=== PATIENT | female | born 1935 | race Caucasian/White ===

== ENCOUNTER 2016-10-02 08:42 | Day surgery (SDC) | payer OTHER ==
[2016-10-02] MEDS ORDERED: NS 500 ML IV 500 ML IV ONE (09:12)
[2016-10-02] MEDS ORDERED: TETRACAINE 0.5% OPHTH 1 DOSE AFFEYE ONE ×2 (09:15→12:08)
[2016-10-02] MEDS ORDERED: VIGAMOX 0.5% OPHTH 1 DOSE AFFEYE ONE ×3 (09:16→09:26)
[2016-10-02] MEDS ORDERED: PROLENSA OPHTH 1 DOSE AFFEYE ONE (09:27)
[2016-10-02] MEDS ORDERED: ALPHAGAN-P OPHTH 1 DOSE AFFEYE ONE (09:28)
[2016-10-02] MEDS ORDERED: MYDRIACIL OPHTH 1 DOSE AFFEYE ONE ×3 (09:29→09:31)
[2016-10-02] MEDS ORDERED: CYCLOGYL 1% OPHTH 1 DOSE OP ONE ×3 (09:29→09:31)
[2016-10-02] MEDS ORDERED: AK-DILATE 2.5% OPHTH 1 DOSE OP ONE ×3 (09:29→09:31)
[2016-10-02] MEDS ORDERED: BETADINE OPHTH SOLN 5% EACHEYE ONE (12:08)
[2016-10-02] MEDS ORDERED: BSS OPHTH (PLAIN) 500 ML with VANCOMYCIN HCL 500 MG VIAL 25 MG, ADRENALINE CHL INJ 1 MG IR ONE ×3 (12:19)
[2016-10-02] MEDS ORDERED: DUOVISC IO ONE (12:20)
[2016-10-02] MEDS ORDERED: XYLOCAINE-MPF 1% IJ ONE (12:20)
[2016-10-02] MEDS ORDERED: ADRENALINE CHL INJ IJ ONE (12:20)
[2016-10-02] MEDS ORDERED: DIPRIVAN VIAL ONE (15:26)
[2016-10-02 16:14] VITALS: BP 153/86
== END 2016-10-02 12:57 | disposition home or self-care (01) ==
LOC: SURG1 08:42
PROVIDERS: ATTEND Ophthalmology
PROC: 08RK3JZ Replacement of Left Lens with Synthetic Substitute, Percutaneous Approach (ICD-10-PCS; principal; 2016-10-02 15:45)
PROC: 08DK3ZZ Extraction of Left Lens, Percutaneous Approach (ICD-10-PCS; principal; 2016-10-02 15:45)
DX: H25.12 Age-related nuclear cataract, left eye (principal)
CPT/HCPCS: A4217; J0170; J3370; J3490

== ENCOUNTER 2016-10-16 06:46 | Day surgery (SDC) | payer OTHER ==
[2016-10-16] MEDS ORDERED: NS 500 ML IV 500 ML IV ONE (07:13)
[2016-10-16] MEDS ORDERED: DUREZOL OPHTH 1 DOSE AFFEYE ONE (07:16)
[2016-10-16] MEDS ORDERED: TETRACAINE 0.5% OPHTH 1 DOSE AFFEYE ONE ×5 (07:17→09:40)
[2016-10-16] MEDS ORDERED: VIGAMOX 0.5% OPHTH 1 DOSE AFFEYE ONE ×5 (07:18→09:55)
[2016-10-16] MEDS ORDERED: PROLENSA OPHTH 1 DOSE AFFEYE ONE (07:30)
[2016-10-16] MEDS ORDERED: ALPHAGAN-P OPHTH 1 DOSE AFFEYE ONE (07:31)
[2016-10-16] MEDS ORDERED: VISINE-A OPHTH 1 DOSE AFFEYE ONE (07:32)
[2016-10-16] MEDS ORDERED: CYCLOGYL 1% OPHTH 1 DOSE OP ONE ×4 (07:35→07:45)
[2016-10-16] MEDS ORDERED: AK-DILATE 2.5% OPHTH 1 DOSE OP ONE ×4 (07:35→07:45)
[2016-10-16] MEDS ORDERED: MYDRIACIL OPHTH 1 DOSE AFFEYE ONE ×4 (07:35→07:45)
[2016-10-16] MEDS ORDERED: BETADINE OPHTH SOLN 5% EACHEYE ONE ×3 (09:01→09:20)
[2016-10-16] MEDS ORDERED: DUOVISC IO ONE ×2 (09:02→09:40)
[2016-10-16] MEDS ORDERED: XYLOCAINE-MPF 1% IJ ONE ×2 (09:02→09:40)
[2016-10-16] MEDS ORDERED: ADRENALINE CHL INJ IJ ONE ×2 (09:02→09:40)
[2016-10-16] MEDS ORDERED: BSS OPHTH (PLAIN) 500 ML with VANCOMYCIN HCL 500 MG VIAL 25 MG, ADRENALINE CHL INJ 1 MG IR ONE ×6 (09:03)
[2016-10-16 10:43] VITALS: BP 146/74
[2016-10-16] MEDS ORDERED: DIPRIVAN VIAL ONE (16:11)
== END 2016-10-16 10:20 | disposition home or self-care (01) ==
LOC: SURG1 06:46
PROVIDERS: ATTEND Ophthalmology
PROC: 08RJ3JZ Replacement of Right Lens with Synthetic Substitute, Percutaneous Approach (ICD-10-PCS; principal; 2016-10-16 07:00)
PROC: 08DJ3ZZ Extraction of Right Lens, Percutaneous Approach (ICD-10-PCS; principal; 2016-10-16 07:00)
DX: H25.11 Age-related nuclear cataract, right eye (principal)
CPT/HCPCS: 99100; A4217; J0170; J3370; J3490

== ENCOUNTER 2016-11-22 07:28 | Inpatient (IN) | payer OTHER ==
--- NOTE | 2016-11-22 07:41 | DR.GENAD ---
HPI - PCP Primary Care Physician: haim - Complaint/Symptoms Chief Complaint Doctors Comments: Patient admits to nausea, chills, for two days Chief Complaint:: N/v and chills for three days now - Source History Provided: Patient - Mode of Arrival Mode of Arrival: Wheelchair - Timing Onset of Chief Complaint: 11/20/16 <BARBARA MCGEHE - Last Filed: 11/22/16 07:48> PMH - PMH Past Medical History: Yes Past Medical History: Arthritis, Dyslipidemia, GERD, Hypertension Past Surgical History: Yes Surgical History: No History Past Surgical History Comment: eye - Family History History of Family Medical Conditions: Yes Family Medical History: Diabetes Mellitus, Cancer, Hypertension - Social History Does patient currently use any type of tobacco product: No Have you used tobacco products in the last 12 months: No Type of Tobacco Use: None Does any household member use tobacco: No Alcohol Use: None Do you use any recreational Drugs:: No Lives With: Family Lives Where: Home - infectious screening In the last 2 months have you had wt loss of >10#?: NO Have you had fever, night sweats or hemotysis?: No Have you traveled outside the country in the last 6 months?: No Isolation: Standard <BARBARA MCGHEE - Last Filed: 11/22/16 07:48> ROS - Review of Systems Constitutional: Chills Eyes: No Symptoms Reported ENTM: No Symptoms Reported Respiratoy: No Symptoms Reported Cardiovascular: No Symptoms Reported Gastrointestinal/Abdominal: No Symptoms Reported Genitourinary: No Symptoms Reported Neurological: No Symptoms Reported Musculoskeletal: No Symptoms Reported Integumentary: No Symptoms Reported Hematologic/Lymphatic: No Symptoms Reported Endocrine: No Symptoms Reported Psychiatric: No Symptoms Reported All Other Systems: Reviewed and Negative <BARBARA MCGHEE - Last Filed: 11/22/16 07:48> PE - General General Appearance: Alert, In No Apparent Distress - Head Head Exam: Normal Inspection, Atraumatic - Eyes Eye exam: Normal Appearance, PERRL, EOMI - ENT ENT Exam: Normal Exam External Ear Exam: Normal External Inspection TM/Canal Exam: Bilateral Normal Nose Exam: Normal Nose Exam Mouth Exam: Normal Inspection Throat Exam: Normal Inspection - Neck Neck Exam: Normal Inspection - Chest Chest Inspection: Normal Inspection - Respiratory Respiratory Exam: Normal Lung Sounds Bilat Respiratory Exam: Bilateral Clear to Auscultation - Cardiovascular Cardiovascular Exam: Normal Rhythm, Tachycardia - Abdominal Exam Abdominal Exam: Normal Inspection Abdominal Tenderness: negative: RUQ, RLQ, LUQ, LLQ, Epigastrium, Suprapubic, Diffuse, Mild, Moderate, Severe, Other - Extremities Extremities Exam: negative: Normal Capillary Refill (delayed) - Back Back Exam: Normal Inspection - Neurologic Neurological Exam: Alert, Oriented X3, CN II-XII Intact - Psychiatric Psychiatric Exam: Normal Affect - Skin Skin Exam: Warm, Dry, Intact <BARBARA MCGHEE - Last Filed: 11/22/16 07:48> MDM - Differential Diagnosis Differential Diagnosis: UTI, PNEUMONIA, CHF, <LAUREN STOCKTON - Last Filed: 11/23/16 13:53> Course - Consultation Consultation Comments: DISCUSS PATIENT WITH DR. AMES. HE WILL ADMIT PATIENT. <LAUREN STOCKTON - Last Filed: 11/23/16 13:53> ROR - Labs Reviewed Laboratory Results Reviewed?: Yes Result Diagrams: 11/23/16 05:55 11/23/16 05:55 - XRAY XRAY Interpreted by: Radiologist XRAY Findings: REPORT DISCUSS WITH PATIENT AND FAMILY. <LAUREN STOCKTON - Last Filed: 11/23/16 13:53> - Labs Reviewed Laboratory: 11/22/16 10:45 Urine,Clean Catch Urine Culture - Preliminary WBC 12.6 X10^3/uL (3.6-10.0) H 11/23/16 05:55 RBC 2.63 X10^6/uL (3.5-5.4) L 11/23/16 05:55 Hgb 7.8 g/dL (12.0-16.0) L 11/23/16 05:55 Hct 24.5 % (36.0-47.0) L 11/23/16 05:55 MCV 93.4 fL (80.0-100.0) 11/23/16 05:55 MCH 29.5 pg (27.0-34.0) 11/23/16 05:55 MCHC 31.6 g/dL (33.0-35.0) L 11/23/16 05:55 RDW 14.7 % (11.6-16.5) 11/23/16 05:55 Plt Count 126 X10^3/uL (150.0-450.0) L 11/23/16 05:55 Plt Count Comment Decreased (ADEQUATE) A 11/23/16 05:55 MPV 9.3 fL (7.4-11.0) 11/23/16 05:55 Neut % 82.7 % (42.0-75.0) H 11/23/16 05:55 Lymph % 7.7 % (21.0-51.0) L 11/23/16 05:55 [place] % 9.0 % (0.0-13.0) 11/23/16 05:55 Eos % 0.1 % (0.9-2.9) L 11/23/16 05:55 Baso % 0.5 % (0.2-1.0) 11/23/16 05:55 Neut # 10.4 x10^3/uL (2.2-4.8) H 11/23/16 05:55 Lymph # 1.0 X10^3/uL (1.3-2.9) L 11/23/16 05:55 [place] # 1.1 x10^3/uL (0.3-0.8) H 11/23/16 05:55 Eos # 0.0 x10^3/uL (0.0-0.2) 11/23/16 05:55 Baso # 0.1 X10^3/uL (0.0-0.1) 11/23/16 05:55 Absolute Nucleated RBC 0.1 /100WBC 11/23/16 05:55 Total Counted 100 11/22/16 08:15 Neutrophils % (Manual) 91 % (39-76) H 11/22/16 08:15 Band Neutrophils % 6 % (0-10) 11/22/16 08:15 Lymphocytes % (Manual) 2 % (13-43) L 11/22/16 08:15 Monocytes % (Manual) 1 % (4-9) L 11/22/16 08:15 Plt Morphology Comment Normal (NORMAL) 11/23/16 05:55 RBC Morphology Abnormal (NORMAL) A 11/23/16 05:55 Hypochromasia Slight A 11/23/16 05:55 Sample Site Lrad 11/23/16 10:21 ABG pH 7.440 (7.35-7.45) 11/23/16 10:21 ABG pCO2 34.0 mmHg (35.0-45.0) L 11/23/16 10:21 ABG pO2 73.0 mmHg (80.0-100.0) L 11/23/16 10:21 ABG HCO3 23.1 mmol/L (22-26) 11/23/16 10:21 ABG O2 Saturation 95.0 % (90-100) 11/23/16 10:21 ABG Base Excess -0.6 mmol/L (-2.0-2.0) 11/23/16 10:21 Miles Test Pos 11/23/16 10:21 A-a Gradient 34.0 mmHg 11/23/16 10:21 FiO2 21.000 11/23/16 10:21 Blood Gas Comments Rina well h. m healthcare administrator 11/23/16 10:21 Sodium 141 mmol/L (136-145) 11/23/16 05:55 Corrected Sodium TNP 11/23/16 05:55 Potassium 3.7 mmol/L (3.5-5.1) 11/23/16 05:55 Chloride 108 mmol/L (98-107) H 11/23/16 05:55 Carbon Dioxide 21.1 mmol/L (21-32) 11/23/16 05:55 BUN 15 mg/dL (7-18) 11/23/16 05:55 Creatinine 0.73 mg/dL (0.55-1.02) 11/23/16 05:55 Est GFR (MDRD) Af Amer > 60 (>60) 11/23/16 05:55 Est GFR (MDRD) Non-Af > 60 (>60) 11/23/16 05:55 Glucose 95 mg/dL (65-99) 11/23/16 05:55 Calcium 8.1 mg/dL (8.5-10.1) L 11/23/16 05:55 Corrected Calcium 9.1 mg/dL (8.5-10.1) 11/23/16 05:55 Total Bilirubin 0.40 mg/dL (0.2-1.0) 11/23/16 05:55 AST 23 Units/L (15-37) 11/23/16 05:55 ALT 18 Units/L (12-78) 11/23/16 05:55 Alkaline Phosphatase 88 Units/L (46-116) 11/23/16 05:55 Creatine Kinase 85 Units/L (26-192) 11/22/16 21:04 CK-MB (CK-2) 1.8 ng/mL (0-4.0) 11/22/16 21:04 CK/CKMB % Calc 2.1 % (<4) 11/22/16 21:04 Troponin I 0.28 ng/mL (0-1.5) 11/22/16 21:04 Total Protein 6.1 g/dL (6.4-8.2) L 11/23/16 05:55 Albumin 2.7 g/dL (3.4-5.0) L 11/23/16 05:55 Globulin 3.4 g/dL (2.5-4.5) 11/23/16 05:55 Albumin/Globulin Ratio 0.8 Ratio (1.1-2.1) L 11/23/16 05:55 Specimen Type Clean catch urine 11/22/16 10:45 Urine Color Dark yellow (YELLOW) 11/22/16 10:45 Urine Appearance Hazy (CLEAR) 11/22/16 10:45 Urine pH 6.0 (5.0 - 8.0) 11/22/16 10:45 Ur Specific [place] 1.010 (1.000-1.030) 11/22/16 10:45 Urine Protein 2+ (NEGATIVE) 11/22/16 10:45 Urine Glucose (UA) Negative (NEGATIVE) 11/22/16 10:45 Urine Ketones Negative (NEGATIVE) 11/22/16 10:45 Urine Occult Blood 2+ (NEGATIVE) 11/22/16 10:45 Urine Nitrite Negative (NEGATIVE) 11/22/16 10:45 Urine Bilirubin Negative (NEGATIVE) 11/22/16 10:45 Urine Urobilinogen 1+ (NORMAL) 11/22/16 10:45 Ur Leukocyte Esterase 3+ (NEGATIVE) 11/22/16 10:45 Urine RBC 25-30 /HPF (NEGATIVE) 11/22/16 10:45 Urine WBC 8-10 /HPF (NEGATIVE) 11/22/16 10:45 Ur Squamous Epith Cells Rare /HPF (NEGATIVE) 11/22/16 10:45 Amorphous Sediment Trace /HPF (NEGATIVE) 11/22/16 10:45 Urine Bacteria 1+ /HPF (NEGATIVE) 11/22/16 10:45 Urine Mucus Few /HPF (NEGATIVE) 11/22/16 10:45 Ur Culture Indicated? Yes/culture set up 11/22/16 10:45 Influenza A (H1N1) PCR Not detected (NOT DETECT) 11/22/16 08:19 Influenza Type A (PCR) Negative (NEGATIVE) 11/22/16 08:19 Influenza Type B (PCR) Negative (NEGATIVE) 11/22/16 08:19 (LAUREN STOCKTON) <BARBARA MCGHEE - Last Filed: 11/22/16 07:48> <LAUREN STOCKTON - Last Filed: 11/23/16 13:53> - Diagnosis Discharge Problem: CHF (congestive heart failure) Anemia Qualifiers: Anemia type: unspecified type Qualified Code(s): D64.9 - Anemia, unspecified Hypotension Qualifiers: Hypotension type: unspecified hypotension type Qualified Code(s): I95.9 - Hypotension, unspecified UTI (urinary tract infection) Qualifiers: Urinary tract infection type: site unspecified Hematuria presence: with hematuria Qualified Code(s): N39.0 - Urinary tract infection, site not specified - Discharge Plan Disposition: 09 ADMITTED INPATIENT Condition: Stable
[2016-11-22] MEDS ORDERED: NS 1000 ML 1,000 ML IV ONE (07:53)
[2016-11-22] MEDS ORDERED: NS 1000 ML 1,000 ML ONE (07:54)
--- NOTE | 2016-11-22 08:02 | RAD ---
HISTORY: Fever and chills for 3 days Study: Portable chest Comparison: September 2013 Findings: The trachea is midline. The cardiac silhouette is moderately enlarged. The aorta is tortuous.. The re is mild vascular congestion. There is no definite effusion.. The bony thorax is unremarkable. IMPRESSION: 1. Cardiomegaly and vascular congestion Reported By:
[2016-11-22 08:22] LABS: BASOPHILS % (AUTO) 0.2 % (0.2-1.0); EOSINOPHILS % (AUTO) 0.1 % (0.9-2.9); HEMATOCRIT 27.7 % (36.0-47.0); LYMPHOCYTES # (AUTO) 0.4 X10^3/uL (1.3-2.9); LYMPHOCYTES % (AUTO) 2.8 % (21.0-51.0); MEAN CORPUSCULAR HEMOGLOBIN 30.1 pg (27.0-34.0); MEAN CORPUSCULAR HGB CONC 32.7 g/dL (33.0-35.0); MEAN CORPUSCULAR VOLUME 92.3 fL (80.0-100.0); MEAN PLATELET VOLUME 8.1 fL (7.4-11.0); MONOCYTES # (AUTO) 0.3 x10^3/uL (0.3-0.8); MONOCYTES % (AUTO) 2.2 % (0.0-13.0); NEUTROPHILS # (AUTO) 11.9 x10^3/uL (2.2-4.8); NEUTROPHILS % (AUTO) 94.7 % (42.0-75.0); PLATELET COUNT 161 X10^3/uL (150.0-450.0); RED CELL DISTRIBUTION WIDTH 14.8 % (11.6-16.5); WHITE BLOOD COUNT 12.6 X10^3/uL (3.6-10.0)
[2016-11-22 08:28] LABS: CHLORIDE 106 mmol/L (98-107); SODIUM 140 mmol/L (136-145)
[2016-11-22 08:37] LABS: BAND NEUTROPHILS % 6 % (0-10)
[2016-11-22 08:38] LABS: PLATELET MORPHOLOGY COMMENT NORMAL (NORMAL)
[2016-11-22 08:40] LABS: ALANINE AMINOTRANSFERASE 24 Units/L (12-78); ALBUMIN 2.8 g/dL (3.4-5.0); ALKALINE PHOSPHATASE 120 Units/L (46-116); ASPARTATE AMINO TRANSFERASE 27 Units/L (15-37); BLOOD UREA NITROGEN 24 mg/dL (7-18); CALCIUM 8.4 mg/dL (8.5-10.1); COR CA(FOR HYPOALB) 9.4 mg/dL (8.5-10.1); CREATININE 1.21 mg/dL (0.55-1.02); GLUCOSE 93 mg/dL (65-99); TOTAL PROTEIN 6.5 g/dL (6.4-8.2); eGFR BLACK RACES 55 (>60); eGFR NON BLACK RACES 46 (>60)
[2016-11-22 10:58] LABS: BILIRUBIN,URINE NEGATIVE (NEGATIVE); BLOOD/HEMOGLOBIN,URINE 2+ (NEGATIVE); GLUCOSE, URINE NEGATIVE (NEGATIVE); KETONES,URINE NEGATIVE (NEGATIVE); LEUKOCYTE ESTERASE ,URINE 3+ (NEGATIVE); NITRITES,URINE NEGATIVE (NEGATIVE); PROTEIN,URINE 2+ (NEGATIVE); UROBILINOGEN,URINE 1+ (NORMAL)
[2016-11-22 11:09] LABS: APPEARANCE,URINE HAZY (CLEAR); COLOR,URINE DARK YELLOW (YELLOW); RBC,URINE 25-30 /HPF (NEGATIVE); SQUAMOUS EPITHELIAL CELL,UR RARE /HPF (NEGATIVE)
[2016-11-22 11:10] LABS: AMORPHOUS SEDIMENT,UR TRACE /HPF (NEGATIVE); BACTERIA,URINE 1+ /HPF (NEGATIVE)
[2016-11-22 11:10] LABS: CKMB % 1.8 % (<4); CREATINE KINASE 57 Units/L (26-192); CREATINE KINASE MB < 1.0 ng/mL (0-4.0); TROPONIN I 0.28 ng/mL (0-1.5)
[2016-11-22 11:11] LABS: MUCUS,URINE FEW /HPF (NEGATIVE)
[2016-11-22] MEDS ORDERED: ROCEPHIN VIAL 1 GM 1 GM in NS 50 ML IV + SPIKE MINIBAG* 50 ML IV ONE (11:17)
[2016-11-22] MEDS ORDERED: NS 50 ML IV + SPIKE MINIBAG* 50 ML IV ONE (11:24)
[2016-11-22] MEDS ORDERED: ROCEPHIN VIAL 1 GM ONE (11:24)
[2016-11-22] MEDS: NS 1000 ML 1,000 ML IV SCH (14:16)
[2016-11-22 16:39] LABS: CKMB % 1.9 % (<4); CREATINE KINASE MB 1.4 ng/mL (0-4.0); TROPONIN I 0.3 ng/mL (0-1.5)
[2016-11-22] MEDS: TYLENOL 325 MG TAB PO PRN (16:55)
[2016-11-22 17:59] VITALS: BMI 26.4
[2016-11-22] MEDS: ALBUMIN HUMAN 25%- 100ML 100 ML IV SCH (19:10)
[2016-11-22 21:34] LABS: CKMB % 2.1 % (<4); CREATINE KINASE MB 1.8 ng/mL (0-4.0); TROPONIN I 0.28 ng/mL (0-1.5)
[2016-11-22] MEDS: ZyrTEC TAB 10 MG PO SCH (21:39)
[2016-11-22] MEDS: ZOCOR TAB 20 MG PO SCH (21:39)
[2016-11-22] MEDS: PEPCID 20 MG IV PREMIX* 20 MG/50 ML BAG IV SCH (21:39)
[2016-11-23] MEDS: NS 1000 ML 1,000 ML IV SCH ×3 (01:57→14:02)
[2016-11-23] MEDS: ZOFRAN INJ 4 MG VIAL IVP PRN ×3 (02:30→15:15)
[2016-11-23 06:18] LABS: BASOPHILS # (AUTO) 0.1 X10^3/uL (0.0-0.1); BASOPHILS % (AUTO) 0.5 % (0.2-1.0); EOSINOPHILS % (AUTO) 0.1 % (0.9-2.9); HEMATOCRIT 24.5 % (36.0-47.0); HEMOGLOBIN 7.8 g/dL (12.0-16.0); LYMPHOCYTES % (AUTO) 7.7 % (21.0-51.0); MEAN CORPUSCULAR HEMOGLOBIN 29.5 pg (27.0-34.0); MEAN CORPUSCULAR HGB CONC 31.6 g/dL (33.0-35.0); MEAN CORPUSCULAR VOLUME 93.4 fL (80.0-100.0); MEAN PLATELET VOLUME 9.3 fL (7.4-11.0); MONOCYTES # (AUTO) 1.1 x10^3/uL (0.3-0.8); NEUTROPHILS # (AUTO) 10.4 x10^3/uL (2.2-4.8); NEUTROPHILS % (AUTO) 82.7 % (42.0-75.0); PLATELET COUNT 126 X10^3/uL (150.0-450.0); RED BLOOD COUNT 2.63 X10^6/uL (3.5-5.4); RED CELL DISTRIBUTION WIDTH 14.7 % (11.6-16.5); WHITE BLOOD COUNT 12.6 X10^3/uL (3.6-10.0)
[2016-11-23 06:41] LABS: ALANINE AMINOTRANSFERASE 18 Units/L (12-78); ALBUMIN 2.7 g/dL (3.4-5.0); ALKALINE PHOSPHATASE 88 Units/L (46-116); ASPARTATE AMINO TRANSFERASE 23 Units/L (15-37); BLOOD UREA NITROGEN 15 mg/dL (7-18); CALCIUM 8.1 mg/dL (8.5-10.1); CARBON DIOXIDE 21.1 mmol/L (21-32); CHLORIDE 108 mmol/L (98-107); COR CA(FOR HYPOALB) 9.1 mg/dL (8.5-10.1); CREATININE 0.73 mg/dL (0.55-1.02); GLUCOSE 95 mg/dL (65-99); SODIUM 141 mmol/L (136-145); TOTAL PROTEIN 6.1 g/dL (6.4-8.2); eGFR BLACK RACES > 60 (>60); eGFR NON BLACK RACES > 60 (>60)
[2016-11-23 07:14] LABS: HYPOCHROMASIA SLIGHT; PLATELET MORPHOLOGY COMMENT NORMAL (NORMAL)
[2016-11-23] MEDS: PEPCID 20 MG IV PREMIX* 20 MG/50 ML BAG IV SCH ×2 (08:43→21:07)
[2016-11-23] MEDS: PROTONIX INJ 40 MG VIAL IVP SCH (08:44)
[2016-11-23] MEDS: ALBUMIN HUMAN 25%- 100ML 100 ML IV SCH (08:57)
[2016-11-23] MEDS ORDERED: ROCEPHIN VIAL 1 GM 1 GM in NS 50 ML IV + SPIKE MINIBAG* 50 ML IV SCH (09:00)
[2016-11-23] MEDS: LEVAQUIN PREMIX IV 750 MG 750 MG/150 ML BAG IV SCH (10:01)
[2016-11-23] MEDS: FORTAZ or TAZICEF INJ 2 GM in NS 50 ML IV + SPIKE MINIBAG* 50 ML IV SCH ×3 (10:01→21:08)
[2016-11-23 10:43] LABS: ABG BASE EXCESS -0.6 mmol/L (-2.0-2.0); ABG HCO3 23.1 mmol/L (22-26)
[2016-11-23 10:44] LABS: ABG ALLEN TEST POS
[2016-11-23] MEDS: TAMIFLU PO SCH ×2 (10:56→21:08)
--- NOTE | 2016-11-23 14:48 | DR.H&P ---
H&P - History & Physical for Day of: H&P Date: 11/22/16 - Chief Complaint Chief Complaint: NAUSEA, FEVER, CHILLS - Allergies Allergies/Adverse Reactions: Allergies Allergy/AdvReac Type Severity Reaction Status Date / Time Codeine Allergy Verified 11/23/15 16:15 - History of Present Illness History of Present Illness: THIS IS A 81 YEAR OLD FEMALE, WHO IS A PATIENT OF OURS. SHE PRESENTS TO THE EMERGENCY ROOM WITH COMPLAINTS OF NAUSEA, FEVER, AND CHILLS FOR THREE DAYS. PATIENT REPORTS SYMPTOMS STARTED GRADUALLY AND HAVE WORSENED IN SEVERITY. PATIENT REPORTS FREQUENT URINATION AND SHORTNESS OF BREATH ALSO. TEMPERATURE ON ARRIVAL TO ER IS 102.5. BLOOD PRESSURE IS 99/53. ON AUSCULTATION, LUNGS ARE NOTED WITH WHEEZING THROUGHOUT. LABS AND CHEST XRAY WERE OBTAINED ON ARRIVAL TO ER. CBC WNL EXCEPT: WBC 12.6, H/H 9.0/27.7. CMP WNL EXCEPT: BUN/CREAT 24/1.21, GFR 46, CALCIUM 8.4, ALK PHOS 120, ALBUMIN 2.8. CARDIAC ENZYMES WNL. ABG ABNORMALS: PCO2 34.0, PO2 73.0, FIO2 21.0. URINALYSIS ABNORMALS: PROTEIN 2+, OCCULT BLOOD 2+, UROBILINOGEN 1+, LEUKOCUTE ESTERASE 3+, RBC 25-30, WBC 8-10, BACTERIA 1+; CULTURE PENDING. INFLUENZA IS NEGATIVE. BLOOD CULTURES OBTAINED. CHEST XRAY REPORTS CARDIOMEGALY AND VASCULAR CONGESTION. EKG: SINUS ARRHYTHMIA, MULTIPLE PVC'S, RATE 94. WE WILL ADMIT PATIENT FOR FURTHER TREATMENT AND EVALUATION. - Past Medical History Past Medical History: Arthritis, Dyslipidemia, GERD, Hypertension Additional Medical History: Cataracts, Diverticulosis, Previous Blood Transfusion - Past Surgical History Surgical History: No History - Family History Family Medical History: Diabetes Mellitus, Cancer, Hypertension - Social History Does patient currently use any type of tobacco product: No Have you used tobacco products in the last 12 months: No Type of Tobacco Use: None Does any household member use tobacco: No Alcohol Use: None Drug Use: None - Medications Home Medications: Pantoprazole Sodium [Protonix] 1 tab PO DAILY 08/24/14 Ranitidine HCl [ZANTAC TAB 150 MG *] 150 mg PO DAILY 08/24/14 Simvastatin [ZOCOR 20 MG *] 1 tab PO HS 08/24/14 Cetirizine HCl [Zyrtec Tab 10 mg] 10 mg PO HS #30 tab 08/26/14 Amlodipine Besylate [NORVASC 5 MG *] 1 tab PO DAILY 11/22/16 Meloxicam [MOBIC 15 MG *] 1 tab PO DAILY 11/22/16 - Review of Systems Constitutional: Fever, Chills, Weakness, Malaise Eyes: No Symptoms Reported. denies: Pain, Vision Change, Conjunctivae Inflammation, Eyelid Inflammation, Redness ENT: No Symptoms Reported. denies: Ear Pain, Ear Discharge, Nose Pain, Nose Discharge, Nose Congestion, Mouth Pain, Mouth Swelling, Throat Pain, Throat Swelling Respiratory: Cough, Shortness of Breath, SOB with Excertion, Wheezing. denies: Hemoptysis, Pleuritic Pain Cardiovascular: No Symptoms Reported. denies: Chest Pain, Palpitations, Orthopnea, Paroxysmal Noc. Dyspnea, Edema, Light Headedness Gastrointestinal: Nausea, Vomiting. denies: Abdominal Pain, Diarrhea, Constipation, Melena, Hematochezia Genitourinary: Dysuria, Frequency, Hematuria. denies: Incontinence Musculoskeletal: No Symptoms Reported. denies: Shoulder Pain, Arm Pain, Back Pain, Hand Pain, Leg Pain, Foot Pain, Neck Pain Skin: No Symptoms Reported. denies: Rash, Lesions, Jaundice, Bruising, Wound, Ecchymosis Neurological: No Symptoms Reported. denies: Weakness, Numbness, Incoordination , Change in Speech, Confusion, Seizures - Physical Exam Vital Signs: Temperature 98.1 F Pulse Rate [Left Brachial] 95 Respiratory Rate 22 Blood Pressure [Right Arm] 132/60 O2 Sat by Pulse Oximetry 90 Oriented: Normal, Time, Person, Place Eyes: Normal. negative: Blurred Vision, Diplopia, Discharge, Pain, Redness, Photophobia Ear: Normal. negative: Swelling, Ecchymosis, Hemotypanum, Abrasion, Laceration Nose: Normal. negative: Injected, Discharge, Blood Throat: Dry. negative: Tonsillar Hypertrophy Respiratory: Wheezes Throughout Cardiovascular: Normal. negative: Murmur, Edema : Dysuria, Hematuria, Frequency, Discharge. negative: Bleeding, Auscultation: Bowel Sounds: Normal. negative: Bruit Palpation: Normal. negative: Spleen Enlarged, Liver Enlarged, Mass Pulsatile Tenderness: Normal. negative: Rebound, Guarding, Rigidity Skin: Normal. negative: Diaphoresis, Wound, Bruising, Ecchymosis Musculoskeletal: Instability Psychiatric: Normal Mood Description: Calm, Appropriate Affect: Normal Speech Pattern: Clear, Appropriate - Assessment/Plan (1) CHF (congestive heart failure) Qualifiers: Congestive heart failure type: unspecified congestive heart failure type Congestive heart failure chronicity: acute Qualified Code(s): I50.9 - Heart failure, unspecified Status: Acute Plan: ADMIT PATIENT, OBTAIN ECHO ON SATURDAY, FLUID RESTRICT, MONITOR CHEST XRAY. (2) Hypotension Qualifiers: Hypotension type: unspecified hypotension type Trimester: T Qualified Code(s): I95.9 - Hypotension, unspecified Status: Acute Plan: CONTINUE TO MONITOR. (3) UTI (urinary tract infection) Qualifiers: Urinary tract infection type: site unspecified Hematuria presence: with hematuria Indwelling urinary catheter type: I Encounter type: E Qualified Code(s): N39.0 - Urinary tract infection, site not specified; R31.9 - Hematuria , unspecified Status: Acute Plan: START ROCEPHIN, IV FLUIDS, MONITOR. (4) Acute gastroenteritis Status: Acute Plan: START IV FLUIDS, ANTI-EMETICS, MONITOR. (5) GERD (gastroesophageal reflux disease) Qualifiers: Esophagitis presence: esophagitis presence not specified Qualified Code(s) : K21.9 - Gastro-esophageal reflux disease without esophagitis Status: Chronic (6) Hyperlipidemia Qualifiers: Hyperlipidemia type: mixed hyperlipidemia Qualified Code(s): E78.2 - Mixed hyperlipidemia Status: Chronic
--- NOTE | 2016-11-23 15:05 | PCM.PROG ---
Progress Note - Progress Note for Day of Date: 11/23/16 - Subjective Subjective: PATIENT REPORTS SHE DOESN'T FEEL WELL. PATIENT IS NOTED WITH A TEMPERATURE OF 103F THROUGH THE NIGHT. PATIENT HAS COARSE WHEEZING NOTED TO LUNGS ON AUSCULTATION. AN INTERMITTENT, NON-PRODUCTIVE COUGH IS NOTED. WE HAVE NO RECORDS REPORTING CHF AT OUR OFFICE AND AN ECHO IS NOT ON FILE. WE WILL PLAN FOR ECHO ON SATURDAY. CBC WNL EXCEPT: WBC 12.6, H/H 7.8/24.5, PLT COUNT 126. CMP WNL EXCEPT: CHL 108, CALCIUM 8.1, TOT PROTEIN 6.1, ALBUMIN 2.7. WE WILL START TAMIFLU, HEMOCCULT ALL STOOLS, DISCONTINUE ROCEPHIN, START LEVAQUIN AND FORTAZ, AND DUONEBS. WE WILL CONTINUE TO MONITOR AND FOLLOW UP IN AM WITH LABS. - Past Medical Family Social History Past Med/Fam/Surg Hx: No changes since H&P Allergies: Allergies Codeine Allergy (Verified 11/23/15 16:15) - Review of Systems ROS: No change since H&P - Vital Signs and I&O's Vital Signs: Temperature 98.1 F Pulse Rate [Left Brachial] 95 Respiratory Rate 22 Blood Pressure [Right Arm] 132/60 O2 Sat by Pulse Oximetry 90 Intake and Output: Intake & Output 11/21/16 11/22/16 11/23/16 11/24/16 11:59 11:59 11:59 11:59 Intake Total 1900 Balance 1900 - Physical Exam Oriented: Normal, Time, Person, Place Eyes: Normal. negative: Blurred Vision, Diplopia, Discharge, Pain, Redness, Photophobia Ear: Normal. negative: Swelling, Ecchymosis, Hemotypanum, Abrasion, Laceration Nose: Normal. negative: Injected, Discharge, Blood Throat: Dry. negative: Tonsillar Hypertrophy Respiratory: Generalized, Wheezes Cardiovascular: Normal. negative: Murmur, Edema : Dysuria, Hematuria, Frequency, Discharge. negative: Bleeding, Auscultation: Bowel Sounds: Normal. negative: Bruit Palpation: Normal. negative: Spleen Enlarged, Liver Enlarged, Mass Pulsatile Tenderness: Normal. negative: Rebound, Guarding, Rigidity Skin: Normal. negative: Diaphoresis, Wound, Bruising, Ecchymosis Musculoskeletal: Instability Psychiatric: Normal Mood Description: Calm, Appropriate Affect: Normal Speech Pattern: Clear, Appropriate - Laboratory and Diagnostics Result Diagrams: 11/23/16 05:55 11/23/16 05:55 Labs: Laboratory WBC 12.6 X10^3/uL (3.6-10.0) H 11/23/16 05:55 RBC 2.63 X10^6/uL (3.5-5.4) L 11/23/16 05:55 Hgb 7.8 g/dL (12.0-16.0) L 11/23/16 05:55 Hct 24.5 % (36.0-47.0) L 11/23/16 05:55 MCV 93.4 fL (80.0-100.0) 11/23/16 05:55 MCH 29.5 pg (27.0-34.0) 11/23/16 05:55 MCHC 31.6 g/dL (33.0-35.0) L 11/23/16 05:55 RDW 14.7 % (11.6-16.5) 11/23/16 05:55 Plt Count 126 X10^3/uL (150.0-450.0) L 11/23/16 05:55 Plt Count Comment Decreased (ADEQUATE) A 11/23/16 05:55 MPV 9.3 fL (7.4-11.0) 11/23/16 05:55 Neut % 82.7 % (42.0-75.0) H 11/23/16 05:55 Lymph % 7.7 % (21.0-51.0) L 11/23/16 05:55 [place] % 9.0 % (0.0-13.0) 11/23/16 05:55 Eos % 0.1 % (0.9-2.9) L 11/23/16 05:55 Baso % 0.5 % (0.2-1.0) 11/23/16 05:55 Neut # 10.4 x10^3/uL (2.2-4.8) H 11/23/16 05:55 Lymph # 1.0 X10^3/uL (1.3-2.9) L 11/23/16 05:55 [place] # 1.1 x10^3/uL (0.3-0.8) H 11/23/16 05:55 Eos # 0.0 x10^3/uL (0.0-0.2) 11/23/16 05:55 Baso # 0.1 X10^3/uL (0.0-0.1) 11/23/16 05:55 Absolute Nucleated RBC 0.1 /100WBC 11/23/16 05:55 Total Counted 100 11/22/16 08:15 Neutrophils % (Manual) 91 % (39-76) H 11/22/16 08:15 Band Neutrophils % 6 % (0-10) 11/22/16 08:15 Lymphocytes % (Manual) 2 % (13-43) L 11/22/16 08:15 Monocytes % (Manual) 1 % (4-9) L 11/22/16 08:15 Plt Morphology Comment Normal (NORMAL) 11/23/16 05:55 RBC Morphology Abnormal (NORMAL) A 11/23/16 05:55 Hypochromasia Slight A 11/23/16 05:55 Sample Site Lrad 11/23/16 10:21 ABG pH 7.440 (7.35-7.45) 11/23/16 10:21 ABG pCO2 34.0 mmHg (35.0-45.0) L 11/23/16 10:21 ABG pO2 73.0 mmHg (80.0-100.0) L 11/23/16 10:21 ABG HCO3 23.1 mmol/L (22-26) 11/23/16 10:21 ABG O2 Saturation 95.0 % (90-100) 11/23/16 10:21 ABG Base Excess -0.6 mmol/L (-2.0-2.0) 11/23/16 10:21 Miles Test Pos 11/23/16 10:21 A-a Gradient 34.0 mmHg 11/23/16 10:21 FiO2 21.000 11/23/16 10:21 Blood Gas Comments Rina well h. m sifting operator 11/23/16 10:21 Sodium 141 mmol/L (136-145) 11/23/16 05:55 Corrected Sodium TNP 11/23/16 05:55 Potassium 3.7 mmol/L (3.5-5.1) 11/23/16 05:55 Chloride 108 mmol/L (98-107) H 11/23/16 05:55 Carbon Dioxide 21.1 mmol/L (21-32) 11/23/16 05:55 BUN 15 mg/dL (7-18) 11/23/16 05:55 Creatinine 0.73 mg/dL (0.55-1.02) 11/23/16 05:55 Est GFR (MDRD) Af Amer > 60 (>60) 11/23/16 05:55 Est GFR (MDRD) Non-Af > 60 (>60) 11/23/16 05:55 Glucose 95 mg/dL (65-99) 11/23/16 05:55 Calcium 8.1 mg/dL (8.5-10.1) L 11/23/16 05:55 Corrected Calcium 9.1 mg/dL (8.5-10.1) 11/23/16 05:55 Total Bilirubin 0.40 mg/dL (0.2-1.0) 11/23/16 05:55 AST 23 Units/L (15-37) 11/23/16 05:55 ALT 18 Units/L (12-78) 11/23/16 05:55 Alkaline Phosphatase 88 Units/L (46-116) 11/23/16 05:55 Creatine Kinase 85 Units/L (26-192) 11/22/16 21:04 CK-MB (CK-2) 1.8 ng/mL (0-4.0) 11/22/16 21:04 CK/CKMB % Calc 2.1 % (<4) 11/22/16 21:04 Troponin I 0.28 ng/mL (0-1.5) 11/22/16 21:04 Total Protein 6.1 g/dL (6.4-8.2) L 11/23/16 05:55 Albumin 2.7 g/dL (3.4-5.0) L 11/23/16 05:55 Globulin 3.4 g/dL (2.5-4.5) 11/23/16 05:55 Albumin/Globulin Ratio 0.8 Ratio (1.1-2.1) L 11/23/16 05:55 Specimen Type Clean catch urine 11/22/16 10:45 Urine Color Dark yellow (YELLOW) 11/22/16 10:45 Urine Appearance Hazy (CLEAR) 11/22/16 10:45 Urine pH 6.0 (5.0 - 8.0) 11/22/16 10:45 Ur Specific [place] 1.010 (1.000-1.030) 11/22/16 10:45 Urine Protein 2+ (NEGATIVE) 11/22/16 10:45 Urine Glucose (UA) Negative (NEGATIVE) 11/22/16 10:45 Urine Ketones Negative (NEGATIVE) 11/22/16 10:45 Urine Occult Blood 2+ (NEGATIVE) 11/22/16 10:45 Urine Nitrite Negative (NEGATIVE) 11/22/16 10:45 Urine Bilirubin Negative (NEGATIVE) 11/22/16 10:45 Urine Urobilinogen 1+ (NORMAL) 11/22/16 10:45 Ur Leukocyte Esterase 3+ (NEGATIVE) 11/22/16 10:45 Urine RBC 25-30 /HPF (NEGATIVE) 11/22/16 10:45 Urine WBC 8-10 /HPF (NEGATIVE) 11/22/16 10:45 Ur Squamous Epith Cells Rare /HPF (NEGATIVE) 11/22/16 10:45 Amorphous Sediment Trace /HPF (NEGATIVE) 11/22/16 10:45 Urine Bacteria 1+ /HPF (NEGATIVE) 11/22/16 10:45 Urine Mucus Few /HPF (NEGATIVE) 11/22/16 10:45 Ur Culture Indicated? Yes/culture set up 11/22/16 10:45 Influenza A (H1N1) PCR Not detected (NOT DETECT) 11/22/16 08:19 Influenza Type A (PCR) Negative (NEGATIVE) 11/22/16 08:19 Influenza Type B (PCR) Negative (NEGATIVE) 11/22/16 08:19 - Plan (1) Bronchopneumonia Status: Acute Plan: START IV LEVAQUIN, FORTAZ, DUONEBS, CONTINUE SUPPLEMENTAL OXYGEN, MONITOR LABS/CXR. (2) Influenza Status: Suspected Plan: START TAMIFLU, CONTINUE IV FLUIDS, MONITOR. (3) CHF (congestive heart failure) Status: Acute Qualifiers: Congestive heart failure type: unspecified congestive heart failure type Congestive heart failure chronicity: acute Qualified Code(s): I50.9 - Heart failure, unspecified Plan: OBTAIN ECHO ON SATURDAY, FLUID RESTRICT, MONITOR CHEST XRAY. (4) Hypotension Status: Acute Qualifiers: Hypotension type: unspecified hypotension type Trimester: T Qualified Code(s): I95.9 - Hypotension, unspecified Plan: CONTINUE TO MONITOR. (5) UTI (urinary tract infection) Status: Acute Qualifiers: Urinary tract infection type: site unspecified Hematuria presence: with hematuria Indwelling urinary catheter type: I Encounter type: E Qualified Code(s): N39.0 - Urinary tract infection, site not specified; R31.9 - Hematuria , unspecified Plan: CONTINUE IV ANTIBIOTICS, IV FLUIDS, MONITOR. (6) Acute gastroenteritis Status: Acute Plan: CONTINUE IV FLUIDS, ANTI-EMETICS, MONITOR. (7) GERD (gastroesophageal reflux disease) Status: Chronic Qualifiers: Esophagitis presence: esophagitis presence not specified Qualified Code(s) : K21.9 - Gastro-esophageal reflux disease without esophagitis (8) Hyperlipidemia Status: Chronic Qualifiers: Hyperlipidemia type: mixed hyperlipidemia Qualified Code(s): E78.2 - Mixed hyperlipidemia
[2016-11-23] MEDS: TYLENOL 325 MG TAB PO PRN ×2 (16:08→23:52)
[2016-11-23] MEDS: DUONEB 0.5 MG/3 MG NEB SCH ×2 (16:10→20:35)
[2016-11-23] MEDS: ZOCOR TAB 20 MG PO SCH (21:08)
[2016-11-23] MEDS: ZyrTEC TAB 10 MG PO SCH (21:08)
[2016-11-24] MEDS: DUONEB 0.5 MG/3 MG NEB SCH ×6 (00:53→20:00)
[2016-11-24] MEDS: FORTAZ or TAZICEF INJ 2 GM in NS 50 ML IV + SPIKE MINIBAG* 50 ML IV SCH ×3 (06:03→21:06)
[2016-11-24] MEDS: NS 1000 ML 1,000 ML IV SCH ×2 (06:26→17:38)
[2016-11-24 07:52] LABS: BASOPHILS % (AUTO) 0.2 % (0.2-1.0); EOSINOPHILS % (AUTO) 0.3 % (0.9-2.9); HEMATOCRIT 24.5 % (36.0-47.0); HEMOGLOBIN 8.1 g/dL (12.0-16.0); LYMPHOCYTES # (AUTO) 0.8 X10^3/uL (1.3-2.9); LYMPHOCYTES % (AUTO) 10.6 % (21.0-51.0); MEAN CORPUSCULAR HEMOGLOBIN 30.9 pg (27.0-34.0); MEAN CORPUSCULAR VOLUME 93.4 fL (80.0-100.0); MEAN PLATELET VOLUME 8.9 fL (7.4-11.0); MONOCYTES # (AUTO) 0.9 x10^3/uL (0.3-0.8); MONOCYTES % (AUTO) 12.3 % (0.0-13.0); NEUTROPHILS # (AUTO) 5.6 x10^3/uL (2.2-4.8); NEUTROPHILS % (AUTO) 76.6 % (42.0-75.0); PLATELET COUNT 134 X10^3/uL (150.0-450.0); RED BLOOD COUNT 2.63 X10^6/uL (3.5-5.4); RED CELL DISTRIBUTION WIDTH 14.6 % (11.6-16.5); WHITE BLOOD COUNT 7.4 X10^3/uL (3.6-10.0)
--- NOTE | 2016-11-24 07:53 | RAD ---
HISTORY: Cough and congestion Study: Single view of the chest. Comparison: 11/22/2016 Findings: Cardiomegaly. No focal consolidations, pleural effusions or pneumothorax. Osseous structures demonst rate no acute abnormality. IMPRESSION: 1. No acute cardiopulmonary process. Reported By:
[2016-11-24 08:06] LABS: ALANINE AMINOTRANSFERASE 17 Units/L (12-78); ALBUMIN 2.7 g/dL (3.4-5.0); ALKALINE PHOSPHATASE 75 Units/L (46-116); ASPARTATE AMINO TRANSFERASE 21 Units/L (15-37); BLOOD UREA NITROGEN 9 mg/dL (7-18); CALCIUM 8.4 mg/dL (8.5-10.1); CARBON DIOXIDE 25.8 mmol/L (21-32); CHLORIDE 108 mmol/L (98-107); COR CA(FOR HYPOALB) 9.4 mg/dL (8.5-10.1); COR NA(FOR HYPERGLY) 141 mmol/L (136-145); CREATININE 0.81 mg/dL (0.55-1.02); GLUCOSE 117 mg/dL (65-99); SODIUM 141 mmol/L (136-145); TOTAL PROTEIN 6.3 g/dL (6.4-8.2); eGFR BLACK RACES > 60 (>60); eGFR NON BLACK RACES > 60 (>60)
[2016-11-24 08:22] LABS: BAND NEUTROPHILS % 4 % (0-10); HYPOCHROMASIA SLIGHT; PLATELET MORPHOLOGY COMMENT NORMAL (NORMAL)
[2016-11-24] MEDS: PEPCID 20 MG IV PREMIX* 20 MG/50 ML BAG IV SCH ×2 (09:21→21:06)
[2016-11-24] MEDS: ALBUMIN HUMAN 25%- 100ML 100 ML IV SCH (09:21)
[2016-11-24] MEDS: TAMIFLU PO SCH ×2 (09:21→21:06)
[2016-11-24] MEDS: LEVAQUIN PREMIX IV 750 MG 750 MG/150 ML BAG IV SCH (09:21)
[2016-11-24] MEDS: PROTONIX INJ 40 MG VIAL IVP SCH (09:21)
[2016-11-24] MEDS: TYLENOL 325 MG TAB PO PRN ×2 (11:09→21:06)
[2016-11-24] MEDS: ZOCOR TAB 20 MG PO SCH (21:07)
[2016-11-24] MEDS: ZyrTEC TAB 10 MG PO SCH (21:07)
[2016-11-25] MEDS: DUONEB 0.5 MG/3 MG NEB SCH ×6 (00:28→21:24)
[2016-11-25] MEDS: FORTAZ or TAZICEF INJ 2 GM in NS 50 ML IV + SPIKE MINIBAG* 50 ML IV SCH ×3 (05:44→21:00)
[2016-11-25] MEDS: NS 1000 ML 1,000 ML IV SCH ×2 (05:44→20:55)
[2016-11-25 06:57] LABS: BASOPHILS % (AUTO) 0.3 % (0.2-1.0); EOSINOPHILS # (AUTO) 0.1 x10^3/uL (0.0-0.2); EOSINOPHILS % (AUTO) 1.4 % (0.9-2.9); HEMATOCRIT 25.7 % (36.0-47.0); HEMOGLOBIN 8.4 g/dL (12.0-16.0); LYMPHOCYTES # (AUTO) 0.6 X10^3/uL (1.3-2.9); MEAN CORPUSCULAR HEMOGLOBIN 30.2 pg (27.0-34.0); MEAN CORPUSCULAR HGB CONC 32.8 g/dL (33.0-35.0); MEAN CORPUSCULAR VOLUME 92.1 fL (80.0-100.0); MEAN PLATELET VOLUME 8.7 fL (7.4-11.0); MONOCYTES % (AUTO) 14.5 % (0.0-13.0); NEUTROPHILS % (AUTO) 74.8 % (42.0-75.0); PLATELET COUNT 145 X10^3/uL (150.0-450.0); RED CELL DISTRIBUTION WIDTH 14.2 % (11.6-16.5); WHITE BLOOD COUNT 6.6 X10^3/uL (3.6-10.0)
[2016-11-25 07:07] LABS: ALANINE AMINOTRANSFERASE 16 Units/L (12-78); ALBUMIN 3.2 g/dL (3.4-5.0); ALKALINE PHOSPHATASE 73 Units/L (46-116); ASPARTATE AMINO TRANSFERASE 19 Units/L (15-37); BLOOD UREA NITROGEN 5 mg/dL (7-18); CALCIUM 9.2 mg/dL (8.5-10.1); CARBON DIOXIDE 26.1 mmol/L (21-32); CHLORIDE 107 mmol/L (98-107); COR CA(FOR HYPOALB) 9.8 mg/dL (8.5-10.1); COR NA(FOR HYPERGLY) 143 mmol/L (136-145); CREATININE 0.64 mg/dL (0.55-1.02); GLUCOSE 113 mg/dL (65-99); SODIUM 143 mmol/L (136-145); eGFR BLACK RACES > 60 (>60); eGFR NON BLACK RACES > 60 (>60)
--- NOTE | 2016-11-25 07:13 | RAD ---
HISTORY: Cough and congestion Study: Single view of the chest. Comparison: 11/24/2016 Findings: Cardiomegaly. No focal consolidations, pleural effusions or pneumothorax. Osseous structures demonst rate no acute abnormality. IMPRESSION: 1. No change in appearance of cardiomegaly. 2. It should be noted that in the absence of a change in clinical status or intervening procedure, d aily chest x-ray has not been shown to affect outcomes in hospitalized patients. [email or web address]://pubs.[email or web address] rg/doi/[email or web address] Reported By:
[2016-11-25] MEDS: LEVAQUIN PREMIX IV 750 MG 750 MG/150 ML BAG IV SCH (08:53)
[2016-11-25] MEDS: TAMIFLU PO SCH ×2 (08:54→20:58)
[2016-11-25] MEDS: PROTONIX INJ 40 MG VIAL IVP SCH (08:54)
[2016-11-25] MEDS: PEPCID 20 MG IV PREMIX* 20 MG/50 ML BAG IV SCH ×2 (08:54→20:58)
[2016-11-25] MEDS: TYLENOL 325 MG TAB PO PRN (08:56)
[2016-11-25] MEDS ORDERED: CARDIZEM INJ 125 MG VIAL 125 MG in NS 100 ML IV 100 ML IV PRN (09:27)
[2016-11-25] MEDS ORDERED: CARDIZEM INJ 125 MG VIAL ONE (09:33)
[2016-11-25] MEDS ORDERED: NS 100 ML IV 100 ML IV ONE ×2 (09:33→09:35)
[2016-11-25] MEDS: CARDIZEM CD 180 MG PO SCH (13:33)
[2016-11-25] MEDS: ALBUMIN HUMAN 25%- 100ML 100 ML IV SCH (13:38)
[2016-11-25] MEDS: ZOCOR TAB 20 MG PO SCH (20:58)
[2016-11-25] MEDS: ZyrTEC TAB 10 MG PO SCH (20:58)
[2016-11-26] MEDS: DUONEB 0.5 MG/3 MG NEB SCH ×4 (00:47→12:20)
[2016-11-26 04:56] LABS: BASOPHILS % (AUTO) 0.3 % (0.2-1.0); EOSINOPHILS # (AUTO) 0.1 x10^3/uL (0.0-0.2); EOSINOPHILS % (AUTO) 2.2 % (0.9-2.9); HEMOGLOBIN 7.9 g/dL (12.0-16.0); LYMPHOCYTES # (AUTO) 0.7 X10^3/uL (1.3-2.9); LYMPHOCYTES % (AUTO) 12.1 % (21.0-51.0); MEAN CORPUSCULAR HEMOGLOBIN 31.5 pg (27.0-34.0); MEAN CORPUSCULAR HGB CONC 34.4 g/dL (33.0-35.0); MEAN CORPUSCULAR VOLUME 91.7 fL (80.0-100.0); MEAN PLATELET VOLUME 8.9 fL (7.4-11.0); MONOCYTES # (AUTO) 1.1 x10^3/uL (0.3-0.8); MONOCYTES % (AUTO) 20.2 % (0.0-13.0); NEUTROPHILS # (AUTO) 3.7 x10^3/uL (2.2-4.8); NEUTROPHILS % (AUTO) 65.2 % (42.0-75.0); PLATELET COUNT 145 X10^3/uL (150.0-450.0); WHITE BLOOD COUNT 5.6 X10^3/uL (3.6-10.0)
[2016-11-26 05:11] LABS: ALANINE AMINOTRANSFERASE 15 Units/L (12-78); ALBUMIN 2.9 g/dL (3.4-5.0); ALKALINE PHOSPHATASE 58 Units/L (46-116); ASPARTATE AMINO TRANSFERASE 16 Units/L (15-37); BLOOD UREA NITROGEN 6 mg/dL (7-18); CALCIUM 8.9 mg/dL (8.5-10.1); CARBON DIOXIDE 25.8 mmol/L (21-32); CHLORIDE 107 mmol/L (98-107); COR CA(FOR HYPOALB) 9.8 mg/dL (8.5-10.1); CREATININE 0.69 mg/dL (0.55-1.02); GLUCOSE 102 mg/dL (65-99); SODIUM 143 mmol/L (136-145); TOTAL PROTEIN 6.4 g/dL (6.4-8.2); eGFR BLACK RACES > 60 (>60); eGFR NON BLACK RACES > 60 (>60)
[2016-11-26] MEDS: FORTAZ or TAZICEF INJ 2 GM in NS 50 ML IV + SPIKE MINIBAG* 50 ML IV SCH (05:11)
[2016-11-26] MEDS: NS 1000 ML 1,000 ML IV SCH ×2 (05:12→08:26)
[2016-11-26 05:46] LABS: HYPOCHROMASIA SLIGHT; MICROCYTOSIS SLIGHT; PLATELET MORPHOLOGY COMMENT NORMAL (NORMAL); POIKILOCYTOSIS SLIGHT
--- NOTE | 2016-11-26 06:31 | RAD ---
HISTORY: Cough Study: Chest one view Comparison: November 25, 2016 Findings: The trachea is midline. The cardiac silhouette is enlarged. No congestive heart failure is noted. T he aorta is calcified. The alexis are normal.. The lungs are clear without focal infiltrate or effusi on. The bony thorax is unremarkable. IMPRESSION: Cardiomegaly without congestive heart failure Reported By:
[2016-11-26] MEDS: PROTONIX INJ 40 MG VIAL IVP SCH (08:26)
[2016-11-26] MEDS: PEPCID 20 MG IV PREMIX* 20 MG/50 ML BAG IV SCH (08:26)
[2016-11-26] MEDS: CARDIZEM CD 180 MG PO SCH (08:28)
[2016-11-26] MEDS: TAMIFLU PO SCH (08:37)
[2016-11-26] MEDS: ALBUMIN HUMAN 25%- 100ML 100 ML IV SCH (08:51)
[2016-11-26] MEDS: LEVAQUIN PREMIX IV 750 MG 750 MG/150 ML BAG IV SCH (09:55)
[2016-11-26] MEDS: TYLENOL 325 MG TAB PO PRN (12:24)
[2016-11-26 16:06] VITALS: BP 148/71
== END 2016-11-26 17:15 | disposition home or self-care (01) | DRG 291 ==
LOC: ER 07:39 → OBSVTOIN 13:30 → OBS 13:30 → MED/SURG 11-23 13:20 → ICU 11-25 09:30
PROVIDERS: ADMIT Internal Medicine; ATTEND Internal Medicine
DX: I50.9 Heart failure, unspecified (principal); J10.08 Influenza due to other identified influenza virus with other specified pneumonia; J15.4 Pneumonia due to other streptococci; N39.0 Urinary tract infection, site not specified; R06.02 Shortness of breath; I95.89 Other hypotension; R94.31 Abnormal electrocardiogram [ECG] [EKG]; R11.2 Nausea with vomiting, unspecified; D64.89 Other specified anemias; I10 Essential (primary) hypertension; K21.9 Gastro-esophageal reflux disease without esophagitis; E78.2 Mixed hyperlipidemia; B96.29 Other Escherichia coli [E. coli] as the cause of diseases classified elsewhere; I51.7 Cardiomegaly; K52.89 Other specified noninfective gastroenteritis and colitis
CPT/HCPCS: 36415; 36600; 71010; 80053; 81001; 82550; 82553; 82803; 83605; 84484; 85025; 87040; 87070; 87077; 87086; 87088; 87186; 87205; 87502; 87503; 93005; 93010; 93306; 94640; 94760; 96365; 96374; 99284; A4222; C9113; G9035; P9047; S0028; J0696; J0713; J1956; J2405; J7620

== ENCOUNTER 2017-10-05 08:09 | Inpatient (IN) | payer OTHER ==
--- NOTE | 2017-10-05 08:36 | DR.SOBA ---
HPI - Time Seen Time seen: 08:10 - Primary Care Physician Primary Care Physician: KWAKU - Complaints Chief Complaint Doctors Comments: Patient presents with complaint of dyspnea onset on yesterday. She denies a history of heart or lung disease. She denies cigarette use. She was diagnosed with bronchitis two weeks ago and was treated with antibiotics. Oxygen saturation on room are 97%. Chief Complaint:: PT. C/O SHORTNESS OF BREATH THAT BEGAN YESTERDAY. PT. SEEN DR. AMES 2 WEEKS AGO AND WAS TREATED FOR BRONCHITIS. - Source History Provided: Patient - Mode of Arrival Mode of Arrival: Ambulatory - Timing Onset of Chief Complaint: 10/04/17 PMH - PMH Past Medical History: Yes Past Medical History: Arthritis, Dyslipidemia, GERD, Hypertension Past Surgical History: No Surgical History: No History - Family History History of Family Medical Conditions: Yes Family Medical History: Diabetes Mellitus, Cancer, Hypertension - Social History Does patient currently use any type of tobacco product: No Have you used tobacco products in the last 12 months: No Type of Tobacco Use: None Does any household member use tobacco: No Alcohol Use: None Do you use any recreational Drugs:: No Lives With: Family Lives Where: Home - infectious screening In the last 2 months have you had wt loss of >10#?: NO Have you had fever, night sweats or hemotysis?: No Have you traveled outside the country in the last 6 months?: No Isolation: Standard ROS - Review of Systems Eyes: No Symptoms Reported ENTM: No Symptoms Reported Respiratoy: No Symptoms Reported Cardiovascular: No Symptoms Reported Gastrointestinal/Abdominal: No Symptoms Reported Genitourinary: No Symptoms Reported Neurological: No Symptoms Reported Musculoskeletal: No Symptoms Reported Integumentary: No Symptoms Reported Hematologic/Lymphatic: No Symptoms Reported Endocrine: No Symptoms Reported Psychiatric: No Symptoms Reported All Other Systems: Reviewed and Negative PE - Vital Signs Vitals: Temperature 97.5 F Pulse Rate [Left Brachial] 92 Pulse Rate 101 Respiratory Rate 22 Blood Pressure [Left Arm] 138/67 Blood Pressure [Right Arm] 148/71 Blood Pressure 123/66 O2 Sat by Pulse Oximetry 97 - General Limitations: No Limitations General Appearance: Alert, In No Apparent Distress - Head Head Exam: Normal Inspection, Atraumatic - Eyes Eye exam: Normal Appearance, PERRL, EOMI - ENT ENT Exam: Normal Exam, Normal Oropharynx - Neck Neck Exam: Normal Inspection, Full ROM - Chest Chest Inspection: Normal Inspection, Symmetric Chest Wall Rise - Respiratory Respiratory Exam: Normal Lung Sounds Bilat. negative: Accessory Muscle Use, Respiratory Distress, Stridor Respiratory Exam: Bilateral Clear to Auscultation - Cardiovascular Cardiovascular Exam: Regular Rate, Normal Rhythm - Abdominal Exam Abdominal Exam: Normal Inspection, Normal Bowel Sounds, Soft Abdominal Tenderness: negative: RUQ, RLQ, LUQ, LLQ, Epigastrium, Suprapubic, Diffuse, Mild, Moderate, Severe, Other - Extremities Extremities Exam: Normal Inspection, Full ROM - Back Back Exam: Normal Inspection - Neurologic Neurological Exam: Alert, Oriented X3, CN II-XII Intact - Psychiatric Psychiatric Exam: Normal Affect - Skin Skin Exam: Warm, Dry, Intact MDM - Differential Diagnosis Differential Diagnosis: Pulmonary embolism Course - Reevaluation 1st: Improved - Consultation Called: 10:05 (Dr Alejandra agreed to admit for further evaluation) ROR - Labs Reviewed Result Diagrams: 10/05/17 08:44 10/05/17 08:44 Laboratory: WBC 5.5 X10^3/uL (3.6-10.0) 10/05/17 08:44 RBC 3.15 X10^6/uL (3.5-5.4) L 10/05/17 08:44 Hgb 9.5 g/dL (12.0-16.0) L 10/05/17 08:44 Hct 28.9 % (36.0-47.0) L 10/05/17 08:44 MCV 91.6 fL (80.0-100.0) 10/05/17 08:44 MCH 30.2 pg (27.0-34.0) 10/05/17 08:44 MCHC 32.9 g/dL (33.0-35.0) L 10/05/17 08:44 RDW 15.8 % (11.6-16.5) 10/05/17 08:44 Plt Count 233 X10^3/uL (150.0-450.0) 10/05/17 08:44 MPV 8.2 fL (7.4-11.0) 10/05/17 08:44 Neut % (Auto) 72.0 % (42.0-75.0) 10/05/17 08:44 Lymph % (Auto) 13.3 % (21.0-51.0) L 10/05/17 08:44 [place] % (Auto) 12.6 % (0.0-13.0) 10/05/17 08:44 Eos % (Auto) 1.6 % (0.9-2.9) 10/05/17 08:44 Baso % (Auto) 0.5 % (0.2-1.0) 10/05/17 08:44 Neut # (Auto) 4.0 x10^3/uL (2.2-4.8) 10/05/17 08:44 Lymph # (Auto) 0.7 X10^3/uL (1.3-2.9) L 10/05/17 08:44 [place] # (Auto) 0.7 x10^3/uL (0.3-0.8) 10/05/17 08:44 Eos # (Auto) 0.1 x10^3/uL (0.0-0.2) 10/05/17 08:44 Baso # (Auto) 0.0 X10^3/uL (0.0-0.1) 10/05/17 08:44 Absolute Nucleated RBC 0.0 /100WBC 10/05/17 08:44 D-Dimer 389 ng/mL (0-400) 10/05/17 08:44 Sodium 143 mmol/L (136-145) 10/05/17 08:44 Corrected Sodium 144 mmol/L (136-145) 10/05/17 08:44 Potassium 3.6 mmol/L (3.5-5.1) 10/05/17 08:44 Chloride 106 mmol/L (98-107) 10/05/17 08:44 Carbon Dioxide 25.2 mmol/L (21-32) 10/05/17 08:44 BUN 10 mg/dL (7-18) 10/05/17 08:44 Creatinine 0.65 mg/dL (0.55-1.02) 10/05/17 08:44 Est GFR (MDRD) Af Amer > 60 (>60) 10/05/17 08:44 Est GFR (MDRD) Non-Af > 60 (>60) 10/05/17 08:44 Glucose 125 mg/dL (65-99) H 10/05/17 08:44 Calcium 8.4 mg/dL (8.5-10.1) L 10/05/17 08:44 Corrected Calcium TNP 10/05/17 08:44 Total Bilirubin 0.30 mg/dL (0.2-1.0) 10/05/17 08:44 AST 15 Units/L (15-37) 10/05/17 08:44 ALT 13 Units/L (12-78) 10/05/17 08:44 Alkaline Phosphatase 75 Units/L (46-116) 10/05/17 08:44 Creatine Kinase 53 Units/L (26-192) 10/05/17 08:44 CK-MB (CK-2) 2.1 ng/mL (0-4.0) 10/05/17 08:44 CK/CKMB % Calc 4.0 % (<4) 10/05/17 08:44 Troponin I 0.35 ng/mL (0-1.5) 10/05/17 08:44 C-Reactive Protein 12.90 mg/L (0-3.0) H 10/05/17 08:44 B-Natriuretic Peptide 1690 pg/mL (0-79) H* 10/05/17 08:44 Total Protein 7.5 g/dL (6.4-8.2) 10/05/17 08:44 Albumin 3.4 g/dL (3.4-5.0) 10/05/17 08:44 Globulin 4.1 g/dL (2.5-4.5) 10/05/17 08:44 Albumin/Globulin Ratio 0.8 Ratio (1.1-2.1) L 10/05/17 08:44 - XRAY XRAY Interpreted by: Radiologist (Chest: Continued cardiomegaly with interval development of extensive distention and indistinctness of pulmonary vessels with bilateral interstitial increase and suspect small pleural fluid collections at the costophrenic sulci. Hiatal hernia is suggested. Impression: radiographic findings consistent with congestive failure and ulmonary edema.) - EKG Compared to prior EKG Dated: 11/22/16 Carroll: LAD Rhythm: NSR Hypertrophy: LAE (Probable anterior infarct, age indeterminate) - Diagnosis Discharge Problem: Dyspnea due to congestive heart failure, Anemia, Cardiac enzymes elevated CHF (congestive heart failure) Qualifiers: Heart failure type: unspecified Heart failure chronicity: acute Qualified Code( s): I50.9 - Heart failure, unspecified - Discharge Plan Condition: Stable - Follow ups/Referrals Follow ups/Referrals: Jim Ames [Primary Care Provider] - 3 days - Instructions
[2017-10-05 08:58] LABS: BASOPHILS % (AUTO) 0.5 % (0.2-1.0); EOSINOPHILS # (AUTO) 0.1 x10^3/uL (0.0-0.2); EOSINOPHILS % (AUTO) 1.6 % (0.9-2.9); HEMATOCRIT 28.9 % (36.0-47.0); HEMOGLOBIN 9.5 g/dL (12.0-16.0); LYMPHOCYTES # (AUTO) 0.7 X10^3/uL (1.3-2.9); LYMPHOCYTES % (AUTO) 13.3 % (21.0-51.0); MEAN CORPUSCULAR HEMOGLOBIN 30.2 pg (27.0-34.0); MEAN CORPUSCULAR HGB CONC 32.9 g/dL (33.0-35.0); MEAN CORPUSCULAR VOLUME 91.6 fL (80.0-100.0); MEAN PLATELET VOLUME 8.2 fL (7.4-11.0); MONOCYTES # (AUTO) 0.7 x10^3/uL (0.3-0.8); MONOCYTES % (AUTO) 12.6 % (0.0-13.0); PLATELET COUNT 233 X10^3/uL (150.0-450.0); RED BLOOD COUNT 3.15 X10^6/uL (3.5-5.4); RED CELL DISTRIBUTION WIDTH 15.8 % (11.6-16.5); WHITE BLOOD COUNT 5.5 X10^3/uL (3.6-10.0)
[2017-10-05 09:09] LABS: ALANINE AMINOTRANSFERASE 13 Units/L (12-78); ALBUMIN 3.4 g/dL (3.4-5.0); ALKALINE PHOSPHATASE 75 Units/L (46-116); ASPARTATE AMINO TRANSFERASE 15 Units/L (15-37); BLOOD UREA NITROGEN 10 mg/dL (7-18); CALCIUM 8.4 mg/dL (8.5-10.1); CARBON DIOXIDE 25.2 mmol/L (21-32); CHLORIDE 106 mmol/L (98-107); COR NA(FOR HYPERGLY) 144 mmol/L (136-145); CREATININE 0.65 mg/dL (0.55-1.02); SODIUM 143 mmol/L (136-145); TOTAL PROTEIN 7.5 g/dL (6.4-8.2); eGFR BLACK RACES > 60 (>60); eGFR NON BLACK RACES > 60 (>60)
--- NOTE | 2017-10-05 09:11 | RAD ---
Examination: Chest, PA and lateral views History: Dyspnea Comparison 11/26/2016 Findings: Continued cardiomegaly with interval development of extensive distention and indistinctness of the pulmonary vessels with bilateral interstitial increase and suspect small pleural fluid collec tions at the costophrenic sulci. Hiatal hernia is suggested. Impression: Interval development of radiographic findings consistent with congestive failure and pulm onary edema. Reported By:
[2017-10-05 09:24] LABS: CREATINE KINASE MB 2.1 ng/mL (0-4.0); TROPONIN I 0.35 ng/mL (0-1.5)
[2017-10-05 09:48] LABS: B-TYPE NATRIURETIC PEPTIDE 1690 pg/mL (0-79)
[2017-10-05] MEDS ORDERED: LASIX IVP ONE ×2 (10:00→10:22)
[2017-10-05] MEDS ORDERED: MORPHINE SULFATE INJ 2 MG INJ IVP PRN (10:27)
[2017-10-05 11:51] VITALS: BMI 25.2
--- NOTE | 2017-10-05 11:52 | DR.H&P ---
H&P - History & Physical for Day of: H&P Date: 10/05/17 - Chief Complaint Chief Complaint: CP, SOB - Allergies Allergies/Adverse Reactions: Allergies Allergy/AdvReac Type Severity Reaction Status Date / Time codeine Allergy Verified 10/05/17 08:34 - History of Present Illness History of Present Illness: 82[address] PATIENT [facility], ADMITTED FROM ER AFTER PRESENTING WITH INCREASED SOB. PT AND FAMILY STATES SHE HAS NO CARDIAC HISTORY, NEVER HAD CARDIAC CATH. PT STATES SHE GRADUALLY GOT WORSE OVER THE LAST FEW DAYS. PT HAS PMH OF GERD, HTN, HYPERLIPIDEMIA. PT ADMITTED FOR TREATMENT OF CHF FINDINGS WITH IV LASIX, SERIAL CE AND EKG. SUPPLEMENTAL O2 - Past Medical History Past Medical History: Arthritis, Dyslipidemia, GERD, Hypertension Additional Medical History: Cataracts, Diverticulosis, Previous Blood Transfusion - Past Surgical History Surgical History: No History - Family History Family Medical History: Diabetes Mellitus, Cancer, Hypertension - Social History Does patient currently use any type of tobacco product: No Have you used tobacco products in the last 12 months: No Type of Tobacco Use: None Does any household member use tobacco: No Alcohol Use: None - Medications Home Medications: Montelukast Sodium [SINGULAIR TAB 10 MG *] 1 tab PO DAILY 10/05/17 [History Confirmed 10/05/17] - Review of Systems Constitutional: Weakness Eyes: No Symptoms Reported ENT: No Symptoms Reported Respiratory: Shortness of Breath, SOB with Excertion, Wheezing Cardiovascular: Chest Pain Gastrointestinal: No Symptoms Reported Genitourinary: No Symptoms Reported Musculoskeletal: No Symptoms Reported Skin: No Symptoms Reported Neurological: No Symptoms Reported - Physical Exam Vital Signs: Temperature 98 F Pulse Rate [Left Brachial] 103 Pulse Rate 101 Respiratory Rate 22 Blood Pressure [Left Arm] 133/70 Blood Pressure [Right Arm] 148/71 Blood Pressure 123/66 O2 Sat by Pulse Oximetry 94 Oriented: Normal Eyes: Normal Ear: Normal Nose: Normal Throat: Normal Respiratory: Wheezes Throughout, RLL Diminished, LLL Diminished Cardiovascular: Tachycardia : Normal Auscultation: Bowel Sounds: Normal Palpation: Normal Skin: Normal Musculoskeletal: Normal Psychiatric: Anxiety Affect: Anxious Speech Pattern: Clear, Appropriate - Assessment/Plan (1) CHF (congestive heart failure) Qualifiers: Heart failure type: unspecified Heart failure chronicity: acute Qualified Code(s): I50.9 - Heart failure, unspecified Status: Acute Plan: ADMIT, SERIAL CARDIAC ENZYMES AND EKGS. IV LASIX, SUPPLEMENTAL O2. RESP THERAPY, BP MONITORING. RESUME HOME MEDS (2) Dyspnea due to congestive heart failure Status: Acute (3) GERD (gastroesophageal reflux disease) Qualifiers: Esophagitis presence: esophagitis presence not specified Qualified Code(s) : K21.9 - Gastro-esophageal reflux disease without esophagitis Status: Chronic (4) Hyperlipidemia Qualifiers: Hyperlipidemia type: mixed hyperlipidemia Qualified Code(s): E78.2 - Mixed hyperlipidemia Status: Chronic
[2017-10-05] MEDS: PROTONIX TAB 40 MG PO SCH (12:51)
[2017-10-05 13:26] LABS: ABG BASE EXCESS 4.5 mmol/L (-2.0-2.0); ABG HCO3 29.2 mmol/L (22-26)
[2017-10-05 13:29] LABS: ABG ALLEN TEST POS
[2017-10-05 15:17] LABS: CKMB % 4.3 % (<4); CREATINE KINASE MB 2.2 ng/mL (0-4.0); TROPONIN I 0.39 ng/mL (0-1.5)
[2017-10-05] MEDS: ZyrTEC TAB 10 MG PO SCH (20:25)
[2017-10-05] MEDS: LASIX IVP SCH (20:25)
[2017-10-05] MEDS: ZOCOR TAB 20 MG PO SCH (20:25)
[2017-10-05 21:07] LABS: CKMB % 3.3 % (<4); CREATINE KINASE MB 1.7 ng/mL (0-4.0); TROPONIN I 0.58 ng/mL (0-1.5)
[2017-10-06 05:51] LABS: BASOPHILS % (AUTO) 0.6 % (0.2-1.0); EOSINOPHILS # (AUTO) 0.1 x10^3/uL (0.0-0.2); EOSINOPHILS % (AUTO) 1.3 % (0.9-2.9); HEMATOCRIT 27.7 % (36.0-47.0); HEMOGLOBIN 9.4 g/dL (12.0-16.0); LYMPHOCYTES # (AUTO) 0.9 X10^3/uL (1.3-2.9); LYMPHOCYTES % (AUTO) 18.4 % (21.0-51.0); MEAN CORPUSCULAR HEMOGLOBIN 30.7 pg (27.0-34.0); MEAN CORPUSCULAR HGB CONC 33.9 g/dL (33.0-35.0); MEAN CORPUSCULAR VOLUME 90.7 fL (80.0-100.0); MEAN PLATELET VOLUME 8.6 fL (7.4-11.0); MONOCYTES # (AUTO) 0.9 x10^3/uL (0.3-0.8); MONOCYTES % (AUTO) 17.9 % (0.0-13.0); NEUTROPHILS # (AUTO) 3.1 x10^3/uL (2.2-4.8); NEUTROPHILS % (AUTO) 61.8 % (42.0-75.0); PLATELET COUNT 210 X10^3/uL (150.0-450.0); RED BLOOD COUNT 3.05 X10^6/uL (3.5-5.4); RED CELL DISTRIBUTION WIDTH 15.8 % (11.6-16.5)
[2017-10-06 06:10] LABS: ALANINE AMINOTRANSFERASE 13 Units/L (12-78); ALBUMIN 3.1 g/dL (3.4-5.0); ALKALINE PHOSPHATASE 65 Units/L (46-116); ASPARTATE AMINO TRANSFERASE 15 Units/L (15-37); BLOOD UREA NITROGEN 10 mg/dL (7-18); CALCIUM 8.2 mg/dL (8.5-10.1); CARBON DIOXIDE 30.5 mmol/L (21-32); CHLORIDE 103 mmol/L (98-107); COR CA(FOR HYPOALB) 8.9 mg/dL (8.5-10.1); CREATININE 0.71 mg/dL (0.55-1.02); SODIUM 141 mmol/L (136-145); TOTAL PROTEIN 6.9 g/dL (6.4-8.2); eGFR BLACK RACES > 60 (>60); eGFR NON BLACK RACES > 60 (>60)
[2017-10-06 06:43] LABS: CKMB % 2.2 % (<4); CREATINE KINASE MB 1.1 ng/mL (0-4.0); TROPONIN I 0.6 ng/mL (0-1.5)
[2017-10-06] MEDS ORDERED: POTASSIUM CHL 40 MEQ/NS 0.45% 500 ML IV PRN (06:56)
[2017-10-06] MEDS ORDERED: POTASSIUM CHL 60 MEQ/NS 0.45% 500 ML IV PRN (06:56)
[2017-10-06] MEDS ORDERED: MAGNESIUM SULFATE 1 GM/100 mL PREMIX 1 GM/100 ML BAG IV PRN (06:56)
[2017-10-06] MEDS ORDERED: K-LYTE EFFERVESCENT PO PRN (06:56)
[2017-10-06] MEDS ORDERED: POTASSIUM CHLORIDE LIQ 20 MEQ UDC PO PRN (06:56)
[2017-10-06] MEDS ORDERED: K-RIDER 10 MEQ/NS 100 ML 10 MEQ/100 ML BAG IV PRN (06:56)
[2017-10-06] MEDS ORDERED: NS 1000 ML 1,000 ML ONE (07:09)
--- NOTE | 2017-10-06 07:48 | RAD ---
CHEST RADIOGRAPHS PA AND LATERAL VIEWS CLINICAL HISTORY: 82-year-old female with dyspnea. History of CHF. COMPARISON: Chest radiographs 10/05/2017 in 11/2021 17. FINDINGS: The cardiopericardial silhouette is stably enlarged. Significant interval improvement in p attern of aeration with trace bilateral effusions and mild bibasilar atelectasis. Low lung volumes wi th chronic prominence of the interstitium and perihilar lung markings. Pulmonary vascularity is darren l. Imaged osseous structures are intact. Soft tissues are unremarkable. IMPRESSION: Markedly interval resolution of pulmonary edema with persistent trace effusions and bibasilar atelect asis. Correlate clinically. Reported By:
[2017-10-06] MEDS ORDERED: PANTOPRAZOLE SODIUM PO SCH (09:00)
[2017-10-06] MEDS: NORVASC TAB 5 MG PO SCH (09:40)
[2017-10-06] MEDS: SINGULAIR TAB 10 MG PO SCH (09:40)
[2017-10-06] MEDS: ZANTAC PO SCH (09:41)
[2017-10-06] MEDS: PROTONIX TAB 40 MG PO SCH (09:41)
[2017-10-06] MEDS: LASIX IVP SCH ×2 (09:41→20:35)
[2017-10-06] MEDS: ZITHROMAX INJ 500 MG VIAL 500 MG in NS 250 ML IV 250 ML IV SCH (12:07)
[2017-10-06] MEDS: SOLU-Medrol 40 MG VIAL IVP SCH ×3 (12:08→21:23)
[2017-10-06] MEDS: ZyrTEC TAB 10 MG PO SCH (20:35)
[2017-10-06] MEDS: ZOCOR TAB 20 MG PO SCH (20:35)
[2017-10-07] MEDS: SOLU-Medrol 40 MG VIAL IVP SCH ×3 (05:07→21:06)
--- NOTE | 2017-10-07 06:57 | RAD ---
Exam: Chest, frontal view History: 82-year-old female with shortness of breath. Comparison: Previous chest radiograph from 10/06/2017. Findings: Generalized cardiomegaly is again seen. No significant vascular congestion however. Lungs a re clear with no infiltrate or significant effusion on either side. Impression: Generalized cardiomegaly. Findings have not changed significantly since previous exam from 10/06/2017 Reported By:
[2017-10-07 07:10] LABS: BASOPHILS % (AUTO) 0.4 % (0.2-1.0); HEMATOCRIT 29.7 % (36.0-47.0); HEMOGLOBIN 9.8 g/dL (12.0-16.0); LYMPHOCYTES # (AUTO) 0.7 X10^3/uL (1.3-2.9); LYMPHOCYTES % (AUTO) 16.6 % (21.0-51.0); MEAN CORPUSCULAR HEMOGLOBIN 29.9 pg (27.0-34.0); MEAN CORPUSCULAR VOLUME 90.6 fL (80.0-100.0); MEAN PLATELET VOLUME 8.4 fL (7.4-11.0); MONOCYTES # (AUTO) 0.5 x10^3/uL (0.3-0.8); MONOCYTES % (AUTO) 11.3 % (0.0-13.0); NEUTROPHILS % (AUTO) 71.7 % (42.0-75.0); PLATELET COUNT 245 X10^3/uL (150.0-450.0); RED BLOOD COUNT 3.28 X10^6/uL (3.5-5.4); RED CELL DISTRIBUTION WIDTH 15.2 % (11.6-16.5); WHITE BLOOD COUNT 4.2 X10^3/uL (3.6-10.0)
[2017-10-07 07:21] LABS: ALANINE AMINOTRANSFERASE 13 Units/L (12-78); ALBUMIN 3.2 g/dL (3.4-5.0); ALKALINE PHOSPHATASE 69 Units/L (46-116); ASPARTATE AMINO TRANSFERASE 14 Units/L (15-37); BLOOD UREA NITROGEN 17 mg/dL (7-18); CALCIUM 8.3 mg/dL (8.5-10.1); CARBON DIOXIDE 28.8 mmol/L (21-32); CHLORIDE 100 mmol/L (98-107); COR CA(FOR HYPOALB) 8.9 mg/dL (8.5-10.1); COR NA(FOR HYPERGLY) 139 mmol/L (136-145); CREATININE 0.69 mg/dL (0.55-1.02); SODIUM 138 mmol/L (136-145); TOTAL PROTEIN 7.3 g/dL (6.4-8.2); eGFR BLACK RACES > 60 (>60); eGFR NON BLACK RACES > 60 (>60)
[2017-10-07] MEDS: LASIX IVP SCH ×2 (09:16→21:06)
[2017-10-07] MEDS: PROTONIX TAB 40 MG PO SCH (09:17)
[2017-10-07] MEDS: ZANTAC PO SCH (09:17)
[2017-10-07] MEDS: NORVASC TAB 5 MG PO SCH (09:17)
[2017-10-07] MEDS: ZITHROMAX INJ 500 MG VIAL 500 MG in NS 250 ML IV 250 ML IV SCH (09:19)
[2017-10-07] MEDS: SINGULAIR TAB 10 MG PO SCH (09:25)
[2017-10-07 10:21] LABS: CKMB % 2.9 % (<4); TROPONIN I 0.22 ng/mL (0-1.5)
[2017-10-07] MEDS: ZOCOR TAB 20 MG PO SCH (21:06)
[2017-10-07] MEDS: ZyrTEC TAB 10 MG PO SCH (21:06)
[2017-10-08 05:29] LABS: BASOPHILS % (AUTO) 0.1 % (0.2-1.0); HEMATOCRIT 30.4 % (36.0-47.0); HEMOGLOBIN 10.2 g/dL (12.0-16.0); LYMPHOCYTES # (AUTO) 0.7 X10^3/uL (1.3-2.9); LYMPHOCYTES % (AUTO) 7.7 % (21.0-51.0); MEAN CORPUSCULAR HEMOGLOBIN 30.3 pg (27.0-34.0); MEAN CORPUSCULAR HGB CONC 33.5 g/dL (33.0-35.0); MEAN CORPUSCULAR VOLUME 90.5 fL (80.0-100.0); MEAN PLATELET VOLUME 8.8 fL (7.4-11.0); MONOCYTES # (AUTO) 0.4 x10^3/uL (0.3-0.8); MONOCYTES % (AUTO) 4.3 % (0.0-13.0); NEUTROPHILS % (AUTO) 87.9 % (42.0-75.0); PLATELET COUNT 266 X10^3/uL (150.0-450.0); RED BLOOD COUNT 3.36 X10^6/uL (3.5-5.4); RED CELL DISTRIBUTION WIDTH 15.3 % (11.6-16.5)
[2017-10-08 05:36] LABS: ALANINE AMINOTRANSFERASE 11 Units/L (12-78); ALBUMIN 3.2 g/dL (3.4-5.0); ALKALINE PHOSPHATASE 69 Units/L (46-116); ASPARTATE AMINO TRANSFERASE 13 Units/L (15-37); BLOOD UREA NITROGEN 20 mg/dL (7-18); CALCIUM 8.5 mg/dL (8.5-10.1); CARBON DIOXIDE 29.6 mmol/L (21-32); CHLORIDE 102 mmol/L (98-107); COR CA(FOR HYPOALB) 9.1 mg/dL (8.5-10.1); COR NA(FOR HYPERGLY) 141 mmol/L (136-145); CREATININE 0.78 mg/dL (0.55-1.02); SODIUM 140 mmol/L (136-145); TOTAL PROTEIN 7.3 g/dL (6.4-8.2); eGFR BLACK RACES > 60 (>60); eGFR NON BLACK RACES > 60 (>60)
[2017-10-08] MEDS: SOLU-Medrol 40 MG VIAL IVP SCH (05:41)
--- NOTE | 2017-10-08 06:52 | RAD ---
HISTORY: Chest pain, dyspnea Study: Chest AP portable Comparison: 10/07/2017 Findings: The heart is enlarged. No congestive heart failure is noted. No acute alveolar infiltrates or pleural effusions are identified. The bony thorax is unremarkable. IMPRESSION: Marked cardiomegaly without congestive heart failure 2. Lungs clear Reported By:
[2017-10-08 07:42] VITALS: BP 133/70
[2017-10-08] MEDS: LASIX IVP SCH (09:37)
[2017-10-08] MEDS: PROTONIX TAB 40 MG PO SCH (09:38)
[2017-10-08] MEDS: ZANTAC PO SCH (09:38)
[2017-10-08] MEDS: SINGULAIR TAB 10 MG PO SCH (09:38)
[2017-10-08] MEDS: NORVASC TAB 5 MG PO SCH (09:38)
[2017-10-08] MEDS: ZITHROMAX INJ 500 MG VIAL 500 MG in NS 250 ML IV 250 ML IV SCH (09:46)
--- NOTE | 2017-10-08 11:06 | PCM.PROG ---
Progress Note - Progress Note for Day of Date: 10/07/17 - Subjective Subjective: IS BEING TREATED FOR CONGESTIVE HEART FAILURE AND INCREASED SHORTNESSO F BREATH. TODAY, SHE IS ALERT AND ORIENTED, SITTING UP IN BED ON MORNING ROUNDS. SHE CONTINUES WITH COMPLAINTS OF SHORTNESS OF BREATH AND INTERMITTENT CHEST PAIN. ON EXAMINATION, HEART IS REGULAR IN RATE AND RHYTHM. BILATERAL LUNGS ARE NOTED WITH DIMINISHED LUNG SOUNDS THROUGHOUT. SHE IS CURRENTLY UTILIZING SUPPLEMENTAL OXYGEN VIAN NASAL CANNULA AT 2L/MIN. ABDOMEN IS ROUND, SOFT, AND NON-TENDER WITH NORMAL BOWEL SOUNDS NOTED IN ALL QUADRANTS. THERE IS NON-PITTING EDEMA NOTED TO BILATERAL LOWER EXTREMITIES. HER VITALS THIS MORNING ARE 97.8-81-20-99%-132/74. LABS WERE OBTAINED. ABNORMAL LAB VALUES INCLUDE THE FOLLOWING: RBC 3.28, HGB 9.8, HCT 29.7, GLUCOSE 142, CALCIUM 8.3, AST 14, ALBUMIN 3.2. TODAYS CHEST XRAY REVEALS GENERALIZED CARDIOMEGALY. SHE IS CURRENTLY RECEIVING LASIX 20MG IV BID. WE WILL INCREASE THIS TO 40MG IV BID, OBTAIN SERIAL CARDIAC ENZYMES AND EKGs, AND RESTRICT FLUID INTAKE TO LESS THAN 1 LITER/DAY. AFTER DISCHARGE, WE WILL OBTAIN AN ECHOCARDIOGRAM IN THE OFFICE. OTHERWISE, WE PLAN TO FOLLOW UP WITH AM LABS AND CONTINUE TO MONITOR PATIENT. - Past Medical Family Social History Past Med/Fam/Surg Hx: No changes since H&P Allergies: Allergies codeine Allergy (Verified 10/05/17 08:34) - Review of Systems ROS: No change since H&P - Vital Signs and I&O's Vital Signs: Temperature 97.7 F Pulse Rate [Left Brachial] 86 Pulse Rate 97 Respiratory Rate 20 Blood Pressure [Left Arm] 133/70 Blood Pressure [Right Arm] 148/71 Blood Pressure 123/66 O2 Sat by Pulse Oximetry 96 Intake and Output: Intake & Output 10/05/17 10/06/17 10/07/17 10/08/17 11:59 11:59 11:59 11:59 Intake Total 1480 1180 2020 Output Total 300 1300 Balance -986 075 5821 2019 - Physical Exam Oriented: Normal Eyes: Normal Ear: Normal Nose: Normal Throat: Normal Respiratory: Diminished Cardiovascular: Tachycardia : Normal Auscultation: Bowel Sounds: Normal Palpation: Normal Tenderness: Normal Skin: Normal Musculoskeletal: Normal Psychiatric: Anxiety Affect: Anxious Speech Pattern: Clear, Appropriate - Laboratory and Diagnostics Result Diagrams: 10/08/17 04:44 10/08/17 04:44 Labs: Laboratory WBC 9.0 X10^3/uL (3.6-10.0) 10/08/17 04:44 RBC 3.36 X10^6/uL (3.5-5.4) L 10/08/17 04:44 Hgb 10.2 g/dL (12.0-16.0) L 10/08/17 04:44 Hct 30.4 % (36.0-47.0) L 10/08/17 04:44 MCV 90.5 fL (80.0-100.0) 10/08/17 04:44 MCH 30.3 pg (27.0-34.0) 10/08/17 04:44 MCHC 33.5 g/dL (33.0-35.0) 10/08/17 04:44 RDW 15.3 % (11.6-16.5) 10/08/17 04:44 Plt Count 266 X10^3/uL (150.0-450.0) 10/08/17 04:44 MPV 8.8 fL (7.4-11.0) 10/08/17 04:44 Neut % (Auto) 87.9 % (42.0-75.0) H 10/08/17 04:44 Lymph % (Auto) 7.7 % (21.0-51.0) L 10/08/17 04:44 [place] % (Auto) 4.3 % (0.0-13.0) 10/08/17 04:44 Eos % (Auto) 0.0 % (0.9-2.9) L 10/08/17 04:44 Baso % (Auto) 0.1 % (0.2-1.0) L 10/08/17 04:44 Neut # (Auto) 8.0 x10^3/uL (2.2-4.8) H 10/08/17 04:44 Lymph # (Auto) 0.7 X10^3/uL (1.3-2.9) L 10/08/17 04:44 [place] # (Auto) 0.4 x10^3/uL (0.3-0.8) 10/08/17 04:44 Eos # (Auto) 0.0 x10^3/uL (0.0-0.2) 10/08/17 04:44 Baso # (Auto) 0.0 X10^3/uL (0.0-0.1) 10/08/17 04:44 Absolute Nucleated RBC 0.0 /100WBC 10/08/17 04:44 D-Dimer 389 ng/mL (0-400) 10/05/17 08:44 Sample Site Rr 10/05/17 13:21 ABG pH 7.440 (7.35-7.45) 10/05/17 13:21 ABG pCO2 43.0 mmHg (35.0-45.0) 10/05/17 13:21 ABG pO2 81.0 mmHg (80.0-100.0) 10/05/17 13:21 ABG HCO3 29.2 mmol/L (22-26) H 10/05/17 13:21 ABG O2 Saturation 96.0 % (90-100) 10/05/17 13:21 ABG Base Excess 4.5 mmol/L (-2.0-2.0) H 10/05/17 13:21 Miles Test Pos 10/05/17 13:21 A-a Gradient 65.0 mmHg 10/05/17 13:21 FiO2 28.000 10/05/17 13:21 Blood Gas Comments Pt maryellen well. cdn 10/05/17 13:21 Sodium 140 mmol/L (136-145) 10/08/17 04:44 Corrected Sodium 141 mmol/L (136-145) 10/08/17 04:44 Potassium 3.9 mmol/L (3.5-5.1) 10/08/17 04:44 Chloride 102 mmol/L (98-107) 10/08/17 04:44 Carbon Dioxide 29.6 mmol/L (21-32) 10/08/17 04:44 BUN 20 mg/dL (7-18) H 10/08/17 04:44 Creatinine 0.78 mg/dL (0.55-1.02) 10/08/17 04:44 Est GFR (MDRD) Af Amer > 60 (>60) 10/08/17 04:44 Est GFR (MDRD) Non-Af > 60 (>60) 10/08/17 04:44 Glucose 158 mg/dL (65-99) H 10/08/17 04:44 Calcium 8.5 mg/dL (8.5-10.1) 10/08/17 04:44 Corrected Calcium 9.1 mg/dL (8.5-10.1) 10/08/17 04:44 Magnesium 1.9 mg/dL (1.7-2.9) 10/06/17 04:45 Total Bilirubin 0.20 mg/dL (0.2-1.0) 10/08/17 04:44 AST 13 Units/L (15-37) L 10/08/17 04:44 ALT 11 Units/L (12-78) L 10/08/17 04:44 Alkaline Phosphatase 69 Units/L (46-116) 10/08/17 04:44 Creatine Kinase 68 Units/L (26-192) 10/07/17 06:48 CK-MB (CK-2) 2.0 ng/mL (0-4.0) 10/07/17 06:48 CK/CKMB % Calc 2.9 % (<4) 10/07/17 06:48 Troponin I 0.22 ng/mL (0-1.5) 10/07/17 06:48 C-Reactive Protein 12.90 mg/L (0-3.0) H 10/05/17 08:44 B-Natriuretic Peptide 1690 pg/mL (0-79) H* 10/05/17 08:44 Total Protein 7.3 g/dL (6.4-8.2) 10/08/17 04:44 Albumin 3.2 g/dL (3.4-5.0) L 10/08/17 04:44 Globulin 4.1 g/dL (2.5-4.5) 10/08/17 04:44 Albumin/Globulin Ratio 0.8 Ratio (1.1-2.1) L 10/08/17 04:44 - Plan (1) CHF (congestive heart failure) Status: Acute Qualifiers: Heart failure type: unspecified Heart failure chronicity: acute Qualified Code(s): I50.9 - Heart failure, unspecified Plan: IV LASIX, SUPPLEMENTAL O2. RESP THERAPY, BP MONITORING (2) Chest pain, rule out acute myocardial infarction Status: Acute Plan: SERIAL CARDIAC ENZYMES AND EKG, SUPPLEMENTAL OXYGEN, RESPIRATORY TX, CONTINUE TO MONITOR
== END 2017-10-08 11:55 | disposition home or self-care (01) | DRG 293 ==
LOC: ER 08:15 → MED/SURG 10:16
PROVIDERS: ADMIT Internal Medicine; ATTEND Internal Medicine
DX: I50.9 Heart failure, unspecified (principal); R07.89 Other chest pain; R06.02 Shortness of breath; E78.2 Mixed hyperlipidemia; K21.9 Gastro-esophageal reflux disease without esophagitis; I10 Essential (primary) hypertension; D64.89 Other specified anemias; R94.31 Abnormal electrocardiogram [ECG] [EKG]; I51.7 Cardiomegaly; R79.82 Elevated C-reactive protein (CRP)
CPT/HCPCS: 36415; 36600; 71045; 71046; 80053; 82550; 82553; 82803; 83735; 83880; 84132; 84484; 85025; 85378; 86140; 93005; 93010; 94760; 96365; 96374; 99221; 99231; 99284; A4222; J0456; J1940; J2920

== ENCOUNTER 2020-01-12 11:23 | Inpatient (IN) ==
[2020-01-12] MEDS ORDERED: SOLU-Medrol 125 MG VIAL IVP ONE (11:34)
[2020-01-12] MEDS ORDERED: PROVENTIL NEB TX 0.083% 2.5MG/ 3ML NEB ONE (11:34)
[2020-01-12 11:36] VITALS: BMI 26.8
[2020-01-12] MEDS ORDERED: MOTRIN TAB 800 MG PO ONE ×2 (11:37→11:52)
[2020-01-12 11:48] LABS: ABG BASE EXCESS 6.1 mmol/L (-2.0-2.0)
[2020-01-12 11:49] LABS: ABG ALLEN TEST POS; ABG HCO3 31.2 mmol/L (22-26)
[2020-01-12] MEDS ORDERED: ROCEPHIN VIAL 1 GRAM 1 G in NS 100 ML IV + SPIKE MINIBAG* 100 ML IV ONE (11:53)
[2020-01-12] MEDS ORDERED: ZITHROMAX INJ 500 MG VIAL 500 MG in D5W 250 ML IV 250 ML IV SCH (11:53)
[2020-01-12] MEDS ORDERED: DUONEB 0.5 MG/3 MG (3 mL) NEB ONE ×2 (11:57→13:16)
--- NOTE | 2020-01-12 11:57 | DR.FEVERAD ---
HPI Time seen Time Seen by Provider: 01/12/20 11:34 Complaints/Symptoms Chief Complaint:: PT C/O SOB, FEVER, NAUSEA THAT HAS BEEN GOING ON FOR THE PAST FEW DAYS. COVID-19 Coronavirus risk:travel/contact w/high risk person: No Has patient experienced Coronavirus symptoms: Yes Coronavirus symptoms experienced: Fever and Shortness of Breath Source History Provided: Patient Mode of Arrival Mode of Arrival: Wheelchair Timing Onset of Chief Complaint: 01/09/20 PMH PMH Past Medical History: Yes Past Medical History: Arthritis, Dyslipidemia, GERD and Hypertension Past Surgical History: Yes Surgical History: No History Family History History of Family Medical Conditions: Yes Family Medical History: Diabetes Mellitus, Cancer and Hypertension Social History Does any household member use tobacco: No Alcohol Use: None Do you use any recreational Drugs:: No Lives With: Family Lives Where: Home Travel Risk Coronavirus risk:travel/contact w/high risk person: No Has patient experienced Coronavirus symptoms: Yes Coronavirus symptoms experienced: Fever and Shortness of Breath Infectious screening In the last 2 months have you had wt loss of >10#?: NO Have you had fever, night sweats or hemotysis?: No Have you traveled outside the country in the last 6 months?: No Isolation: Droplet ROS Review of Systems Constitutional: Chills, Fever, Malaise and Fatigue Eyes: No Symptoms Reported ENTM: No Symptoms Reported Respiratoy: Non-Productive Cough, Short of Breath and Wheezing Cardiovascular: No Symptoms Reported Gastrointestinal/Abdominal: No Symptoms Reported Genitourinary: No Symptoms Reported Neurological: No Symptoms Reported Musculoskeletal: Other (generalized janina;gias) Integumentary: No Symptoms Reported Hematologic/Lymphatic: No Symptoms Reported Endocrine: No Symptoms Reported Psychiatric: No Symptoms Reported All Other Systems: Reviewed and Negative PE Vital Signs Vitals: Temperature 103.0 F Pulse Rate 99 Respiratory Rate 24 Blood Pressure [Left Arm] 133/70 Blood Pressure 102/52 O2 Sat by Pulse Oximetry 82 General Limitations: No Limitations General Appearance: Lethargic Head Head Exam: Normal Inspection, Atraumatic and Normocephalic Eyes Eye exam: Normal Appearance, PERRL and EOMI ENT ENT Exam: Normal Exam, Normal Oropharynx, Normal External Ear Exam, Mucous Membranes Moist and TM's Normal Bilaterally External Ear Exam: Normal External Inspection; negative Auricular Hematoma Nasal Speculum Exam: Bilateral: Normal Mouth Exam: Normal Inspection; negative Drooling Teeth Exam: Normal Inspection Throat Exam: Normal Inspection Neck Neck Exam: Normal Inspection Respiratory Respiratory Exam: Bilateral: Wheezing Cardiovascular Cardiovascular Exam: Regular Rate, Normal Rhythm and Normal Heart Sounds Abdominal Exam Abdominal Exam: Normal Inspection, Normal Bowel Sounds and Soft; negative Distention, Tenderness and Guarding Extremities Extremities Exam: Normal Inspection and Full ROM; negative Tenderness Back Back Exam: Normal Inspection and Full ROM; negative Tenderness Neurologic Neurological Exam: Alert, Oriented X3 and Normal Gait (gait not tersted 2nd to weakness); negative Motor Sensory Deficit Psychiatric Psychiatric Exam: Normal Affect and Normal Mood Skin Skin Exam: Warm, Dry, Intact and Normal Color COURSE Treatment Treatment: eKG Sinus tach 102 left axis early transition LVH with early repolarization changes Discusssed with Dr Marsh ,he will accept patient ROR Labs Reviewed Result Diagrams: 01/12/20 11:50 01/12/20 11:50 Laboratory: WBC 10.9 X10^3/uL (3.6-10.0) H 01/12/20 11:50 RBC 2.98 X10^6/uL (3.5-5.4) L 01/12/20 11:50 Hgb 9.5 g/dL (12.0-16.0) L 01/12/20 11:50 Hct 28.7 % (36.0-47.0) L 01/12/20 11:50 MCV 96.5 fL (80.0-100.0) 01/12/20 11:50 MCH 31.8 pg (27.0-34.0) 01/12/20 11:50 MCHC 32.9 g/dL (33.0-35.0) L 01/12/20 11:50 RDW 15.5 % (11.6-16.5) 01/12/20 11:50 Plt Count 174 X10^3/uL (150.0-450.0) 01/12/20 11:50 MPV 7.9 fL (7.4-11.0) 01/12/20 11:50 Neut % (Auto) 74.5 % (42.0-75.0) 01/12/20 11:50 Lymph % (Auto) 10.8 % (21.0-51.0) L 01/12/20 11:50 [place] % (Auto) 14.2 % (0.0-13.0) H 01/12/20 11:50 Eos % (Auto) 0.3 % (0.9-2.9) L 01/12/20 11:50 Baso % (Auto) 0.2 % (0.2-1.0) 01/12/20 11:50 Neut # (Auto) 8.1 x10^3/uL (2.2-4.8) H 01/12/20 11:50 Lymph # (Auto) 1.2 X10^3/uL (1.3-2.9) L 01/12/20 11:50 [place] # (Auto) 1.5 x10^3/uL (0.3-0.8) H 01/12/20 11:50 Eos # (Auto) 0.0 x10^3/uL (0.0-0.2) 01/12/20 11:50 Baso # (Auto) 0.0 X10^3/uL (0.0-0.1) 01/12/20 11:50 Absolute Nucleated RBC 0.0 /100WBC 01/12/20 11:50 PT 13.8 SECONDS (11.8-14.3) 01/12/20 11:50 INR Target Range - 01/12/20 11:50 INR 1.09 (0.8-1.3) 01/12/20 11:50 APTT 39.4 SECONDS (22.9-36.5) H 01/12/20 11:50 PTT Comment - 01/12/20 11:50 Sample Site Right radial 01/12/20 11:38 ABG pH 7.440 (7.35-7.45) 01/12/20 11:38 ABG pCO2 46.0 mmHg (35.0-45.0) H 01/12/20 11:38 ABG pO2 53.0 mmHg (80.0-100.0) L 01/12/20 11:38 ABG HCO3 31.2 mmol/L (22-26) H* 01/12/20 11:38 ABG O2 Saturation 88.0 % (90-100) L 01/12/20 11:38 ABG Base Excess 6.1 mmol/L (-2.0-2.0) H 01/12/20 11:38 Miles Test Pos 01/12/20 11:38 A-a Gradient 39.0 mmHg 01/12/20 11:38 FiO2 21.0 01/12/20 11:38 Blood Gas Comments Rina well aw 01/12/20 11:38 Sodium 137 mmol/L (136-145) 01/12/20 11:50 Corrected Sodium 138 mmol/L (136-145) 01/12/20 11:50 Potassium 4.3 mmol/L (3.5-5.1) 01/12/20 11:50 Chloride 101 mmol/L (98-107) 01/12/20 11:50 Carbon Dioxide 29.5 mmol/L (21-32) 01/12/20 11:50 BUN 22 mg/dL (7-18) H 01/12/20 11:50 Creatinine 1.20 mg/dL (0.55-1.02) H 01/12/20 11:50 Est GFR (MDRD) Af Amer 55 (>60) L 01/12/20 11:50 Est GFR (MDRD) Non-Af 46 (>60) L 01/12/20 11:50 Glucose 125 mg/dL (65-99) H 01/12/20 11:50 Lactic Acid 0.6 mmol/L (0.4-2.0) 01/12/20 11:50 Calcium 8.6 mg/dL (8.5-10.1) 01/12/20 11:50 Corrected Calcium 9.6 mg/dL (8.5-10.1) 01/12/20 11:50 Total Bilirubin 0.50 mg/dL (0.2-1.0) 01/12/20 11:50 AST 44 Units/L (15-37) H 01/12/20 11:50 ALT 24 Units/L (12-78) 01/12/20 11:50 Alkaline Phosphatase 109 Units/L (46-116) 01/12/20 11:50 Troponin I 1.57 ng/mL (0-1.5) H* 01/12/20 11:50 B-Natriuretic Peptide 2040 pg/mL (0-79) H* 01/12/20 11:50 Total Protein 6.9 g/dL (6.4-8.2) 01/12/20 11:50 Albumin 2.8 g/dL (3.4-5.0) L 01/12/20 11:50 Globulin 4.1 g/dL (2.5-4.5) 01/12/20 11:50 Albumin/Globulin Ratio 0.7 Ratio (1.1-2.1) L 01/12/20 11:50 SARS-CoV-2 (PCR) Negative (NEGATIVE) 01/12/20 12:00 Opioid Opioid Risk Tool Age (Anupam box if 16-45): No History of Preadolescent Sexual Abuse: No Total: 0 Total Score Risk Category: Low Risk Copyright: Jimmie EVANS predicting aberrant behaviors
--- NOTE | 2020-01-12 11:59 | RAD ---
HISTORYSOB, FEVERSTUDYPortable AP chestCOMPARISONNoneFINDINGSThere is moderate cardiomegaly. The aorta is tortuous. The lungs are clear. No significant bony abnormality is demonstrated.IMPRESSIONModerate cardiomegalyElectronically signed by: RUDY LANGFORD (Jan 12, 2020 11:58:27)
[2020-01-12 12:05] LABS: BASOPHILS % (AUTO) 0.2 % (0.2-1.0); EOSINOPHILS % (AUTO) 0.3 % (0.9-2.9); HEMATOCRIT 28.7 % (36.0-47.0); HEMOGLOBIN 9.5 g/dL (12.0-16.0); LYMPHOCYTES # (AUTO) 1.2 X10^3/uL (1.3-2.9); LYMPHOCYTES % (AUTO) 10.8 % (21.0-51.0); MEAN CORPUSCULAR HEMOGLOBIN 31.8 pg (27.0-34.0); MEAN CORPUSCULAR HGB CONC 32.9 g/dL (33.0-35.0); MEAN CORPUSCULAR VOLUME 96.5 fL (80.0-100.0); MEAN PLATELET VOLUME 7.9 fL (7.4-11.0); MONOCYTES # (AUTO) 1.5 x10^3/uL (0.3-0.8); MONOCYTES % (AUTO) 14.2 % (0.0-13.0); NEUTROPHILS # (AUTO) 8.1 x10^3/uL (2.2-4.8); NEUTROPHILS % (AUTO) 74.5 % (42.0-75.0); PLATELET COUNT 174 X10^3/uL (150.0-450.0); RED BLOOD COUNT 2.98 X10^6/uL (3.5-5.4); RED CELL DISTRIBUTION WIDTH 15.5 % (11.6-16.5); WHITE BLOOD COUNT 10.9 X10^3/uL (3.6-10.0)
[2020-01-12] MEDS ORDERED: ZITHROMAX INJ 500 MG VIAL IV ONE (12:10)
[2020-01-12] MEDS ORDERED: NS 100 ML IV 100 ML IV ONE (12:10)
[2020-01-12] MEDS ORDERED: ROCEPHIN VIAL 1 GRAM ONE (12:10)
[2020-01-12] MEDS ORDERED: SOLU-Medrol 125 MG VIAL ONE (12:10)
[2020-01-12] MEDS ORDERED: NS 1000 ML 1,000 ML ONE (12:11)
[2020-01-12] MEDS ORDERED: NS 250 ML IV 250 ML IV ONE (12:11)
[2020-01-12 12:21] LABS: ALBUMIN 2.8 g/dL (3.4-5.0); CALCIUM 8.6 mg/dL (8.5-10.1); CARBON DIOXIDE 29.5 mmol/L (21-32); COR CA(FOR HYPOALB) 9.6 mg/dL (8.5-10.1); CREATININE 1.2 mg/dL (0.55-1.02); TOTAL PROTEIN 6.9 g/dL (6.4-8.2)
[2020-01-12 12:23] LABS: LACTIC ACID 0.6 mmol/L (0.4-2.0)
[2020-01-12 12:24] LABS: TROPONIN I 1.57 ng/mL (0-1.5)
[2020-01-12] MEDS ORDERED: ASPIRIN PO ONE (12:26)
[2020-01-12] MEDS ORDERED: LASIX IVP ONE ×2 (12:32→13:05)
[2020-01-12] MEDS: NS 1000 ML 1,000 ML IV SCH ×2 (13:01→21:25)
[2020-01-12] MEDS ORDERED: ASPIRIN ONE (13:05)
[2020-01-12] MEDS ORDERED: OFIRMEV IV 1000 MG VIAL IV ONE (13:36)
--- NOTE | 2020-01-12 13:56 | DR.FEVERAD ---
HPI Time seen Time Seen by Provider: 01/12/20 11:34 Complaints/Symptoms Chief Complaint:: PT C/O SOB, FEVER, NAUSEA THAT HAS BEEN GOING ON FOR THE PAST FEW DAYS. COVID-19 Coronavirus risk:travel/contact w/high risk person: No Has patient experienced Coronavirus symptoms: Yes Coronavirus symptoms experienced: Fever and Shortness of Breath Source History Provided: Patient Mode of Arrival Mode of Arrival: Wheelchair Timing Onset of Chief Complaint: 01/09/20 PMH PMH Past Medical History: Yes Past Medical History: Arthritis, Dyslipidemia, GERD and Hypertension Past Surgical History: Yes Surgical History: No History Family History History of Family Medical Conditions: Yes Family Medical History: Diabetes Mellitus, Cancer and Hypertension Social History Does any household member use tobacco: No Alcohol Use: None Do you use any recreational Drugs:: No Lives With: Family Lives Where: Home Travel Risk Coronavirus risk:travel/contact w/high risk person: No Has patient experienced Coronavirus symptoms: Yes Coronavirus symptoms experienced: Fever and Shortness of Breath Infectious screening In the last 2 months have you had wt loss of >10#?: NO Have you had fever, night sweats or hemotysis?: No Have you traveled outside the country in the last 6 months?: No Isolation: Droplet PE Vital Signs Vitals: Temperature 103.0 F Pulse Rate 99 Respiratory Rate 24 Blood Pressure [Left Arm] 133/70 Blood Pressure 102/52 O2 Sat by Pulse Oximetry 82 COURSE Treatment Treatment: EKG sinus tac `102 bpm left axis normal intervals easrly transition criteria for LVH with repolarization abn ROR Labs Reviewed Result Diagrams: 01/12/20 11:50 01/12/20 11:50 Laboratory: WBC 10.9 X10^3/uL (3.6-10.0) H 01/12/20 11:50 RBC 2.98 X10^6/uL (3.5-5.4) L 01/12/20 11:50 Hgb 9.5 g/dL (12.0-16.0) L 01/12/20 11:50 Hct 28.7 % (36.0-47.0) L 01/12/20 11:50 MCV 96.5 fL (80.0-100.0) 01/12/20 11:50 MCH 31.8 pg (27.0-34.0) 01/12/20 11:50 MCHC 32.9 g/dL (33.0-35.0) L 01/12/20 11:50 RDW 15.5 % (11.6-16.5) 01/12/20 11:50 Plt Count 174 X10^3/uL (150.0-450.0) 01/12/20 11:50 MPV 7.9 fL (7.4-11.0) 01/12/20 11:50 Neut % (Auto) 74.5 % (42.0-75.0) 01/12/20 11:50 Lymph % (Auto) 10.8 % (21.0-51.0) L 01/12/20 11:50 [place] % (Auto) 14.2 % (0.0-13.0) H 01/12/20 11:50 Eos % (Auto) 0.3 % (0.9-2.9) L 01/12/20 11:50 Baso % (Auto) 0.2 % (0.2-1.0) 01/12/20 11:50 Neut # (Auto) 8.1 x10^3/uL (2.2-4.8) H 01/12/20 11:50 Lymph # (Auto) 1.2 X10^3/uL (1.3-2.9) L 01/12/20 11:50 [place] # (Auto) 1.5 x10^3/uL (0.3-0.8) H 01/12/20 11:50 Eos # (Auto) 0.0 x10^3/uL (0.0-0.2) 01/12/20 11:50 Baso # (Auto) 0.0 X10^3/uL (0.0-0.1) 01/12/20 11:50 Absolute Nucleated RBC 0.0 /100WBC 01/12/20 11:50 PT 13.8 SECONDS (11.8-14.3) 01/12/20 11:50 INR Target Range - 01/12/20 11:50 INR 1.09 (0.8-1.3) 01/12/20 11:50 APTT 39.4 SECONDS (22.9-36.5) H 01/12/20 11:50 PTT Comment - 01/12/20 11:50 Sample Site Right radial 01/12/20 11:38 ABG pH 7.440 (7.35-7.45) 01/12/20 11:38 ABG pCO2 46.0 mmHg (35.0-45.0) H 01/12/20 11:38 ABG pO2 53.0 mmHg (80.0-100.0) L 01/12/20 11:38 ABG HCO3 31.2 mmol/L (22-26) H* 01/12/20 11:38 ABG O2 Saturation 88.0 % (90-100) L 01/12/20 11:38 ABG Base Excess 6.1 mmol/L (-2.0-2.0) H 01/12/20 11:38 Miles Test Pos 01/12/20 11:38 A-a Gradient 39.0 mmHg 01/12/20 11:38 FiO2 21.0 01/12/20 11:38 Blood Gas Comments Rina well aw 01/12/20 11:38 Sodium 137 mmol/L (136-145) 01/12/20 11:50 Corrected Sodium 138 mmol/L (136-145) 01/12/20 11:50 Potassium 4.3 mmol/L (3.5-5.1) 01/12/20 11:50 Chloride 101 mmol/L (98-107) 01/12/20 11:50 Carbon Dioxide 29.5 mmol/L (21-32) 01/12/20 11:50 BUN 22 mg/dL (7-18) H 01/12/20 11:50 Creatinine 1.20 mg/dL (0.55-1.02) H 01/12/20 11:50 Est GFR (MDRD) Af Amer 55 (>60) L 01/12/20 11:50 Est GFR (MDRD) Non-Af 46 (>60) L 01/12/20 11:50 Glucose 125 mg/dL (65-99) H 01/12/20 11:50 Lactic Acid 0.6 mmol/L (0.4-2.0) 01/12/20 11:50 Calcium 8.6 mg/dL (8.5-10.1) 01/12/20 11:50 Corrected Calcium 9.6 mg/dL (8.5-10.1) 01/12/20 11:50 Total Bilirubin 0.50 mg/dL (0.2-1.0) 01/12/20 11:50 AST 44 Units/L (15-37) H 01/12/20 11:50 ALT 24 Units/L (12-78) 01/12/20 11:50 Alkaline Phosphatase 109 Units/L (46-116) 01/12/20 11:50 Troponin I 1.57 ng/mL (0-1.5) H* 01/12/20 11:50 B-Natriuretic Peptide 2040 pg/mL (0-79) H* 01/12/20 11:50 Total Protein 6.9 g/dL (6.4-8.2) 01/12/20 11:50 Albumin 2.8 g/dL (3.4-5.0) L 01/12/20 11:50 Globulin 4.1 g/dL (2.5-4.5) 01/12/20 11:50 Albumin/Globulin Ratio 0.7 Ratio (1.1-2.1) L 01/12/20 11:50 SARS-CoV-2 (PCR) Negative (NEGATIVE) 01/12/20 12:00 Opioid Opioid Risk Tool Age (Anupam box if 16-45): No History of Preadolescent Sexual Abuse: No Total: 0 Total Score Risk Category: Low Risk Copyright: Jimmie EVANS predicting aberrant behaviors
[2020-01-12 14:00] LABS: BILIRUBIN,URINE NEGATIVE (NEGATIVE); BLOOD/HEMOGLOBIN,URINE 1+ (NEGATIVE); GLUCOSE, URINE NEGATIVE (NEGATIVE); KETONES,URINE NEGATIVE (NEGATIVE); LEUKOCYTE ESTERASE ,URINE 2+ (NEGATIVE); NITRITES,URINE POSITIVE (NEGATIVE); PROTEIN,URINE 1+ (NEGATIVE); UROBILINOGEN,URINE 1+ (NORMAL)
[2020-01-12] MEDS ORDERED: NS 1/2 1000 ML IV 1,000 ML IV SCH (14:00)
[2020-01-12 14:08] LABS: COLOR,URINE YELLOW (YELLOW)
[2020-01-12 14:09] LABS: APPEARANCE,URINE CLOUDY (CLEAR); BACTERIA,URINE 3+ /HPF (NEGATIVE); SQUAMOUS EPITHELIAL CELL,UR RARE /HPF (NEGATIVE)
[2020-01-12] MEDS ORDERED: OFIRMEV IV 1000 MG VIAL 1,000 MG/100 ML VIAL IV ONE (14:10)
[2020-01-12] MEDS ORDERED: NS 1000 ML 1,000 ML IV ONE (16:21)
[2020-01-12 16:56] LABS: CKMB % 2.2 % (<4); CREATINE KINASE MB 1.2 ng/mL (0-4.0); TROPONIN I 1.48 ng/mL (0-1.5)
[2020-01-12] MEDS ORDERED: LEVAQUIN PREMIX IV 500 MG 500 MG/100 ML BAG IV ONE ×2 (17:38→21:00)
[2020-01-12] MEDS: DOPAMINE IV PREMIX 400 MG/250 ML 400 MG/250 ML BAG IV PRN (17:39)
[2020-01-12] MEDS: ROBITUSSIN DM PO SCH ×3 (17:43→21:25)
[2020-01-12] MEDS: LOVENOX INJ 30 MG SYR SC SCH (17:43)
[2020-01-12] MEDS: SOLU-Medrol 40 MG VIAL IVP SCH ×2 (17:43→21:25)
[2020-01-12] MEDS: ZOSYN VIAL 3.375 GRAMS 3.375 G in NS 100 ML IV + SPIKE MINIBAG* 100 ML IV SCH ×2 (18:52→21:25)
[2020-01-12] MEDS ORDERED: VIBRAMYCIN 100 MG in NS 100 ML IV + SPIKE MINIBAG* 100 ML IV SCH (21:00)
[2020-01-12] MEDS: DUONEB 0.5 MG/3 MG (3 mL) NEB PRN (21:15)
[2020-01-12 21:18] LABS: CKMB % 2.8 % (<4); CREATINE KINASE MB 1.8 ng/mL (0-4.0); TROPONIN I 1.18 ng/mL (0-1.5)
[2020-01-13 01:21] LABS: CKMB % 4.3 % (<4); CREATINE KINASE MB 2.6 ng/mL (0-4.0); TROPONIN I 0.88 ng/mL (0-1.5)
[2020-01-13] MEDS: NS 1000 ML 1,000 ML IV SCH ×3 (04:55→22:30)
[2020-01-13 05:15] LABS: ABG BASE EXCESS 3.3 mmol/L (-2.0-2.0); ABG HCO3 28.5 mmol/L (22-26)
[2020-01-13 05:17] LABS: ABG ALLEN TEST POSS
[2020-01-13] MEDS: ZOSYN VIAL 3.375 GRAMS 3.375 G in NS 100 ML IV + SPIKE MINIBAG* 100 ML IV SCH ×3 (05:24→22:31)
[2020-01-13] MEDS: SOLU-Medrol 40 MG VIAL IVP SCH ×3 (05:24→22:31)
[2020-01-13 05:51] LABS: BASOPHILS % (AUTO) 0.1 % (0.2-1.0); HEMATOCRIT 29.1 % (36.0-47.0); HEMOGLOBIN 9.7 g/dL (12.0-16.0); LYMPHOCYTES # (AUTO) 0.7 X10^3/uL (1.3-2.9); LYMPHOCYTES % (AUTO) 9.1 % (21.0-51.0); MEAN CORPUSCULAR HEMOGLOBIN 32.1 pg (27.0-34.0); MEAN CORPUSCULAR HGB CONC 33.5 g/dL (33.0-35.0); MEAN CORPUSCULAR VOLUME 95.8 fL (80.0-100.0); MEAN PLATELET VOLUME 8.1 fL (7.4-11.0); MONOCYTES # (AUTO) 0.3 x10^3/uL (0.3-0.8); MONOCYTES % (AUTO) 4.8 % (0.0-13.0); NEUTROPHILS # (AUTO) 6.1 x10^3/uL (2.2-4.8); PLATELET COUNT 196 X10^3/uL (150.0-450.0); RED BLOOD COUNT 3.03 X10^6/uL (3.5-5.4); RED CELL DISTRIBUTION WIDTH 15.6 % (11.6-16.5); WHITE BLOOD COUNT 7.1 X10^3/uL (3.6-10.0)
--- NOTE | 2020-01-13 06:04 | RAD ---
Chest AP portableIndication: Dyspnea.Comparison January 12, 2020FINDINGSThere is pneumothorax. Obscure mild detail. There is cardiomegaly without large effusion or dense consolidation seen.IMPRESSIONCardiomegaly, similar prior without new acute chest process.Electronically signed by: REYNA MARQUEZ (Jan 13, 2020 06:02:38)
--- NOTE | 2020-01-13 08:30 | DR.H&P ---
H&P - History & Physical for Day of: H&P Date: 01/12/20 - Chief Complaint Chief Complaint: SOB, FEVER, COUGH, WHEEZING, NAUSEA - History of Present Illness History of Present Illness: IS A 84 YEAR OLD PATIENT OF OURS WHO PRESENTED TO THE ER WITH COMPLAINTS OF SHORTNESS OF BREATH, FEVER, AND NAUSEA. SYMPTOMS STARTED APPROXIMATELY TWO DAYS AGO AND HAS PROGRESSIVELY GOTTEN WORSE. SHE HAS ALSO HAD A NON-PRODUCTIVE COUGH AND REPORTS WHEEZING. HER PMH INCLUDES: ARTHRITIS, DYSLIPIDEMIA, GERD, AND HTN. ON ARRIVAL TO THE ER, VITALS WERE 103.0-110-24-82%RA-108/56. LABS WERE OBTAINED. ABNORMAL LAB VALUES INCLUDE THE FOLLOWING: WBC 10.9, RBC 2.98, HGB 9.5, HCT 28.7, BUN 22, CREATININE 1.20, GLUCOSE 125, AST 44, TROPONIN 1.57, BNP 2040, ALBUMIN 2.8, PTT 39.4. COVID-19 NEGATIVE. A URINALYSIS WAS OBTAINED AND REVEALED: WBC 30-50, RBC 3-5, BACTERIA 3+, LEUKOCYTES 2+, NITRITE POSITIVE, OCCULT BLOOD 1+, PROTEIN 1+. AN ABG WAS OBTAINED AND REVEALED: PH 7.440, PC02 46.0, P02 53.0, HC03 31.2, 02 SATURATION 88.0, BASE EXCESS 6.1, FI02 21.0. BLOOD AND URINE CULTURES WERE SET UP. A CHEST XRAY WAS OBTAINED AND REVELAED: MODERATE CARDIOMEGALY. EKG REVLEALED: SINUS TACHYCARDIA WITH HR 102. IN THE ER, SHE WAS GIVEN TYLENOL 1G IV, DUONEB X 1, LASIX 40MG IV X 1, ECOTRIN 325MG PO X 1, ZITHROMAX 500MG IV X 1, ROCEPHIN 1G IV X 1, MOTRIN 800MG PO X 1, AND SOLU-MEDROL 125MG IV X 1. SHE WAS ADMITTED TO THE HOSPITAL FOR FURTHER EVALUATION AND TREATMENT OF SEPSIS, UTI, CHF, HYPOXIA, AND FEVER. ON ARRIVAL TO THE FLOOR, PATIENT WAS NOTED TO HAVE A BLOOD PRESSURE OF 88/43. WE GAVE HER A NORMAL SALINE BOLUS AND STARTED HER ON A DOPAMINE DRIP, ZOSYN 3.375G IV TID, LEVAQUIN 250MG IV DAILY, DUONEBS QID PRN, LOVENOX 30MG SC DAILY, SOLU-MEDROL 80MG IV Q8H, AND NS AT 125ML/HR. WE WILL OBTAIN AN ECHO TODAY. OTHERWISE, WE PLAN TO FOLLOW UP WITH AM LABS AND CONTINUE TO MONITOR. - Past Medical History Past Medical History: Hypertension, Dyslipidemia, GERD, Arthritis Additional Medical History: Cataracts, Diverticulosis, Previous Blood Transfusion - Past Surgical History Surgical History: No History - Family History Family Medical History: Diabetes Mellitus, Cancer, Hypertension - Social History Does patient currently use any type of tobacco product: No Have you used tobacco products in the last 12 months: No Type of Tobacco Use: None Does any household member use tobacco: No Alcohol Use: None Drug Use: None - Medications Home Medications: codeine Allergy (Verified 10/05/17 08:34) CONTINUE taking the following medications gabapentin 400 mg PO QID 01/12/20 [History] - Review of Systems Constitutional: Fever, Chills, Weakness Eyes: No Symptoms Reported ENT: No Symptoms Reported Respiratory: See HPI, Cough, Shortness of Breath, SOB with Excertion, Wheezing Cardiovascular: No Symptoms Reported Gastrointestinal: See HPI, Nausea Genitourinary: No Symptoms Reported Musculoskeletal: No Symptoms Reported Skin: No Symptoms Reported Neurological: Weakness - Physical Exam Vital Signs: Temperature 97.5 F Pulse Rate [Left Brachial] 74 Pulse Rate 89 Respiratory Rate 22 Blood Pressure [Left Arm] 116/62 Blood Pressure 103/51 O2 Sat by Pulse Oximetry 95 Oriented: Normal Eyes: Normal Ear: Normal Nose: Normal Throat: Normal Respiratory: Wheezes Throughout Cardiovascular: Tachycardia. negative: S3, S4, Murmur : Normal Auscultation: Bowel Sounds: Normal Palpation: Normal Tenderness: Normal Skin: Normal Musculoskeletal: Normal Psychiatric: Normal Mood Description: Calm Affect: Normal Speech Pattern: Clear - Assessment/Plan (1) Sepsis Qualifiers: Sepsis type: sepsis due to unspecified organism Sepsis acute organ dysfunction status: unspecified Qualified Code(s): A41.9 - Sepsis, unspecified organism Status: Acute Plan: DOPAMINE DRIP, ZOSYN 3.375G IV TID, LEVAQUIN 250MG IV DAILY, DUONEBS QID PRN, LOVENOX 30MG SC DAILY, SOLU-MEDROL 80MG IV Q8H, AND NS AT 125ML/HR (2) UTI (urinary tract infection) Qualifiers: Urinary tract infection type: site unspecified Hematuria presence: with hematuria Qualified Code(s): N39.0 - Urinary tract infection, site not specified; R31.9 - Hematuria, unspecified Status: Acute (3) CHF (congestive heart failure) Qualifiers: Heart failure type: unspecified Heart failure chronicity: acute Qualified Code(s): I50.9 - Heart failure, unspecified Status: Acute Plan: OBTAIN ECHO (4) Hypoxia Status: Acute (5) Fever Qualifiers: Fever type: unspecified Qualified Code(s): R50.9 - Fever, unspecified Status: Acute - Allergies Allergies/Adverse Reactions: Allergies Allergy/AdvReac Type Severity Reaction Status Date / Time codeine Allergy Verified 10/05/17 08:34
[2020-01-13] MEDS: VSL#3 PO SCH (08:39)
[2020-01-13] MEDS: LOVENOX INJ 30 MG SYR SC SCH (08:39)
[2020-01-13] MEDS: ROBITUSSIN DM PO SCH ×4 (08:39→21:30)
[2020-01-13 08:40] LABS: ALANINE AMINOTRANSFERASE 21 Units/L (12-78); ALBUMIN 2.5 g/dL (3.4-5.0); ALKALINE PHOSPHATASE 100 Units/L (46-116); ASPARTATE AMINO TRANSFERASE 29 Units/L (15-37); BLOOD UREA NITROGEN 21 mg/dL (7-18); CALCIUM 8.6 mg/dL (8.5-10.1); CARBON DIOXIDE 24.9 mmol/L (21-32); CHLORIDE 103 mmol/L (98-107); COR CA(FOR HYPOALB) 9.8 mg/dL (8.5-10.1); COR NA(FOR HYPERGLY) 140 mmol/L (136-145); CREATININE 1.08 mg/dL (0.55-1.02); SODIUM 138 mmol/L (136-145); eGFR NON BLACK RACES 52 (>60)
[2020-01-13] MEDS ORDERED: ROCEPHIN VIAL 1 GRAM 1 G in NS 100 ML IV + SPIKE MINIBAG* 100 ML IV SCH (09:00)
[2020-01-13] MEDS: DUONEB 0.5 MG/3 MG (3 mL) NEB PRN (20:44)
[2020-01-13] MEDS: LEVAQUIN PREMIX IV 250 MG 250 MG/50 ML BAG IV SCH (21:30)
[2020-01-14] MEDS ORDERED: ZOFRAN INJ 4 MG VIAL ONE ×2 (02:33→16:47)
[2020-01-14] MEDS: ZOFRAN INJ 4 MG VIAL IVP PRN (03:00)
[2020-01-14] MEDS: NS 1000 ML 1,000 ML IV SCH (05:21)
[2020-01-14 05:47] LABS: BASOPHILS % (AUTO) 0.3 % (0.2-1.0); HEMATOCRIT 28.8 % (36.0-47.0); HEMOGLOBIN 9.5 g/dL (12.0-16.0); LYMPHOCYTES # (AUTO) 0.7 X10^3/uL (1.3-2.9); LYMPHOCYTES % (AUTO) 5.3 % (21.0-51.0); MEAN CORPUSCULAR HEMOGLOBIN 31.5 pg (27.0-34.0); MEAN CORPUSCULAR VOLUME 95.4 fL (80.0-100.0); MONOCYTES # (AUTO) 0.7 x10^3/uL (0.3-0.8); NEUTROPHILS # (AUTO) 12.4 x10^3/uL (2.2-4.8); NEUTROPHILS % (AUTO) 89.4 % (42.0-75.0); PLATELET COUNT 249 X10^3/uL (150.0-450.0); RED BLOOD COUNT 3.01 X10^6/uL (3.5-5.4); RED CELL DISTRIBUTION WIDTH 15.1 % (11.6-16.5); WHITE BLOOD COUNT 13.9 X10^3/uL (3.6-10.0)
[2020-01-14] MEDS: SOLU-Medrol 40 MG VIAL IVP SCH ×3 (05:56→22:16)
[2020-01-14] MEDS: ZOSYN VIAL 3.375 GRAMS 3.375 G in NS 100 ML IV + SPIKE MINIBAG* 100 ML IV SCH ×3 (05:56→21:48)
[2020-01-14 06:00] LABS: ALANINE AMINOTRANSFERASE 18 Units/L (12-78); ALBUMIN 2.5 g/dL (3.4-5.0); ALKALINE PHOSPHATASE 85 Units/L (46-116); ASPARTATE AMINO TRANSFERASE 25 Units/L (15-37); BLOOD UREA NITROGEN 15 mg/dL (7-18); CALCIUM 8.8 mg/dL (8.5-10.1); CARBON DIOXIDE 23.9 mmol/L (21-32); CHLORIDE 108 mmol/L (98-107); COR NA(FOR HYPERGLY) 143 mmol/L (136-145); CREATININE 0.69 mg/dL (0.55-1.02); SODIUM 141 mmol/L (136-145); TOTAL PROTEIN 6.5 g/dL (6.4-8.2); eGFR NON BLACK RACES > 60 (>60)
--- NOTE | 2020-01-14 07:34 | RAD ---
HISTORYShortness of breathSTUDYChest AP [id number]/2020FINDINGSThe heart is markedly enlarged. Mild pulmonary venous congestion is present. No interstitial edema, alveolar edema, or alveolar infiltrates are identified. No pleural effusions are identified. Hyperinflation is present. Bony thorax is unremarkable.IMPRESSIONCardiomegaly with pulmonary venous congestionLungs hyperinflated but free of acute infiltratesElectronically signed by: ALBERT THOMAS (Jan 14, 2020 07:32:38)
[2020-01-14] MEDS: PHENERGAN INJ 25 MG IM PRN ×2 (08:30→21:05)
[2020-01-14] MEDS ORDERED: PHENERGAN INJ 25 MG IM ONE (08:46)
[2020-01-14] MEDS: VSL#3 PO SCH (10:07)
[2020-01-14] MEDS: ROBITUSSIN DM PO SCH ×5 (10:07→20:40)
[2020-01-14] MEDS: LOVENOX INJ 30 MG SYR SC SCH (10:07)
[2020-01-14] MEDS ORDERED: LASIX IVP ONE (10:12)
[2020-01-14] MEDS ORDERED: KLOR-CON PO PRN (10:33)
[2020-01-14] MEDS ORDERED: POTASSIUM CHLORIDE LIQ 20 MEQ UDC PO PRN (10:33)
[2020-01-14] MEDS ORDERED: MICRO K EXTEN CAP 10 MEQ PO PRN (10:33)
[2020-01-14] MEDS ORDERED: POTASSIUM CHL 40 MEQ/NS 0.45% 500 ML IV PRN (10:33)
[2020-01-14] MEDS ORDERED: POTASSIUM CHL 60 MEQ/NS 0.45% 500 ML IV PRN (10:33)
[2020-01-14] MEDS: K-RIDER 10 MEQ/NS 100 ML 10 MEQ/100 ML BAG IV PRN ×2 (10:53→12:56)
[2020-01-14] MEDS ORDERED: ZOFRAN INJ 4 MG VIAL 16 MG, ATIVAN INJ 2 MG VIAL 1 MG, DECADRON INJ 10 MG in NS 50 ML I... IV PRN (16:42)
[2020-01-14] MEDS ORDERED: DECADRON INJ ONE (16:48)
[2020-01-14] MEDS ORDERED: NS 50 ML IV 50 ML IV ONE (16:48)
[2020-01-14] MEDS ORDERED: ATIVAN INJ 2 MG VIAL ONE (16:49)
[2020-01-14] MEDS: LEVAQUIN PREMIX IV 250 MG 250 MG/50 ML BAG IV SCH (20:40)
[2020-01-14] MEDS ORDERED: HALDOL INJ IM PRN (23:41)
[2020-01-15] MEDS ORDERED: CARDIZEM INJ 50 MG VIAL IVP ONE (01:39)
[2020-01-15] MEDS ORDERED: CARDIZEM INJ 50 MG VIAL ONE (01:41)
[2020-01-15] MEDS ORDERED: NS 1000 ML 1,000 ML ONE (01:52)
[2020-01-15] MEDS: SOLU-Medrol 40 MG VIAL IVP SCH (05:09)
[2020-01-15] MEDS: ZOSYN VIAL 3.375 GRAMS 3.375 G in NS 100 ML IV + SPIKE MINIBAG* 100 ML IV SCH ×3 (05:09→21:39)
--- NOTE | 2020-01-15 06:13 | RAD ---
HISTORYShortness of breathSTUDYChest AP [id number]/09/2020FINDINGSPatient is rotated to the right. The heart remains markedly enlar ged. Pulmonary venous congestion is present. No definite interstitial edema, alveolar edema, alveolar infiltrates or pleural effusions are identified. Mild hyperinflation is present. Bony thorax is unre markable.IMPRESSIONCardiomegaly with pulmonary venous congestionLungs mildly hyperinflated but clearE lectronically signed by: ALBERT THOMAS (Jan 15, 2020 06:11:59)
[2020-01-15 06:15] LABS: ALANINE AMINOTRANSFERASE 20 Units/L (12-78); ALBUMIN 2.8 g/dL (3.4-5.0); ALKALINE PHOSPHATASE 77 Units/L (46-116); ASPARTATE AMINO TRANSFERASE 35 Units/L (15-37); BLOOD UREA NITROGEN 22 mg/dL (7-18); CALCIUM 9.2 mg/dL (8.5-10.1); CARBON DIOXIDE 29.9 mmol/L (21-32); CHLORIDE 108 mmol/L (98-107); COR CA(FOR HYPOALB) 10.2 mg/dL (8.5-10.1); COR NA(FOR HYPERGLY) 145 mmol/L (136-145); CREATININE 1.02 mg/dL (0.55-1.02); SODIUM 144 mmol/L (136-145); TOTAL PROTEIN 6.9 g/dL (6.4-8.2); eGFR NON BLACK RACES 55 (>60)
[2020-01-15 06:21] LABS: BASOPHILS % (AUTO) 0.1 % (0.2-1.0); HEMATOCRIT 30.5 % (36.0-47.0); HEMOGLOBIN 9.9 g/dL (12.0-16.0); LYMPHOCYTES # (AUTO) 0.8 X10^3/uL (1.3-2.9); LYMPHOCYTES % (AUTO) 6.6 % (21.0-51.0); MEAN CORPUSCULAR HEMOGLOBIN 30.8 pg (27.0-34.0); MEAN CORPUSCULAR HGB CONC 32.5 g/dL (33.0-35.0); MEAN CORPUSCULAR VOLUME 94.8 fL (80.0-100.0); MEAN PLATELET VOLUME 7.9 fL (7.4-11.0); MONOCYTES # (AUTO) 0.8 x10^3/uL (0.3-0.8); MONOCYTES % (AUTO) 6.4 % (0.0-13.0); NEUTROPHILS # (AUTO) 10.8 x10^3/uL (2.2-4.8); NEUTROPHILS % (AUTO) 86.9 % (42.0-75.0); PLATELET COUNT 308 X10^3/uL (150.0-450.0); RED BLOOD COUNT 3.21 X10^6/uL (3.5-5.4); RED CELL DISTRIBUTION WIDTH 15.6 % (11.6-16.5); WHITE BLOOD COUNT 12.4 X10^3/uL (3.6-10.0)
[2020-01-15] MEDS: K-RIDER 10 MEQ/NS 100 ML 10 MEQ/100 ML BAG IV PRN (06:31)
[2020-01-15] MEDS: DUONEB 0.5 MG/3 MG (3 mL) NEB SCH ×4 (09:44→20:32)
[2020-01-15] MEDS: ROBITUSSIN DM PO SCH ×4 (09:46→21:04)
[2020-01-15] MEDS: LOVENOX INJ 30 MG SYR SC SCH (09:47)
[2020-01-15] MEDS: VSL#3 PO SCH (09:50)
[2020-01-15] MEDS: MILK OF MAGNESIA PO SCH (09:50)
[2020-01-15] MEDS ORDERED: LASIX IVP ONE (09:56)
[2020-01-15] MEDS ORDERED: NORVASC TAB 5 MG PO SCH (11:00)
[2020-01-15] MEDS: CARDIZEM CD 180 MG 24-HR PO SCH (11:18)
[2020-01-15] MEDS: K-DUR TAB 20 MEQ PO PRN (11:18)
[2020-01-15] MEDS: SINGULAIR TAB 10 MG PO SCH (11:18)
[2020-01-15] MEDS: PROTONIX TAB 40 MG PO SCH (11:18)
[2020-01-15] MEDS: MORPHINE SULFATE INJ 2 MG INJ IVP PRN (11:19)
--- NOTE | 2020-01-15 14:20 | PCM.PROG ---
Progress Note - Progress Note for Day of Date of Exam: 01/14/20 - Subjective Subjective: IS BEING TREATED FOR SEPSIS, UTI, CHF, HYPOXIA, HYPOTENSION, AND FEVER. TODAY, SHE IS ALERT AND ORIENTED, LYING IN BED ON MORNING ROUNDS. SHE IS NO LONGER ON A DOPAMINE DRIP FOR HYPOTENSION. SHE CONTINUES WITH COMPLAINTS OF WEAKNESS AND SHORTNESS OF BREATH TODAY. ON EXAMINATION, SHE IS SLIGHTLY TACHYCARDIC WITH HR 100-110 BPM. BILATERAL LUNGS ARE NOTED WITH RHONCHI THROUGHOUT. ABDOMEN IS ROUND, SOFT, AND NON-TENDER WITH NORMAL BOWEL SOUNDS NOTED IN ALL QUADRANTS. BLE ARE NOTED WITH TRACE EDEMA. HER VITALS THIS MORNING ARE: 98.0-103-20-93%-139/79. LABS WERE OBTAINED. ABNORMAL L AB VALUES INCLUDE THE FOLLOWING: WBC INCREASED TO 13.9, RBC 3.01, HGB 9.5, HCT 28.8, CHLORIDE 108, GLUCOSE 166, BNP 3310, ALBUMIN 2.5. URINE AND BLOOD CULTURES ARE PENDING. A CHEST XRAY WAS OBTAINED AND REVEALED: Cardiomegaly with pulmonary venous congestion. Lungs hyperinflated but free of acute infiltrates. 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 SHE IS CURRENTLY RECEIVING ZOSYN 3.375G IV TID, LEVAQUIN 250MG IV DAILY, DUONEBS QID PRN, LOVENOX 30MG SC DAILY, SOLU-MEDROL 80MG IV Q8H, AND NS AT 125ML/HR. WE WILL DISCONTINUE HER IV FLUIDS TODAY AND ADMINISTER LASIX 40MG I V X 1 DOSE. OTHERWISE, WE PLAN TO FOLLOW UP WITH AM LABS AND CHEST XRAY AND CONTINUE TO MONITOR. - Past Medical Family Social History Past Med/Fam/Surg Hx: No changes since H&P Allergies: Allergies codeine Allergy (Verified 10/05/17 08:34) lorazepam [From Ativan] Adverse Reaction (Verified 01/14/20 23:53) - Review of Systems ROS: No change since H&P - Vital Signs and I&O's Vital Signs: Temperature 98.9 F Pulse Rate [Left Brachial] 137 Pulse Rate 112 Respiratory Rate 20 Blood Pressure [Left Arm] 150/91 Blood Pressure 103/51 O2 Sat by Pulse Oximetry 100 Intake and Output: Intake & Output 07/02/2401/14/20 01/15/20 01/16/20 11:59 11:59 11:59 11:59 Intake Total 1482 / 1482 3025 / 3025 1350 / 1350 Output Total 1500 / 1500 2525 / 2525 3250 / 3250 Balance -18 / -18 500 / 500 -1900 / -1900 - Physical Exam Oriented: Normal Eyes: Normal Ear: Normal Nose: Normal Throat: Normal Respiratory: Generalized, Rhonchi Cardiovascular: Tachycardia. negative: S3, S4, Murmur : Normal Auscultation: Bowel Sounds: Normal Palpation: Normal Tenderness: Suprapubic, Mild Skin: Normal Musculoskeletal: Normal Psychiatric: Normal Mood Description: Calm Affect: Normal Speech Pattern: Clear, Appropriate - Laboratory and Diagnostics Result Diagrams: 01/15/20 05:30 01/15/20 05:30 Labs: 01/12/20 12:13 Blood Blood Culture - Preliminary 01/12/20 12:05 Blood Blood Culture - Preliminary 01/12/20 13:30 Urine,Clean Catch Urine Culture - Final Escherichia Coli Laboratory WBC 12.4 X10^3/uL (3.6-10.0) H 01/15/20 05:30 RBC 3.21 X10^6/uL (3.5-5.4) L 01/15/20 05:30 Hgb 9.9 g/dL (12.0-16.0) L 01/15/20 05:30 Hct 30.5 % (36.0-47.0) L 01/15/20 05:30 MCV 94.8 fL (80.0-100.0) 01/15/20 05:30 MCH 30.8 pg (27.0-34.0) 01/15/20 05:30 MCHC 32.5 g/dL (33.0-35.0) L 01/15/20 05:30 RDW 15.6 % (11.6-16.5) 01/15/20 05:30 Plt Count 308 X10^3/uL (150.0-450.0) 01/15/20 05:30 MPV 7.9 fL (7.4-11.0) 01/15/20 05:30 Neut % (Auto) 86.9 % (42.0-75.0) H 01/15/20 05:30 Lymph % (Auto) 6.6 % (21.0-51.0) L 01/15/20 05:30 [place] % (Auto) 6.4 % (0.0-13.0) 01/15/20 05:30 Eos % (Auto) 0.0 % (0.9-2.9) L 01/15/20 05:30 Baso % (Auto) 0.1 % (0.2-1.0) L 01/15/20 05:30 Neut # (Auto) 10.8 x10^3/uL (2.2-4.8) H 01/15/20 05:30 Lymph # (Auto) 0.8 X10^3/uL (1.3-2.9) L 01/15/20 05:30 [place] # (Auto) 0.8 x10^3/uL (0.3-0.8) 01/15/20 05:30 Eos # (Auto) 0.0 x10^3/uL (0.0-0.2) 01/15/20 05:30 Baso # (Auto) 0.0 X10^3/uL (0.0-0.1) 01/15/20 05:30 Absolute Nucleated RBC 0.1 /100WBC 01/15/20 05:30 PT 13.8 SECONDS (11.8-14.3) 01/12/20 11:50 INR Target Range - 01/12/20 11:50 INR 1.09 (0.8-1.3) 01/12/20 11:50 APTT 39.4 SECONDS (22.9-36.5) H 01/12/20 11:50 PTT Comment - 01/12/20 11:50 Sample Site R radial 01/13/20 05:00 ABG pH 7.410 (7.35-7.45) 01/13/20 05:00 ABG pCO2 45.0 mmHg (35.0-45.0) 01/13/20 05:00 ABG pO2 79.0 mmHg (80.0-100.0) L 01/13/20 05:00 ABG HCO3 28.5 mmol/L (22-26) H 01/13/20 05:00 ABG O2 Saturation 96.0 % (90-100) 01/13/20 05:00 ABG Base Excess 3.3 mmol/L (-2.0-2.0) H 01/13/20 05:00 Miles Test Poss 01/13/20 05:00 A-a Gradient 64.0 mmHg 01/13/20 05:00 FiO2 28.0 01/13/20 05:00 Blood Gas Comments Rina well kb 01/13/20 05:00 Sodium 144 mmol/L (136-145) 01/15/20 05:30 Corrected Sodium 145 mmol/L (136-145) 01/15/20 05:30 Potassium 3.4 mmol/L (3.5-5.1) L 01/15/20 05:30 Chloride 108 mmol/L (98-107) H 01/15/20 05:30 Carbon Dioxide 29.9 mmol/L (21-32) 01/15/20 05:30 BUN 22 mg/dL (7-18) H 01/15/20 05:30 Creatinine 1.02 mg/dL (0.55-1.02) 01/15/20 05:30 Est GFR (MDRD) Af Amer > 60 (>60) 01/15/20 05:30 Est GFR (MDRD) Non-Af 55 (>60) L 01/15/20 05:30 Glucose 150 mg/dL (65-99) H 01/15/20 05:30 Lactic Acid 0.6 mmol/L (0.4-2.0) 01/12/20 11:50 Calcium 9.2 mg/dL (8.5-10.1) 01/15/20 05:30 Corrected Calcium 10.2 mg/dL (8.5-10.1) H 01/15/20 05:30 Magnesium 2.0 mg/dL (1.7-2.9) 01/14/20 05:20 Total Bilirubin 0.30 mg/dL (0.2-1.0) 01/15/20 05:30 AST 35 Units/L (15-37) 01/15/20 05:30 ALT 20 Units/L (12-78) 01/15/20 05:30 Alkaline Phosphatase 77 Units/L (46-116) 01/15/20 05:30 Creatine Kinase 61 Units/L (26-192) 01/13/20 00:23 CK-MB (CK-2) 2.6 ng/mL (0-4.0) 01/13/20 00:23 CK/CKMB % Calc 4.3 % (<4) 01/13/20 00:23 Troponin I 0.88 ng/mL (0-1.5) 01/13/20 00:23 B-Natriuretic Peptide > 5000 pg/mL (0-79) H* 01/15/20 05:30 Total Protein 6.9 g/dL (6.4-8.2) 01/15/20 05:30 Albumin 2.8 g/dL (3.4-5.0) L 01/15/20 05:30 Globulin 4.1 g/dL (2.5-4.5) 01/15/20 05:30 Albumin/Globulin Ratio 0.7 Ratio (1.1-2.1) L 01/15/20 05:30 Specimen Type Clean catch urine 01/12/20 13:30 Urine Color Yellow (YELLOW) 01/12/20 13:30 Urine Appearance Cloudy (CLEAR) 01/12/20 13:30 Urine pH 6.0 (5.0 - 8.0) 01/12/20 13:30 Ur Specific [place] 1.010 (1.000-1.030) 01/12/20 13:30 Urine Protein 1+ (NEGATIVE) 01/12/20 13:30 Urine Glucose (UA) Negative (NEGATIVE) 01/12/20 13:30 Urine Ketones Negative (NEGATIVE) 01/12/20 13:30 Urine Occult Blood 1+ (NEGATIVE) 01/12/20 13:30 Urine Nitrite Positive (NEGATIVE) 01/12/20 13:30 Urine Bilirubin Negative (NEGATIVE) 01/12/20 13:30 Urine Urobilinogen 1+ (NORMAL) 01/12/20 13:30 Ur Leukocyte Esterase 2+ (NEGATIVE) 01/12/20 13:30 Urine RBC 3-5 /HPF (0-3) A 01/12/20 13:30 Urine WBC 30-50 /HPF (0-5) A 01/12/20 13:30 Ur Squamous Epith Cells Rare /HPF (NEGATIVE) 01/12/20 13:30 Urine Bacteria 3+ /HPF (NEGATIVE) 01/12/20 13:30 Ur Culture Indicated? Yes/culture set up 01/12/20 13:30 SARS-CoV-2 (PCR) Negative (NEGATIVE) 01/12/20 12:00 - Plan (1) Sepsis Status: Acute Qualifiers: Sepsis type: sepsis due to unspecified organism Sepsis acute organ dysfunction status: unspecified Qualified Code(s): A41.9 - Sepsis, unspecified organism Plan: DOPAMINE DRIP, ZOSYN 3.375G IV TID, LEVAQUIN 250MG IV DAILY, DUONEBS QID PRN, LOVENOX 30MG SC DAILY, SOLU-MEDROL 80MG IV Q8H (2) UTI (urinary tract infection) Status: Inactive Qualifiers: Urinary tract infection type: site unspecified Hematuria presence: with hematuria Qualified Code(s): N39.0 - Urinary tract infection, site not specified; R31.9 - Hematuria, unspecified (3) CHF (congestive heart failure) Status: Chronic Qualifiers: Heart failure type: unspecified Heart failure chronicity: acute Qualified Code(s): I50.9 - Heart failure, unspecified Plan: LASIX 40MG IV X 1 DOSE (4) Hypoxia Status: Acute (5) Fever Status: Acute Qualifiers: Fever type: unspecified Qualified Code(s): R50.9 - Fever, unspecified
[2020-01-15] MEDS: LASIX IVP SCH (18:50)
[2020-01-15] MEDS: COLACE CAP 100 MG PO SCH (21:03)
[2020-01-15] MEDS: ZOCOR TAB 20 MG PO SCH (21:04)
[2020-01-15] MEDS: LEVAQUIN PREMIX IV 250 MG 250 MG/50 ML BAG IV SCH (21:04)
[2020-01-15] MEDS: ZyrTEC TAB 10 MG PO SCH (21:04)
[2020-01-16] MEDS ORDERED: NS 100 ML IV 100 ML IV ONE (04:51)
[2020-01-16] MEDS ORDERED: ZOSYN VIAL 3.375 GRAMS IV ONE (04:51)
[2020-01-16] MEDS ORDERED: NS 1000 ML 1,000 ML ONE ×2 (04:53→10:16)
[2020-01-16] MEDS: ZOSYN VIAL 3.375 GRAMS 3.375 G in NS 100 ML IV + SPIKE MINIBAG* 100 ML IV SCH ×3 (05:06→22:30)
[2020-01-16 07:13] LABS: ALANINE AMINOTRANSFERASE 21 Units/L (12-78); ALBUMIN 2.4 g/dL (3.4-5.0); ALKALINE PHOSPHATASE 57 Units/L (46-116); ASPARTATE AMINO TRANSFERASE 27 Units/L (15-37); BASOPHILS % (AUTO) 0 % (0.2-1.0); BLOOD UREA NITROGEN 22 mg/dL (7-18); CALCIUM 8.5 mg/dL (8.5-10.1); CARBON DIOXIDE 32.1 mmol/L (21-32); CHLORIDE 106 mmol/L (98-107); COR CA(FOR HYPOALB) 9.8 mg/dL (8.5-10.1); COR NA(FOR HYPERGLY) 145 mmol/L (136-145); CREATININE 0.91 mg/dL (0.55-1.02); HEMATOCRIT 27.4 % (36.0-47.0); HEMOGLOBIN 9.1 g/dL (12.0-16.0); LYMPHOCYTES # (AUTO) 0.8 X10^3/uL (1.3-2.9); LYMPHOCYTES % (AUTO) 8.8 % (21.0-51.0); MEAN CORPUSCULAR HEMOGLOBIN 31.6 pg (27.0-34.0); MEAN CORPUSCULAR HGB CONC 33.1 g/dL (33.0-35.0); MEAN CORPUSCULAR VOLUME 95.3 fL (80.0-100.0); MEAN PLATELET VOLUME 7.4 fL (7.4-11.0); MONOCYTES % (AUTO) 10.5 % (0.0-13.0); NEUTROPHILS # (AUTO) 7.5 x10^3/uL (2.2-4.8); NEUTROPHILS % (AUTO) 80.7 % (42.0-75.0); PLATELET COUNT 288 X10^3/uL (150.0-450.0); RED BLOOD COUNT 2.88 X10^6/uL (3.5-5.4); RED CELL DISTRIBUTION WIDTH 15.3 % (11.6-16.5); SODIUM 144 mmol/L (136-145); WHITE BLOOD COUNT 9.3 X10^3/uL (3.6-10.0); eGFR NON BLACK RACES > 60 (>60)
[2020-01-16 08:17] LABS: BAND NEUTROPHILS % 1 % (0-10)
[2020-01-16 08:18] LABS: HYPOCHROMASIA SLIGHT; PLATELET MORPHOLOGY COMMENT NORMAL (NORMAL)
[2020-01-16] MEDS: MORPHINE SULFATE INJ 2 MG INJ IVP PRN (08:20)
[2020-01-16] MEDS: ZOFRAN INJ 4 MG VIAL IVP PRN ×2 (08:20→18:20)
[2020-01-16] MEDS: DUONEB 0.5 MG/3 MG (3 mL) NEB SCH ×4 (09:45→20:05)
--- NOTE | 2020-01-16 10:40 | PCM.PROG ---
Progress Note Progress Note for Day of Date of Exam: 01/16/20 Subjective Subjective: Patient seen at bedside, no acute events overnight. Patient is admitted for hypoxia, sepsis due to UTI, CHF and hypotension. She is currently on 2.5 L NC. Patient reports she feels chest tightness and pressure especially when she takes a deep breath. Denies cough, no fever or chills. She also reports nausea, decreased appetite. She was initially requiring dopamine but that has been turned off as her BP is better. Urine culture is showing E.coli. Patient was noted to be in fluid overload state yesterday so IVF were stopped and patient was started on Lasix. ECHO showed grade 1 diastolic dysfunction with EF 44%. Labs: K 3.4 Blood Cx neg Hgb 9.1 Will continue IV antibiotics, DC levaquin, Ecoli sensitive to Zosyn, continue Lasix IV BID. Continue solumedrol. Repeat CXR tomorrow. Replace K orally as per protocol. Monitor AM labs. Monitor UOP. Past Medical Family Social History Past Med/Fam/Surg Hx: No changes since H&P Allergies: Allergies codeine Allergy (Verified 10/05/17 08:34) lorazepam [From Ativan] Adverse Reaction (Verified 01/14/20 23:53) Review of Systems ROS: No change since H&P Vital Signs and I&O's Vital Signs: Temperature 98.2 F Pulse Rate [Left Brachial] 99 Pulse Rate 106 Respiratory Rate 20 Blood Pressure [Left Arm] 111/60 Blood Pressure 103/51 O2 Sat by Pulse Oximetry 100 Intake and Output: Intake & Output 01/13/20 01/14/20 01/15/20 01/16/20 23:59 23:59 23:59 23:59 Intake Total 2512 / 2512 1775 / 1775 1570 / 1570 550 / 550 Output Total 2575 / 2575 2900 / 2900 3550 / 3550 550 / 550 Balance -63 / -63 -1125 / -1124 -1979 / 0 / 0 Physical Exam Oriented: Normal Eyes: Normal Ear: Normal Nose: Normal Throat: Normal Respiratory: Generalized, Wheezes and Rhonchi Cardiovascular: Tachycardia; negative S3, S4 and Murmur Auscultation: Bowel Sounds: Normal Tenderness: Normal and Other (shingle scars noted on the right lateral side, mild tenderness ) Skin: Normal Musculoskeletal: Normal Psychiatric: Normal Mood Description: Calm Affect: Normal Speech Pattern: Clear and Appropriate Laboratory and Diagnostics Result Diagrams: 01/16/20 06:35 01/16/20 06:35 Labs: 01/12/20 12:13 Blood Blood Culture - Preliminary 01/12/20 12:05 Blood Blood Culture - Preliminary 01/12/20 13:30 Urine,Clean Catch Urine Culture - Final Escherichia Coli Laboratory WBC 9.3 X10^3/uL (3.6-10.0) 01/16/20 06:35 RBC 2.88 X10^6/uL (3.5-5.4) L 01/16/20 06:35 Hgb 9.1 g/dL (12.0-16.0) L 01/16/20 06:35 Hct 27.4 % (36.0-47.0) L 01/16/20 06:35 MCV 95.3 fL (80.0-100.0) 01/16/20 06:35 MCH 31.6 pg (27.0-34.0) 01/16/20 06:35 MCHC 33.1 g/dL (33.0-35.0) 01/16/20 06:35 RDW 15.3 % (11.6-16.5) 01/16/20 06:35 Plt Count 288 X10^3/uL (150.0-450.0) 01/16/20 06:35 Plt Count Comment Adequate (ADEQUATE) 01/16/20 06:35 MPV 7.4 fL (7.4-11.0) 01/16/20 06:35 Neut % (Auto) 80.7 % (42.0-75.0) H 01/16/20 06:35 Lymph % (Auto) 8.8 % (21.0-51.0) L 01/16/20 06:35 [place] % (Auto) 10.5 % (0.0-13.0) 01/16/20 06:35 Eos % (Auto) 0.0 % (0.9-2.9) L 01/16/20 06:35 Baso % (Auto) 0 % (0.2-1.0) L 01/16/20 06:35 Neut # (Auto) 7.5 x10^3/uL (2.2-4.8) H 01/16/20 06:35 Lymph # (Auto) 0.8 X10^3/uL (1.3-2.9) L 01/16/20 06:35 [place] # (Auto) 1.0 x10^3/uL (0.3-0.8) H 01/16/20 06:35 Eos # (Auto) 0.0 x10^3/uL (0.0-0.2) 01/16/20 06:35 Baso # (Auto) 0.0 X10^3/uL (0.0-0.1) 01/16/20 06:35 Absolute Nucleated RBC 0.0 /100WBC 01/16/20 06:35 Total Counted 100 01/16/20 06:35 Neutrophils % (Manual) 84 % (39-76) H 01/16/20 06:35 Band Neutrophils % 1 % (0-10) 01/16/20 06:35 Lymphocytes % (Manual) 8 % (13-43) L 01/16/20 06:35 Monocytes % (Manual) 7 % (4-9) 01/16/20 06:35 Plt Morphology Comment Normal (NORMAL) 01/16/20 06:35 RBC Morphology Abnormal (NORMAL) A 01/16/20 06:35 Hypochromasia Slight A 01/16/20 06:35 PT 13.8 SECONDS (11.8-14.3) 01/12/20 11:50 INR Target Range - 01/12/20 11:50 INR 1.09 (0.8-1.3) 01/12/20 11:50 APTT 39.4 SECONDS (22.9-36.5) H 01/12/20 11:50 PTT Comment - 01/12/20 11:50 Sample Site R radial 01/13/20 05:00 ABG pH 7.410 (7.35-7.45) 01/13/20 05:00 ABG pCO2 45.0 mmHg (35.0-45.0) 01/13/20 05:00 ABG pO2 79.0 mmHg (80.0-100.0) L 01/13/20 05:00 ABG HCO3 28.5 mmol/L (22-26) H 01/13/20 05:00 ABG O2 Saturation 96.0 % (90-100) 01/13/20 05:00 ABG Base Excess 3.3 mmol/L (-2.0-2.0) H 01/13/20 05:00 Miles Test Poss 01/13/20 05:00 A-a Gradient 64.0 mmHg 01/13/20 05:00 FiO2 28.0 01/13/20 05:00 Blood Gas Comments Rina well kb 01/13/20 05:00 Sodium 144 mmol/L (136-145) 01/16/20 06:35 Corrected Sodium 145 mmol/L (136-145) 01/16/20 06:35 Potassium 3.4 mmol/L (3.5-5.1) L 01/16/20 06:35 Chloride 106 mmol/L (98-107) 01/16/20 06:35 Carbon Dioxide 32.1 mmol/L (21-32) H 01/16/20 06:35 BUN 22 mg/dL (7-18) H 01/16/20 06:35 Creatinine 0.91 mg/dL (0.55-1.02) 01/16/20 06:35 Est GFR (MDRD) Af Amer > 60 (>60) 01/16/20 06:35 Est GFR (MDRD) Non-Af > 60 (>60) 01/16/20 06:35 Glucose 149 mg/dL (65-99) H 01/16/20 06:35 Lactic Acid 0.6 mmol/L (0.4-2.0) 01/12/20 11:50 Calcium 8.5 mg/dL (8.5-10.1) 01/16/20 06:35 Corrected Calcium 9.8 mg/dL (8.5-10.1) 01/16/20 06:35 Magnesium 2.0 mg/dL (1.7-2.9) 01/14/20 05:20 Total Bilirubin 0.30 mg/dL (0.2-1.0) 01/16/20 06:35 AST 27 Units/L (15-37) 01/16/20 06:35 ALT 21 Units/L (12-78) 01/16/20 06:35 Alkaline Phosphatase 57 Units/L (46-116) 01/16/20 06:35 Creatine Kinase 61 Units/L (26-192) 01/13/20 00:23 CK-MB (CK-2) 2.6 ng/mL (0-4.0) 01/13/20 00:23 CK/CKMB % Calc 4.3 % (<4) 01/13/20 00:23 Troponin I 0.88 ng/mL (0-1.5) 01/13/20 00:23 B-Natriuretic Peptide > 5000 pg/mL (0-79) H* 01/15/20 05:30 Total Protein 6.0 g/dL (6.4-8.2) L 01/16/20 06:35 Albumin 2.4 g/dL (3.4-5.0) L 01/16/20 06:35 Globulin 3.6 g/dL (2.5-4.5) 01/16/20 06:35 Albumin/Globulin Ratio 0.7 Ratio (1.1-2.1) L 01/16/20 06:35 Specimen Type Clean catch urine 01/12/20 13:30 Urine Color Yellow (YELLOW) 01/12/20 13:30 Urine Appearance Cloudy (CLEAR) 01/12/20 13:30 Urine pH 6.0 (5.0 - 8.0) 01/12/20 13:30 Ur Specific [place] 1.010 (1.000-1.030) 01/12/20 13:30 Urine Protein 1+ (NEGATIVE) 01/12/20 13:30 Urine Glucose (UA) Negative (NEGATIVE) 01/12/20 13:30 Urine Ketones Negative (NEGATIVE) 01/12/20 13:30 Urine Occult Blood 1+ (NEGATIVE) 01/12/20 13:30 Urine Nitrite Positive (NEGATIVE) 01/12/20 13:30 Urine Bilirubin Negative (NEGATIVE) 01/12/20 13:30 Urine Urobilinogen 1+ (NORMAL) 01/12/20 13:30 Ur Leukocyte Esterase 2+ (NEGATIVE) 01/12/20 13:30 Urine RBC 3-5 /HPF (0-3) A 01/12/20 13:30 Urine WBC 30-50 /HPF (0-5) A 01/12/20 13:30 Ur Squamous Epith Cells Rare /HPF (NEGATIVE) 01/12/20 13:30 Urine Bacteria 3+ /HPF (NEGATIVE) 01/12/20 13:30 Ur Culture Indicated? Yes/culture set up 01/12/20 13:30 SARS-CoV-2 (PCR) Negative (NEGATIVE) 01/12/20 12:00 Plan (1) Sepsis: Status: Acute Qualifiers: Sepsis acute organ dysfunction status: unspecified Sepsis type: sepsis due to unspecified organism Qualified Code(s): A41.9 - Sepsis, unspecified organism Plan: DOPAMINE DRIP, ZOSYN 3.375G IV TID, LEVAQUIN 250MG IV DAILY, DUONEBS QID PRN, LOVENOX 30MG SC DAILY, SOLU-MEDROL 80MG IV Q8H (2) UTI (urinary tract infection): Status: Inactive Qualifiers: Hematuria presence: with hematuria Urinary tract infection type: site unspecified Qualified Code(s): N39.0 - Urinary tract infection, site not specified; R31.9 - Hematuria, unspecified (3) CHF (congestive heart failure): Status: Chronic Qualifiers: Heart failure chronicity: acute Heart failure type: unspecified Qualified Code(s): I50.9 - Heart failure, unspecified Plan: LASIX 40MG IV X 1 DOSE (4) Hypoxia: Status: Acute (5) Fever: Status: Acute Qualifiers: Fever type: unspecified Qualified Code(s): R50.9 - Fever, unspecified
[2020-01-16] MEDS: LOVENOX INJ 30 MG SYR SC SCH (11:43)
[2020-01-16] MEDS: VSL#3 PO SCH (11:43)
[2020-01-16] MEDS: PROTONIX TAB 40 MG PO SCH (11:44)
[2020-01-16] MEDS: ROBITUSSIN DM PO SCH ×4 (11:45→21:09)
[2020-01-16] MEDS: CARDIZEM CD 180 MG 24-HR PO SCH (11:45)
[2020-01-16] MEDS: MILK OF MAGNESIA PO SCH (11:46)
[2020-01-16] MEDS: SINGULAIR TAB 10 MG PO SCH (11:46)
[2020-01-16] MEDS: LASIX IVP SCH ×2 (11:48→18:23)
[2020-01-16] MEDS: COLACE CAP 100 MG PO SCH (21:09)
[2020-01-16] MEDS: ZOCOR TAB 20 MG PO SCH (21:09)
[2020-01-16] MEDS: ZyrTEC TAB 10 MG PO SCH (21:09)
[2020-01-16] MEDS: DOPAMINE IV PREMIX 400 MG/250 ML 400 MG/250 ML BAG IV PRN (22:35)
[2020-01-17] MEDS: ZOSYN VIAL 3.375 GRAMS 3.375 G in NS 100 ML IV + SPIKE MINIBAG* 100 ML IV SCH ×3 (05:10→21:02)
[2020-01-17] MEDS: DUONEB 0.5 MG/3 MG (3 mL) NEB SCH ×4 (09:30→22:00)
[2020-01-17] MEDS: SINGULAIR TAB 10 MG PO SCH (09:41)
[2020-01-17] MEDS: CARDIZEM CD 180 MG 24-HR PO SCH (09:41)
[2020-01-17] MEDS: MILK OF MAGNESIA PO SCH ×2 (09:43)
[2020-01-17] MEDS: LOVENOX INJ 30 MG SYR SC SCH (09:44)
[2020-01-17] MEDS: VSL#3 PO SCH (09:44)
[2020-01-17] MEDS: ROBITUSSIN DM PO SCH ×6 (09:44→20:52)
[2020-01-17] MEDS: PROTONIX TAB 40 MG PO SCH (09:44)
[2020-01-17 09:57] LABS: ALANINE AMINOTRANSFERASE 26 Units/L (12-78); ALBUMIN 2.4 g/dL (3.4-5.0); ALKALINE PHOSPHATASE 60 Units/L (46-116); ASPARTATE AMINO TRANSFERASE 24 Units/L (15-37); BLOOD UREA NITROGEN 18 mg/dL (7-18); CALCIUM 8.6 mg/dL (8.5-10.1); CARBON DIOXIDE 35.2 mmol/L (21-32); CHLORIDE 103 mmol/L (98-107); COR CA(FOR HYPOALB) 9.9 mg/dL (8.5-10.1); COR NA(FOR HYPERGLY) 142 mmol/L (136-145); CREATININE 0.79 mg/dL (0.55-1.02); SODIUM 141 mmol/L (136-145); TOTAL PROTEIN 5.8 g/dL (6.4-8.2); eGFR NON BLACK RACES > 60 (>60)
[2020-01-17 10:02] LABS: BASOPHILS % (AUTO) 0.2 % (0.2-1.0); EOSINOPHILS % (AUTO) 0.4 % (0.9-2.9); HEMATOCRIT 30.3 % (36.0-47.0); HEMOGLOBIN 9.9 g/dL (12.0-16.0); LYMPHOCYTES # (AUTO) 1.3 X10^3/uL (1.3-2.9); LYMPHOCYTES % (AUTO) 14.3 % (21.0-51.0); MEAN CORPUSCULAR HEMOGLOBIN 31.2 pg (27.0-34.0); MEAN CORPUSCULAR HGB CONC 32.8 g/dL (33.0-35.0); MEAN CORPUSCULAR VOLUME 95.3 fL (80.0-100.0); MEAN PLATELET VOLUME 7.4 fL (7.4-11.0); MONOCYTES # (AUTO) 0.8 x10^3/uL (0.3-0.8); MONOCYTES % (AUTO) 9.4 % (0.0-13.0); NEUTROPHILS # (AUTO) 6.7 x10^3/uL (2.2-4.8); NEUTROPHILS % (AUTO) 75.7 % (42.0-75.0); PLATELET COUNT 383 X10^3/uL (150.0-450.0); RED BLOOD COUNT 3.18 X10^6/uL (3.5-5.4); RED CELL DISTRIBUTION WIDTH 15.7 % (11.6-16.5); WHITE BLOOD COUNT 8.9 X10^3/uL (3.6-10.0)
[2020-01-17 10:24] LABS: BAND NEUTROPHILS % 3 % (0-10); PLATELET MORPHOLOGY COMMENT NORMAL (NORMAL)
--- NOTE | 2020-01-17 11:07 | PCM.PROG ---
Progress Note Progress Note for Day of Date of Exam: 01/17/20 Subjective Subjective: Patient seen at bedside, she states she feels slightly better today. She did have low BP last night with elevated HR. She was started back on dopamine drip to keep MAP > 65. Patient's BP now is 107/54, HR:88. She is on 2 L NC. Patient is admitted for hypoxia, sepsis due to UTI, CHF and hypotension. Denies cough, no fever or chills. been turned Urine culture is showing E.coli. ECHO showed grade 1 diastolic dysfunction with EF 44%. Labs: K 3.3 Blood Cx neg Hgb 9.9 Fluid balance: neg 1L Will follow up CXR from this morning, wean off dopamine to keep MAP>65, continue IV antibiotics, hold Lasix for now. Continue solumedrol. Replace K orally as per protocol. Monitor AM labs. Monitor UOP. Past Medical Family Social History Past Med/Fam/Surg Hx: No changes since H&P Allergies: Allergies codeine Allergy (Verified 10/05/17 08:34) lorazepam [From Ativan] Adverse Reaction (Verified 01/14/20 23:53) Review of Systems ROS: No change since H&P Vital Signs and I&O's Vital Signs: Temperature 97.7 F Pulse Rate [Left Brachial] 88 Pulse Rate 125 Respiratory Rate 20 Blood Pressure [Left Arm] 107/54 Blood Pressure 103/51 O2 Sat by Pulse Oximetry 98 Intake and Output: Intake & Output 01/14/20 01/15/20 01/16/20 01/17/20 23:59 23:59 23:59 23:59 Intake Total 1775 / 1775 1570 / 1570 2180 / 2180 350 / 350 Output Total 2900 / 2900 3550 / 3550 2750 / 2750 800 / 800 Balance -1125 / -1125 -1980 / -1980 -570 / -570 -450 / -450 Physical Exam Oriented: Normal Eyes: Normal Ear: Normal Nose: Normal Throat: Normal Respiratory: Generalized, Wheezes and Rhonchi Cardiovascular: Normal; negative S3, S4 and Murmur Auscultation: Bowel Sounds: Normal Tenderness: Normal and Other (shingle scars noted on the right lateral side, mild tenderness ) Skin: Normal Musculoskeletal: Normal Psychiatric: Normal Mood Description: Calm Affect: Normal Speech Pattern: Clear and Appropriate Laboratory and Diagnostics Result Diagrams: 01/17/20 09:20 01/17/20 09:20 Labs: 01/12/20 12:13 Blood Blood Culture - Preliminary 01/12/20 12:05 Blood Blood Culture - Preliminary 01/12/20 13:30 Urine,Clean Catch Urine Culture - Final Escherichia Coli Laboratory WBC 8.9 X10^3/uL (3.6-10.0) 01/17/20 09:20 RBC 3.18 X10^6/uL (3.5-5.4) L 01/17/20 09:20 Hgb 9.9 g/dL (12.0-16.0) L 01/17/20 09:20 Hct 30.3 % (36.0-47.0) L 01/17/20 09:20 MCV 95.3 fL (80.0-100.0) 01/17/20 09:20 MCH 31.2 pg (27.0-34.0) 01/17/20 09:20 MCHC 32.8 g/dL (33.0-35.0) L 01/17/20 09:20 RDW 15.7 % (11.6-16.5) 01/17/20 09:20 Plt Count 383 X10^3/uL (150.0-450.0) 01/17/20 09:20 Plt Count Comment Adequate (ADEQUATE) 01/17/20 09:20 MPV 7.4 fL (7.4-11.0) 01/17/20 09:20 Neut % (Auto) 75.7 % (42.0-75.0) H 01/17/20 09:20 Lymph % (Auto) 14.3 % (21.0-51.0) L 01/17/20 09:20 [place] % (Auto) 9.4 % (0.0-13.0) 01/17/20 09:20 Eos % (Auto) 0.4 % (0.9-2.9) L 01/17/20 09:20 Baso % (Auto) 0.2 % (0.2-1.0) 01/17/20 09:20 Neut # (Auto) 6.7 x10^3/uL (2.2-4.8) H 01/17/20 09:20 Lymph # (Auto) 1.3 X10^3/uL (1.3-2.9) 01/17/20 09:20 [place] # (Auto) 0.8 x10^3/uL (0.3-0.8) 01/17/20 09:20 Eos # (Auto) 0.0 x10^3/uL (0.0-0.2) 01/17/20 09:20 Baso # (Auto) 0.0 X10^3/uL (0.0-0.1) 01/17/20 09:20 Absolute Nucleated RBC 0.1 /100WBC 01/17/20 09:20 Total Counted 100 01/17/20 09:20 Neutrophils % (Manual) 73 % (39-76) 01/17/20 09:20 Band Neutrophils % 3 % (0-10) 01/17/20 09:20 Lymphocytes % (Manual) 19 % (13-43) 01/17/20 09:20 Monocytes % (Manual) 5 % (4-9) 01/17/20 09:20 Plt Morphology Comment Normal (NORMAL) 01/17/20 09:20 RBC Morphology Normal (NORMAL) 01/17/20 09:20 Hypochromasia Slight A 01/16/20 06:35 PT 13.8 SECONDS (11.8-14.3) 01/12/20 11:50 INR Target Range - 01/12/20 11:50 INR 1.09 (0.8-1.3) 01/12/20 11:50 APTT 39.4 SECONDS (22.9-36.5) H 01/12/20 11:50 PTT Comment - 01/12/20 11:50 Sample Site R radial 01/13/20 05:00 ABG pH 7.410 (7.35-7.45) 01/13/20 05:00 ABG pCO2 45.0 mmHg (35.0-45.0) 01/13/20 05:00 ABG pO2 79.0 mmHg (80.0-100.0) L 01/13/20 05:00 ABG HCO3 28.5 mmol/L (22-26) H 01/13/20 05:00 ABG O2 Saturation 96.0 % (90-100) 01/13/20 05:00 ABG Base Excess 3.3 mmol/L (-2.0-2.0) H 01/13/20 05:00 Miles Test Poss 01/13/20 05:00 A-a Gradient 64.0 mmHg 01/13/20 05:00 FiO2 28.0 01/13/20 05:00 Blood Gas Comments Rina well kb 01/13/20 05:00 Sodium 141 mmol/L (136-145) 01/17/20 09:20 Corrected Sodium 142 mmol/L (136-145) 01/17/20 09:20 Potassium 3.3 mmol/L (3.5-5.1) L 01/17/20 09:20 Chloride 103 mmol/L (98-107) 01/17/20 09:20 Carbon Dioxide 35.2 mmol/L (21-32) H 01/17/20 09:20 BUN 18 mg/dL (7-18) 01/17/20 09:20 Creatinine 0.79 mg/dL (0.55-1.02) 01/17/20 09:20 Est GFR (MDRD) Af Amer > 60 (>60) 01/17/20 09:20 Est GFR (MDRD) Non-Af > 60 (>60) 01/17/20 09:20 Glucose 123 mg/dL (65-99) H 01/17/20 09:20 Lactic Acid 0.6 mmol/L (0.4-2.0) 01/12/20 11:50 Calcium 8.6 mg/dL (8.5-10.1) 01/17/20 09:20 Corrected Calcium 9.9 mg/dL (8.5-10.1) 01/17/20 09:20 Magnesium 2.0 mg/dL (1.7-2.9) 01/14/20 05:20 Total Bilirubin 0.40 mg/dL (0.2-1.0) 01/17/20 09:20 AST 24 Units/L (15-37) 01/17/20 09:20 ALT 26 Units/L (12-78) 01/17/20 09:20 Alkaline Phosphatase 60 Units/L (46-116) 01/17/20 09:20 Creatine Kinase 61 Units/L (26-192) 01/13/20 00:23 CK-MB (CK-2) 2.6 ng/mL (0-4.0) 01/13/20 00:23 CK/CKMB % Calc 4.3 % (<4) 01/13/20 00:23 Troponin I 0.88 ng/mL (0-1.5) 01/13/20 00:23 B-Natriuretic Peptide > 5000 pg/mL (0-79) H* 01/15/20 05:30 Total Protein 5.8 g/dL (6.4-8.2) L 01/17/20 09:20 Albumin 2.4 g/dL (3.4-5.0) L 01/17/20 09:20 Globulin 3.4 g/dL (2.5-4.5) 01/17/20 09:20 Albumin/Globulin Ratio 0.7 Ratio (1.1-2.1) L 01/17/20 09:20 Specimen Type Clean catch urine 01/12/20 13:30 Urine Color Yellow (YELLOW) 01/12/20 13:30 Urine Appearance Cloudy (CLEAR) 01/12/20 13:30 Urine pH 6.0 (5.0 - 8.0) 01/12/20 13:30 Ur Specific [place] 1.010 (1.000-1.030) 01/12/20 13:30 Urine Protein 1+ (NEGATIVE) 01/12/20 13:30 Urine Glucose (UA) Negative (NEGATIVE) 01/12/20 13:30 Urine Ketones Negative (NEGATIVE) 01/12/20 13:30 Urine Occult Blood 1+ (NEGATIVE) 01/12/20 13:30 Urine Nitrite Positive (NEGATIVE) 01/12/20 13:30 Urine Bilirubin Negative (NEGATIVE) 01/12/20 13:30 Urine Urobilinogen 1+ (NORMAL) 01/12/20 13:30 Ur Leukocyte Esterase 2+ (NEGATIVE) 01/12/20 13:30 Urine RBC 3-5 /HPF (0-3) A 01/12/20 13:30 Urine WBC 30-50 /HPF (0-5) A 01/12/20 13:30 Ur Squamous Epith Cells Rare /HPF (NEGATIVE) 01/12/20 13:30 Urine Bacteria 3+ /HPF (NEGATIVE) 01/12/20 13:30 Ur Culture Indicated? Yes/culture set up 01/12/20 13:30 SARS-CoV-2 (PCR) Negative (NEGATIVE) 01/12/20 12:00 Plan (1) Hypotension: Status: Acute Qualifiers: Hypotension type: other hypotension type Qualified Code(s): I95.89 - Other hypotension (2) Sepsis: Status: Acute Qualifiers: Sepsis acute organ dysfunction status: unspecified Sepsis type: sepsis due to unspecified organism Qualified Code(s): A41.9 - Sepsis, unspecified organism Plan: DOPAMINE DRIP, ZOSYN 3.375G IV TID, LEVAQUIN 250MG IV DAILY, DUONEBS QID PRN, LOVENOX 30MG SC DAILY, SOLU-MEDROL 80MG IV Q8H (3) UTI (urinary tract infection): Status: Inactive Qualifiers: Hematuria presence: with hematuria Urinary tract infection type: site unspecified Qualified Code(s): N39.0 - Urinary tract infection, site not specified; R31.9 - Hematuria, unspecified (4) CHF (congestive heart failure): Status: Chronic Qualifiers: Heart failure chronicity: acute Heart failure type: unspecified Q ualified Code(s): I50.9 - Heart failure, unspecified Plan: LASIX 40MG IV X 1 DOSE (5) Hypoxia: Status: Acute (6) Fever: Status: Acute Qualifiers: Fever type: unspecified Qualified Code(s): R50.9 - Fever, unspecified
--- NOTE | 2020-01-17 14:38 | RAD ---
HISTORYACUTE CHF, HYPOXIASTUDYCHEST, 1 VIEWCOMPARISONJuly 2019FINDINGSThe trachea is midline. The cardiac silhouette is enlarged but stable. The lungs are clear without focal infiltrate or effusion. The bony thorax is unremarkable.IMPRESSIONNo acute cardiopulmonary disease.Electronically signed by: KRISTINA EMERSON (Jan 17, 2020 14:37:04)
[2020-01-17] MEDS: K-DUR TAB 20 MEQ PO PRN (15:17)
[2020-01-17] MEDS: ZyrTEC TAB 10 MG PO SCH (20:51)
[2020-01-17] MEDS: COLACE CAP 100 MG PO SCH (20:51)
[2020-01-17] MEDS: ZOCOR TAB 20 MG PO SCH (20:51)
--- NOTE | 2020-01-17 21:03 | PCM.PROG ---
Progress Note - Progress Note for Day of Date of Exam: 01/15/20 - Subjective Subjective: IS BEING TREATED FOR SEPSIS, UTI, CHF, HYPOXIA, HYPOTENSION, AND FEVER. TODAY, SHE IS ALERT AND ORIENTED, LYING IN BED ON MORNING ROUNDS. SHE IS NO LONGER ON A DOPAMINE DRIP FOR HYPOTENSION. SHE IS NOTED WITH LABORED BREATHING AND AUDIBLE WHEEZING. SHE CONTINUES WITH COMPLAINTS OF WEAKNESS AND SHORTNESS OF BREATH TODAY. ON EXAMINATION, SHE IS TACHYCARDIC WITH HR IN THE 130s. BILATERAL LUNGS ARE NOTED WITH RHONCHI THROUGHOUT. ABDOMEN IS ROUND, SOFT, AND NON-TENDER WITH NORMAL BOWEL SOUNDS NOTED IN ALL QUADRANTS. BLE ARE NOTED WITH TRACE EDEMA. HER VITALS THIS MORNING ARE: 97.7- [id number]-118/77. LABS WERE OBTAINED. ABNORMAL LAB VALUES INCLUDE THE FOLLOWING: WBC 12.4, RBC 3.21, HGB 9.9, HCT 30.5, POTASSIUM 3.4, CHLORIDE 108, BUN 22, GLUCOSE 150, BNP >5000, ALBUMIN 2.8. BLOOD CULTURES ARE PENDING. URINE CULTURE REVEALED GROWTH OF E.COLI. A CHEST XRAY WAS OBTAINED AND REVEALED: Cardiomegaly with pulmonary venous congestion. Lungs mildly hyperinflated but clear. 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 SHE IS CURRENTLY RECEIVING ZOSYN 3.375G IV TID, LEVAQUIN 250MG IV DAILY, DUONEBS QID PRN, LOVENOX 30MG SC DAILY, SOLU-MEDROL 80MG IV Q8H. TODAY, WE WILL ADMINISTER LASIX 80MG X 1, THEN LASIX 40MG IV Q12H, MORPHINE 2MG IV Q2H PRN, NEBTX QID, AND WILL ORDER FOR HER TO WEAR THE BIPAP. WE WILL DISCONTINUE THE SOLU-MEDROL. OTHERWISE, WE PLAN TO FOLLOW UP WITH AM LABS AND CHEST XRAY AND CONTINUE TO MONITOR. - Past Medical Family Social History Past Med/Fam/Surg Hx: No changes since H&P Allergies: Allergies codeine Allergy (Verified 10/05/17 08:34) lorazepam [From Ativan] Adverse Reaction (Verified 01/14/20 23:53) - Review of Systems ROS: No change since H&P - Vital Signs and I&O's Vital Signs: Temperature 98.8 F Pulse Rate [Left Brachial] 89 Pulse Rate 78 Respiratory Rate 20 Blood Pressure [Left Arm] 111/60 Blood Pressure 103/51 O2 Sat by Pulse Oximetry 100 Intake and Output: Intake & Output 01/15/20 01/16/20 01/17/20 01/18/20 11:59 11:59 11:59 11:59 Intake Total 1350 / 1350 1570 / 1570 1979 / 1979 950 / 950 Output Total 3250 / 3250 3200 / 3200 3000 / 3000 600 / 600 Balance -1900 / -1900 -1630 / -1630 -1020 / -1020 350 / 350 - Physical Exam Oriented: Normal Eyes: Normal Ear: Normal Nose: Normal Throat: Normal Respiratory: Generalized, Wheezes, Rhonchi Cardiovascular: Tachycardia. negative: S3, S4, Murmur : Normal Auscultation: Bowel Sounds: Normal Palpation: Normal Tenderness: Normal, Other (shingle scars noted on the right lateral side, mild tenderness) Skin: Normal Musculoskeletal: Normal Psychiatric: Normal Mood Description: Calm Affect: Normal Speech Pattern: Clear, Appropriate - Laboratory and Diagnostics Result Diagrams: 01/17/20 09:20 01/17/20 09:20 Labs: 01/12/20 12:13 Blood Blood Culture - Final 01/12/20 12:05 Blood Blood Culture - Final 01/12/20 13:30 Urine,Clean Catch Urine Culture - Final Escherichia Coli Laboratory WBC 8.9 X10^3/uL (3.6-10.0) 01/17/20 09:20 RBC 3.18 X10^6/uL (3.5-5.4) L 01/17/20 09:20 Hgb 9.9 g/dL (12.0-16.0) L 01/17/20 09:20 Hct 30.3 % (36.0-47.0) L 01/17/20 09:20 MCV 95.3 fL (80.0-100.0) 01/17/20 09:20 MCH 31.2 pg (27.0-34.0) 01/17/20 09:20 MCHC 32.8 g/dL (33.0-35.0) L 01/17/20 09:20 RDW 15.7 % (11.6-16.5) 01/17/20 09:20 Plt Count 383 X10^3/uL (150.0-450.0) 01/17/20 09:20 Plt Count Comment Adequate (ADEQUATE) 01/17/20 09:20 MPV 7.4 fL (7.4-11.0) 01/17/20 09:20 Neut % (Auto) 75.7 % (42.0-75.0) H 01/17/20 09:20 Lymph % (Auto) 14.3 % (21.0-51.0) L 01/17/20 09:20 [place] % (Auto) 9.4 % (0.0-13.0) 01/17/20 09:20 Eos % (Auto) 0.4 % (0.9-2.9) L 01/17/20 09:20 Baso % (Auto) 0.2 % (0.2-1.0) 01/17/20 09:20 Neut # (Auto) 6.7 x10^3/uL (2.2-4.8) H 01/17/20 09:20 Lymph # (Auto) 1.3 X10^3/uL (1.3-2.9) 01/17/20 09:20 [place] # (Auto) 0.8 x10^3/uL (0.3-0.8) 01/17/20 09:20 Eos # (Auto) 0.0 x10^3/uL (0.0-0.2) 01/17/20 09:20 Baso # (Auto) 0.0 X10^3/uL (0.0-0.1) 01/17/20 09:20 Absolute Nucleated RBC 0.1 /100WBC 01/17/20 09:20 Total Counted 100 01/17/20 09:20 Neutrophils % (Manual) 73 % (39-76) 01/17/20 09:20 Band Neutrophils % 3 % (0-10) 01/17/20 09:20 Lymphocytes % (Manual) 19 % (13-43) 01/17/20 09:20 Monocytes % (Manual) 5 % (4-9) 01/17/20 09:20 Plt Morphology Comment Normal (NORMAL) 01/17/20 09:20 RBC Morphology Normal (NORMAL) 01/17/20 09:20 Hypochromasia Slight A 07/11/20 06:35 PT 13.8 SECONDS (11.8-14.3) 01/12/20 11:50 INR Target Range - 01/12/20 11:50 INR 1.09 (0.8-1.3) 01/12/20 11:50 APTT 39.4 SECONDS (22.9-36.5) H 01/12/20 11:50 PTT Comment - 01/12/20 11:50 Sample Site R radial 01/13/20 05:00 ABG pH 7.410 (7.35-7.45) 01/13/20 05:00 ABG pCO2 45.0 mmHg (35.0-45.0) 01/13/20 05:00 ABG pO2 79.0 mmHg (80.0-100.0) L 01/13/20 05:00 ABG HCO3 28.5 mmol/L (22-26) H 01/13/20 05:00 ABG O2 Saturation 96.0 % (90-100) 01/13/20 05:00 ABG Base Excess 3.3 mmol/L (-2.0-2.0) H 01/13/20 05:00 Miles Test Poss 01/13/20 05:00 A-a Gradient 64.0 mmHg 01/13/20 05:00 FiO2 28.0 01/13/20 05:00 Blood Gas Comments Rina well kb 01/13/20 05:00 Sodium 141 mmol/L (136-145) 01/17/20 09:20 Corrected Sodium 142 mmol/L (136-145) 01/17/20 09:20 Potassium 3.3 mmol/L (3.5-5.1) L 01/17/20 09:20 Chloride 103 mmol/L (98-107) 01/17/20 09:20 Carbon Dioxide 35.2 mmol/L (21-32) H 01/17/20 09:20 BUN 18 mg/dL (7-18) 01/17/20 09:20 Creatinine 0.79 mg/dL (0.55-1.02) 01/17/20 09:20 Est GFR (MDRD) Af Amer > 60 (>60) 01/17/20 09:20 Est GFR (MDRD) Non-Af > 60 (>60) 01/17/20 09:20 Glucose 123 mg/dL (65-99) H 01/17/20 09:20 Lactic Acid 0.6 mmol/L (0.4-2.0) 01/12/20 11:50 Calcium 8.6 mg/dL (8.5-10.1) 01/17/20 09:20 Corrected Calcium 9.9 mg/dL (8.5-10.1) 01/17/20 09:20 Magnesium 2.0 mg/dL (1.7-2.9) 01/14/20 05:20 Total Bilirubin 0.40 mg/dL (0.2-1.0) 01/17/20 09:20 AST 24 Units/L (15-37) 01/17/20 09:20 ALT 26 Units/L (12-78) 01/17/20 09:20 Alkaline Phosphatase 60 Units/L (46-116) 01/17/20 09:20 Creatine Kinase 61 Units/L (26-192) 01/13/20 00:23 CK-MB (CK-2) 2.6 ng/mL (0-4.0) 01/13/20 00:23 CK/CKMB % Calc 4.3 % (<4) 01/13/20 00:23 Troponin I 0.88 ng/mL (0-1.5) 01/13/20 00:23 B-Natriuretic Peptide > 5000 pg/mL (0-79) H* 01/15/20 05:30 Total Protein 5.8 g/dL (6.4-8.2) L 01/17/20 09:20 Albumin 2.4 g/dL (3.4-5.0) L 01/17/20 09:20 Globulin 3.4 g/dL (2.5-4.5) 01/17/20 09:20 Albumin/Globulin Ratio 0.7 Ratio (1.1-2.1) L 01/17/20 09:20 Specimen Type Clean catch urine 01/12/20 13:30 Urine Color Yellow (YELLOW) 01/12/20 13:30 Urine Appearance Cloudy (CLEAR) 01/12/20 13:30 Urine pH 6.0 (5.0 - 8.0) 01/12/20 13:30 Ur Specific [place] 1.010 (1.000-1.030) 01/12/20 13:30 Urine Protein 1+ (NEGATIVE) 01/12/20 13:30 Urine Glucose (UA) Negative (NEGATIVE) 01/12/20 13:30 Urine Ketones Negative (NEGATIVE) 01/12/20 13:30 Urine Occult Blood 1+ (NEGATIVE) 01/12/20 13:30 Urine Nitrite Positive (NEGATIVE) 01/12/20 13:30 Urine Bilirubin Negative (NEGATIVE) 01/12/20 13:30 Urine Urobilinogen 1+ (NORMAL) 01/12/20 13:30 Ur Leukocyte Esterase 2+ (NEGATIVE) 01/12/20 13:30 Urine RBC 3-5 /HPF (0-3) A 01/12/20 13:30 Urine WBC 30-50 /HPF (0-5) A 01/12/20 13:30 Ur Squamous Epith Cells Rare /HPF (NEGATIVE) 01/12/20 13:30 Urine Bacteria 3+ /HPF (NEGATIVE) 01/12/20 13:30 Ur Culture Indicated? Yes/culture set up 01/12/20 13:30 SARS-CoV-2 (PCR) Negative (NEGATIVE) 01/12/20 12:00 - Plan (1) Sepsis Status: Acute Qualifiers: Sepsis type: sepsis due to unspecified organism Sepsis acute organ dysfunction status: unspecified Qualified Code(s): A41.9 - Sepsis, unspecified organism Plan: ZOSYN 3.375G IV TID, LEVAQUIN 250MG IV DAILY, DUONEBS QID PRN, LOVENOX 30MG SC DAILY, (2) CHF (congestive heart failure) Status: Chronic Qualifiers: Heart failure type: unspecified Heart failure chronicity: acute Qualified Code(s): I50.9 - Heart failure, unspecified Plan: LASIX 80MG IV X 1, THEN LASIX 40MG IV Q12H, BIPAP (3) Respiratory distress Status: Acute Plan: MORPHINE 2MG IV Q2H PRN, BIPAP, NEB TX, CONTINUE TO MONITOR (4) Hypoxia Status: Acute (5) Fever Status: Acute Qualifiers: Fever type: unspecified Qualified Code(s): R50.9 - Fever, unspecified
[2020-01-18] MEDS: DOPAMINE IV PREMIX 400 MG/250 ML 400 MG/250 ML BAG IV PRN (02:13)
[2020-01-18] MEDS: ZOSYN VIAL 3.375 GRAMS 3.375 G in NS 100 ML IV + SPIKE MINIBAG* 100 ML IV SCH ×3 (05:21→22:02)
[2020-01-18 06:21] LABS: BASOPHILS % (AUTO) 0.2 % (0.2-1.0); EOSINOPHILS # (AUTO) 0.4 x10^3/uL (0.0-0.2); EOSINOPHILS % (AUTO) 3.8 % (0.9-2.9); HEMATOCRIT 30.6 % (36.0-47.0); HEMOGLOBIN 10.1 g/dL (12.0-16.0); LYMPHOCYTES # (AUTO) 1.3 X10^3/uL (1.3-2.9); LYMPHOCYTES % (AUTO) 13.9 % (21.0-51.0); MEAN CORPUSCULAR HEMOGLOBIN 31.5 pg (27.0-34.0); MEAN CORPUSCULAR VOLUME 95.3 fL (80.0-100.0); MEAN PLATELET VOLUME 7.3 fL (7.4-11.0); MONOCYTES # (AUTO) 0.8 x10^3/uL (0.3-0.8); MONOCYTES % (AUTO) 8.2 % (0.0-13.0); NEUTROPHILS # (AUTO) 7.1 x10^3/uL (2.2-4.8); NEUTROPHILS % (AUTO) 73.9 % (42.0-75.0); PLATELET COUNT 407 X10^3/uL (150.0-450.0); RED BLOOD COUNT 3.21 X10^6/uL (3.5-5.4); RED CELL DISTRIBUTION WIDTH 15.4 % (11.6-16.5); WHITE BLOOD COUNT 9.6 X10^3/uL (3.6-10.0)
--- NOTE | 2020-01-18 06:34 | RAD ---
HISTORYSOBSTUDYCHEST, 1 [id number]/2020FINDINGSThe trachea is midline. The cardiac silhouette is enlarged.. The lungs are clear without focal infiltrate or effusion. The bony thorax is unremarkable.IMPRESSIONNo acute cardiopulmonary disease.Electronically signed by: Ravi Mojica (Jan 18, 2020 06:33:49)
[2020-01-18 06:37] LABS: ALANINE AMINOTRANSFERASE 16 Units/L (12-78); ALBUMIN 2.3 g/dL (3.4-5.0); ALKALINE PHOSPHATASE 58 Units/L (46-116); ASPARTATE AMINO TRANSFERASE 17 Units/L (15-37); BLOOD UREA NITROGEN 13 mg/dL (7-18); CALCIUM 8.6 mg/dL (8.5-10.1); CARBON DIOXIDE 32.2 mmol/L (21-32); CHLORIDE 103 mmol/L (98-107); COR NA(FOR HYPERGLY) 139 mmol/L (136-145); CREATININE 0.75 mg/dL (0.55-1.02); SODIUM 139 mmol/L (136-145); TOTAL PROTEIN 5.6 g/dL (6.4-8.2); eGFR NON BLACK RACES > 60 (>60)
[2020-01-18 06:58] LABS: BAND NEUTROPHILS % 3 % (0-10); PLATELET MORPHOLOGY COMMENT NORMAL (NORMAL)
[2020-01-18] MEDS: CARDIZEM CD 180 MG 24-HR PO SCH (08:31)
[2020-01-18] MEDS: MILK OF MAGNESIA PO SCH (08:31)
[2020-01-18] MEDS: PROTONIX TAB 40 MG PO SCH (08:31)
[2020-01-18] MEDS: K-DUR TAB 20 MEQ PO PRN (08:31)
[2020-01-18] MEDS: SINGULAIR TAB 10 MG PO SCH (08:31)
[2020-01-18] MEDS: LOVENOX INJ 30 MG SYR SC SCH (08:31)
[2020-01-18] MEDS: ROBITUSSIN DM PO SCH ×4 (08:32→22:02)
[2020-01-18] MEDS: VSL#3 PO SCH (08:32)
[2020-01-18] MEDS: DUONEB 0.5 MG/3 MG (3 mL) NEB SCH ×4 (09:30→20:50)
--- NOTE | 2020-01-18 10:38 | PCM.PROG ---
Progress Note - Progress Note for Day of Date of Exam: 01/18/20 - Subjective Subjective: IS BEING TREATED FOR SEPSIS, UTI, CHF, HYPOXIA, HYPOTENSION, AND FEVER. TODAY, SHE IS ALERT AND ORIENTED, LYING IN BED ON MORNING ROUNDS. SHE CONTINUES WITH WEAKNESS AND SHORTNESS OF BREATH, BUT REPORTS SLIGHT IMPROVEMENT IN SYMPTOMS. DOPAMINE DRIP WAS RESTARTED OVER THE WEEKEND DUE TO HYPOTENSION. ON EXAMINATION, SHE IS TACHYCARDIC WITH HR IN THE 130s. BILATERAL LUNGS ARE NOTED WITH RHONCHI THROUGHOUT. ABDOMEN IS ROUND, SOFT, AND NON-TENDER WITH NORMAL BOWEL SOUNDS NOTED IN ALL QUADRANTS. BLE ARE NOTED WITH TRACE EDEMA. HER VITALS THIS MORNING ARE: 98.1-93-18-98%NC-109/59. LABS WERE OBTAINED. ABNORMAL LAB VALUES INCLUDE THE FOLLOWING: RBC 3.21, HGB 10.1, HCT 30.6, CARBON DIOXIDE 32.2, GLUCOSE 112, CRP 10.60, BNP 1340, TOTAL PROTEIN 5.6, ALBUMIN 2.3. BLOOD CULTURES ARE NEGATIVE. URINE CULTURE REVEALED GROWTH OF E.COLI. A CHEST XRAY WAS OBTAINED AND REVEALED: NO ACUTE CARDIOPULMONARY DISEASE. SHE IS CURRENTLY RECEIVING DOPAMINE DRIP, ZOSYN 3.375G IV TID, LEVAQUIN 250MG IV DAILY, DUONEBS QID PRN, LOVENOX 30MG SC DAILY, ZYRTEC 10MG PO HS, ROBITUSSIN DM 10 ML PO QID, VSL #3 2 CAP PO DAILY, MIL OF MAGNESIA 30ML PO DAILY, SINGULAIR 10MG PO DAILY, ZOFRAN 4MG IV Q6H PRN, PROTONIX 40MG PO DAILY, PHENERGAN 12.5MG IM Q6H PRN, ZOCOR 20MG PO HS, AND THE POTASSIUM AND MAGNESIUM PROTOCOLS. TODAY, WE WILL START DIGOXIN 0.125MG PO DAILY. WE WILL OBTAIN SED RATE AND CRP LEVELS AND REPEAT BLOOD AND URINE CULTURES. OTHERWISE, WE PLAN TO FOLLOW UP WITH AM LABS AND CHEST XRAY AND CONTINUE TO MONITOR. - Past Medical Family Social History Past Med/Fam/Surg Hx: No changes since H&P Allergies: Allergies codeine Allergy (Verified 10/05/17 08:34) lorazepam [From Ativan] Adverse Reaction (Verified 01/14/20 23:53) - Review of Systems ROS: No change since H&P - Vital Signs and I&O's Vital Signs: Temperature 98.8 F Pulse Rate [Left Brachial] 93 Pulse Rate 86 Respiratory Rate 18 Blood Pressure [Left Arm] 109/59 Blood Pressure 103/51 O2 Sat by Pulse Oximetry 100 Intake and Output: Intake & Output 01/15/20 01/16/20 01/17/20 01/18/20 11:59 11:59 11:59 11:59 Intake Total 1350 / 1350 1570 / 1570 1979 / 1979 1861 / 1861 Output Total 3250 / 3250 3200 / 3200 3000 / 3000 1675 / 1675 Balance -1900 / -1900 -1630 / -1630 -1020 / -1020 186 / 186 - Physical Exam Oriented: Normal Eyes: Normal Ear: Normal Nose: Normal Throat: Normal Respiratory: Generalized, Wheezes, Rhonchi Cardiovascular: Tachycardia. negative: S3, S4, Murmur : Normal Auscultation: Bowel Sounds: Normal Palpation: Normal Tenderness: Normal, Other (shingle scars noted on the right lateral side, mild tenderness) Skin: Normal Musculoskeletal: Normal Psychiatric: Normal Mood Description: Calm Affect: Normal Speech Pattern: Clear, Appropriate - Laboratory and Diagnostics Result Diagrams: 01/18/20 05:11 01/18/20 05:11 Labs: 01/12/20 12:13 Blood Blood Culture - Final 01/12/20 12:05 Blood Blood Culture - Final 01/12/20 13:30 Urine,Clean Catch Urine Culture - Final Escherichia Coli Laboratory WBC 9.6 X10^3/uL (3.6-10.0) 01/18/20 05:11 RBC 3.21 X10^6/uL (3.5-5.4) L 01/18/20 05:11 Hgb 10.1 g/dL (12.0-16.0) L 01/18/20 05:11 Hct 30.6 % (36.0-47.0) L 01/18/20 05:11 MCV 95.3 fL (80.0-100.0) 01/18/20 05:11 MCH 31.5 pg (27.0-34.0) 01/18/20 05:11 MCHC 33.0 g/dL (33.0-35.0) 01/18/20 05:11 RDW 15.4 % (11.6-16.5) 01/18/20 05:11 Plt Count 407 X10^3/uL (150.0-450.0) 01/18/20 05:11 Plt Count Comment Adequate (ADEQUATE) 01/18/20 05:11 MPV 7.3 fL (7.4-11.0) L 01/18/20 05:11 Neut % (Auto) 73.9 % (42.0-75.0) 01/18/20 05:11 Lymph % (Auto) 13.9 % (21.0-51.0) L 01/18/20 05:11 [place] % (Auto) 8.2 % (0.0-13.0) 01/18/20 05:11 Eos % (Auto) 3.8 % (0.9-2.9) H 01/18/20 05:11 Baso % (Auto) 0.2 % (0.2-1.0) 01/18/20 05:11 Neut # (Auto) 7.1 x10^3/uL (2.2-4.8) H 01/18/20 05:11 Lymph # (Auto) 1.3 X10^3/uL (1.3-2.9) 01/18/20 05:11 [place] # (Auto) 0.8 x10^3/uL (0.3-0.8) 01/18/20 05:11 Eos # (Auto) 0.4 x10^3/uL (0.0-0.2) H 01/18/20 05:11 Baso # (Auto) 0.0 X10^3/uL (0.0-0.1) 01/18/20 05:11 Absolute Nucleated RBC 0.1 /100WBC 01/18/20 05:11 Total Counted 100 01/18/20 05:11 Neutrophils % (Manual) 74 % (39-76) 01/18/20 05:11 Band Neutrophils % 3 % (0-10) 01/18/20 05:11 Lymphocytes % (Manual) 14 % (13-43) 01/18/20 05:11 Monocytes % (Manual) 6 % (4-9) 01/18/20 05:11 Eosinophils % (Manual) 3 % (0-6) 01/18/20 05:11 Plt Morphology Comment Normal (NORMAL) 01/18/20 05:11 RBC Morphology Normal (NORMAL) 01/18/20 05:11 Hypochromasia Slight A 01/16/20 06:35 PT 13.8 SECONDS (11.8-14.3) 01/12/20 11:50 INR Target Range - 01/12/20 11:50 INR 1.09 (0.8-1.3) 01/12/20 11:50 APTT 39.4 SECONDS (22.9-36.5) H 01/12/20 11:50 PTT Comment - 01/12/20 11:50 Sample Site R radial 01/13/20 05:00 ABG pH 7.410 (7.35-7.45) 01/13/20 05:00 ABG pCO2 45.0 mmHg (35.0-45.0) 01/13/20 05:00 ABG pO2 79.0 mmHg (80.0-100.0) L 01/13/20 05:00 ABG HCO3 28.5 mmol/L (22-26) H 01/13/20 05:00 ABG O2 Saturation 96.0 % (90-100) 01/13/20 05:00 ABG Base Excess 3.3 mmol/L (-2.0-2.0) H 01/13/20 05:00 Miles Test Poss 01/13/20 05:00 A-a Gradient 64.0 mmHg 01/13/20 05:00 FiO2 28.0 01/13/20 05:00 Blood Gas Comments Rina well kb 01/13/20 05:00 Sodium 139 mmol/L (136-145) 01/18/20 05:11 Corrected Sodium 139 mmol/L (136-145) 01/18/20 05:11 Potassium 3.6 mmol/L (3.5-5.1) 01/18/20 05:11 Chloride 103 mmol/L (98-107) 01/18/20 05:11 Carbon Dioxide 32.2 mmol/L (21-32) H 01/18/20 05:11 BUN 13 mg/dL (7-18) 01/18/20 05:11 Creatinine 0.75 mg/dL (0.55-1.02) 01/18/20 05:11 Est GFR (MDRD) Af Amer > 60 (>60) 01/18/20 05:11 Est GFR (MDRD) Non-Af > 60 (>60) 01/18/20 05:11 Glucose 112 mg/dL (65-99) H 01/18/20 05:11 Lactic Acid 0.6 mmol/L (0.4-2.0) 01/12/20 11:50 Calcium 8.6 mg/dL (8.5-10.1) 01/18/20 05:11 Corrected Calcium 10.0 mg/dL (8.5-10.1) 01/18/20 05:11 Magnesium 2.0 mg/dL (1.7-2.9) 01/14/20 05:20 Total Bilirubin 0.40 mg/dL (0.2-1.0) 01/18/20 05:11 AST 17 Units/L (15-37) 01/18/20 05:11 ALT 16 Units/L (12-78) 01/18/20 05:11 Alkaline Phosphatase 58 Units/L (46-116) 01/18/20 05:11 Creatine Kinase 61 Units/L (26-192) 01/13/20 00:23 CK-MB (CK-2) 2.6 ng/mL (0-4.0) 01/13/20 00:23 CK/CKMB % Calc 4.3 % (<4) 01/13/20 00:23 Troponin I 0.88 ng/mL (0-1.5) 01/13/20 00:23 C-Reactive Protein 10.60 mg/L (0-3.0) H 01/18/20 05:11 B-Natriuretic Peptide 1340 pg/mL (0-79) H* 01/18/20 05:11 Total Protein 5.6 g/dL (6.4-8.2) L 01/18/20 05:11 Albumin 2.3 g/dL (3.4-5.0) L 01/18/20 05:11 Globulin 3.3 g/dL (2.5-4.5) 01/18/20 05:11 Albumin/Globulin Ratio 0.7 Ratio (1.1-2.1) L 01/18/20 05:11 Specimen Type Clean catch urine 01/12/20 13:30 Urine Color Yellow (YELLOW) 01/12/20 13:30 Urine Appearance Cloudy (CLEAR) 01/12/20 13:30 Urine pH 6.0 (5.0 - 8.0) 01/12/20 13:30 Ur Specific [place] 1.010 (1.000-1.030) 01/12/20 13:30 Urine Protein 1+ (NEGATIVE) 01/12/20 13:30 Urine Glucose (UA) Negative (NEGATIVE) 01/12/20 13:30 Urine Ketones Negative (NEGATIVE) 01/12/20 13:30 Urine Occult Blood 1+ (NEGATIVE) 01/12/20 13:30 Urine Nitrite Positive (NEGATIVE) 01/12/20 13:30 Urine Bilirubin Negative (NEGATIVE) 01/12/20 13:30 Urine Urobilinogen 1+ (NORMAL) 01/12/20 13:30 Ur Leukocyte Esterase 2+ (NEGATIVE) 01/12/20 13:30 Urine RBC 3-5 /HPF (0-3) A 01/12/20 13:30 Urine WBC 30-50 /HPF (0-5) A 01/12/20 13:30 Ur Squamous Epith Cells Rare /HPF (NEGATIVE) 01/12/20 13:30 Urine Bacteria 3+ /HPF (NEGATIVE) 01/12/20 13:30 Ur Culture Indicated? Yes/culture set up 01/12/20 13:30 SARS-CoV-2 (PCR) Negative (NEGATIVE) 01/12/20 12:00 - Plan (1) Sepsis Status: Acute Qualifiers: Sepsis type: sepsis due to unspecified organism Sepsis acute organ dysfunction status: unspecified Qualified Code(s): A41.9 - Sepsis, unspecified organism Plan: ZOSYN 3.375G IV TID, LEVAQUIN 250MG IV DAILY, DUONEBS QID PRN, LOVENOX 30MG SC DAILY, (2) CHF (congestive heart failure) Status: Chronic Qualifiers: Heart failure type: unspecified Heart failure chronicity: acute Qualified Code(s): I50.9 - Heart failure, unspecified Plan: BIPAP, DIGOXIN 0.125MG PO DAILY, CONTINUE TO MONITOR (3) Respiratory distress Status: Acute Plan: MORPHINE 2MG IV Q2H PRN, BIPAP, NEB TX, CONTINUE TO MONITOR (4) Hypoxia Status: Acute (5) Fever Status: Acute Qualifiers: Fever type: unspecified Qualified Code(s): R50.9 - Fever, unspecified
[2020-01-18] MEDS: LANOXIN or DIGITEK PO SCH (10:44)
[2020-01-18] MEDS: ZyrTEC TAB 10 MG PO SCH (22:01)
[2020-01-18] MEDS: ZOCOR TAB 20 MG PO SCH (22:01)
[2020-01-19] MEDS: ZOSYN VIAL 3.375 GRAMS 3.375 G in NS 100 ML IV + SPIKE MINIBAG* 100 ML IV SCH (06:17)
--- NOTE | 2020-01-19 06:17 | RAD ---
HISTORYSOBSTUDYCHEST, 1 [id number]/13/2020FINDINGSThe trachea is midline. The cardiac silhouette is enlarged.. The lungs are clear without focal infiltrate or effusion. The bony thorax is unremarkable.IMPRESSIONCardiomegaly.No active cardiopulmonary diseaseElectronically signed by: Ravi Mojica (Jan 19, 2020 06:15:56)
[2020-01-19 06:22] LABS: BASOPHILS % (AUTO) 0.4 % (0.2-1.0); EOSINOPHILS # (AUTO) 0.5 x10^3/uL (0.0-0.2); EOSINOPHILS % (AUTO) 4.9 % (0.9-2.9); HEMATOCRIT 28.1 % (36.0-47.0); HEMOGLOBIN 9.3 g/dL (12.0-16.0); LYMPHOCYTES # (AUTO) 1.2 X10^3/uL (1.3-2.9); LYMPHOCYTES % (AUTO) 11.5 % (21.0-51.0); MEAN CORPUSCULAR HEMOGLOBIN 31.6 pg (27.0-34.0); MEAN CORPUSCULAR HGB CONC 33.1 g/dL (33.0-35.0); MEAN CORPUSCULAR VOLUME 95.4 fL (80.0-100.0); MEAN PLATELET VOLUME 7.1 fL (7.4-11.0); MONOCYTES # (AUTO) 0.9 x10^3/uL (0.3-0.8); MONOCYTES % (AUTO) 8.9 % (0.0-13.0); NEUTROPHILS # (AUTO) 7.7 x10^3/uL (2.2-4.8); NEUTROPHILS % (AUTO) 74.3 % (42.0-75.0); PLATELET COUNT 349 X10^3/uL (150.0-450.0); RED BLOOD COUNT 2.94 X10^6/uL (3.5-5.4); RED CELL DISTRIBUTION WIDTH 15.3 % (11.6-16.5); WHITE BLOOD COUNT 10.4 X10^3/uL (3.6-10.0)
[2020-01-19 06:44] LABS: ALANINE AMINOTRANSFERASE 18 Units/L (12-78); ALBUMIN 2.1 g/dL (3.4-5.0); ALKALINE PHOSPHATASE 56 Units/L (46-116); ASPARTATE AMINO TRANSFERASE 20 Units/L (15-37); BLOOD UREA NITROGEN 10 mg/dL (7-18); CALCIUM 8.3 mg/dL (8.5-10.1); CHLORIDE 104 mmol/L (98-107); COR CA(FOR HYPOALB) 9.8 mg/dL (8.5-10.1); CREATININE 0.58 mg/dL (0.55-1.02); DIGOXIN < 0.20 ng/mL (0.9-2); SODIUM 136 mmol/L (136-145); TOTAL PROTEIN 5.1 g/dL (6.4-8.2); eGFR NON BLACK RACES > 60 (>60)
[2020-01-19 07:04] LABS: ERYTHROCYTE SEDIMENTATION RATE 64 MM/HOUR (0-20)
[2020-01-19] MEDS: DUONEB 0.5 MG/3 MG (3 mL) NEB SCH ×2 (09:00→13:46)
[2020-01-19] MEDS: LOVENOX INJ 30 MG SYR SC SCH (09:20)
[2020-01-19] MEDS: PROTONIX TAB 40 MG PO SCH (09:28)
[2020-01-19] MEDS: SINGULAIR TAB 10 MG PO SCH (09:28)
[2020-01-19] MEDS: LANOXIN or DIGITEK PO SCH (09:28)
[2020-01-19] MEDS: ROBITUSSIN DM PO SCH ×2 (09:29→13:49)
[2020-01-19] MEDS: VSL#3 PO SCH (09:30)
[2020-01-19 16:15] VITALS: BP 113/71
== END 2020-01-19 15:40 | disposition home health service (06) | DRG 872 ==
LOC: ER 11:26 → MED/SURG 12:48
PROVIDERS: ADMIT Internal Medicine; ATTEND Internal Medicine
DX: I11.0 Hypertensive heart disease with heart failure; B96.29 Other Escherichia coli [E. coli] as the cause of diseases classified elsewhere; R31.9 Hematuria, unspecified; R26.89 Other abnormalities of gait and mobility; E78.2 Mixed hyperlipidemia; R09.02 Hypoxemia; R94.31 Abnormal electrocardiogram [ECG] [EKG]; I95.89 Other hypotension; R00.0 Tachycardia, unspecified; R79.1 Abnormal coagulation profile; I50.9 Heart failure, unspecified; A41.89 Other specified sepsis; R06.02 Shortness of breath; R50.9 Fever, unspecified; I48.91 Unspecified atrial fibrillation; K21.9 Gastro-esophageal reflux disease without esophagitis; Z11.59 Encounter for screening for other viral diseases; N39.0 Urinary tract infection, site not specified
CPT/HCPCS: 36415; 36600; 51702; 71010; 71045; 80053; 80162; 81001; 82550; 82553; 82803; 83605; 83735; 83880; 84132; 84484; 85025; 85610; 85652; 85730; 86140; 87040; 87086; 87088; 87186; 87635; 93005; 93306; 94640; 94660; 94760; 96365; 96374; 96375; 99284; A4222; A4618; A7030; J0131; J0456; J0696; J1100; J1265; J1630; J1650; J1940; J1956; J2060; J2270; J2405; J2543; J2550; J2920; J2930; J3480; J3490; J7030; J7050; J7060; J7620

== ENCOUNTER 2020-04-04 17:44 | Inpatient (IN) ==
[2020-04-04 17:56] VITALS: BMI 32.9
[2020-04-04] MEDS ORDERED: XOPENEX 1.25 MG/3 ML NEBULE NEB ONE ×2 (18:18→18:19)
--- NOTE | 2020-04-04 18:58 | DR.SOBA ---
HPI Time Seen Time Seen by Provider: 04/04/20 18:23 Primary Care Physician Primary Care Physician: KWAKU REYNOSO Complaints Chief Complaint Doctors Comments: Patient with dyspnea worse today. Hx of COPD Chief Complaint:: PT C/O SOB, ALL DAY , PT DENIES FEVER , CCC,,BR Self Treatment fo Chief Complaint: PT HAS 02 ON A 2LPM,, NO DISTRESS NOTED ..BR COVID-19 Coronavirus risk:travel/contact w/high risk person: No Has patient experienced Coronavirus symptoms: Yes Coronavirus symptoms experienced: Shortness of Breath Reviewed Nurses Notes Reviewed: Yes Source History Provided: Patient Mode of Arrival Mode of Arrival: Stretcher Timing Onset of Chief Complaint: 04/04/20 Context Onset:: At Rest PE Risk Factors:: None History of:: COPD and CHF Modifying Factors Worsens:: Exertion Associated Signs and Symptoms Associated Signs and Symptoms: Wheeze and Cough If Chest Pain Quality: denies Sharp, Stabbing, Squeezing, Pressure like, Heavy, Crushing, Burning, Aching, Pleuritic and Other If Cough Cough: Nonproductive PMH PMH Past Medical History: Yes Past Medical History: Arthritis, Dyslipidemia, GERD and Hypertension Past Surgical History: Yes Surgical History: No History Family History History of Family Medical Conditions: Yes Family Medical History: Diabetes Mellitus, Cancer and Hypertension Social History Does patient currently use any type of tobacco product: No Have you used tobacco products in the last 12 months: No Type of Tobacco Use: None Does any household member use tobacco: No Alcohol Use: None Do you use any recreational Drugs:: No Lives With: Family Lives Where: Home Travel Risk Coronavirus risk:travel/contact w/high risk person: No Has patient experienced Coronavirus symptoms: Yes Coronavirus symptoms experienced: Shortness of Breath Infectious screening In the last 2 months have you had wt loss of >10#?: NO Have you had fever, night sweats or hemotysis?: No Have you traveled outside the country in the last 6 months?: No Isolation: Standard ROS Review of Systems Constitutional: No Symptoms Reported Eyes: No Symptoms Reported ENTM: No Symptoms Reported Respiratoy: Non-Productive Cough and Short of Breath Cardiovascular: No Symptoms Reported Gastrointestinal/Abdominal: No Symptoms Reported Genitourinary: No Symptoms Reported Neurological: No Symptoms Reported Musculoskeletal: No Symptoms Reported Integumentary: No Symptoms Reported Hematologic/Lymphatic: No Symptoms Reported Endocrine: No Symptoms Reported Psychiatric: Depression All Other Systems: Reviewed and Negative PE Vital Signs Vitals: Temperature 97.0 F Pulse Rate 119 Respiratory Rate 30 Blood Pressure [Left Arm] 113/71 Blood Pressure 171/86 O2 Sat by Pulse Oximetry 92 General Limitations: No Limitations General Appearance: Alert Head Head Exam: Normal Inspection, Atraumatic and Normocephalic Eyes Eye exam: Normal Appearance and EOMI ENT ENT Exam: Normal Exam and Normal Oropharynx Neck Neck Exam: Full ROM and Trachea Midline Chest Chest Inspection: Normal Inspection Respiratory Respiratory Exam: Accessory Muscle Use Respiratory Exam: Bilateral: Wheezing and Bilateral: Rales Cardiovascular Cardiovascular Exam: Tachycardia Abdominal Exam Abdominal Exam: Normal Inspection, Normal Bowel Sounds and Soft; negative Distention and Guarding Extremities Extremities Exam: Normal Inspection Back Back Exam: Normal Inspection Neurologic Neurological Exam: Alert, Oriented X3 and CN II-XII Intact Psychiatric Psychiatric Exam: Depressed Skin Skin Exam: Normal Color COURSE Treatment Treatment: 1945: bipap ordered due to ABG PH 7.1, co2 73 o2 83 2219: Ph 7.23 co2 67 o2 [address] Mcdowell admit Consultation Called: 22:19 Call Returned: 22:19 Consultation Comments: 2219: case discussed with Dr. MARQUEZ Labs Reviewed Result Diagrams: 04/04/20 19:15 04/04/20 19:15 Laboratory: WBC 12.7 X10^3/uL (3.6-10.0) H 04/04/20 19:15 RBC 3.46 X10^6/uL (3.5-5.4) L 04/04/20 19:15 Hgb 10.0 g/dL (12.0-16.0) L 04/04/20 19:15 Hct 31.8 % (36.0-47.0) L 04/04/20 19:15 MCV 91.7 fL (80.0-100.0) 04/04/20 19:15 MCH 28.8 pg (27.0-34.0) 04/04/20 19:15 MCHC 31.5 g/dL (33.0-35.0) L 04/04/20 19:15 RDW 16.6 % (11.6-16.5) H 04/04/20 19:15 Plt Count 267 X10^3/uL (150.0-450.0) 04/04/20 19:15 MPV 8.5 fL (7.4-11.0) 04/04/20 19:15 Neut % (Auto) 55.0 % (42.0-75.0) 04/04/20 19:15 Lymph % (Auto) 21.9 % (21.0-51.0) 04/04/20 19:15 [facility] % (Auto) 20.5 % (0.0-13.0) H 04/04/20 19:15 Eos % (Auto) 1.5 % (0.9-2.9) 04/04/20 19:15 Baso % (Auto) 1.1 % (0.2-1.0) H 04/04/20 19:15 Neut # (Auto) 7.0 x10^3/uL (2.2-4.8) H 04/04/20 19:15 Lymph # (Auto) 2.8 X10^3/uL (1.3-2.9) 04/04/20 19:15 [facility] # (Auto) 2.6 x10^3/uL (0.3-0.8) H 04/04/20 19:15 Eos # (Auto) 0.2 x10^3/uL (0.0-0.2) 04/04/20 19:15 Baso # (Auto) 0.1 X10^3/uL (0.0-0.1) 04/04/20 19:15 Absolute Nucleated RBC 0.0 /100WBC 04/04/20 19:15 Sample Site Rr 04/04/20 21: ABG pH 7.230 (7.35-7.45) L 04/04/20 21:29 ABG pCO2 67.0 mmHg (35.0-45.0) H* 04/04/20 21:29 ABG pO2 158.0 mmHg (80.0-100.0) H 04/04/20 21:29 ABG HCO3 28.1 mmol/L (22-26) H 04/04/20 21:29 ABG O2 Saturation 99.0 % (90-100) 04/04/20 21: ABG Base Excess -0.8 mmol/L (-2.0-2.0) 04/04/20 21:29 Miles Test Pos 04/04/20 21:29 A-a Gradient 471.0 mmHg 04/04/20 21:29 FiO2 100.0 04/04/20 21:29 Blood Gas Comments Rina well sw 04/04/20 21:29 Sodium 140 mmol/L (136-145) 04/04/20 19:15 Corrected Sodium 144 mmol/L (136-145) 04/04/20 19:15 Potassium 3.9 mmol/L (3.5-5.1) 04/04/20 19:15 Chloride 103 mmol/L (98-107) 04/04/20 19:15 Carbon Dioxide 26.7 mmol/L (21-32) 04/04/20 19:15 BUN 12 mg/dL (7-18) 04/04/20 19:15 Creatinine 0.75 mg/dL (0.55-1.02) 04/04/20 19:15 Est GFR (MDRD) Af Amer > 60 (>60) 04/04/20 19:15 Est GFR (MDRD) Non-Af > 60 (>60) 04/04/20 19:15 Glucose 269 mg/dL (65-99) H 04/04/20 19:15 Calcium 9.0 mg/dL (8.5-10.1) 04/04/20 19:15 Corrected Calcium 9.8 mg/dL (8.5-10.1) 04/04/20 19:15 Total Bilirubin 0.40 mg/dL (0.2-1.0) 04/04/20 19:15 AST 24 Units/L (15-37) 04/04/20 19:15 ALT 10 Units/L (12-78) L 04/04/20 19:15 Alkaline Phosphatase 68 Units/L (46-116) 04/04/20 19:15 Creatine Kinase 46 Units/L (26-192) 04/04/20 19:15 CK-MB (CK-2) 1.2 ng/mL (0-4.0) 04/04/20 19:15 CK/CKMB % Calc 2.6 % (<4) 04/04/20 19:15 Troponin I 0.06 ng/mL (0-1.5) 04/04/20 19:15 B-Natriuretic Peptide 3110 pg/mL (0-79) H* 04/04/20 19:15 Total Protein 7.7 g/dL (6.4-8.2) 04/04/20 19:15 Albumin 3.0 g/dL (3.4-5.0) L 04/04/20 19:15 Globulin 4.7 g/dL (2.5-4.5) H 04/04/20 19:15 Albumin/Globulin Ratio 0.6 Ratio (1.1-2.1) L 04/04/20 19:15 Specimen Type Catherized urine 04/04/20 21:00 Urine Color Pale yellow (YELLOW) 04/04/20 21:00 Urine Appearance Hazy (CLEAR) 04/04/20 21:00 Urine pH 6.0 (5.0 - 8.0) 04/04/20 21:00 Ur Specific [place] 1.015 (1.000-1.030) 04/04/20 21:00 Urine Protein 2+ (NEGATIVE) 04/04/20 21:00 Urine Glucose (UA) Negative (NEGATIVE) 04/04/20 21:00 Urine Ketones Negative (NEGATIVE) 04/04/20 21:00 Urine Occult Blood 2+ (NEGATIVE) 04/04/20 21:00 Urine Nitrite Positive (NEGATIVE) 04/04/20 21:00 Urine Bilirubin Negative (NEGATIVE) 04/04/20 21:00 Urine Urobilinogen Normal (NORMAL) 04/04/20 21:00 Ur Leukocyte Esterase 2+ (NEGATIVE) 04/04/20 21:00 Urine RBC 5-10 /HPF (0-3) A 04/04/20 21:00 Urine WBC 10-20 /HPF (0-5) A 04/04/20 21:00 Ur Squamous Epith Cells Rare /HPF (NEGATIVE) 04/04/20 21:00 Urine Bacteria 2+ /HPF (NEGATIVE) 04/04/20 21:00 Ur Culture Indicated? Yes/culture set up 04/04/20 21:00 Digoxin < 0.20 ng/mL (0.9-2) L 04/04/20 19:15 EKG Rate: 110 [place]: LAD Block: LBBB (incomplete) ST: Ant and Nonsp Opioid Opioid Risk Tool Age (Anupam box if 16-45): No History of Preadolescent Sexual Abuse: No Total: 0 Total Score Risk Category: Low Risk Copyright: Jimmie EVANS predicting aberrant behaviors
[2020-04-04] MEDS ORDERED: LASIX IVP ONE (18:59)
[2020-04-04] MEDS ORDERED: SOLU-Medrol 125 MG VIAL IVP ONE (19:01)
[2020-04-04] MEDS ORDERED: SOLU-Medrol 125 MG VIAL ONE (19:16)
[2020-04-04] MEDS ORDERED: LASIX ONE (19:16)
[2020-04-04 19:28] LABS: ABG BASE EXCESS -3.3 mmol/L (-2.0-2.0); ABG HCO3 26.6 mmol/L (22-26)
[2020-04-04 19:29] LABS: ABG ALLEN TEST POS
--- NOTE | 2020-04-04 19:31 | RAD ---
CHEST, 1 VIEWHISTORY: SOBStudy: Single view of the chest.Comparison:NoneFindings:Cardiomegaly. Bilateral interstitial prominence, possible early alveolar infiltrates. No focal consolidations, pleural effusions or pneumothorax. Bilateral hyper expansion.IMPRESSION:1. Bilateral interstitial prominence and early alveolar infiltrates. Findings may represent pulmonary edema versus atypical infection, including viral etiologies.2. Cardiomegaly and COPD.Electronically signed by: FERMÍN MACKEY (Apr 04, 2020 19:31:41)
[2020-04-04 19:41] LABS: BASOPHILS # (AUTO) 0.1 X10^3/uL (0.0-0.1); BASOPHILS % (AUTO) 1.1 % (0.2-1.0); EOSINOPHILS # (AUTO) 0.2 x10^3/uL (0.0-0.2); EOSINOPHILS % (AUTO) 1.5 % (0.9-2.9); HEMATOCRIT 31.8 % (36.0-47.0); LYMPHOCYTES # (AUTO) 2.8 X10^3/uL (1.3-2.9); LYMPHOCYTES % (AUTO) 21.9 % (21.0-51.0); MEAN CORPUSCULAR HEMOGLOBIN 28.8 pg (27.0-34.0); MEAN CORPUSCULAR HGB CONC 31.5 g/dL (33.0-35.0); MEAN CORPUSCULAR VOLUME 91.7 fL (80.0-100.0); MEAN PLATELET VOLUME 8.5 fL (7.4-11.0); MONOCYTES # (AUTO) 2.6 x10^3/uL (0.3-0.8); MONOCYTES % (AUTO) 20.5 % (0.0-13.0); PLATELET COUNT 267 X10^3/uL (150.0-450.0); RED BLOOD COUNT 3.46 X10^6/uL (3.5-5.4); RED CELL DISTRIBUTION WIDTH 16.6 % (11.6-16.5); WHITE BLOOD COUNT 12.7 X10^3/uL (3.6-10.0)
[2020-04-04 19:47] LABS: BLOOD UREA NITROGEN 12 mg/dL (7-18); CARBON DIOXIDE 26.7 mmol/L (21-32); CHLORIDE 103 mmol/L (98-107); COR NA(FOR HYPERGLY) 144 mmol/L (136-145); CREATININE 0.75 mg/dL (0.55-1.02); SODIUM 140 mmol/L (136-145); TROPONIN I 0.06 ng/mL (0-1.5); eGFR NON BLACK RACES > 60 (>60)
[2020-04-04 19:51] LABS: ALANINE AMINOTRANSFERASE 10 Units/L (12-78); ALKALINE PHOSPHATASE 68 Units/L (46-116); ASPARTATE AMINO TRANSFERASE 24 Units/L (15-37); CKMB % 2.6 % (<4); COR CA(FOR HYPOALB) 9.8 mg/dL (8.5-10.1); CREATINE KINASE 46 Units/L (26-192); CREATINE KINASE MB 1.2 ng/mL (0-4.0); DIGOXIN < 0.20 ng/mL (0.9-2); TOTAL PROTEIN 7.7 g/dL (6.4-8.2)
[2020-04-04] MEDS ORDERED: NITROGLYCERIN IV PREMIX 50 MG 50 MG/250 ML BAG IV PRN (20:32)
[2020-04-04] MEDS ORDERED: NITROGLYCERIN IV PREMIX 50 MG 50 MG/250 ML BAG IV ONE (20:51)
[2020-04-04 21:13] LABS: BILIRUBIN,URINE NEGATIVE (NEGATIVE); BLOOD/HEMOGLOBIN,URINE 2+ (NEGATIVE); GLUCOSE, URINE NEGATIVE (NEGATIVE); KETONES,URINE NEGATIVE (NEGATIVE); LEUKOCYTE ESTERASE ,URINE 2+ (NEGATIVE); NITRITES,URINE POSITIVE (NEGATIVE); PROTEIN,URINE 2+ (NEGATIVE); UROBILINOGEN,URINE NORMAL (NORMAL)
[2020-04-04 21:18] LABS: APPEARANCE,URINE HAZY (CLEAR); BACTERIA,URINE 2+ /HPF (NEGATIVE); COLOR,URINE PALE YELLOW (YELLOW); SQUAMOUS EPITHELIAL CELL,UR RARE /HPF (NEGATIVE)
[2020-04-04 22:00] LABS: ABG BASE EXCESS -0.8 mmol/L (-2.0-2.0); ABG HCO3 28.1 mmol/L (22-26)
[2020-04-04 22:01] LABS: ABG ALLEN TEST POS
[2020-04-05 06:39] LABS: BASOPHILS % (AUTO) 0.5 % (0.2-1.0); HEMATOCRIT 29.9 % (36.0-47.0); HEMOGLOBIN 9.8 g/dL (12.0-16.0); LYMPHOCYTES # (AUTO) 0.8 X10^3/uL (1.3-2.9); LYMPHOCYTES % (AUTO) 10.2 % (21.0-51.0); MEAN CORPUSCULAR HEMOGLOBIN 29.4 pg (27.0-34.0); MEAN CORPUSCULAR HGB CONC 32.9 g/dL (33.0-35.0); MEAN CORPUSCULAR VOLUME 89.3 fL (80.0-100.0); MEAN PLATELET VOLUME 8.5 fL (7.4-11.0); MONOCYTES # (AUTO) 0.8 x10^3/uL (0.3-0.8); MONOCYTES % (AUTO) 11.4 % (0.0-13.0); NEUTROPHILS # (AUTO) 5.7 x10^3/uL (2.2-4.8); NEUTROPHILS % (AUTO) 77.9 % (42.0-75.0); PLATELET COUNT 191 X10^3/uL (150.0-450.0); RED BLOOD COUNT 3.35 X10^6/uL (3.5-5.4); RED CELL DISTRIBUTION WIDTH 16.3 % (11.6-16.5); WHITE BLOOD COUNT 7.4 X10^3/uL (3.6-10.0)
[2020-04-05 06:43] LABS: ALANINE AMINOTRANSFERASE 8 Units/L (12-78); ALBUMIN 2.6 g/dL (3.4-5.0); ALKALINE PHOSPHATASE 63 Units/L (46-116); ASPARTATE AMINO TRANSFERASE 21 Units/L (15-37); BLOOD UREA NITROGEN 13 mg/dL (7-18); CALCIUM 8.8 mg/dL (8.5-10.1); CARBON DIOXIDE 26.1 mmol/L (21-32); CHLORIDE 104 mmol/L (98-107); COR CA(FOR HYPOALB) 9.9 mg/dL (8.5-10.1); COR NA(FOR HYPERGLY) 141 mmol/L (136-145); CREATININE 0.56 mg/dL (0.55-1.02); SODIUM 140 mmol/L (136-145); eGFR NON BLACK RACES > 60 (>60)
[2020-04-05] MEDS ORDERED: LOPRESSOR INJ 5 MG AMP IVP SCH (09:00)
[2020-04-05] MEDS ORDERED: LASIX IVP SCH (09:00)
[2020-04-05] MEDS ORDERED: ZOFRAN INJ 4 MG VIAL ONE (09:50)
[2020-04-05] MEDS: ZOFRAN INJ 4 MG VIAL IVP PRN ×2 (09:56→20:15)
[2020-04-05] MEDS ORDERED: LASIX IVP ONE (10:19)
[2020-04-05] MEDS ORDERED: XANAX PO ONE (11:18)
[2020-04-05] MEDS: ELIQUIS PO SCH ×2 (11:20→21:41)
[2020-04-05] MEDS: LANOXIN or DIGITEK PO SCH (11:21)
[2020-04-05] MEDS: ALDACTONE TAB 25 MG PO SCH (11:21)
[2020-04-05] MEDS ORDERED: XOPENEX 1.25 MG/3 ML NEBULE NEB PRN (11:33)
[2020-04-05 12:01] LABS: CKMB % 5.2 % (<4); CREATINE KINASE MB 2.6 ng/mL (0-4.0); TROPONIN I 0.12 ng/mL (0-1.5)
[2020-04-05] MEDS ORDERED: PHENERGAN INJ 25 MG IM PRN (12:15)
[2020-04-05] MEDS ORDERED: NS 250 ML IV 250 ML IV ONE (14:18)
--- NOTE | 2020-04-05 14:31 | DR.H&P ---
H&P - History & Physical for Day of: H&P Date: 04/05/20 - Chief Complaint Chief Complaint: SOB, COUGH, WHEEZING - History of Present Illness History of Present Illness: IS A 85 YEAR OLD PATIENT OF OURS. SHE PRESENTED TO THE ER WITH COMPLAINTS OF MODERATE SHORTNESS OF BREATH. SHE DOES HAVE A HISTORY OF COPD AND CHF, BUT REPORTS THAT HER SHORTNESS OF BREATH IS WORSE THAN USUAL. SHE ALSO REPORTS A NON-PRODUCTIVE COUGH AND WHEEZING. SYMPTOMS STARTED ON DAY PRIOR AND HAVE PROGRESSIVELY GOTTEN WORSE. SHE DENIES CHEST PAIN. OTHER PMH INCLUDES: ARTHRITIS, DYSLIPIDEMIA, GERD, AND HYPERTENSION. ON ARRIVAL TO THE ER, VITALS WERE 97.0-104-20-88% RA-170/84. SHE WAS PLACED ON OXYGEN VIA NASAL CANNULA AT 2L/MIN. SATURATIONS INCREASED TO 94%. LABS WERE OBTAINED. ABNORMAL LAB VALUES INCLUDE THE FOLLOWING: WBC 12.7, RBC 3.46, HGB 10.0, HCT 31.8, GLUCOSE 269, ALT 10, BNP 3110, ALBUMIN 3.0, GLOBULIN 4.7. CARDIAC ENZYMES WITHIN NORMAL LIMITS. URINALYSIS REVEALED: WBC 10-20, RBC 5-10, URINE BACTERIA 2+, LEUKOCYTES 2+, NITRITES POSITIVE. A CULTURE WAS SET UP. COVID-19 NEGATIVE. A CHEST XRAY WAS OBTAINED AND REVEALED: 1. Bilateral interstitial prominence and early alveolar infiltrates. Findings may represent pulmonary edema versus atypi mundo infection, including viral etiologies. 2. Cardiomegaly and COPD. EKG REVEALED: SINUS TACHYCARDIA WITH HR 110. 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 SHE HAS BEEN FOLLOWED BY , [facility] [facility] SINCE THEN. SHE WAS GIVEN A XOPENEX NEB TX, LASIX 20MG IV X 1, AND SOLU-MEDROL 125MG IV X 1 DOSE IN THE ER. SHE DENIED SIGNIFICANT IMPROVEMENT IN SYMPTOMS. SHE WAS ADMITTED FOR FURTHER EVALUATION AND TREATMENT OF CHF EXACERBATION, RESPIRATORY FAILURE, AND URINARY TRACT INFECTION. SHE WAS STARTED ON INVANZ 1G IV DAILY, LASIX 40MG IV BID, XOPENEX NEB TX Q6H PRN, ALDACTONE 25MG PO DAILY, PHENERGAN 12.5MG IM Q6H PRN. HER HOME MEDICATIONS OF ELIQUIS 5MG PO BID, ZYRTEC 10MG PO HS, ZANAFLEX 4MG PO HS, DIGOXIN 0.125MG PO DAILY, AND ZOCOR 40MG PO HS WERE RESUMED. WE WILL CONTINUE WITH CURRENT PLAN OF CARE TODAY. OTHERWISE, WE PLAN TO FOLLOW UP WITH AM LABS AND CHEST XRAY AND CONTINUE TO MONITOR. TIME SPENT ON CLINICAL ASSESSMENT, REVIEWING LABS AND IMAGING, DECISION MAKING, AND DOCUMENTATION GREATER THAN 74 MINUTES. - Past Medical History Past Medical History: Hypertension, Dyslipidemia, GERD, Arthritis Additional Medical History: Cataracts, Diverticulosis, Previous Blood Transfusion - Past Surgical History Surgical History: No History - Family History Family Medical History: Diabetes Mellitus, Cancer, Hypertension - Social History Does patient currently use any type of tobacco product: No Have you used tobacco products in the last 12 months: No Type of Tobacco Use: None Does any household member use tobacco: No Alcohol Use: None Drug Use: None - Medications Home Medications: codeine Allergy (Verified 10/05/17 08:34) lorazepam [From Ativan] Adverse Reaction (Verified 01/14/20 23:53) CONTINUE taking the following medications apixaban [Eliquis] 5 mg PO BID 04/04/20 [History] ergocalciferol (vitamin D2) 50,000 unit PO 2XW 04/04/20 [History] meloxicam 7.5 mg PO DAILY 04/04/20 [History] metoprolol succinate 25 mg PO DAILY 04/04/20 [History] ondansetron HCl 4 mg PO Q4-6H PRN 04/04/20 [History] simvastatin 40 mg PO HS 04/04/20 [History] tizanidine 4 mg PO HS 04/04/20 [History] - Review of Systems Constitutional: Weakness Eyes: No Symptoms Reported ENT: No Symptoms Reported Respiratory: See HPI, Cough, Shortness of Breath, SOB with Excertion, Wheezing Cardiovascular: No Symptoms Reported Gastrointestinal: No Symptoms Reported Genitourinary: No Symptoms Reported Musculoskeletal: No Symptoms Reported Skin: No Symptoms Reported Neurological: Weakness - Physical Exam Vital Signs: Temperature 98.1 F Pulse Rate [Right Brachial] 120 Pulse Rate 124 Respiratory Rate 32 Blood Pressure [Left Arm] 170/91 Blood Pressure 132/68 O2 Sat by Pulse Oximetry 99 Oriented: Normal Eyes: Normal Ear: Normal Nose: Normal Throat: Normal Respiratory: Wheezes Throughout Cardiovascular: Tachycardia, Edema (BLE 1+ PITTING EDEMA ). negative: S3, S4, Murmur : Normal Auscultation: Bowel Sounds: Normal Palpation: Normal Tenderness: Normal Skin: Normal Musculoskeletal: Normal Psychiatric: Normal Mood Description: Calm Affect: Normal Speech Pattern: Clear - Assessment/Plan (1) CHF exacerbation Qualifiers: Heart failure type: unspecified Qualified Code(s): I50.9 - Heart failure, unspecified Status: Acute Plan: ADMIT, INVANZ 1G IV DAILY, LASIX 40MG IV BID, XOPENEX NEB TX Q6H PRN, ALDACTONE 25MG PO DAILY, PHENERGAN 12.5MG IM Q6H PRN, ELIQUIS 5MG PO BID, ZYRTEC 10MG PO HS, ZANAFLEX 4MG PO HS, DIGOXIN 0.125MG PO DAILY, AND ZOCOR 40MG PO HS WERE RESUMED (2) Respiratory distress Status: Acute (3) Urinary tract infection Qualifiers: Urinary tract infection type: site unspecified Hematuria presence: with hematuria Qualified Code(s): N39.0 - Urinary tract infection, site not specified; R31.9 - Hematuria, unspecified Status: Acute - Allergies Allergies/Adverse Reactions: Allergies Allergy/AdvReac Type Severity Reaction Status Date / Time codeine Allergy Verified 10/05/17 08:34 lorazepam [From Ativan] AdvReac Verified 01/14/20 23:53
[2020-04-05] MEDS: INVANZ INJ 1 GM VIAL 1 GM in NS 100 ML IV + SPIKE MINIBAG* 100 ML IV SCH (14:36)
[2020-04-05] MEDS ORDERED: PROTONIX INJ 40 MG VIAL ONE (14:40)
[2020-04-05] MEDS ORDERED: PANTOPRAZOLE PO SCH (14:45)
[2020-04-05 16:56] LABS: CKMB % 7.5 % (<4); CREATINE KINASE MB 2.4 ng/mL (0-4.0); TROPONIN I 0.13 ng/mL (0-1.5)
[2020-04-05] MEDS: LASIX IVP SCH (17:16)
[2020-04-05] MEDS ORDERED: ZOCOR TAB 40 MG PO ONE (19:57)
[2020-04-05] MEDS ORDERED: ZyrTEC TAB 10 MG ONE (19:57)
[2020-04-05] MEDS ORDERED: ZANAFLEX ONE (19:57)
[2020-04-05 20:18] LABS: CKMB % 5.1 % (<4); CREATINE KINASE MB 2.6 ng/mL (0-4.0); TROPONIN I 0.13 ng/mL (0-1.5)
[2020-04-05] MEDS: ZyrTEC TAB 10 MG PO SCH (21:42)
[2020-04-05] MEDS: VISTARIL PO PRN (21:42)
[2020-04-05] MEDS: ZANAFLEX PO SCH (21:42)
[2020-04-05] MEDS: ZOCOR TAB 40 MG PO SCH (21:43)
--- NOTE | 2020-04-06 05:24 | RAD ---
HISTORYSOBSTUDYCHEST, 1 [id number] trachea is midline. The cardiac silhouette is enlarged, similar to prior exam. Patchy bilateral pulmonary opacities/infiltrates persists and slightly improved compared to prior exam... The bony thorax is unremarkable.IMPRESSIONSlight interval improvement in bilateral pulmonary opacities/infiltrates.Electronically signed by: Soni Qureshi (Apr 06, 2020 05:24:19)
[2020-04-06 06:37] LABS: BASOPHILS % (AUTO) 0.4 % (0.2-1.0); HEMATOCRIT 27.6 % (36.0-47.0); LYMPHOCYTES # (AUTO) 1.2 X10^3/uL (1.3-2.9); LYMPHOCYTES % (AUTO) 14.5 % (21.0-51.0); MEAN CORPUSCULAR HEMOGLOBIN 29.2 pg (27.0-34.0); MEAN CORPUSCULAR HGB CONC 32.5 g/dL (33.0-35.0); MEAN CORPUSCULAR VOLUME 89.9 fL (80.0-100.0); MEAN PLATELET VOLUME 8.4 fL (7.4-11.0); MONOCYTES # (AUTO) 0.9 x10^3/uL (0.3-0.8); MONOCYTES % (AUTO) 10.5 % (0.0-13.0); NEUTROPHILS # (AUTO) 6.3 x10^3/uL (2.2-4.8); NEUTROPHILS % (AUTO) 74.6 % (42.0-75.0); PLATELET COUNT 173 X10^3/uL (150.0-450.0); RED BLOOD COUNT 3.07 X10^6/uL (3.5-5.4); RED CELL DISTRIBUTION WIDTH 16.5 % (11.6-16.5); WHITE BLOOD COUNT 8.5 X10^3/uL (3.6-10.0)
[2020-04-06 06:48] LABS: ALANINE AMINOTRANSFERASE 7 Units/L (12-78); ALBUMIN 2.4 g/dL (3.4-5.0); ALKALINE PHOSPHATASE 50 Units/L (46-116); ASPARTATE AMINO TRANSFERASE 16 Units/L (15-37); BLOOD UREA NITROGEN 18 mg/dL (7-18); CALCIUM 8.6 mg/dL (8.5-10.1); CARBON DIOXIDE 31.5 mmol/L (21-32); CHLORIDE 106 mmol/L (98-107); COR CA(FOR HYPOALB) 9.9 mg/dL (8.5-10.1); CREATININE 0.92 mg/dL (0.55-1.02); SODIUM 144 mmol/L (136-145); TOTAL PROTEIN 6.5 g/dL (6.4-8.2); eGFR NON BLACK RACES > 60 (>60)
[2020-04-06] MEDS: ALDACTONE TAB 25 MG PO SCH (08:57)
[2020-04-06] MEDS: ELIQUIS PO SCH ×2 (08:58→20:25)
[2020-04-06] MEDS: LANOXIN or DIGITEK PO SCH (08:58)
[2020-04-06] MEDS: SINGULAIR TAB 10 MG PO SCH (08:59)
[2020-04-06] MEDS: PROTONIX TAB 40 MG PO SCH (08:59)
[2020-04-06] MEDS: INVANZ INJ 1 GM VIAL 1 GM in NS 100 ML IV + SPIKE MINIBAG* 100 ML IV SCH (09:02)
[2020-04-06] MEDS: LASIX IVP SCH ×2 (09:03→17:31)
[2020-04-06] MEDS ORDERED: XANAX PO ONE (12:15)
[2020-04-06] MEDS ORDERED: XANAX ONE (12:18)
[2020-04-06] MEDS: ZOFRAN INJ 4 MG VIAL IVP PRN (12:22)
[2020-04-06] MEDS ORDERED: MORPHINE SULFATE INJ 2 MG INJ IVP PRN (12:53)
[2020-04-06] MEDS ORDERED: MORPHINE SULFATE INJ 2 MG INJ ONE (12:54)
[2020-04-06 12:59] LABS: CKMB % 5.4 % (<4); CREATINE KINASE MB 1.4 ng/mL (0-4.0); TROPONIN I 0.07 ng/mL (0-1.5)
[2020-04-06] MEDS ORDERED: LANOXIN INJ IVP ONE (13:15)
[2020-04-06] MEDS ORDERED: XANAX PO PRN (14:00)
--- NOTE | 2020-04-06 14:02 | PCM.PROG ---
Progress Note - Progress Note for Day of Date of Exam: 04/06/20 - Subjective Subjective: IS BEING TREATED FOR CHF EXACERBATION, RESPIRATORY FAILURE WITH HYPERCAPNIA, AND URINARY TRACT INFECTION. TODAY, SHE IS ALERT AND ORIENTED, LYING IN BED ON MORNING ROUNDS. SHE IS CURRENTLY ON NASAL CANNULA. STAFF REPORTS THAT SHE IS REFUSING TO WEAR THE BIPAP THIS MORNING AND HAS ALSO REFUSED TO HAVE AN ABG DRAWN THIS MORNING. SHE CONTINUES WITH COMPLAINTS OF SHORTNESS OF BREATH AND COUGH TODAY, BUT REPORTS SLIGHT IMPROVEMENT IN SYMPTOMS SINCE ADMISSION. ON EXAMINATION, HEART IS REGULAR IN RATE AND RHYTHM. BILATERAL LUNGS CONTINUE WITH SCATTERED WHEEZING THROUGHOUT. ABDOMEN IS ROUND, SOFT, AND NON-TENDER WITH NORMAL BOWEL SOUNDS NOTED IN ALL QUADRANTS. HER VITALS THIS MORNING ARE: 98.0-70-20-97%NC-120/57. LABS WERE OBTAINED. ABNROMAL LAB VALUES INCLUDE THE FOLLOWING: RBC 3.07, HGB 9.0, HCT 27.6, BNP 2010, ALBUMIN 2.4. CARDIAC ENZYMES ARE WITHIN NORMAL LIMITS. URINE CULTURE REPORTS GROWTH OF KLEBSIELLA PNEUMONIAE. A CHEST XRAY WAS OBTAINED THIS MORNING AND REVEALED: Slight interval improvement in bilateral pulmonary opacities/infiltrates. SHE IS CURRENTLY RECEIVING: INVANZ 1G IV DAILY, LASIX 40MG IV BID, XOPENEX NEB [place] Q6H PRN, ALDACTONE 25MG PO DAILY, PHENERGAN 12.5MG IM Q6H PRN, ELIQUIS 5MG PO BID, ZYRTEC 10MG PO HS, ZANAFLEX 4MG PO HS, DIGOXIN 0.125MG PO DAILY, AND ZOCOR 40MG PO HS. WE WILL CONTINUE WITH CURRENT PLAN OF CARE TODAY. OTHERWISE, WE PLAN TO FOLLOW UP WITH AM LABS AND CHEST XRAY AND CONTINUE TO MONITOR. - Past Medical Family Social History Past Med/Fam/Surg Hx: No changes since H&P Allergies: Allergies codeine Allergy (Verified 10/05/17 08:34) lorazepam [From Ativan] Adverse Reaction (Verified 01/14/20 23:53) - Review of Systems ROS: No change since H&P - Vital Signs and I&O's Vital Signs: Temperature 98.0 F Pulse Rate [Right Brachial] 70 Pulse Rate 155 Respiratory Rate 22 Blood Pressure [Left Arm] 120/57 Blood Pressure 132/68 O2 Sat by Pulse Oximetry 97 Intake and Output: Intake & Output 09/28/04/05/20 04/06/20 04/07/20 11:59 11:59 11:59 11:59 Intake Total 571 / 571 Output Total 1100 / 1100 2500 / 2500 Balance -1090 / -1090 -1929 / -192 - Physical Exam Oriented: Normal Eyes: Normal Ear: Normal Nose: Normal Throat: Normal Respiratory: Wheezes Cardiovascular: Normal, Edema (BLE 1+ PITTING EDEMA ). negative: S3, S4, Murmur : Normal Auscultation: Bowel Sounds: Normal Palpation: Normal Tenderness: Normal Skin: Normal Musculoskeletal: Normal Psychiatric: Normal Mood Description: Calm Affect: Normal Speech Pattern: Clear, Appropriate - Laboratory and Diagnostics Result Diagrams: 04/06/20 06:00 04/06/20 06:00 Labs: 04/04/20 21:00 Urine,Catheterized Urine Culture - Final Klebsiella Pneumoniae Laboratory WBC 8.5 X10^3/uL (3.6-10.0) 04/06/20 06:00 RBC 3.07 X10^6/uL (3.5-5.4) L 04/06/20 06:00 Hgb 9.0 g/dL (12.0-16.0) L 04/06/20 06:00 Hct 27.6 % (36.0-47.0) L 04/06/20 06:00 MCV 89.9 fL (80.0-100.0) 04/06/20 06:00 MCH 29.2 pg (27.0-34.0) 04/06/20 06:00 MCHC 32.5 g/dL (33.0-35.0) L 04/06/20 06:00 RDW 16.5 % (11.6-16.5) 04/06/20 06:00 Plt Count 173 X10^3/uL (150.0-450.0) 04/06/20 06:00 MPV 8.4 fL (7.4-11.0) 04/06/20 06:00 Neut % (Auto) 74.6 % (42.0-75.0) 04/06/20 06:00 Lymph % (Auto) 14.5 % (21.0-51.0) L 04/06/20 06:00 Russell % (Auto) 10.5 % (0.0-13.0) 04/06/20 06:00 Eos % (Auto) 0.0 % (0.9-2.9) L 04/06/20 06:00 Baso % (Auto) 0.4 % (0.2-1.0) 04/06/20 06:00 Neut # (Auto) 6.3 x10^3/uL (2.2-4.8) H 04/06/20 06:00 Lymph # (Auto) 1.2 X10^3/uL (1.3-2.9) L 04/06/20 06:00 Russell # (Auto) 0.9 x10^3/uL (0.3-0.8) H 04/06/20 06:00 Eos # (Auto) 0.0 x10^3/uL (0.0-0.2) 04/06/20 06:00 Baso # (Auto) 0.0 X10^3/uL (0.0-0.1) 04/06/20 06:00 Absolute Nucleated RBC 0.0 /100WBC 04/06/20 06:00 Sample Site Rr 04/04/20 21:29 ABG pH 7.230 (7.35-7.45) L 04/04/20 21:29 ABG pCO2 67.0 mmHg (35.0-45.0) H* 04/04/20 21:29 ABG pO2 158.0 mmHg (80.0-100.0) H 04/04/20 21:29 ABG HCO3 28.1 mmol/L (22-26) H 04/04/20 21:29 ABG O2 Saturation 99.0 % (90-100) 04/04/20 21:29 ABG Base Excess -0.8 mmol/L (-2.0-2.0) 04/04/20 21:29 Miles Test Pos 04/04/20 21:29 A-a Gradient 471.0 mmHg 04/04/20 21:29 FiO2 100.0 04/04/20 21:29 Blood Gas Comments Rina well sw 04/04/20 21:29 Sodium 144 mmol/L (136-145) 04/06/20 06:00 Corrected Sodium TNP 04/06/20 06:00 Potassium 3.9 mmol/L (3.5-5.1) 04/06/20 06:00 Chloride 106 mmol/L (98-107) 04/06/20 06:00 Carbon Dioxide 31.5 mmol/L (21-32) 04/06/20 06:00 BUN 18 mg/dL (7-18) 04/06/20 06:00 Creatinine 0.92 mg/dL (0.55-1.02) 04/06/20 06:00 Est GFR (MDRD) Af Amer > 60 (>60) 04/06/20 06:00 Est GFR (MDRD) Non-Af > 60 (>60) 04/06/20 06:00 Glucose 92 mg/dL (65-99) 04/06/20 06:00 POC Glucose (mg/dL) 142 mg/dL (65-99) H 04/05/20 11:09 Calcium 8.6 mg/dL (8.5-10.1) 04/06/20 06:00 Corrected Calcium 9.9 mg/dL (8.5-10.1) 04/06/20 06:00 Total Bilirubin 0.30 mg/dL (0.2-1.0) 04/06/20 06:00 AST 16 Units/L (15-37) 04/06/20 06:00 ALT 7 Units/L (12-78) L 04/06/20 06:00 Alkaline Phosphatase 50 Units/L (46-116) 04/06/20 06:00 Creatine Kinase 26 Units/L (26-192) 04/06/20 12:00 CK-MB (CK-2) 1.4 ng/mL (0-4.0) 04/06/20 12:00 CK/CKMB % Calc 5.4 % (<4) 04/06/20 12:00 Troponin I 0.07 ng/mL (0-1.5) 04/06/20 12:00 B-Natriuretic Peptide 2010 pg/mL (0-79) H* 04/06/20 06:00 Total Protein 6.5 g/dL (6.4-8.2) 04/06/20 06:00 Albumin 2.4 g/dL (3.4-5.0) L 04/06/20 06:00 Globulin 4.1 g/dL (2.5-4.5) 04/06/20 06:00 Albumin/Globulin Ratio 0.6 Ratio (1.1-2.1) L 04/06/20 06:00 Specimen Type Catherized urine 04/04/20 21:00 Urine Color Pale yellow (YELLOW) 04/04/20 21:00 Urine Appearance Hazy (CLEAR) 04/04/20 21:00 Urine pH 6.0 (5.0 - 8.0) 04/04/20 21:00 Ur Specific Benedict 1.015 (1.000-1.030) 04/04/20 21:00 Urine Protein 2+ (NEGATIVE) 04/04/20 21:00 Urine Glucose (UA) Negative (NEGATIVE) 04/04/20 21:00 Urine Ketones Negative (NEGATIVE) 04/04/20 21:00 Urine Occult Blood 2+ (NEGATIVE) 04/04/20 21:00 Urine Nitrite Positive (NEGATIVE) 04/04/20 21:00 Urine Bilirubin Negative (NEGATIVE) 04/04/20 21:00 Urine Urobilinogen Normal (NORMAL) 04/04/20 21:00 Ur Leukocyte Esterase 2+ (NEGATIVE) 04/04/20 21:00 Urine RBC 5-10 /HPF (0-3) A 04/04/20 21:00 Urine WBC 10-20 /HPF (0-5) A 04/04/20 21:00 Ur Squamous Epith Cells Rare /HPF (NEGATIVE) 04/04/20 21:00 Urine Bacteria 2+ /HPF (NEGATIVE) 04/04/20 21:00 Ur Culture Indicated? Yes/culture set up 04/04/20 21:00 Digoxin 0.49 ng/mL (0.9-2) L 04/06/20 12:00 SARS-CoV-2 (PCR) Negative (NEGATIVE) 04/04/20 22:36 - Plan (1) CHF exacerbation Status: Acute Qualifiers: Heart failure type: unspecified Qualified Code(s): I50.9 - Heart failure, unspecified Plan: INVANZ 1G IV DAILY, LASIX 40MG IV BID, XOPENEX NEB [place] Q6H PRN, ALDACTONE 25MG PO DAILY, PHENERGAN 12.5MG IM Q6H PRN, ELIQUIS 5MG PO BID, ZYRTEC 10MG PO HS, ZANAFLEX 4MG PO HS, DIGOXIN 0.125MG PO DAILY, AND ZOCOR 40MG PO HS WERE RESUMED. FLUID RESTRICTIONS. SUPPLEMENTAL OXYGEN (2) Respiratory distress Status: Acute (3) Urinary tract infection Status: Acute Qualifiers: Urinary tract infection type: site unspecified Hematuria presence: with hematuria Qualified Code(s): N39.0 - Urinary tract infection, site not specified; R31.9 - Hematuria, unspecified Plan: INVANZ 1G IV DAILY, CONTINUE TO MONITOR
[2020-04-06] MEDS: ZOCOR TAB 40 MG PO SCH (20:25)
[2020-04-06] MEDS: ZANAFLEX PO SCH (20:25)
[2020-04-06] MEDS: ZyrTEC TAB 10 MG PO SCH (20:26)
--- NOTE | 2020-04-07 05:37 | RAD ---
HISTORYSOBSTUDYCHEST, 1 [id number] trachea is midline. The cardiac silhouette is enlarged, similar to prior exam. Improved patchy opacity/infiltrates. Small left pleural effusion... The bony thorax is unremarkable.IMPRESSIONStable cardiomegaly. Interval improvement in patchy pulmonary infiltrates/opacities. Persistent small left pleural effusion.Electronically signed by: Soni Qureshi (Apr 07, 2020 05:37:38)
[2020-04-07 06:14] LABS: ABG BASE EXCESS 11.3 mmol/L (-2.0-2.0)
[2020-04-07 06:15] LABS: ABG ALLEN TEST POS; ABG HCO3 38.7 mmol/L (22-26); FRACTIONATED INSPIRED OXYGEN 30
[2020-04-07 06:16] LABS: BASOPHILS # (AUTO) 0.1 X10^3/uL (0.0-0.1); BASOPHILS % (AUTO) 0.9 % (0.2-1.0); EOSINOPHILS % (AUTO) 0.3 % (0.9-2.9); HEMATOCRIT 27.4 % (36.0-47.0); HEMOGLOBIN 9.1 g/dL (12.0-16.0); LYMPHOCYTES # (AUTO) 1.3 X10^3/uL (1.3-2.9); LYMPHOCYTES % (AUTO) 20.6 % (21.0-51.0); MEAN CORPUSCULAR HEMOGLOBIN 29.7 pg (27.0-34.0); MEAN CORPUSCULAR HGB CONC 33.2 g/dL (33.0-35.0); MEAN CORPUSCULAR VOLUME 89.4 fL (80.0-100.0); MEAN PLATELET VOLUME 8.6 fL (7.4-11.0); MONOCYTES # (AUTO) 0.7 x10^3/uL (0.3-0.8); MONOCYTES % (AUTO) 11.4 % (0.0-13.0); NEUTROPHILS # (AUTO) 4.3 x10^3/uL (2.2-4.8); NEUTROPHILS % (AUTO) 66.8 % (42.0-75.0); PLATELET COUNT 170 X10^3/uL (150.0-450.0); RED BLOOD COUNT 3.06 X10^6/uL (3.5-5.4); RED CELL DISTRIBUTION WIDTH 16.2 % (11.6-16.5); WHITE BLOOD COUNT 6.4 X10^3/uL (3.6-10.0)
[2020-04-07 06:29] LABS: ALANINE AMINOTRANSFERASE 10 Units/L (12-78); ALBUMIN 2.5 g/dL (3.4-5.0); ALKALINE PHOSPHATASE 49 Units/L (46-116); ASPARTATE AMINO TRANSFERASE 64 Units/L (15-37); BLOOD UREA NITROGEN 22 mg/dL (7-18); CALCIUM 8.7 mg/dL (8.5-10.1); CARBON DIOXIDE 36.2 mmol/L (21-32); CHLORIDE 104 mmol/L (98-107); COR CA(FOR HYPOALB) 9.9 mg/dL (8.5-10.1); DIGOXIN 1.72 ng/mL (0.9-2); SODIUM 143 mmol/L (136-145); TOTAL PROTEIN 6.8 g/dL (6.4-8.2); eGFR NON BLACK RACES > 60 (>60)
[2020-04-07] MEDS: INVANZ INJ 1 GM VIAL 1 GM in NS 100 ML IV + SPIKE MINIBAG* 100 ML IV SCH (09:22)
[2020-04-07] MEDS: ALDACTONE TAB 25 MG PO SCH (09:23)
[2020-04-07] MEDS: PROTONIX TAB 40 MG PO SCH (09:24)
[2020-04-07] MEDS: ELIQUIS PO SCH ×2 (09:24→20:53)
[2020-04-07] MEDS: SINGULAIR TAB 10 MG PO SCH (09:25)
[2020-04-07] MEDS: LANOXIN or DIGITEK PO SCH (09:30)
[2020-04-07] MEDS: LASIX IVP SCH ×2 (10:34→17:30)
--- NOTE | 2020-04-07 11:28 | PCM.PROG ---
Progress Note - Progress Note for Day of Date of Exam: 04/07/20 - Subjective Subjective: IS BEING TREATED FOR CHF EXACERBATION, RESPIRATORY FAILURE WITH HYPERCAPNIA, AND URINARY TRACT INFECTION. TODAY, SHE IS ALERT AND ORIENTED, LYING IN BED ON MORNING ROUNDS. SHE IS CURRENTLY ON NASAL CANNULA AT 3L/MIN. SHE CONTINUES TO REFUSE THE BIPAP AND HAS BEEN ON NASAL CANNULA THROUGHOUT THE NIGHT. SHE CONTINUES WITH COMPLAINTS OF SHORTNESS OF BREATH AND COUGH TODAY. SHE DENIES SIGNIFICANT IMPROVEMENT SINCE ONE DAY PRIOR. STAFF REPORTS THAT PATIENT HAD AN EPISODE OF TACHYCARDIA AND INCREASED SHORTNESS OF BREATH YESTERDAY AFTERNOON. EKG WAS OBTAINED AND REVEALED ATRIAL FIBRILLATION WITH RVR. SHE WAS GIVEN AN ADDITIONAL DOSE OF LANOXIN AT THAT TIME. HER HEARTRATE DECREASED TO 95 AFTER ADMINISTRATION OF LANOXIN. ON EXAMINATION TODAY, HEART IS REGULAR IN RATE AND RHYTHM. BILATERAL LUNGS CONTINUE WITH SCATTERED WHEEZING THROUGHOUT. ABDOMEN IS ROUND, SOFT, AND NON-TENDER WITH NORMAL BOWEL SOUNDS NOTED IN ALL QUADRANTS. HER VITALS THIS MORNING ARE: 98.0-64-20-99%NC-111/53. LABS WERE OBTAINED. ABNROMAL LAB VALUES INCLUDE THE FOLLOWING: RBC 3.06, HGB 9.1, HCT 27.4, CARBON DIOXIDE 36.2, BUN 22, AST 64, ALT 10, BNP 2180, ALBUMIN 2.5. URINE CULTURE REPORTS GROWTH OF KLEBSIELLA PNEUMONIAE. A CHEST XRAY WAS OBTAINED THIS MORNING AND REVEALED: Stable cardiomegaly. Interval improvement in patchy pulmonary infiltrates/opacities. Persistent small left pleural effusion. SHE IS CURRENTLY RECEIVING: INVANZ 1G IV DAILY, LASIX 40MG IV BID, XOPENEX NEB TX Q6H PRN, ALDACTONE 25MG PO DAILY, PHENERGAN 12.5MG IM Q6H PRN, ELIQUIS 5MG PO BID, ZYRTEC 10MG PO HS, ZANAFLEX 4MG PO HS, DIGOXIN 0.125MG PO DAILY, ALPRAZOLAM 0.25MG PO BID PRN, ZOCOR 40MG PO HS, MORPHINE 1-2MG IV Q6H PRN, AND PROTONIX 40MG PO DAILY. WE WILL CONTINUE WITH CURRENT PLAN OF CARE TODAY. OTHERWISE, WE PLAN TO F OLLOW UP WITH AM LABS AND CHEST XRAY AND CONTINUE TO MONITOR. - Past Medical Family Social History Past Med/Fam/Surg Hx: No changes since H&P Allergies: Allergies codeine Allergy (Verified 10/05/17 08:34) lorazepam [From Ativan] Adverse Reaction (Verified 01/14/20 23:53) - Review of Systems ROS: No change since H&P - Vital Signs and I&O's Vital Signs: Temperature 98.0 F Pulse Rate [Right Brachial] 64 Pulse Rate 155 Respiratory Rate 20 Blood Pressure [Left Arm] 111/53 Blood Pressure 132/68 O2 Sat by Pulse Oximetry 99 Intake and Output: Intake & Output 04/04/20 04/05/20 04/06/20 04/07/20 11:59 11:59 11:59 11:59 Intake Total 571 / 571 750 / 750 Output Total 1100 / 1100 2500 / 2500 1950 / 1950 Balance -1090 / -1090 -1929 / -1929 -1200 / -1200 - Physical Exam Oriented: Normal Eyes: Normal Ear: Normal Nose: Normal Throat: Normal Respiratory: Wheezes Cardiovascular: Normal, Edema (BLE 1+ PITTING EDEMA ). negative: S3, S4, Murmur : Normal Auscultation: Bowel Sounds: Normal Palpation: Normal Tenderness: Normal Skin: Normal Musculoskeletal: Normal Psychiatric: Normal Mood Description: Calm Affect: Normal Speech Pattern: Clear, Appropriate - Laboratory and Diagnostics Result Diagrams: 04/07/20 05:25 04/07/20 05:25 Labs: 04/04/20 21:00 Urine,Catheterized Urine Culture - Final Klebsiella Pneumoniae Laboratory WBC 6.4 X10^3/uL (3.6-10.0) 04/07/20 05:25 RBC 3.06 X10^6/uL (3.5-5.4) L 04/07/20 05:25 Hgb 9.1 g/dL (12.0-16.0) L 04/07/20 05:25 Hct 27.4 % (36.0-47.0) L 04/07/20 05:25 MCV 89.4 fL (80.0-100.0) 04/07/20 05:25 MCH 29.7 pg (27.0-34.0) 04/07/20 05:25 MCHC 33.2 g/dL (33.0-35.0) 04/07/20 05:25 RDW 16.2 % (11.6-16.5) 04/07/20 05:25 Plt Count 170 X10^3/uL (150.0-450.0) 04/07/20 05:25 MPV 8.6 fL (7.4-11.0) 04/07/20 05:25 Neut % (Auto) 66.8 % (42.0-75.0) 04/07/20 05:25 Lymph % (Auto) 20.6 % (21.0-51.0) L 04/07/20 05:25 [place] % (Auto) 11.4 % (0.0-13.0) 04/07/20 05:25 Eos % (Auto) 0.3 % (0.9-2.9) L 04/07/20 05:25 Baso % (Auto) 0.9 % (0.2-1.0) 04/07/20 05:25 Neut # (Auto) 4.3 x10^3/uL (2.2-4.8) 04/07/20 05:25 Lymph # (Auto) 1.3 X10^3/uL (1.3-2.9) 04/07/20 05:25 [place] # (Auto) 0.7 x10^3/uL (0.3-0.8) 04/07/20 05:25 Eos # (Auto) 0.0 x10^3/uL (0.0-0.2) 04/07/20 05:25 Baso # (Auto) 0.1 X10^3/uL (0.0-0.1) 04/07/20 05:25 Absolute Nucleated RBC 0.1 /100WBC 04/07/20 05:25 Sample Site Rra 04/07/20 06:05 ABG pH 7.390 (7.35-7.45) 04/07/20 06:05 ABG pCO2 64.0 mmHg (35.0-45.0) H* 04/07/20 06:05 ABG pO2 120.0 mmHg (80.0-100.0) H 04/07/20 06:05 ABG HCO3 38.7 mmol/L (22-26) H* 04/07/20 06:05 ABG O2 Saturation 99.0 % (90-100) 04/07/20 06:05 ABG Base Excess 11.3 mmol/L (-2.0-2.0) H 04/07/20 06:05 Milse Test Pos 04/07/20 06:05 A-a Gradient 14.0 mmHg 04/07/20 06:05 FiO2 30 04/07/20 06:05 Blood Gas Comments Pt maryellen well eb/cnd 04/07/20 06:05 Sodium 143 mmol/L (136-145) 04/07/20 05:25 Corrected Sodium TNP 04/07/20 05:25 Potassium 4.0 mmol/L (3.5-5.1) 04/07/20 05:25 Chloride 104 mmol/L (98-107) 04/07/20 05:25 Carbon Dioxide 36.2 mmol/L (21-32) H 04/07/20 05:25 BUN 22 mg/dL (7-18) H 04/07/20 05:25 Creatinine 0.90 mg/dL (0.55-1.02) 04/07/20 05:25 Est GFR (MDRD) Af Amer > 60 (>60) 04/07/20 05:25 Est GFR (MDRD) Non-Af > 60 (>60) 04/07/20 05:25 Glucose 87 mg/dL (65-99) 04/07/20 05:25 POC Glucose (mg/dL) 142 mg/dL (65-99) H 04/05/20 11:09 Calcium 8.7 mg/dL (8.5-10.1) 04/07/20 05:25 Corrected Calcium 9.9 mg/dL (8.5-10.1) 04/07/20 05:25 Total Bilirubin 0.50 mg/dL (0.2-1.0) 04/07/20 05:25 AST 64 Units/L (15-37) H 04/07/20 05:25 ALT 10 Units/L (12-78) L 04/07/20 05:25 Alkaline Phosphatase 49 Units/L (46-116) 04/07/20 05:25 Creatine Kinase 26 Units/L (26-192) 04/06/20 12:00 CK-MB (CK-2) 1.4 ng/mL (0-4.0) 04/06/20 12:00 CK/CKMB % Calc 5.4 % (<4) 04/06/20 12:00 Troponin I 0.07 ng/mL (0-1.5) 04/06/20 12:00 B-Natriuretic Peptide 2180 pg/mL (0-79) H* 04/07/20 05:25 Total Protein 6.8 g/dL (6.4-8.2) 04/07/20 05:25 Albumin 2.5 g/dL (3.4-5.0) L 04/07/20 05:25 Globulin 4.3 g/dL (2.5-4.5) 04/07/20 05:25 Albumin/Globulin Ratio 0.6 Ratio (1.1-2.1) L 04/07/20 05:25 Specimen Type Catherized urine 04/04/20 21:00 Urine Color Pale yellow (YELLOW) 04/04/20 21:00 Urine Appearance Hazy (CLEAR) 04/04/20 21:00 Urine pH 6.0 (5.0 - 8.0) 04/04/20 21:00 Ur Specific [place] 1.015 (1.000-1.030) 04/04/20 21:00 Urine Protein 2+ (NEGATIVE) 04/04/20 21:00 Urine Glucose (UA) Negative (NEGATIVE) 04/04/20 21:00 Urine Ketones Negative (NEGATIVE) 04/04/20 21:00 Urine Occult Blood 2+ (NEGATIVE) 04/04/20 21:00 Urine Nitrite Positive (NEGATIVE) 04/04/20 21:00 Urine Bilirubin Negative (NEGATIVE) 04/04/20 21:00 Urine Urobilinogen Normal (NORMAL) 04/04/20 21:00 Ur Leukocyte Esterase 2+ (NEGATIVE) 04/04/20 21:00 Urine RBC 5-10 /HPF (0-3) A 04/04/20 21:00 Urine WBC 10-20 /HPF (0-5) A 04/04/20 21:00 Ur Squamous Epith Cells Rare /HPF (NEGATIVE) 04/04/20 21:00 Urine Bacteria 2+ /HPF (NEGATIVE) 04/04/20 21:00 Ur Culture Indicated? Yes/culture set up 04/04/20 21:00 Digoxin 1.72 ng/mL (0.9-2) 04/07/20 05:25 SARS-CoV-2 (PCR) Negative (NEGATIVE) 04/04/20 22:36 - Plan (1) CHF exacerbation Status: Acute Qualifiers: Heart failure type: unspecified Qualified Code(s): I50.9 - Heart failure, unspecified Plan: INVANZ 1G IV DAILY, LASIX 40MG IV BID, XOPENEX NEB TX Q6H PRN, ALDACTONE 25MG PO DAILY, PHENERGAN 12.5MG IM Q6H PRN, ELIQUIS 5MG PO BID, ZYRTEC 10MG PO HS, ZANAFLEX 4MG PO HS, DIGOXIN 0.125MG PO DAILY, ALPRAZOLAM 0.25MG PO BID PRN, ZOCOR 40MG PO HS, MORPHINE 1-2MG IV Q6H PRN, AND PROTONIX 40MG PO DAILY. FLUID RESTRICTIONS. SUPPLEMENTAL OXYGEN (2) Respiratory distress Status: Acute (3) Urinary tract infection Status: Acute Qualifiers: Urinary tract infection type: site unspecified Hematuria presence: with hematuria Qualified Code(s): N39.0 - Urinary tract infection, site not specified; R31.9 - Hematuria, unspecified Plan: INVANZ 1G IV DAILY, CONTINUE TO MONITOR
[2020-04-07] MEDS: NYSTATIN POWDER TOP SCH ×2 (17:00→20:53)
[2020-04-07] MEDS: VISTARIL PO PRN (20:53)
[2020-04-07] MEDS: ZANAFLEX PO SCH (20:53)
[2020-04-07] MEDS: ZOCOR TAB 40 MG PO SCH (20:53)
[2020-04-07] MEDS: ZyrTEC TAB 10 MG PO SCH (20:53)
--- NOTE | 2020-04-08 05:51 | RAD ---
HISTORYSOBSTUDYCHEST, 1 [id number] trachea is midline. The cardiac silhouette is enlarged, similar to prior exam.. Bibasilar pulmonary opacities/infiltrates, slightly increased compared to prior exam. Decrease in left pleural effusion.. The bony thorax is unremarkable.IMPRESSIONSlight interval increase in bibasilar atelectasis/infiltrates. Decrease in left pleural effusion.Electronically signed by: Soni Qureshi (Apr 08, 2020 05:50:48)
[2020-04-08 06:15] LABS: BASOPHILS % (AUTO) 0.8 % (0.2-1.0); EOSINOPHILS # (AUTO) 0.1 x10^3/uL (0.0-0.2); EOSINOPHILS % (AUTO) 1.1 % (0.9-2.9); HEMATOCRIT 31.7 % (36.0-47.0); HEMOGLOBIN 10.4 g/dL (12.0-16.0); LYMPHOCYTES # (AUTO) 1.1 X10^3/uL (1.3-2.9); LYMPHOCYTES % (AUTO) 19.6 % (21.0-51.0); MEAN CORPUSCULAR HEMOGLOBIN 29.1 pg (27.0-34.0); MEAN CORPUSCULAR HGB CONC 32.7 g/dL (33.0-35.0); MEAN PLATELET VOLUME 8.6 fL (7.4-11.0); MONOCYTES # (AUTO) 0.7 x10^3/uL (0.3-0.8); MONOCYTES % (AUTO) 12.7 % (0.0-13.0); NEUTROPHILS # (AUTO) 3.7 x10^3/uL (2.2-4.8); NEUTROPHILS % (AUTO) 65.8 % (42.0-75.0); PLATELET COUNT 182 X10^3/uL (150.0-450.0); RED BLOOD COUNT 3.56 X10^6/uL (3.5-5.4); RED CELL DISTRIBUTION WIDTH 16.2 % (11.6-16.5); WHITE BLOOD COUNT 5.6 X10^3/uL (3.6-10.0)
[2020-04-08 06:33] LABS: ALANINE AMINOTRANSFERASE 9 Units/L (12-78); ALBUMIN 2.8 g/dL (3.4-5.0); ALKALINE PHOSPHATASE 54 Units/L (46-116); ASPARTATE AMINO TRANSFERASE 36 Units/L (15-37); BLOOD UREA NITROGEN 19 mg/dL (7-18); CARBON DIOXIDE 37.2 mmol/L (21-32); CHLORIDE 100 mmol/L (98-107); CREATININE 0.97 mg/dL (0.55-1.02); SODIUM 142 mmol/L (136-145); TOTAL PROTEIN 7.2 g/dL (6.4-8.2); eGFR NON BLACK RACES 58 (>60)
[2020-04-08] MEDS: ALDACTONE TAB 25 MG PO SCH (08:45)
[2020-04-08] MEDS: LANOXIN or DIGITEK PO SCH (08:45)
[2020-04-08] MEDS: LASIX IVP SCH (08:45)
[2020-04-08] MEDS: ELIQUIS PO SCH (08:46)
[2020-04-08] MEDS: INVANZ INJ 1 GM VIAL 1 GM in NS 100 ML IV + SPIKE MINIBAG* 100 ML IV SCH (08:46)
[2020-04-08] MEDS: NYSTATIN POWDER TOP SCH (08:48)
[2020-04-08] MEDS: SINGULAIR TAB 10 MG PO SCH (08:49)
[2020-04-08] MEDS: PROTONIX TAB 40 MG PO SCH (08:50)
[2020-04-08 14:17] VITALS: BP 146/74
== END 2020-04-08 14:50 | disposition home or self-care (01) | DRG 291 ==
LOC: ER 17:45 → MED/SURG 04-05 00:34
PROVIDERS: ADMIT Family Medicine; ATTEND Internal Medicine

== ENCOUNTER 2020-07-23 00:26 | Inpatient (IN) ==
[2020-07-23 00:48] VITALS: BMI 24.1
[2020-07-23 00:53] LABS: ABG BASE EXCESS 5.1 mmol/L (-2.0-2.0)
[2020-07-23 00:54] LABS: ABG ALLEN TEST POSS; ABG HCO3 32.7 mmol/L (22-26)
[2020-07-23] MEDS ORDERED: NS 1000 ML 1,000 ML ONE ×2 (01:04→16:43)
[2020-07-23] MEDS ORDERED: LASIX IVP ONE ×2 (01:11→01:14)
--- NOTE | 2020-07-23 01:12 | DR.SOBA ---
HPI Time Seen Time Seen by Provider: 07/23/20 01:05 Primary Care Physician Primary Care Physician: KWAKU HPI Comment HPI Comment: PATIENT IS 85YR OLD FEMALE IN ER WITH INCREASING SOB TIMES ONE HOUR. HE IS DIAPHORETIC, WEAK AND PALE. NO FEVER. HAVE CHEST TIGHTNESS. COUGHING, SLIGHTLY PRODUCTIVE. NO DYSURIA, NAUSEA OR VOMITING. Complaints Chief Complaint Doctors Comments: INCREASING SOB TIMES ONE HOUR. Chief Complaint:: SHORTNESS OF BREATH STARTING APPROX 1 HOURS AGO. PT DIAPHORETIC ON ARRIVAL. COVID-19 Coronavirus risk:travel/contact w/high risk person: Yes Has patient experienced Coronavirus symptoms: Yes Coronavirus symptoms experienced: Coughing and Shortness of Breath Source History Provided: EMS Mode of Arrival Mode of Arrival: Stretcher Timing Onset of Chief Complaint: 07/23/20 Duration Duration: Hours Context Onset:: At Rest PE Risk Factors:: None History of:: CHF Currently on:: Inhaled Bronchodilators Prehospital Care:: Inhaled B2 and Furosemide Modifying Factors Worsens:: Exertion and Lying Flat Improves:: Rest and Sitting Up Associated Signs and Symptoms Associated Signs and Symptoms: Wheeze, Cough and Chest Pain If Chest Pain Quality: Pleuritic Location: Substernal If Cough Cough: Productive and Clear PMH PMH Past Medical History: Yes Past Medical History: Arthritis, CHF, Coronary Artery Disease, Dyslipidemia, GERD and Hypertension Past Surgical History: No (UNSURE OF HISTORY) Surgical History: No History Family History History of Family Medical Conditions: Yes Family Medical History: Diabetes Mellitus, Cancer and Hypertension Social History Does patient currently use any type of tobacco product: No Have you used tobacco products in the last 12 months: No Type of Tobacco Use: None Does any household member use tobacco: No Alcohol Use: None Do you use any recreational Drugs:: No Travel Risk Coronavirus risk:travel/contact w/high risk person: Yes Has patient experienced Coronavirus symptoms: Yes Coronavirus symptoms experienced: Coughing and Shortness of Breath Infectious screening In the last 2 months have you had wt loss of >10#?: NO Have you had fever, night sweats or hemotysis?: No Have you traveled outside the country in the last 6 months?: No Isolation: Droplet ROS Review of Systems Constitutional: See HPI, Weakness and Fatigue; negative Fever Eyes: No Symptoms Reported and See HPI ENTM: See HPI and Nose Congestion Respiratoy: See HPI, Productive Cough, Short of Breath and Wheezing Cardiovascular: No Symptoms Reported, See HPI, Chest Pain, Edema and Palpitations Gastrointestinal/Abdominal: No Symptoms Reported and See HPI; negative Abdominal Pain, Diarrhea and Vomiting Genitourinary: No Symptoms Reported and See HPI; negative Dysuria and Hematuria Neurological: See HPI and Weakness; negative Headache and Dizziness Musculoskeletal: No Symptoms Reported and See HPI; negative Back Pain Integumentary: No Symptoms Reported and See HPI; negative Rash and Juandice Hematologic/Lymphatic: See HPI, Easy Bleeding and Easy Bruising Endocrine: No Symptoms Reported and See HPI; negative Increased Thirst and Increased Urine Psychiatric: No Symptoms Reported and See HPI All Other Systems: Reviewed and Negative PE Vital Signs Vitals: Temperature 99 F Pulse Rate [Right Brachial] 69 Pulse Rate 68 Respiratory Rate 17 Blood Pressure [Left Arm] 146/62 Blood Pressure 127/63 O2 Sat by Pulse Oximetry 97 General Limitations: No Limitations General Appearance: Alert and In Distress Head Head Exam: Normal Inspection Eyes Eye exam: Normal Appearance and PERRL; negative Scleral Icterus and Conjunctival Injection ENT ENT Exam: Normal Exam, Normal Oropharynx, Normal External Ear Exam and TM's Normal Bilaterally Neck Neck Exam: Normal Inspection and Trachea Midline; negative Tenderness and Lymphadenopathy Chest Chest Inspection: Normal Inspection and Symmetric Chest Wall Rise; negative Tenderness Respiratory Respiratory Exam: Normal Lung Sounds Bilat, Accessory Muscle Use and Respiratory Distress; negative Chest Wall Tenderness Respiratory Exam: Bilateral: Wheezing and Bilateral: Rhonchi, Upper: Wheezing and Lower: Wheezing and Lower: Rhonchi Cardiovascular Cardiovascular Exam: Regular Rate, Normal Rhythm and Normal Heart Sounds; negative Systolic Murmur and Diastolic Murmur Abdominal Exam Abdominal Exam: Normal Inspection, Normal Bowel Sounds and Soft; negative Tende rness Extremities Extremities Exam: Normal Inspection, Normal Capillary Refill and Edema; negative Tenderness and Calf Tenderness Back Back Exam: Normal Inspection; negative (R) CVA Tenderness and (L) CVA Tenderness Neurologic Neurological Exam: Alert and Oriented X3; negative Motor Sensory Deficit Psychiatric Psychiatric Exam: Normal Affect and Anxious Skin Skin Exam: Other (EDEMA, 1 PLUS.) MDM Differential Diagnosis Differential Diagnosis: Bronchitis, CHF, Dysrhythmia, Hyponatremia, Mycardial Infarction, Pneumonia, Pneumothorax, Respiratory Insufficiency, Sinusitis and URI COURSE Treatment Treatment: SEE ORDERS. Education/Counseling Education/Counseling: Patient Educated On: Diagnosis and Needs for Follow Up ROR Labs Reviewed Laboratory Results Reviewed?: Yes Result Diagrams: 07/26/20 04:00 07/26/20 04:00 Laboratory: 07/23/20 02:15 Blood Blood Culture - Final 07/23/20 01:30 Blood Blood Culture - Final WBC 8.1 X10^3/uL (3.6-10.0) 07/23/20 01:48 RBC 3.47 X10^6/uL (3.5-5.4) L 07/23/20 01:48 Hgb 10.1 g/dL (12.0-16.0) L 07/23/20 01:48 Hct 30.9 % (36.0-47.0) L 07/23/20 01:48 MCV 88.8 fL (80.0-100.0) 07/23/20 01:48 MCH 29.1 pg (27.0-34.0) 07/23/20 01:48 MCHC 32.7 g/dL (33.0-35.0) L 07/23/20 01:48 RDW 15.8 % (11.6-16.5) 07/23/20 01:48 Plt Count 193 X10^3/uL (150.0-450.0) 07/23/20 01:48 MPV 8.7 fL (7.4-11.0) 07/23/20 01:48 Neut % (Auto) 83.2 % (42.0-75.0) H 07/23/20 01:48 Lymph % (Auto) 6.0 % (21.0-51.0) L 07/23/20 01:48 [place] % (Auto) 8.7 % (0.0-13.0) 07/23/20 01:48 Eos % (Auto) 1.4 % (0.9-2.9) 07/23/20 01:48 Baso % (Auto) 0.7 % (0.2-1.0) 07/23/20 01:48 Neut # (Auto) 6.8 x10^3/uL (2.2-4.8) H 07/23/20 01:48 Lymph # (Auto) 0.5 X10^3/uL (1.3-2.9) L 07/23/20 01:48 [place] # (Auto) 0.7 x10^3/uL (0.3-0.8) 07/23/20 01:48 Eos # (Auto) 0.1 x10^3/uL (0.0-0.2) 07/23/20 01:48 Baso # (Auto) 0.1 X10^3/uL (0.0-0.1) 07/23/20 01:48 Absolute Nucleated RBC 0.1 /100WBC 07/23/20 01:48 Sample Site R rad 07/23/20 02:25 ABG pH 7.420 (7.35-7.45) 07/23/20 02:25 ABG pCO2 52.0 mmHg (35.0-45.0) H* 07/23/20 02:25 ABG pO2 179.0 mmHg (80.0-100.0) H 07/23/20 02:25 ABG HCO3 33.7 mmol/L (22-26) H* 07/23/20 02:25 ABG O2 Saturation 100.0 % (90-100) 07/23/20 02:25 ABG Base Excess 7.8 mmol/L (-2.0-2.0) H 07/23/20 02:25 Miles Test Poss 07/23/20 02:25 A-a Gradient 184.0 mmHg 07/23/20 02:25 FiO2 60.0 07/23/20 02:25 Blood Gas Comments Rina well kb 07/23/20 02:25 Sodium 144 mmol/L (136-145) 07/23/20 01:48 Corrected Sodium 146 mmol/L (136-145) H 07/23/20 01:48 Potassium 3.1 mmol/L (3.5-5.1) L 07/23/20 01:48 Chloride 105 mmol/L (98-107) 07/23/20 01:48 Carbon Dioxide 29.2 mmol/L (21-32) 07/23/20 01:48 BUN 14 mg/dL (7-18) 07/23/20 01:48 Creatinine 0.62 mg/dL (0.55-1.02) 07/23/20 01:48 Est GFR (MDRD) Af Amer > 60 (>60) 07/23/20 01:48 Est GFR (MDRD) Non-Af > 60 (>60) 07/23/20 01:48 Glucose 166 mg/dL (65-99) H 07/23/20 01:48 Lactic Acid 1.4 mmol/L (0.4-2.0) 07/23/20 01:48 Calcium 8.8 mg/dL (8.5-10.1) 07/23/20 01:48 Corrected Calcium 9.4 mg/dL (8.5-10.1) 07/23/20 01:48 Ferritin 33 ng/mL (8-252) 07/23/20 01:48 Total Bilirubin 0.30 mg/dL (0.2-1.0) 07/23/20 01:48 AST 18 Units/L (15-37) 07/23/20 01:48 ALT 7 Units/L (12-78) L 07/23/20 01:48 Alkaline Phosphatase 59 Units/L (46-116) 07/23/20 01:48 Creatine Kinase 33 Units/L (26-192) 07/23/20 01:48 CK-MB (CK-2) 2.8 ng/mL (0-4.0) 07/23/20 01:48 CK/CKMB % Calc 8.5 % (<4) 07/23/20 01:48 Troponin I 0.16 ng/mL (0-1.5) 07/23/20 01:48 C-Reactive Protein 1.80 mg/L (0-3.0) 07/23/20 01:48 B-Natriuretic Peptide 1850 pg/mL (0-79) H* 07/23/20 01:48 Total Protein 6.6 g/dL (6.4-8.2) 07/23/20 01:48 Albumin 3.2 g/dL (3.4-5.0) L 07/23/20 01:48 Globulin 3.4 g/dL (2.5-4.5) 07/23/20 01:48 Albumin/Globulin Ratio 0.9 Ratio (1.1-2.1) L 07/23/20 01:48 Specimen Type Catherized urine 07/23/20 00:57 Urine Color Pale yellow (YELLOW) 07/23/20 00:57 Urine Appearance Clear (CLEAR) 07/23/20 00:57 Urine pH 6.5 (5.0 - 8.0) 07/23/20 00:57 Ur Specific [place] 1.015 (1.000-1.030) 07/23/20 00:57 Urine Protein 3+ (NEGATIVE) 07/23/20 00:57 Urine Glucose (UA) Negative (NEGATIVE) 07/23/20 00:57 Urine Ketones Negative (NEGATIVE) 07/23/20 00:57 Urine Occult Blood 2+ (NEGATIVE) 07/23/20 00:57 Urine Nitrite Negative (NEGATIVE) 07/23/20 00:57 Urine Bilirubin Negative (NEGATIVE) 07/23/20 00:57 Urine Urobilinogen Normal (NORMAL) 07/23/20 00:57 Ur Leukocyte Esterase 1+ (NEGATIVE) 07/23/20 00:57 Urine RBC 5-10 /HPF (0-3) A 07/23/20 00:57 Urine WBC 0-2 /HPF (0-5) 07/23/20 00:57 Ur Squamous Epith Cells Rare /HPF (NEGATIVE) 07/23/20 00:57 Urine Bacteria Negative /HPF (NEGATIVE) 07/23/20 00:57 Ur Culture Indicated? No/not indicated 07/23/20 00:57 XRAY XRAY Interpreted by: Radiologist (REPORT NOTED AND DISCUSSED WITH PATIENT.) and Self Opioid Opioid Risk Tool Age (Anupam box if 16-45): No History of Preadolescent Sexual Abuse: No Total: 0 Total Score Risk Category: Low Risk Copyright: Jimmie EVANS predicting aberrant behaviors Diagnosis Discharge Problem: Acute respiratory insufficiency, Hypokalemia Pneumonia Qualifiers: Pneumonia type: due to unspecified organism Laterality: bilateral Lung location: lower lobe of lung Qualified Code(s): J18.9 - Pneumonia, unspecified organism CHF (congestive heart failure) Qualifiers: Heart failure type: combined systolic and diastolic Heart failure chronicity: acute on chronic Qualified Code(s): I50.43 - Acute on chronic combined systolic (congestive) and diastolic (congestive) heart failure Instructions Instructions: Viral Respiratory Infection, Rjpp-Vp-Milv Hand Washing, Klae-oc-Qhey Nonspecific Chest Pain, Obeh-od-Kmjw Droplet Precautions, Lmvk-md-Ecrl Contact Precautions, Yppn-ap-Oqlm Hypertension, Oopv-gs-Eowm Heart Failure, Mgqp-gj-Upfu Forms: Precautions for COVID19 Patient Portal Social Distancing
[2020-07-23 01:14] LABS: BILIRUBIN,URINE NEGATIVE (NEGATIVE); BLOOD/HEMOGLOBIN,URINE 2+ (NEGATIVE); GLUCOSE, URINE NEGATIVE (NEGATIVE); KETONES,URINE NEGATIVE (NEGATIVE); LEUKOCYTE ESTERASE ,URINE 1+ (NEGATIVE); NITRITES,URINE NEGATIVE (NEGATIVE); PH,URINE 6.5 (5.0 - 8.0); PROTEIN,URINE 3+ (NEGATIVE); UROBILINOGEN,URINE NORMAL (NORMAL)
[2020-07-23 01:25] LABS: APPEARANCE,URINE CLEAR (CLEAR); COLOR,URINE PALE YELLOW (YELLOW)
[2020-07-23 01:26] LABS: BACTERIA,URINE NEGATIVE /HPF (NEGATIVE); SQUAMOUS EPITHELIAL CELL,UR RARE /HPF (NEGATIVE)
[2020-07-23] MEDS ORDERED: NS 1000 ML 1,000 ML IV SCH (02:00)
[2020-07-23 02:21] LABS: BASOPHILS # (AUTO) 0.1 X10^3/uL (0.0-0.1); BASOPHILS % (AUTO) 0.7 % (0.2-1.0); EOSINOPHILS # (AUTO) 0.1 x10^3/uL (0.0-0.2); EOSINOPHILS % (AUTO) 1.4 % (0.9-2.9); HEMATOCRIT 30.9 % (36.0-47.0); HEMOGLOBIN 10.1 g/dL (12.0-16.0); LYMPHOCYTES # (AUTO) 0.5 X10^3/uL (1.3-2.9); MEAN CORPUSCULAR HEMOGLOBIN 29.1 pg (27.0-34.0); MEAN CORPUSCULAR HGB CONC 32.7 g/dL (33.0-35.0); MEAN CORPUSCULAR VOLUME 88.8 fL (80.0-100.0); MEAN PLATELET VOLUME 8.7 fL (7.4-11.0); MONOCYTES # (AUTO) 0.7 x10^3/uL (0.3-0.8); MONOCYTES % (AUTO) 8.7 % (0.0-13.0); NEUTROPHILS # (AUTO) 6.8 x10^3/uL (2.2-4.8); NEUTROPHILS % (AUTO) 83.2 % (42.0-75.0); PLATELET COUNT 193 X10^3/uL (150.0-450.0); RED BLOOD COUNT 3.47 X10^6/uL (3.5-5.4); RED CELL DISTRIBUTION WIDTH 15.8 % (11.6-16.5); WHITE BLOOD COUNT 8.1 X10^3/uL (3.6-10.0)
[2020-07-23] MEDS ORDERED: ROCEPHIN 1 GRAM IV PREMIX 1 G/50 ML IV.SOLN. IV ONE ×2 (02:21→02:33)
[2020-07-23 02:36] LABS: LACTIC ACID 1.4 mmol/L (0.4-2.0)
[2020-07-23 02:43] LABS: ALANINE AMINOTRANSFERASE 7 Units/L (12-78); ALBUMIN 3.2 g/dL (3.4-5.0); ALKALINE PHOSPHATASE 59 Units/L (46-116); ASPARTATE AMINO TRANSFERASE 18 Units/L (15-37); BLOOD UREA NITROGEN 14 mg/dL (7-18); CALCIUM 8.8 mg/dL (8.5-10.1); CARBON DIOXIDE 29.2 mmol/L (21-32); CHLORIDE 105 mmol/L (98-107); CKMB % 8.5 % (<4); COR CA(FOR HYPOALB) 9.4 mg/dL (8.5-10.1); COR NA(FOR HYPERGLY) 146 mmol/L (136-145); CREATINE KINASE 33 Units/L (26-192); CREATINE KINASE MB 2.8 ng/mL (0-4.0); CREATININE 0.62 mg/dL (0.55-1.02); SODIUM 144 mmol/L (136-145); TOTAL PROTEIN 6.6 g/dL (6.4-8.2); TROPONIN I 0.16 ng/mL (0-1.5); eGFR NON BLACK RACES > 60 (>60)
[2020-07-23 03:07] LABS: ABG BASE EXCESS 7.8 mmol/L (-2.0-2.0)
[2020-07-23 03:10] LABS: ABG ALLEN TEST POSS
[2020-07-23] MEDS ORDERED: ZOFRAN TAB 4 MG PO PRN (04:57)
[2020-07-23 06:01] LABS: BASOPHILS % (AUTO) 0.5 % (0.2-1.0); EOSINOPHILS % (AUTO) 0.4 % (0.9-2.9); HEMATOCRIT 30.1 % (36.0-47.0); HEMOGLOBIN 9.7 g/dL (12.0-16.0); LYMPHOCYTES # (AUTO) 0.6 X10^3/uL (1.3-2.9); MEAN CORPUSCULAR HEMOGLOBIN 28.6 pg (27.0-34.0); MEAN CORPUSCULAR HGB CONC 32.2 g/dL (33.0-35.0); MEAN CORPUSCULAR VOLUME 88.7 fL (80.0-100.0); MEAN PLATELET VOLUME 8.6 fL (7.4-11.0); MONOCYTES # (AUTO) 0.8 x10^3/uL (0.3-0.8); MONOCYTES % (AUTO) 13.9 % (0.0-13.0); NEUTROPHILS # (AUTO) 4.2 x10^3/uL (2.2-4.8); NEUTROPHILS % (AUTO) 74.2 % (42.0-75.0); PLATELET COUNT 187 X10^3/uL (150.0-450.0); RED CELL DISTRIBUTION WIDTH 15.8 % (11.6-16.5); WHITE BLOOD COUNT 5.6 X10^3/uL (3.6-10.0)
[2020-07-23] MEDS: NS 1000 ML 1,000 ML IV SCH ×3 (06:06→20:56)
--- NOTE | 2020-07-23 06:09 | RAD ---
HISTORY:Chest pain, shortness of breath, diaphoreticStudy: Single view chestComparison:07/15/2020Findings:Interval development multifocal bilateral lung infiltrates. Stable cardiomegaly. No pneumothorax or effusion identified. Soft tissues are intact. Large hiatal hernia.IMPRESSION:Interval development of diffuse multifocal bilateral lung infiltrates, concerning for pneumonia or edema.Stable cardiomegaly.Large hiatal hernia.Electronically signed by: FARHEEN VILCHIS (Jul 23, 2020 06:07:24)
[2020-07-23 06:50] LABS: ALANINE AMINOTRANSFERASE 10 Units/L (12-78); ALKALINE PHOSPHATASE 58 Units/L (46-116); ASPARTATE AMINO TRANSFERASE 20 Units/L (15-37); BLOOD UREA NITROGEN 13 mg/dL (7-18); CALCIUM 8.6 mg/dL (8.5-10.1); CARBON DIOXIDE 32.3 mmol/L (21-32); CHLORIDE 105 mmol/L (98-107); CHOL/HDL RATIO 2.3 (0.0-5.0); CHOLESTEROL 120 mg/dL (0-200); CKMB % 12.8 % (<4); COR CA(FOR HYPOALB) 9.4 mg/dL (8.5-10.1); COR NA(FOR HYPERGLY) 147 mmol/L (136-145); CREATINE KINASE 67 Units/L (26-192); CREATININE 0.61 mg/dL (0.55-1.02); HDL CHOLESTEROL 53 mg/dL (40-60); SODIUM 146 mmol/L (136-145); TOTAL PROTEIN 6.3 g/dL (6.4-8.2); TRIGLYCERIDES 64 mg/dL (0-150); TROPONIN I 1.18 ng/mL (0-1.5); eGFR NON BLACK RACES > 60 (>60)
[2020-07-23 06:55] LABS: CREATINE KINASE MB 8.6 ng/mL (0-4.0)
[2020-07-23] MEDS: TYLENOL 325 MG TAB PO PRN ×2 (08:10→18:20)
[2020-07-23] MEDS ORDERED: ZITHROMAX INJ 500 MG VIAL 500 MG in D5W 250 ML IV 250 ML IV SCH (09:00)
[2020-07-23] MEDS ORDERED: VITAMIN D (1.25MG) PO SCH (09:00)
[2020-07-23] MEDS ORDERED: PATIENT'S HOME MEDICATION (Zinc 50 mg Capsule) PO SCH (09:00)
[2020-07-23] MEDS ORDERED: [UNRECOGNIZED DRUG - OTHER] PO SCH (09:00)
[2020-07-23] MEDS ORDERED: PANTOPRAZOLE 20 MG PO SCH (09:00)
[2020-07-23] MEDS: ALDACTONE TAB 25 MG PO SCH (10:43)
[2020-07-23] MEDS: ELIQUIS PO SCH ×2 (10:43→21:16)
[2020-07-23] MEDS: ZINC SULFATE PO SCH (10:44)
[2020-07-23] MEDS: TOPROL XL PO SCH (10:44)
[2020-07-23] MEDS: VSL#3 PO SCH (10:44)
[2020-07-23] MEDS: SINGULAIR TAB 10 MG PO SCH (10:45)
[2020-07-23] MEDS: ROCEPHIN 1 GRAM IV PREMIX 1 G/50 ML IV.SOLN. IV SCH (10:45)
[2020-07-23] MEDS: LANOXIN or DIGITEK PO SCH (11:58)
[2020-07-23] MEDS: ZITHROMAX INJ 500 MG VIAL 500 MG in NS 250 ML IV 250 ML IV SCH (11:59)
[2020-07-23 12:12] LABS: CKMB % 12.6 % (<4)
[2020-07-23 12:13] LABS: CREATINE KINASE MB 10.2 ng/mL (0-4.0)
[2020-07-23 12:14] LABS: TROPONIN I 1.95 ng/mL (0-1.5)
[2020-07-23] MEDS ORDERED: ZOFRAN TAB 4 MG ONE (12:14)
[2020-07-23 15:27] LABS: CKMB % 12.1 % (<4)
[2020-07-23 15:29] LABS: CREATINE KINASE MB 9.2 ng/mL (0-4.0)
[2020-07-23 15:30] LABS: TROPONIN I 1.52 ng/mL (0-1.5)
[2020-07-23] MEDS ORDERED: K-RIDER 10 MEQ/NS 100 ML 10 MEQ/100 ML BAG IV PRN (15:46)
[2020-07-23] MEDS ORDERED: POTASSIUM CHL 60 MEQ/NS 0.45% 500 ML IV PRN (15:46)
[2020-07-23] MEDS ORDERED: POTASSIUM CHLORIDE LIQ 20 MEQ UDC PO PRN (15:46)
[2020-07-23] MEDS ORDERED: K-DUR TAB 20 MEQ PO PRN (15:46)
[2020-07-23] MEDS ORDERED: MICRO K EXTEN CAP 10 MEQ PO PRN (15:46)
[2020-07-23] MEDS ORDERED: POTASSIUM CHL 40 MEQ/NS 0.45% 500 ML IV PRN (15:46)
[2020-07-23] MEDS ORDERED: KLOR-CON PO PRN (15:46)
[2020-07-23] MEDS ORDERED: K-DUR TAB 20 MEQ PO ONE (16:20)
[2020-07-23] MEDS ORDERED: MAGNESIUM SULFATE 1 GRAM/100 mL PREMIX 1 G/100 ML BAG IV ONE (16:21)
[2020-07-23] MEDS: MAGNESIUM SULFATE 1 GRAM/100 mL PREMIX 1 GM/100 ML BAG IV PRN ×2 (16:24→18:11)
[2020-07-23] MEDS: ANTIVERT TAB 25 MG PO SCH (21:16)
[2020-07-23] MEDS: ZyrTEC TAB 10 MG PO SCH (21:17)
[2020-07-23] MEDS: ZOCOR TAB 40 MG PO SCH (21:17)
[2020-07-23 21:58] LABS: CKMB % 10.8 % (<4); TROPONIN I 1.07 ng/mL (0-1.5)
[2020-07-23 22:02] LABS: CREATINE KINASE MB 5.7 ng/mL (0-4.0)
[2020-07-24 03:35] LABS: EOSINOPHILS # (AUTO) 0.2 x10^3/uL (0.0-0.2); HEMATOCRIT 27.3 % (36.0-47.0); HEMOGLOBIN 8.7 g/dL (12.0-16.0); LYMPHOCYTES # (AUTO) 0.9 X10^3/uL (1.3-2.9); LYMPHOCYTES % (AUTO) 27.1 % (21.0-51.0); MEAN CORPUSCULAR HEMOGLOBIN 28.8 pg (27.0-34.0); MEAN CORPUSCULAR VOLUME 90.1 fL (80.0-100.0); MEAN PLATELET VOLUME 8.5 fL (7.4-11.0); MONOCYTES # (AUTO) 0.7 x10^3/uL (0.3-0.8); MONOCYTES % (AUTO) 20.1 % (0.0-13.0); NEUTROPHILS # (AUTO) 1.6 x10^3/uL (2.2-4.8); NEUTROPHILS % (AUTO) 46.8 % (42.0-75.0); PLATELET COUNT 161 X10^3/uL (150.0-450.0); RED BLOOD COUNT 3.03 X10^6/uL (3.5-5.4); RED CELL DISTRIBUTION WIDTH 15.9 % (11.6-16.5); WHITE BLOOD COUNT 3.4 X10^3/uL (3.6-10.0)
[2020-07-24 03:48] LABS: ALANINE AMINOTRANSFERASE 6 Units/L (12-78); ALBUMIN 2.5 g/dL (3.4-5.0); ALKALINE PHOSPHATASE 46 Units/L (46-116); ASPARTATE AMINO TRANSFERASE 20 Units/L (15-37); BLOOD UREA NITROGEN 8 mg/dL (7-18); CARBON DIOXIDE 32.2 mmol/L (21-32); CHLORIDE 109 mmol/L (98-107); CKMB % 8.2 % (<4); COR CA(FOR HYPOALB) 9.2 mg/dL (8.5-10.1); CREATINE KINASE 44 Units/L (26-192); CREATINE KINASE MB 3.6 ng/mL (0-4.0); CREATININE 0.57 mg/dL (0.55-1.02); MAGNESIUM 2.2 mg/dL (1.7-2.9); SODIUM 146 mmol/L (136-145); TOTAL PROTEIN 5.4 g/dL (6.4-8.2); TROPONIN I 0.78 ng/mL (0-1.5); eGFR NON BLACK RACES > 60 (>60)
[2020-07-24 03:56] LABS: OVALOCYTES PRESENT; PLATELET MORPHOLOGY COMMENT NORMAL (NORMAL)
[2020-07-24 04:01] LABS: ABG BASE EXCESS 7.9 mmol/L (-2.0-2.0)
[2020-07-24 04:05] LABS: ABG ALLEN TEST POSS; ABG HCO3 34.9 mmol/L (22-26)
--- NOTE | 2020-07-24 07:05 | RAD ---
HISTORY:COVID pneumoniaStudy: Single view chestComparison:07/23/2020Findings:There is improved aeration of the lungs. Mild residual infiltrates at the lung bases. Stable cardiomegaly. No pneumothorax identified. Soft tissues appear intact.IMPRESSION:Improved aeration of the lungs. Mild residual infiltrates at the lung bases.Stable cardiomegaly.Electronically signed by: FARHEEN VILCHIS (Jul 24, 2020 07:04:29)
[2020-07-24] MEDS: ALDACTONE TAB 25 MG PO SCH (08:52)
[2020-07-24] MEDS: ELIQUIS PO SCH ×2 (08:52→21:18)
[2020-07-24] MEDS: PROTONIX TAB 40 MG PO SCH (08:53)
[2020-07-24] MEDS: ROCEPHIN 1 GRAM IV PREMIX 1 G/50 ML IV.SOLN. IV SCH (08:53)
[2020-07-24] MEDS: LANOXIN or DIGITEK PO SCH ×2 (08:53→09:23)
[2020-07-24] MEDS: SINGULAIR TAB 10 MG PO SCH (08:54)
[2020-07-24] MEDS: VSL#3 PO SCH (08:54)
[2020-07-24] MEDS: TOPROL XL PO SCH ×2 (08:54→09:25)
[2020-07-24] MEDS: ZINC SULFATE PO SCH (08:54)
[2020-07-24] MEDS: ZITHROMAX INJ 500 MG VIAL 500 MG in NS 250 ML IV 250 ML IV SCH (08:55)
[2020-07-24] MEDS ORDERED: LASIX IVP ONE (10:23)
--- NOTE | 2020-07-24 10:28 | DR.H&P ---
H&P - History & Physical for Day of: H&P Date: 07/23/20 - Chief Complaint Chief Complaint: CHEST PAIN, SOB - History of Present Illness History of Present Illness: PT IS 85 WF ER ADMISSION WITH CO SUDDEN ONSET OF CHEST PAIN WITH SOB WHILE EATING DINNER. PT REPORTS SHE HAD TESTED COVID + ~07/15. PT HAD OUTPT BAM INFUSION AND FELT FINE UNTIL CHEST PAIN ONSET. PT DENIES ANY N/V/D. PT HAS PMH OF CAD, UNDER THE CARE OF DR MCMAHAN IN [place]. HER LAST CATH WAS IN MAY 2020 WITHOUT INTERVENTION REQUIRED. PT IS ON ANTICOAGULANT THERAPY. PT ADMITTED FOR TREATMENT OF ACUTE ILLNESS W/O AMI, CHF VS PNEUMONIA, COVID 19 - Past Medical History Past Medical History: Coronary Artery Disease, Hypertension, Dyslipidemia, GERD, Arthritis, CHF Additional Medical History: Cataracts, Diverticulosis, Previous Blood Transfusion - Past Surgical History Surgical History: No History - Family History Family Medical History: Diabetes Mellitus, Cancer, Hypertension - Social History Does patient currently use any type of tobacco product: No Have you used tobacco products in the last 12 months: No Type of Tobacco Use: None Does any household member use tobacco: No Alcohol Use: None Drug Use: None - Medications Home Medications: codeine Allergy (Verified 10/05/17 08:34) lorazepam [From Ativan] Adverse Reaction (Verified 01/14/20 23:53) CONTINUE taking the following medications ergocalciferol (vitamin D2) 50,000 unit 2XW 07/23/20 [History] furosemide 40 mg PO DAILY PRN 07/23/20 [History] meclizine 25 mg PO HS 07/23/20 [History] metoprolol succinate 25 mg PO DAILY 07/23/20 [History] zinc 50 mg PO DAILY 07/23/20 [History] - Review of Systems Constitutional: No Symptoms Reported Eyes: No Symptoms Reported ENT: No Symptoms Reported Respiratory: SOB with Excertion Cardiovascular: Chest Pain Gastrointestinal: No Symptoms Reported Genitourinary: No Symptoms Reported Musculoskeletal: No Symptoms Reported Skin: No Symptoms Reported Neurological: No Symptoms Reported - Physical Exam Vital Signs: Temperature 98.2 F Pulse Rate [Right Brachial] 52 Pulse Rate 60 Respiratory Rate 20 Blood Pressure [Left Arm] 136/62 Blood Pressure 127/63 O2 Sat by Pulse Oximetry 100 Oriented: Normal Eyes: Normal Ear: Normal Nose: Normal Throat: Normal Respiratory: RLL Diminished, LLL Diminished Cardiovascular: Murmur (KNOWN MURMUR PRESENT) : Normal Auscultation: Bowel Sounds: Normal Palpation: Normal Tenderness: Normal Skin: Decreased Turgur Musculoskeletal: Normal Psychiatric: Normal Mood Description: Calm Speech Pattern: Clear, Appropriate - Assessment/Plan (1) Chest pain Status: Acute Plan: ADMIT, SERIAL CE AND EKG. IV HYDRATION, STRICT I&OS, IV ATBX THERAPY, RESP THERAPY. ABG ON ADMISSION, REPEAT AM CXR. VERIFY HOME MEDICATIONS, ANTICOAGULANT THERAPY. BP CONTROL, SUPPLEMENTAL O2 PRN (2) Pneumonia Qualifiers: Pneumonia type: due to unspecified organism Status: Acute (3) CAD (coronary artery disease) Status: Acute (4) CHF exacerbation Qualifiers: Heart failure type: unspecified Qualified Code(s): I50.9 - Heart failure, unspecified Status: Acute (5) Hypertension, uncontrolled Status: Chronic (6) GERD (gastroesophageal reflux disease) Qualifiers: Esophagitis presence: esophagitis presence not specified Qualified Code(s): K21.9 - Gastro-esophageal reflux disease without esophagitis Status: Chronic - Allergies Allergies/Adverse Reactions: Allergies Allergy/AdvReac Type Severity Reaction Status Date / Time codeine Allergy Verified 10/05/17 08:34 lorazepam [From Ativan] AdvReac Verified 01/14/20 23:53
[2020-07-24] MEDS: NS 1000 ML 1,000 ML IV SCH (10:51)
[2020-07-24] MEDS ORDERED: K-DUR TAB 20 MEQ PO SCH (11:00)
[2020-07-24 12:31] LABS: ABG HCO3 33.7 mmol/L (22-26)
[2020-07-24] MEDS: TYLENOL 325 MG TAB PO PRN (16:13)
[2020-07-24] MEDS: ZOCOR TAB 40 MG PO SCH (21:18)
[2020-07-24] MEDS: ANTIVERT TAB 25 MG PO SCH (21:18)
[2020-07-24] MEDS: ZyrTEC TAB 10 MG PO SCH (21:18)
[2020-07-25] MEDS: NS 1000 ML 1,000 ML IV SCH (00:38)
[2020-07-25 05:22] LABS: ABG BASE EXCESS 7.3 mmol/L (-2.0-2.0)
[2020-07-25 05:23] LABS: ABG HCO3 33.9 mmol/L (22-26)
[2020-07-25 05:24] LABS: ABG ALLEN TEST POS
[2020-07-25 06:16] LABS: BASOPHILS % (AUTO) 0.7 % (0.2-1.0); EOSINOPHILS # (AUTO) 0.2 x10^3/uL (0.0-0.2); EOSINOPHILS % (AUTO) 4.9 % (0.9-2.9); HEMATOCRIT 26.9 % (36.0-47.0); HEMOGLOBIN 8.8 g/dL (12.0-16.0); LYMPHOCYTES # (AUTO) 0.9 X10^3/uL (1.3-2.9); LYMPHOCYTES % (AUTO) 20.3 % (21.0-51.0); MEAN CORPUSCULAR HGB CONC 32.5 g/dL (33.0-35.0); MEAN CORPUSCULAR VOLUME 89.1 fL (80.0-100.0); MEAN PLATELET VOLUME 9.2 fL (7.4-11.0); MONOCYTES # (AUTO) 0.7 x10^3/uL (0.3-0.8); MONOCYTES % (AUTO) 16.6 % (0.0-13.0); NEUTROPHILS # (AUTO) 2.5 x10^3/uL (2.2-4.8); NEUTROPHILS % (AUTO) 57.5 % (42.0-75.0); PLATELET COUNT 161 X10^3/uL (150.0-450.0); RED BLOOD COUNT 3.02 X10^6/uL (3.5-5.4); RED CELL DISTRIBUTION WIDTH 15.7 % (11.6-16.5); WHITE BLOOD COUNT 4.3 X10^3/uL (3.6-10.0)
[2020-07-25 06:32] LABS: ALANINE AMINOTRANSFERASE 9 Units/L (12-78); ALBUMIN 2.5 g/dL (3.4-5.0); ALKALINE PHOSPHATASE 47 Units/L (46-116); ASPARTATE AMINO TRANSFERASE 17 Units/L (15-37); BLOOD UREA NITROGEN 11 mg/dL (7-18); CALCIUM 8.2 mg/dL (8.5-10.1); CARBON DIOXIDE 30.5 mmol/L (21-32); CHLORIDE 108 mmol/L (98-107); COR CA(FOR HYPOALB) 9.4 mg/dL (8.5-10.1); CREATININE 0.63 mg/dL (0.55-1.02); SODIUM 144 mmol/L (136-145); TOTAL PROTEIN 5.5 g/dL (6.4-8.2); eGFR NON BLACK RACES > 60 (>60)
--- NOTE | 2020-07-25 07:34 | RAD ---
HISTORYPneumoniaSTUDYChest AP [id number]/2021FINDINGSThe heart remains enlarged. No congestive heart failure is noted. No definite infiltrates remain present. No pleural effusions are identified. Bony thorax is unremarkable.IMPRESSIONContinued marked cardiomegaly without congestive heart failureNo definite residual infiltrates identifiedElectronically signed by: ALBERT THOMAS (Jul 25, 2020 07:33:14)
[2020-07-25] MEDS: VSL#3 PO SCH (09:29)
[2020-07-25] MEDS: PROTONIX TAB 40 MG PO SCH (09:30)
[2020-07-25] MEDS: ZINC SULFATE PO SCH (09:31)
[2020-07-25] MEDS: ELIQUIS PO SCH ×2 (09:31→21:48)
[2020-07-25] MEDS: ALDACTONE TAB 25 MG PO SCH (09:31)
[2020-07-25] MEDS: ROCEPHIN 1 GRAM IV PREMIX 1 G/50 ML IV.SOLN. IV SCH (09:32)
[2020-07-25] MEDS: SINGULAIR TAB 10 MG PO SCH (09:32)
[2020-07-25] MEDS: LANOXIN or DIGITEK PO SCH (09:49)
[2020-07-25] MEDS: TOPROL XL PO SCH (09:50)
[2020-07-25] MEDS: ZITHROMAX INJ 500 MG VIAL 500 MG in NS 250 ML IV 250 ML IV SCH (10:59)
[2020-07-25] MEDS: ROBITUSSIN DM PO SCH (21:47)
[2020-07-25] MEDS: ANTIVERT TAB 25 MG PO SCH (21:48)
[2020-07-25] MEDS: ZOCOR TAB 40 MG PO SCH (21:48)
[2020-07-25] MEDS: ZyrTEC TAB 10 MG PO SCH (21:48)
[2020-07-26 04:32] LABS: ABG BASE EXCESS 5.9 mmol/L (-2.0-2.0)
[2020-07-26 04:35] LABS: ABG ALLEN TEST POS; ABG HCO3 32.5 mmol/L (22-26)
[2020-07-26 05:41] LABS: EOSINOPHILS # (AUTO) 0.2 x10^3/uL (0.0-0.2); EOSINOPHILS % (AUTO) 4.4 % (0.9-2.9); HEMATOCRIT 26.8 % (36.0-47.0); HEMOGLOBIN 8.6 g/dL (12.0-16.0); LYMPHOCYTES # (AUTO) 0.8 X10^3/uL (1.3-2.9); LYMPHOCYTES % (AUTO) 18.1 % (21.0-51.0); MEAN CORPUSCULAR HEMOGLOBIN 28.9 pg (27.0-34.0); MEAN CORPUSCULAR HGB CONC 32.2 g/dL (33.0-35.0); MEAN CORPUSCULAR VOLUME 89.7 fL (80.0-100.0); MEAN PLATELET VOLUME 9.2 fL (7.4-11.0); MONOCYTES # (AUTO) 0.8 x10^3/uL (0.3-0.8); MONOCYTES % (AUTO) 16.5 % (0.0-13.0); NEUTROPHILS # (AUTO) 2.8 x10^3/uL (2.2-4.8); PLATELET COUNT 151 X10^3/uL (150.0-450.0); RED BLOOD COUNT 2.99 X10^6/uL (3.5-5.4); RED CELL DISTRIBUTION WIDTH 15.6 % (11.6-16.5); WHITE BLOOD COUNT 4.7 X10^3/uL (3.6-10.0)
[2020-07-26 05:56] LABS: ALANINE AMINOTRANSFERASE 9 Units/L (12-78); ALBUMIN 2.5 g/dL (3.4-5.0); ALKALINE PHOSPHATASE 51 Units/L (46-116); ASPARTATE AMINO TRANSFERASE 16 Units/L (15-37); BLOOD UREA NITROGEN 6 mg/dL (7-18); CALCIUM 8.5 mg/dL (8.5-10.1); CARBON DIOXIDE 30.8 mmol/L (21-32); CHLORIDE 107 mmol/L (98-107); COR CA(FOR HYPOALB) 9.7 mg/dL (8.5-10.1); CREATININE 0.51 mg/dL (0.55-1.02); SODIUM 142 mmol/L (136-145); TOTAL PROTEIN 5.6 g/dL (6.4-8.2); eGFR NON BLACK RACES > 60 (>60)
--- NOTE | 2020-07-26 06:25 | RAD ---
HISTORYSOBSTUDYCHEST, 1 [id number] trachea is midline. The cardiac silhouette is enlarged.. The lungs are clear without focal infiltrate or effusion. Pulmonary vasculature within normal limits. No pleural effusion or pneumothorax. The bony thorax is unremarkable.IMPRESSIONCardiomegaly.No active cardiopulmonary diseaseElectronically signed by: Ravi Mojica (Jul 26, 2020 06:23:54)
[2020-07-26 06:48] LABS: PLATELET MORPHOLOGY COMMENT NORMAL (NORMAL)
[2020-07-26] MEDS ORDERED: NS 1000 ML 1,000 ML ONE (07:47)
[2020-07-26] MEDS ORDERED: LASIX IVP ONE ×2 (08:08→08:19)
[2020-07-26] MEDS: NS 1000 ML 1,000 ML IV SCH ×2 (08:38→08:39)
[2020-07-26] MEDS: ROBITUSSIN DM PO SCH (08:38)
[2020-07-26] MEDS: ALDACTONE TAB 25 MG PO SCH (08:39)
[2020-07-26] MEDS: ELIQUIS PO SCH (08:40)
[2020-07-26] MEDS: LANOXIN or DIGITEK PO SCH (08:43)
[2020-07-26] MEDS: SINGULAIR TAB 10 MG PO SCH (08:44)
[2020-07-26] MEDS: PROTONIX TAB 40 MG PO SCH (08:44)
[2020-07-26] MEDS: VSL#3 PO SCH (08:45)
[2020-07-26] MEDS: TOPROL XL PO SCH (08:45)
[2020-07-26] MEDS: ZITHROMAX INJ 500 MG VIAL 500 MG in NS 250 ML IV 250 ML IV SCH (08:46)
[2020-07-26] MEDS: ZINC SULFATE PO SCH (08:46)
[2020-07-26 13:45] VITALS: BP 140/65
--- NOTE | 2020-10-04 22:22 | PCM.PROG ---
Progress Note - Progress Note for Day of Date of Exam: 07/25/20 - Subjective Subjective: WAS ADMITTED FOR TREATMENT OF PNEUMONIA DUE TO COVID-19, HYPOXIA, CHF, ACUTE RESPIRATORY DISTRESS, AND HYPOKALEMIA. SHE TESTED POSITIVE AROUND 07/15/20 AND HAD RECEIVED OUTPATIENT BAMLANIVIMAB INFUSION. SHE PRESENTED TO THE ER WITH SHORTNESS OF BREATH AND CHEST PAIN. TODAY, SHE IS ALERT AND ORIENTED, LYING IN BED ON MORNING ROUNDS. SHE CONTINUES WITH WEAKNESS AND SHORTNESS OF BREATH AT TIMES. SHE DENIES ANY CHEST PAIN. SHE IS CURRENTLY ON SUPPLEMENTAL OXYGEN AT 2 LPM. ON EXAMINATION, THERE IS A KNOWN MURMUR PRESENT. BILATERAL LUNGS ARE NOTED TO HAVE DIMINISHED LUNG SOUNDS THROUGHOUT. ABDOMEN IS ROUND, SOFT, AND NON-TENDER WITH NORMAL BOWEL SOUNDS NOTED IN ALL QUADRANTS. HER VITALS THIS MORNING ARE: 99.2-63-16-100%-124/60. LABS WERE OBTAINED. ABNORMAL LAB VALUES INCLUDE THE FOLLOWING: RBC 3.02, HGB 8.8, HCT 26.9, CHLORIDE 108, CALCIUM 8.2, ALT 9, CRP 3.40, BNP 1360, TOTAL PROTEIN 5.5, ALBUMIN 2.5. BLOOD CULTURES ARE PENDING. ABG REVEALED: PH 7.390, PC02 56, P02 126, HC03 33.9, 02 SAT 99, A-A GRADIENT 4.0, FI02 28. CHEST XRAY REVEALED: Continued marked cardiomegaly without congestive heart failure. No definite residual infiltrates identified. WE WILL CONTINUE WITH ANTIBIOTICS, POTASSIUM AND MAGNESIUM PROTOCOLS, HOME MEDICATIONS, AND CURRENT PLAN OF CARE TODAY. OTHERWISE, PLAN TO FOLLOW UP WITH AM LABS, CHEST XRAY, ABG, AND CONTINUE TO MONITOR. TIME SPENT ON CLINICAL ASSESSMENT, REVIEWING LABS AND IMAGING, DECISION MAKING, AND DOCUMENTATION GREATER THAN 45 MINUTES. - Past Medical Family Social History Past Med/Fam/Surg Hx: No changes since H&P Allergies: Allergies codeine Allergy (Verified 10/05/17 08:34) lorazepam [From Ativan] Adverse Reaction (Verified 01/14/20 23:53) - Review of Systems ROS: No change since H&P - Vital Signs and I&O's Vital Signs: Temperature 98.7 F Pulse Rate [Right Brachial] 68 Pulse Rate 63 Respiratory Rate 20 Blood Pressure [Left Arm] 140/65 Blood Pressure 127/63 O2 Sat by Pulse Oximetry 96 - Physical Exam Oriented: Normal Eyes: Normal Ear: Normal Nose: Normal Throat: Normal Respiratory: Generalized, Diminished Cardiovascular: Murmur (KNOWN MURMUR PRESENT) : Normal Auscultation: Bowel Sounds: Normal Palpation: Normal Tenderness: Normal Skin: Decreased Turgur Musculoskeletal: Normal Psychiatric: Normal Mood Description: Calm Speech Pattern: Clear, Appropriate - Laboratory and Diagnostics Result Diagrams: 07/26/20 04:00 07/26/20 04:00 Labs: 07/23/20 02:15 Blood Blood Culture - Final 07/23/20 01:30 Blood Blood Culture - Final Laboratory WBC 4.7 X10^3/uL (3.6-10.0) 07/26/20 04:00 RBC 2.99 X10^6/uL (3.5-5.4) L 07/26/20 04:00 Hgb 8.6 g/dL (12.0-16.0) L 07/26/20 04:00 Hct 26.8 % (36.0-47.0) L 07/26/20 04:00 MCV 89.7 fL (80.0-100.0) 07/26/20 04:00 MCH 28.9 pg (27.0-34.0) 07/26/20 04:00 MCHC 32.2 g/dL (33.0-35.0) L 07/26/20 04:00 RDW 15.6 % (11.6-16.5) 07/26/20 04:00 Plt Count 151 X10^3/uL (150.0-450.0) 07/26/20 04:00 Plt Count Comment Adequate (ADEQUATE) 07/26/20 04:00 MPV 9.2 fL (7.4-11.0) 07/26/20 04:00 Neut % (Auto) 60.0 % (42.0-75.0) 07/26/20 04:00 Lymph % (Auto) 18.1 % (21.0-51.0) L 07/26/20 04:00 [place] % (Auto) 16.5 % (0.0-13.0) H 07/26/20 04:00 Eos % (Auto) 4.4 % (0.9-2.9) H 07/26/20 04:00 Baso % (Auto) 1.0 % (0.2-1.0) 07/26/20 04:00 Neut # (Auto) 2.8 x10^3/uL (2.2-4.8) 07/26/20 04:00 Lymph # (Auto) 0.8 X10^3/uL (1.3-2.9) L 07/26/20 04:00 [place] # (Auto) 0.8 x10^3/uL (0.3-0.8) 07/26/20 04:00 Eos # (Auto) 0.2 x10^3/uL (0.0-0.2) 07/26/20 04:00 Baso # (Auto) 0.0 X10^3/uL (0.0-0.1) 07/26/20 04:00 Absolute Nucleated RBC 0.0 /100WBC 07/26/20 04:00 Total Counted 100 07/26/20 04:00 Neutrophils % (Manual) 55 % (39-76) 07/26/20 04:00 Lymphocytes % (Manual) 29 % (13-43) 07/26/20 04:00 Monocytes % (Manual) 13 % (4-9) H 07/26/20 04:00 Eosinophils % (Manual) 3 % (0-6) 07/26/20 04:00 Plt Morphology Comment Normal (NORMAL) 07/26/20 04:00 RBC Morphology Normal (NORMAL) 07/26/20 04:00 Ovalocytes Present 07/24/20 03:05 PT 16.2 SECONDS (11.8-14.3) 07/23/20 05:26 INR Target Range - 07/23/20 05:26 INR 1.34 (0.8-1.3) H 07/23/20 05:26 D-Dimer 0.39 ug/ml (0.0-0.57) 07/26/20 04:00 Sample Site Rr 07/26/20 05:00 ABG pH 7.380 (7.35-7.45) 07/26/20 05:00 ABG pCO2 55.0 mmHg (35.0-45.0) H* 07/26/20 05:00 ABG pO2 118.0 mmHg (80.0-100.0) H 07/26/20 05:00 ABG HCO3 32.5 mmol/L (22-26) H* 07/26/20 05:00 ABG O2 Saturation 99.0 % (90-100) 07/26/20 05:00 ABG Base Excess 5.9 mmol/L (-2.0-2.0) H 07/26/20 05:00 Miles Test Pos 07/26/20 05:00 A-a Gradient 13.0 mmHg 07/26/20 05:00 FiO2 28.0 07/26/20 05:00 Blood Gas Comments Rina well sw 07/26/20 05:00 Sodium 142 mmol/L (136-145) 07/26/20 04:00 Corrected Sodium TNP 07/26/20 04:00 Potassium 3.8 mmol/L (3.5-5.1) 07/26/20 04:00 Chloride 107 mmol/L (98-107) 07/26/20 04:00 Carbon Dioxide 30.8 mmol/L (21-32) 07/26/20 04:00 BUN 6 mg/dL (7-18) L 07/26/20 04:00 Creatinine 0.51 mg/dL (0.55-1.02) L 07/26/20 04:00 Est GFR (MDRD) Af Amer > 60 (>60) 07/26/20 04:00 Est GFR (MDRD) Non-Af > 60 (>60) 07/26/20 04:00 Glucose 92 mg/dL (65-99) 07/26/20 04:00 Lactic Acid 1.4 mmol/L (0.4-2.0) 07/23/20 01:48 Calcium 8.5 mg/dL (8.5-10.1) 07/26/20 04:00 Corrected Calcium 9.7 mg/dL (8.5-10.1) 07/26/20 04:00 Magnesium 2.2 mg/dL (1.7-2.9) 07/24/20 03:05 Ferritin 24 ng/mL (8-252) 07/26/20 04:00 Total Bilirubin 0.30 mg/dL (0.2-1.0) 07/26/20 04:00 AST 16 Units/L (15-37) 07/26/20 04:00 ALT 9 Units/L (12-78) L 07/26/20 04:00 Alkaline Phosphatase 51 Units/L (46-116) 07/26/20 04:00 Creatine Kinase 44 Units/L (26-192) 07/24/20 03:05 CK-MB (CK-2) 3.6 ng/mL (0-4.0) 07/24/20 03:05 CK/CKMB % Calc 8.2 % (<4) 07/24/20 03:05 Troponin I 0.78 ng/mL (0-1.5) 07/24/20 03:05 C-Reactive Protein 6.40 mg/L (0-3.0) H 07/26/20 04:00 B-Natriuretic Peptide 1600 pg/mL (0-79) H* 07/26/20 04:00 Total Protein 5.6 g/dL (6.4-8.2) L 07/26/20 04:00 Albumin 2.5 g/dL (3.4-5.0) L 07/26/20 04:00 Globulin 3.1 g/dL (2.5-4.5) 07/26/20 04:00 Albumin/Globulin Ratio 0.8 Ratio (1.1-2.1) L 07/26/20 04:00 Triglycerides 64 mg/dL (0-150) 07/23/20 05:26 Cholesterol 120 mg/dL (0-200) 07/23/20 05:26 LDL Cholesterol, Calc 54 mg/dL (0-100) 07/23/20 05:26 HDL Cholesterol 53 mg/dL (40-60) 07/23/20 05:26 Cholesterol/HDL Ratio 2.3 (0.0-5.0) 07/23/20 05:26 Specimen Type Catherized urine 07/23/20 00:57 Urine Color Pale yellow (YELLOW) 07/23/20 00:57 Urine Appearance Clear (CLEAR) 07/23/20 00:57 Urine pH 6.5 (5.0 - 8.0) 07/23/20 00:57 Ur Specific [place] 1.015 (1.000-1.030) 07/23/20 00:57 Urine Protein 3+ (NEGATIVE) 07/23/20 00:57 Urine Glucose (UA) Negative (NEGATIVE) 07/23/20 00:57 Urine Ketones Negative (NEGATIVE) 07/23/20 00:57 Urine Occult Blood 2+ (NEGATIVE) 07/23/20 00:57 Urine Nitrite Negative (NEGATIVE) 07/23/20 00:57 Urine Bilirubin Negative (NEGATIVE) 07/23/20 00:57 Urine Urobilinogen Normal (NORMAL) 07/23/20 00:57 Ur Leukocyte Esterase 1+ (NEGATIVE) 07/23/20 00:57 Urine RBC 5-10 /HPF (0-3) A 07/23/20 00:57 Urine WBC 0-2 /HPF (0-5) 07/23/20 00:57 Ur Squamous Epith Cells Rare /HPF (NEGATIVE) 07/23/20 00:57 Urine Bacteria Negative /HPF (NEGATIVE) 07/23/20 00:57 Ur Culture Indicated? No/not indicated 07/23/20 00:57 Digoxin 0.71 ng/mL (0.9-2) L 07/23/20 05:26 SARS CoV-2 RNA Rapid KAREN Positive (NEGATIVE) A 07/24/20 12:29 - Plan (1) COVID-19 Status: Acute (2) Pneumonia Status: Acute Qualifiers: Pneumonia type: due to unspecified organism Laterality: bilateral Lung location: lower lobe of lung Qualified Code(s): J18.9 - Pneumonia, unspecified organism (3) CHF (congestive heart failure) Status: Chronic Qualifiers: Heart failure type: unspecified Heart failure chronicity: acute Qualified Code(s): I50.9 - Heart failure, unspecified (4) Hypoxia Status: Acute (5) Hypokalemia Status: Acute
== END 2020-07-26 13:40 | disposition home or self-care (01) | DRG 177 ==
LOC: ER 00:27 → OBS 04:57 → MED/SURG 17:11
PROVIDERS: ADMIT Internal Medicine; ATTEND Internal Medicine
DX: I11.0 Hypertensive heart disease with heart failure; K44.9 Diaphragmatic hernia without obstruction or gangrene; E87.6 Hypokalemia; J12.81 Pneumonia due to SARS-associated coronavirus; I50.9 Heart failure, unspecified; I25.10 Atherosclerotic heart disease of native coronary artery without angina pectoris; R06.02 Shortness of breath; K21.9 Gastro-esophageal reflux disease without esophagitis; E78.2 Mixed hyperlipidemia; Z79.01 Long term (current) use of anticoagulants; R94.31 Abnormal electrocardiogram [ECG] [EKG]; R79.89 Other specified abnormal findings of blood chemistry; U07.1 COVID-19; R07.89 Other chest pain

== ENCOUNTER 2021-01-12 23:07 | Inpatient (IN) ==
--- NOTE | 2021-01-12 23:17 | DR.CP ---
HPI Time Seen Time Seen by Provider: 01/12/21 23:17 PMH PMH Past Medical History: Arthritis, CHF, Coronary Artery Disease, Dyslipidemia, GERD and Hypertension Past Surgical History: Yes Surgical History: No History Family History Family Medical History: Diabetes Mellitus, Cancer and Hypertension Social History Do you use any recreational Drugs:: No PE Vitals Vitals: Temperature 98.3 F Pulse Rate [Right] 62 Pulse Rate 105 Respiratory Rate 24 Blood Pressure [Left Arm] 131/61 Blood Pressure 145/82 O2 Sat by Pulse Oximetry 99 ROR Labs Reviewed Result Diagrams: 01/13/21 00:17 01/13/21 00:17 Laboratory: WBC 4.8 X10^3/uL (3.6-10.0) 01/13/21 00:17 RBC 2.48 X10^6/uL (3.5-5.4) L 01/13/21 00:17 Hgb 7.8 g/dL (12.0-16.0) L 01/13/21 00:17 Hct 22.7 % (36.0-47.0) L 01/13/21 00:17 MCV 91.5 fL (80.0-100.0) 01/13/21 00:17 MCH 31.7 pg (27.0-34.0) 01/13/21 00:17 MCHC 34.6 g/dL (33.0-35.0) 01/13/21 00:17 RDW 14.7 % (11.6-16.5) 01/13/21 00:17 Plt Count 217 X10^3/uL (150.0-450.0) 01/13/21 00:17 MPV 7.9 fL (7.4-11.0) 01/13/21 00:17 Neut % (Auto) 75.0 % (42.0-75.0) 01/13/21 00:17 Lymph % (Auto) 15.5 % (21.0-51.0) L 01/13/21 00:17 [place] % (Auto) 9.2 % (0.0-13.0) 01/13/21 00:17 Eos % (Auto) 0.1 % (0.9-2.9) L 01/13/21 00:17 Baso % (Auto) 0.2 % (0.2-1.0) 01/13/21 00:17 Neut # (Auto) 3.6 x10^3/uL (2.2-4.8) 01/13/21 00:17 Lymph # (Auto) 0.7 X10^3/uL (1.3-2.9) L 01/13/21 00:17 [place] # (Auto) 0.4 x10^3/uL (0.3-0.8) 01/13/21 00:17 Eos # (Auto) 0.0 x10^3/uL (0.0-0.2) 01/13/21 00:17 Baso # (Auto) 0.0 X10^3/uL (0.0-0.1) 01/13/21 00:17 Absolute Nucleated RBC 0.0 /100WBC 01/13/21 00:17 Sodium 141 mmol/L (136-145) 01/13/21 00:17 Corrected Sodium 142 mmol/L (136-145) 01/13/21 00:17 Potassium 4.3 mmol/L (3.5-5.1) 01/13/21 00:17 Chloride 103 mmol/L (98-107) 01/13/21 00:17 Carbon Dioxide 25.4 mmol/L (21-32) 01/13/21 00:17 BUN 34 mg/dL (7-18) H 01/13/21 00:17 Creatinine 1.67 mg/dL (0.55-1.02) H 01/13/21 00:17 Est GFR (MDRD) Af Amer 38 (>60) L 01/13/21 00:17 Est GFR (MDRD) Non-Af 31 (>60) L 01/13/21 00:17 Glucose 145 mg/dL (65-99) H 01/13/21 00:17 Calcium 8.3 mg/dL (8.5-10.1) L 01/13/21 00:17 Corrected Calcium 8.9 mg/dL (8.5-10.1) 01/13/21 00:17 Total Bilirubin 0.20 mg/dL (0.2-1.0) 01/13/21 00:17 AST 14 Units/L (15-37) L 01/13/21 00:17 ALT 15 Units/L (12-78) 01/13/21 00:17 Alkaline Phosphatase 71 Units/L (46-116) 01/13/21 00:17 Creatine Kinase 47 Units/L (26-192) 01/13/21 00:17 CK-MB (CK-2) 1.9 ng/mL (0-4.0) 01/13/21 00:17 CK/CKMB % Calc 4.0 % (<4) 01/13/21 00:17 Troponin I 0.03 ng/mL (0-1.5) 01/13/21 00:17 B-Natriuretic Peptide 800 pg/mL (0-79) H* 01/13/21 00:17 Total Protein 7.2 g/dL (6.4-8.2) 01/13/21 00:17 Albumin 3.3 g/dL (3.4-5.0) L 01/13/21 00:17 Globulin 3.9 g/dL (2.5-4.5) 01/13/21 00:17 Albumin/Globulin Ratio 0.8 Ratio (1.1-2.1) L 01/13/21 00:17 Specimen Type Clean catch urine 01/13/21 02:20 Urine Color Straw (YELLOW) 01/13/21 02:20 Urine Appearance Clear (CLEAR) 01/13/21 02:20 Urine pH 6.5 (5.0 - 8.0) 01/13/21 02:20 Ur Specific [place] 1.010 (1.000-1.030) 01/13/21 02:20 Urine Protein 1+ (NEGATIVE) 01/13/21 02:20 Urine Glucose (UA) Negative (NEGATIVE) 01/13/21 02:20 Urine Ketones Negative (NEGATIVE) 01/13/21 02:20 Urine Occult Blood 1+ (NEGATIVE) 01/13/21 02:20 Urine Nitrite Negative (NEGATIVE) 01/13/21 02:20 Urine Bilirubin Negative (NEGATIVE) 01/13/21 02:20 Urine Urobilinogen Normal (NORMAL) 01/13/21 02:20 Ur Leukocyte Esterase 2+ (NEGATIVE) 01/13/21 02:20 Urine RBC 0-2 /HPF (0-3) 01/13/21 02:20 Urine WBC 3-5 /HPF (0-5) 01/13/21 02:20 Ur Squamous Epith Cells Few /HPF (NEGATIVE) 01/13/21 02:20 Urine Bacteria 1+ /HPF (NEGATIVE) 01/13/21 02:20 Ur Culture Indicated? No/not indicated 01/13/21 02:20 Opioid Opioid Risk Tool Age (Anupam box if 16-45): No History of Preadolescent Sexual Abuse: No Total: 0 Total Score Risk Category: Low Risk Copyright: Jimmie EVANS predicting aberrant behaviors
[2021-01-12] MEDS ORDERED: ZOFRAN INJ 4 MG VIAL IVP ONE (23:58)
[2021-01-12] MEDS ORDERED: MORPHINE SULFATE INJ 4 MG IVP ONE (23:58)
[2021-01-13] MEDS ORDERED: MORPHINE SULFATE INJ 4 MG ONE (00:01)
[2021-01-13] MEDS ORDERED: ZOFRAN INJ 4 MG VIAL ONE (00:01)
[2021-01-13 00:31] LABS: BASOPHILS % (AUTO) 0.2 % (0.2-1.0); EOSINOPHILS % (AUTO) 0.1 % (0.9-2.9); HEMATOCRIT 22.7 % (36.0-47.0); HEMOGLOBIN 7.8 g/dL (12.0-16.0); LYMPHOCYTES # (AUTO) 0.7 X10^3/uL (1.3-2.9); LYMPHOCYTES % (AUTO) 15.5 % (21.0-51.0); MEAN CORPUSCULAR HEMOGLOBIN 31.7 pg (27.0-34.0); MEAN CORPUSCULAR HGB CONC 34.6 g/dL (33.0-35.0); MEAN CORPUSCULAR VOLUME 91.5 fL (80.0-100.0); MEAN PLATELET VOLUME 7.9 fL (7.4-11.0); MONOCYTES # (AUTO) 0.4 x10^3/uL (0.3-0.8); MONOCYTES % (AUTO) 9.2 % (0.0-13.0); NEUTROPHILS # (AUTO) 3.6 x10^3/uL (2.2-4.8); PLATELET COUNT 217 X10^3/uL (150.0-450.0); RED BLOOD COUNT 2.48 X10^6/uL (3.5-5.4); RED CELL DISTRIBUTION WIDTH 14.7 % (11.6-16.5); WHITE BLOOD COUNT 4.8 X10^3/uL (3.6-10.0)
[2021-01-13 01:19] LABS: ALBUMIN 3.3 g/dL (3.4-5.0); CALCIUM 8.3 mg/dL (8.5-10.1); CARBON DIOXIDE 25.4 mmol/L (21-32); COR CA(FOR HYPOALB) 8.9 mg/dL (8.5-10.1); CREATININE 1.67 mg/dL (0.55-1.02); TOTAL PROTEIN 7.2 g/dL (6.4-8.2); TROPONIN I 0.03 ng/mL (0-1.5)
[2021-01-13 01:41] LABS: CREATINE KINASE MB 1.9 ng/mL (0-4.0)
[2021-01-13 02:41] LABS: BILIRUBIN,URINE NEGATIVE (NEGATIVE); BLOOD/HEMOGLOBIN,URINE 1+ (NEGATIVE); GLUCOSE, URINE NEGATIVE (NEGATIVE); KETONES,URINE NEGATIVE (NEGATIVE); LEUKOCYTE ESTERASE ,URINE 2+ (NEGATIVE); NITRITES,URINE NEGATIVE (NEGATIVE); PH,URINE 6.5 (5.0 - 8.0); PROTEIN,URINE 1+ (NEGATIVE); UROBILINOGEN,URINE NORMAL (NORMAL)
[2021-01-13 02:54] LABS: APPEARANCE,URINE CLEAR (CLEAR); BACTERIA,URINE 1+ /HPF (NEGATIVE); COLOR,URINE STRAW (YELLOW); RBC,URINE 0-2 /HPF (0-3); SQUAMOUS EPITHELIAL CELL,UR FEW /HPF (NEGATIVE)
--- NOTE | 2021-01-13 02:55 | RAD ---
HISTORYPT C/O CHEST PAINSTUDYCHEST, 1 [id number] trachea is midline. The cardiac silhouette is enlarged.. The lungs are clear without focal infiltrate or effusion. Pulmonary vasculature within normal limits. There is a large hiatal hernia. The bony thorax is unremarkable.IMPRESSIONCardiomegaly.Hiatal hernia.No active cardiopulmonaryElectronically signed by: Ravi Mojica (Jan 13, 2021 02:53:16)
[2021-01-13 05:12] VITALS: BMI 23.9
[2021-01-13 06:30] LABS: BASOPHILS % (AUTO) 0.1 % (0.2-1.0); HEMATOCRIT 23.1 % (36.0-47.0); HEMOGLOBIN 7.8 g/dL (12.0-16.0); LYMPHOCYTES # (AUTO) 0.8 X10^3/uL (1.3-2.9); LYMPHOCYTES % (AUTO) 14.2 % (21.0-51.0); MEAN CORPUSCULAR HEMOGLOBIN 31.2 pg (27.0-34.0); MEAN CORPUSCULAR HGB CONC 33.7 g/dL (33.0-35.0); MEAN CORPUSCULAR VOLUME 92.5 fL (80.0-100.0); MEAN PLATELET VOLUME 7.9 fL (7.4-11.0); MONOCYTES # (AUTO) 0.5 x10^3/uL (0.3-0.8); MONOCYTES % (AUTO) 8.9 % (0.0-13.0); NEUTROPHILS # (AUTO) 4.3 x10^3/uL (2.2-4.8); NEUTROPHILS % (AUTO) 76.8 % (42.0-75.0); PLATELET COUNT 196 X10^3/uL (150.0-450.0); RED CELL DISTRIBUTION WIDTH 14.7 % (11.6-16.5); WHITE BLOOD COUNT 5.6 X10^3/uL (3.6-10.0)
[2021-01-13 06:52] LABS: CALCIUM 8.7 mg/dL (8.5-10.1); CARBON DIOXIDE 26.8 mmol/L (21-32); COR CA(FOR HYPOALB) 9.5 mg/dL (8.5-10.1); CREATININE 1.46 mg/dL (0.55-1.02); TOTAL PROTEIN 6.8 g/dL (6.4-8.2)
[2021-01-13 07:36] LABS: CKMB % 11.3 % (<4)
[2021-01-13 07:43] LABS: CREATINE KINASE MB 16.6 ng/mL (0-4.0); TROPONIN I 3.27 ng/mL (0-1.5)
[2021-01-13] MEDS ORDERED: ASPIRIN 81 MG CHEWTAB PO ONE (07:55)
[2021-01-13] MEDS ORDERED: HEPARIN SODIUM IN D5W 25,000 UNITS/500 ML BAG IV PRN (07:56)
[2021-01-13] MEDS ORDERED: HEPARIN SODIUM INJ 5000 UNITS ONE ×2 (08:48→21:45)
[2021-01-13] MEDS ORDERED: LIPITOR TAB 40 MG PO SCH (09:00)
[2021-01-13] MEDS ORDERED: LASIX IVP ONE (09:52)
[2021-01-13] MEDS ORDERED: LEVSIN/MAALOX/LIDOC VISC PO SCH (10:00)
--- NOTE | 2021-01-13 10:02 | DR.H&P ---
H&P - History & Physical for Day of: H&P Date: 01/13/21 - Chief Complaint Chief Complaint: CHEST PAIN, NAUSEA, SOB - History of Present Illness History of Present Illness: IS A 85 YEAR OLD PATIENT OF OURS. SHE PRESENTED TO THE ER VIA EMS WITH COMPLAINTS OF LEFT SIDED CHEST PAIN THAT STARTED ABOUT 30 MINUTES PRIOR TO ARRIVAL. PAIN WAS DESCRIBED HEAVINESS, CONSTANT, AND WAS RATED A 6/10. SHE ALSO ADMITS TO MILD SHORTNESS OF BREATH AND NAUSEA. PATIENT DID LIE DOWN TO REST, BUT PAIN PERSISTED. HER DAUGHTER REPORTS THAT SHE SAW A [employer] TENDER AND HAD A HEART CATH IN APRIL. A BLOCKAGE WAS FOUND AT THAT TIME, BUT NO STENTING WAS DONE. PATIENT WAS GIVEN A 325MG ASPIRIN WHILE ENROUTE TO THE HOSPITAL. PMH INCLUDES: CAD, HTN, CHF, DYSLIPIDEMIA, GERD, ARTHRITIS, A-FIB, MURMUR, GERD, ANXIETY, BILATERAL CATARACT SURGERY. AUSCULATION DID REVEAL A SYSTOLIC EJECTION MURMUR. ON ARRIVAL TO THE HOSPITAL, VITALS WERE 98.3-105-16-97%-145/82. LABS WERE OBTAINED. ABNORMAL LAB VALUES INCLUDE THE FOLLOWING: RBC 2.48, HGB 7.8, HCT 22.7, INR 1.39, BUN 34, CREATININE 1.67, GLUCOSE 145, CALCIUM 8.3, AST 14, BNP 800, ALBUMIN 3.3. CARDIAC ENZYMES WERE WITHIN NORMAL LIMITS. URINALYSIS REVEALED: WBC 3-5, RBC 0-2, BACTERIA 1+, LEUKOCYTES 2+, OCCULT BLOOD 1+. A CHEST XRAY WAS OBTAINED AND REVEALED: Cardiomegaly. Hiatal hernia. No active cardiopulmonary. EKG REVEALED: SINUS RHYTHM WITH HR 99. IN THE ER, SHE WAS GIVEN MORPHINE 4MG IV X 1, ZOFRAN 4MG IV X 1. SHE REPORTED SLIGHT IMPROVEMENT IN SYMPTOMS. SHE WAS ADMITTED TO THE HOSPITAL FOR FURTHER EVALUATION AND TREATMENT OF CHEST PAIN RULE OUT ACUTE WA, ANEMIA, AND CHF. HER CARDIAC ENZYMES WERE REPEATED AT 05:54. CK-MB INCREASED FROM 1.19 TO 16.6. TROPONIN INCREASED FROM 0.03 TO 3.27. EKG REVEALED: SINUS RHYTHM WITH HR 57. WE WILL REPEAT CARDIAC ENZYMES AND EKGs Q4H X 2. SHE WAS STARTED ON A HEPARIN DRIP, PEPCID 20MG IV BID, PROTONIX 40MG IV BID, GI COCKTAIL 15ML PO QID, ATORVASTATIN 40MG PO DAILY. WE WILL TRANSFUSE 1 UNIT OF PACKED RED BLOOD CELLS. WE WILL GIVE LASIX 20MG IV BEFORE BLOOD AND AN ADDITIONAL DOSE AFTER THE BLOOD HAS TRANSFUSED. WE WILL MAKE FURTHER DECISIONS BASED ON REPEAT CARDIAC ENZYMES AND EKGS. TIME SPENT ON CLINICAL ASSESSMENT, REVIEWING LABS AND IMAGING, DECISION MAKING, AND DOCUMENTATION GREATER THAN 75 MINUTES. - Past Medical History Past Medical History: Coronary Artery Disease, Hypertension, Dyslipidemia, GERD, Arthritis, CHF Additional Medical History: Cataracts, Diverticulosis, Previous Blood Transfusion - Past Surgical History Surgical History: Other Additional Surgical History: CATARACTS SURGERY - Family History Family Medical History: Diabetes Mellitus, Cancer, Hypertension - Social History Alcohol Use: None Drug Use: None - Medications Home Medications: codeine Allergy (Verified 10/05/17 08:34) lorazepam [From Ativan] Adverse Reaction (Verified 01/14/20 23:53) CONTINUE taking the following medications cefdinir 300 mg PO BID 01/13/21 [History] fexofenadine 180 mg PO DAILY 01/13/21 [History] fluticasone propionate 2 spray INTRANASAL DAILY 01/13/21 [History] methylprednisolone 4 mg PO DIRECTED 01/13/21 [History] - Review of Systems Constitutional: Weakness Eyes: No Symptoms Reported ENT: No Symptoms Reported Respiratory: Shortness of Breath, SOB with Excertion Cardiovascular: Chest Pain Gastrointestinal: Nausea Genitourinary: No Symptoms Reported Musculoskeletal: No Symptoms Reported Skin: No Symptoms Reported Neurological: Weakness - Physical Exam Vital Signs: Temperature 98.0 F Pulse Rate [Right] 57 Pulse Rate 105 Respiratory Rate 16 Blood Pressure [Right Arm] 151/65 Blood Pressure [Left Arm] 122/56 Blood Pressure 145/82 O2 Sat by Pulse Oximetry 100 Oriented: Normal Eyes: Normal Ear: Normal Nose: Normal Throat: Normal Respiratory: Diminished Throughout Cardiovascular: Tachycardia, Murmur (SYSTOLIC EJECTION MURMUR ) : Normal Auscultation: Bowel Sounds: Normal Palpation: Normal Tenderness: Normal Skin: Normal Musculoskeletal: Normal Psychiatric: Normal Mood Description: Calm Affect: Normal Speech Pattern: Clear - Assessment/Plan (1) Chest pain, rule out acute myocardial infarction Status: Acute Plan: ADMIT, SERIAL CARDIAC ENZYMES AND EKGS, TRANSFUSE 1 UNIT PRBC, HEPARIN DRIP, PEPCID 20MG IV BID, PROTONIX 40MG IV BID, GI COCKTAIL 15ML PO QID, ATORVASTATIN 40MG PO DAILY. (2) Anemia Qualifiers: Anemia type: iron deficiency Iron deficiency anemia type: unspecified iron deficiency Qualified Code(s): D50.9 - Iron deficiency anemia, unspecified Status: Acute (3) CHF exacerbation Qualifiers: Heart failure type: unspecified Status: Acute - Allergies Allergies/Adverse Reactions: Allergies Allergy/AdvReac Type Severity Reaction Status Date / Time codeine Allergy Verified 10/05/17 08:34 lorazepam [From Ativan] AdvReac Verified 01/14/20 23:53
[2021-01-13] MEDS ORDERED: ZOFRAN INJ 4 MG VIAL IVP PRN (11:24)
[2021-01-13] MEDS: PROTONIX INJ 40 MG VIAL IVP SCH ×2 (11:44→21:54)
[2021-01-13 12:14] LABS: CREATINE KINASE MB 24.3 ng/mL (0-4.0); TROPONIN I 3.94 ng/mL (0-1.5)
[2021-01-13] MEDS: XANAX PO PRN (12:16)
--- NOTE | 2021-01-13 13:04 | RAD ---
CHEST, 1 VIEWHistory: CENTRAL LINE PLACEMENTComparison: Chest radiograph from earlier todayFindings: Right subclavian CVL is well positioned, terminating over the cavoatrial junction without pneumothorax. Remainder of the exam is otherwise stable since earlier todayImpression: Satisfactory right subclavian CVL placement without pneumothorax.Electronically signed by: HE SIN (Jan 13, 2021 13:02:39)
[2021-01-13] MEDS ORDERED: NS 500 ML IV 500 ML IV PRN (14:20)
[2021-01-13] MEDS: PEPCID 20 MG IV PREMIX* 20 MG/50 ML BAG IV SCH ×2 (14:41→21:54)
[2021-01-13 16:14] LABS: CKMB % 12.9 % (<4)
[2021-01-13 16:15] LABS: CREATINE KINASE MB 18.4 ng/mL (0-4.0); TROPONIN I 3.48 ng/mL (0-1.5)
[2021-01-13] MEDS ORDERED: TYLENOL 325 MG TAB PO PRN (20:11)
[2021-01-13 20:25] LABS: CKMB % 10.7 % (<4)
[2021-01-13 20:28] LABS: TROPONIN I 3.1 ng/mL (0-1.5)
[2021-01-13 21:00] LABS: HEMATOCRIT 27.5 % (36.0-47.0); HEMOGLOBIN 9.3 g/dL (12.0-16.0)
[2021-01-13] MEDS: HEPARIN SODIUM IN D5W 25,000 UNITS/500 ML BAG IV PRN (21:14)
[2021-01-14 00:42] LABS: CREATINE KINASE MB 12.9 ng/mL (0-4.0); TROPONIN I 2.61 ng/mL (0-1.5)
[2021-01-14 03:37] LABS: BASOPHILS % (AUTO) 0.2 % (0.2-1.0); EOSINOPHILS # (AUTO) 0.1 x10^3/uL (0.0-0.2); EOSINOPHILS % (AUTO) 1.8 % (0.9-2.9); HEMATOCRIT 26.5 % (36.0-47.0); HEMOGLOBIN 9.1 g/dL (12.0-16.0); LYMPHOCYTES # (AUTO) 1.3 X10^3/uL (1.3-2.9); LYMPHOCYTES % (AUTO) 18.4 % (21.0-51.0); MEAN CORPUSCULAR HEMOGLOBIN 30.9 pg (27.0-34.0); MEAN CORPUSCULAR HGB CONC 34.2 g/dL (33.0-35.0); MEAN CORPUSCULAR VOLUME 90.4 fL (80.0-100.0); MEAN PLATELET VOLUME 8.1 fL (7.4-11.0); MONOCYTES # (AUTO) 0.8 x10^3/uL (0.3-0.8); MONOCYTES % (AUTO) 10.3 % (0.0-13.0); NEUTROPHILS # (AUTO) 5.1 x10^3/uL (2.2-4.8); NEUTROPHILS % (AUTO) 69.3 % (42.0-75.0); PLATELET COUNT 208 X10^3/uL (150.0-450.0); RED BLOOD COUNT 2.94 X10^6/uL (3.5-5.4); RED CELL DISTRIBUTION WIDTH 15.6 % (11.6-16.5); WHITE BLOOD COUNT 7.3 X10^3/uL (3.6-10.0)
[2021-01-14 04:58] LABS: ALANINE AMINOTRANSFERASE 16 Units/L (12-78); ALBUMIN 2.9 g/dL (3.4-5.0); ALKALINE PHOSPHATASE 56 Units/L (46-116); ASPARTATE AMINO TRANSFERASE 29 Units/L (15-37); BLOOD UREA NITROGEN 35 mg/dL (7-18); CALCIUM 8.6 mg/dL (8.5-10.1); CARBON DIOXIDE 29.4 mmol/L (21-32); CHLORIDE 107 mmol/L (98-107); CKMB % 10.1 % (<4); COR CA(FOR HYPOALB) 9.5 mg/dL (8.5-10.1); CREATINE KINASE 100 Units/L (26-192); CREATININE 1.01 mg/dL (0.55-1.02); SODIUM 142 mmol/L (136-145); TOTAL PROTEIN 6.5 g/dL (6.4-8.2); eGFR NON BLACK RACES 56 (>60)
[2021-01-14 05:01] LABS: CREATINE KINASE MB 10.1 ng/mL (0-4.0)
[2021-01-14 05:02] LABS: TROPONIN I 1.99 ng/mL (0-1.5)
[2021-01-14] MEDS: PEPCID 20 MG IV PREMIX* 20 MG/50 ML BAG IV SCH ×2 (08:50→21:00)
[2021-01-14] MEDS: PROTONIX INJ 40 MG VIAL IVP SCH ×2 (08:50→21:00)
[2021-01-14] MEDS ORDERED: LIPITOR TAB 40 MG PO SCH (09:00)
--- NOTE | 2021-01-14 11:04 | PCM.PROG ---
Progress Note - Progress Note for Day of Date of Exam: 01/14/21 - Subjective Subjective: WAS ADMITTED FOR TREATMENT OF CHEST PAIN, ANEMIA, AND CHF EXACERBATION. HER LABS DO INDICATE THAT SHE HAS HAD A DC. SINCE ADMISSION, SHE HAS RECEIVED ONE UNIT OF PACKED RED BLOOD CELLS. TODAY, SHE IS ALERT, LYING IN BED ON MORNING ROUNDS. PATIENT DOES APPEAR TO BE DROWSY, BUT DOES ANSWER QUESTIONS APPROPRIATELY. SHE CONTINUES TO COMPLAIN OF WEAKNESS AND SHORTNESS OF BREATH AT TIMES. ON EXAMINATION, HEART IS REGULAR IN RATE AND RHYTHM. BILATERAL LUNGS ARE NOTED TO HAVE DIMINISHED LUNG SOUNDS THROUGHOUT. ABDOMEN IS ROUND, SOFT, AND NON-TENDER WITH NARMAL BOWEL SOUNDS NOTED IN ALL QUADRANTS. HER VITALS THIS MORNING ARE: 98.2-56-17-100%-99/51. LABS WERE OBTAINED. ABNORMAL LAB VALUES INCLUDE THE FOLLOWING: RBC 2.94, HGB 9.1, HCT 26.5, BUN 35, TROPONIN 1.99 (HAS DECRASED FROM PEAK OF 3.94), ALBUMIN 2.9. SHE IS CURRENTLY RECEIVING HEPARIN IV DRIP, PEPCID 20MG IV Q12H, PROTONIX 40MG IV BID, LIPITOR 40MG PO DAILY, ZOFRAN 4MG IV BID, XANAX 0.5MG PO BID PRN, AND TYLENOL 650MG PO Q6H PRN. DUE TO HYPOTENSION, WE WILL NOT RESUME HER BLOOD PRESSURE MEDICATIONS AT THIS TIME. OTHERWISE, WE WILL FOLLOW UP WITH AM LABS AND CONTINUE TO MONITOR. WE WILL ALSO CONTINUE TO MONITOR HER CARDIAC ENZYMES. TIME SPENT ON CLINICAL ASSESSMENT, REVIEWING LABS AND IMAGING, DECISION MAKING, AND DOCUMENTATION GREATER THAN 45 MINUTES. - Past Medical Family Social History Past Med/Fam/Surg Hx: No changes since H&P Allergies: Allergies codeine Allergy (Verified 10/05/17 08:34) lorazepam [From Ativan] Adverse Reaction (Verified 01/14/20 23:53) - Review of Systems ROS: No change since H&P - Vital Signs and I&O's Vital Signs: Temperature 98.2 F Pulse Rate [Right] 56 Pulse Rate 105 Respiratory Rate 17 Blood Pressure [Right Arm] 99/51 Blood Pressure [Left Arm] 122/56 Blood Pressure 145/82 O2 Sat by Pulse Oximetry 100 Intake and Output: Intake & Output 01/11/21 01/12/21 01/13/21 01/14/21 11:59 11:59 11:59 11:59 Intake Total 160 / 160 1792 / 1792 Output Total 500 / 500 500 / 500 Balance -340 / -340 1292 / 1292 - Physical Exam Oriented: Normal Eyes: Normal Ear: Normal Nose: Normal Throat: Normal Respiratory: Generalized, Diminished Cardiovascular: Tachycardia, Murmur (SYSTOLIC EJECTION MURMUR ) : Normal Auscultation: Bowel Sounds: Normal Palpation: Normal Tenderness: Normal Skin: Normal Musculoskeletal: Normal Psychiatric: Normal Mood Description: Calm Affect: Normal Speech Pattern: Clear, Appropriate - Laboratory and Diagnostics Result Diagrams: 01/15/21 04:30 01/15/21 04:30 Labs: Laboratory WBC 7.3 X10^3/uL (3.6-10.0) 01/14/21 03:12 RBC 2.94 X10^6/uL (3.5-5.4) L 01/14/21 03:12 Hgb 9.1 g/dL (12.0-16.0) L 01/14/21 03:12 Hct 26.5 % (36.0-47.0) L 01/14/21 03:12 MCV 90.4 fL (80.0-100.0) 01/14/21 03:12 MCH 30.9 pg (27.0-34.0) 01/14/21 03:12 MCHC 34.2 g/dL (33.0-35.0) 01/14/21 03:12 RDW 15.6 % (11.6-16.5) 01/14/21 03:12 Plt Count 208 X10^3/uL (150.0-450.0) 01/14/21 03:12 MPV 8.1 fL (7.4-11.0) 01/14/21 03:12 Neut % (Auto) 69.3 % (42.0-75.0) 01/14/21 03:12 Lymph % (Auto) 18.4 % (21.0-51.0) L 01/14/21 03:12 [place] % (Auto) 10.3 % (0.0-13.0) 01/14/21 03:12 Eos % (Auto) 1.8 % (0.9-2.9) 01/14/21 03:12 Baso % (Auto) 0.2 % (0.2-1.0) 01/14/21 03:12 Neut # (Auto) 5.1 x10^3/uL (2.2-4.8) H 01/14/21 03:12 Lymph # (Auto) 1.3 X10^3/uL (1.3-2.9) 01/14/21 03:12 [place] # (Auto) 0.8 x10^3/uL (0.3-0.8) 01/14/21 03:12 Eos # (Auto) 0.1 x10^3/uL (0.0-0.2) 01/14/21 03:12 Baso # (Auto) 0.0 X10^3/uL (0.0-0.1) 01/14/21 03:12 Absolute Nucleated RBC 0.0 /100WBC 01/14/21 03:12 PT 16.4 SECONDS (11.8-14.3) 01/13/21 05:54 INR Target Range - 01/13/21 05:54 INR 1.39 (0.8-1.3) H 01/13/21 05:54 APTT 75.3 SECONDS (22.9-36.5) H 01/14/21 07:35 PTT Comment - 01/14/21 07:35 Sodium 142 mmol/L (136-145) 01/14/21 03:12 Corrected Sodium TNP 01/14/21 03:12 Potassium 4.5 mmol/L (3.5-5.1) 01/14/21 03:12 Chloride 107 mmol/L (98-107) 01/14/21 03:12 Carbon Dioxide 29.4 mmol/L (21-32) 01/14/21 03:12 BUN 35 mg/dL (7-18) H 01/14/21 03:12 Creatinine 1.01 mg/dL (0.55-1.02) 01/14/21 03:12 Est GFR (MDRD) Af Amer > 60 (>60) 01/14/21 03:12 Est GFR (MDRD) Non-Af 56 (>60) L 01/14/21 03:12 Glucose 97 mg/dL (65-99) 01/14/21 03:12 Calcium 8.6 mg/dL (8.5-10.1) 01/14/21 03:12 Corrected Calcium 9.5 mg/dL (8.5-10.1) 01/14/21 03:12 Magnesium 2.0 mg/dL (1.7-2.9) 01/13/21 05:54 Total Bilirubin 0.60 mg/dL (0.2-1.0) 01/14/21 03:12 AST 29 Units/L (15-37) 01/14/21 03:12 ALT 16 Units/L (12-78) 01/14/21 03:12 Alkaline Phosphatase 56 Units/L (46-116) 01/14/21 03:12 Creatine Kinase 100 Units/L (26-192) 01/14/21 03:12 CK-MB (CK-2) 10.1 ng/mL (0-4.0) H* 01/14/21 03:12 CK/CKMB % Calc 10.1 % (<4) 01/14/21 03:12 Troponin I 1.99 ng/mL (0-1.5) H* 01/14/21 03:12 B-Natriuretic Peptide 800 pg/mL (0-79) H* 01/13/21 00:17 Total Protein 6.5 g/dL (6.4-8.2) 01/14/21 03:12 Albumin 2.9 g/dL (3.4-5.0) L 01/14/21 03:12 Globulin 3.6 g/dL (2.5-4.5) 01/14/21 03:12 Albumin/Globulin Ratio 0.8 Ratio (1.1-2.1) L 01/14/21 03:12 Specimen Type Clean catch urine 01/13/21 02:20 Urine Color Straw (YELLOW) 01/13/21 02:20 Urine Appearance Clear (CLEAR) 01/13/21 02:20 Urine pH 6.5 (5.0 - 8.0) 01/13/21 02:20 Ur Specific [place] 1.010 (1.000-1.030) 01/13/21 02:20 Urine Protein 1+ (NEGATIVE) 01/13/21 02:20 Urine Glucose (UA) Negative (NEGATIVE) 01/13/21 02:20 Urine Ketones Negative (NEGATIVE) 01/13/21 02:20 Urine Occult Blood 1+ (NEGATIVE) 01/13/21 02:20 Urine Nitrite Negative (NEGATIVE) 01/13/21 02:20 Urine Bilirubin Negative (NEGATIVE) 01/13/21 02:20 Urine Urobilinogen Normal (NORMAL) 01/13/21 02:20 Ur Leukocyte Esterase 2+ (NEGATIVE) 01/13/21 02:20 Urine RBC 0-2 /HPF (0-3) 01/13/21 02:20 Urine WBC 3-5 /HPF (0-5) 01/13/21 02:20 Ur Squamous Epith Cells Few /HPF (NEGATIVE) 01/13/21 02:20 Urine Bacteria 1+ /HPF (NEGATIVE) 01/13/21 02:20 Ur Culture Indicated? No/not indicated 01/13/21 02:20 Blood Type O POSITIVE 01/13/21 10:09 Antibody Screen Negative 01/13/21 10:09 Crossmatch See Detail 01/13/21 10:09 - Plan (1) Non-ST elevated myocardial infarction Status: Acute Plan: CARDIAC ENZYMES, HEPARIN IV DRIP, PEPCID 20MG IV Q12H, PROTONIX 40MG IV BID, LIPITOR 40MG PO DAILY, ZOFRAN 4MG IV BID, XANAX 0.5MG PO BID PRN, AND TYLENOL 650MG PO Q6H PRN. (2) Chest pain Status: Acute Qualifiers: Chest pain type: unspecified Qualified Code(s): R07.9 - Chest pain, unspecified (3) Anemia Status: Acute Qualifiers: Anemia type: iron deficiency Iron deficiency anemia type: unspecified iron deficiency Qualified Code(s): D50.9 - Iron deficiency anemia, unspecified (4) CHF exacerbation Status: Acute Qualifiers: Heart failure type: unspecified Qualified Code(s): I50.9 - Heart failure, unspecified
[2021-01-14 11:26] LABS: TROPONIN I 1.29 ng/mL (0-1.5)
[2021-01-14 11:30] LABS: CREATINE KINASE MB 7.5 ng/mL (0-4.0)
[2021-01-14] MEDS ORDERED: LASIX IVP ONE (11:36)
[2021-01-14] MEDS ORDERED: LASIX ONE (11:42)
[2021-01-14 16:05] LABS: CKMB % 9.2 % (<4); TROPONIN I 1.15 ng/mL (0-1.5)
[2021-01-14 16:11] LABS: CREATINE KINASE MB 5.9 ng/mL (0-4.0)
[2021-01-14] MEDS ORDERED: HEPARIN SODIUM INJ 5000 UNITS IVP ONE (17:55)
[2021-01-14] MEDS: HEPARIN SODIUM IN D5W 25,000 UNITS/500 ML BAG IV PRN (23:15)
[2021-01-15 05:10] LABS: BASOPHILS % (AUTO) 0.5 % (0.2-1.0); EOSINOPHILS # (AUTO) 0.4 x10^3/uL (0.0-0.2); EOSINOPHILS % (AUTO) 5.5 % (0.9-2.9); HEMATOCRIT 28.1 % (36.0-47.0); HEMOGLOBIN 9.6 g/dL (12.0-16.0); LYMPHOCYTES # (AUTO) 1.6 X10^3/uL (1.3-2.9); LYMPHOCYTES % (AUTO) 23.6 % (21.0-51.0); MEAN CORPUSCULAR HEMOGLOBIN 30.8 pg (27.0-34.0); MEAN CORPUSCULAR HGB CONC 34.2 g/dL (33.0-35.0); MEAN CORPUSCULAR VOLUME 90.1 fL (80.0-100.0); MEAN PLATELET VOLUME 8.1 fL (7.4-11.0); MONOCYTES # (AUTO) 0.8 x10^3/uL (0.3-0.8); MONOCYTES % (AUTO) 12.7 % (0.0-13.0); NEUTROPHILS # (AUTO) 3.8 x10^3/uL (2.2-4.8); NEUTROPHILS % (AUTO) 57.7 % (42.0-75.0); PLATELET COUNT 193 X10^3/uL (150.0-450.0); RED BLOOD COUNT 3.12 X10^6/uL (3.5-5.4); RED CELL DISTRIBUTION WIDTH 15.7 % (11.6-16.5); WHITE BLOOD COUNT 6.6 X10^3/uL (3.6-10.0)
[2021-01-15 05:46] LABS: ALANINE AMINOTRANSFERASE 11 Units/L (12-78); ALBUMIN 2.9 g/dL (3.4-5.0); ALKALINE PHOSPHATASE 64 Units/L (46-116); ASPARTATE AMINO TRANSFERASE 20 Units/L (15-37); BLOOD UREA NITROGEN 31 mg/dL (7-18); CALCIUM 8.6 mg/dL (8.5-10.1); CARBON DIOXIDE 28.2 mmol/L (21-32); CHLORIDE 107 mmol/L (98-107); CKMB % 5.5 % (<4); COR CA(FOR HYPOALB) 9.5 mg/dL (8.5-10.1); CREATINE KINASE 51 Units/L (26-192); CREATINE KINASE MB 2.8 ng/mL (0-4.0); CREATININE 1.06 mg/dL (0.55-1.02); SODIUM 142 mmol/L (136-145); TOTAL PROTEIN 6.6 g/dL (6.4-8.2); TROPONIN I 0.97 ng/mL (0-1.5); eGFR NON BLACK RACES 53 (>60)
--- NOTE | 2021-01-15 07:03 | RAD ---
HISTORYDyspneaSTUDYCHEST, 1 VIEWCOMPARISONChest radiograph dated January 13, 2021.FINDINGSThe trachea is midline. The cardiomediastinal silhouette is enlarged. There is a stable right IJ CVL whose tip overlies the right atrium.The lungs are clear without consolidation or effusion. No pneumothorax or other cardiopulmonary changes from prior are observed.The bones are grossly intact. There is no evidence for CHF or a pneumothorax. Retrocardiac opacity probably reflects a hiatal hernia. This finding might be disc best confirmed with lateral chest radiographic imaging or with follow-up CT imaging of the chest on an outpatient basis.IMPRESSIONAs above.Electronically signed by: DEBBY WEISS III (Jan 15, 2021 07:01:29)
[2021-01-15] MEDS: PEPCID 20 MG IV PREMIX* 20 MG/50 ML BAG IV SCH ×2 (09:44→20:16)
[2021-01-15] MEDS: PROTONIX INJ 40 MG VIAL IVP SCH ×2 (09:44→20:16)
--- NOTE | 2021-01-15 11:29 | PCM.PROG ---
Progress Note - Progress Note for Day of Date of Exam: 01/15/21 - Subjective Subjective: WAS ADMITTED FOR TREATMENT OF A NON ST ELEVATION ND, CHEST PAIN, ANEMIA, AND CHF EXACERBATION. SINCE ADMISSION, SHE HAS RECEIVED ONE UNIT OF PACKED RED BLOOD CELLS. TODAY, SHE IS LYING IN BED WITH EYES CLOSED ON MORNING ROUNDS. PATIENT DOES OPEN EYES TO VERBAL STIMULI. SHE ANSWER QUESTIONS APPROPRIATELY. SHE CONTINUES TO COMPLAINTS OF WEAKNESS AND SHORTNESS OF BREATH AT TIMES. ON EXAMINATION, HEART IS REGULAR IN RATE AND RHYTHM. BILATERAL LUNGS ARE NOTED TO HAVE DIMINISHED LUNG SOUNDS THROUGHOUT. ABDOMEN IS ROUND, SOFT, AND NON-TENDER WITH NARMAL BOWEL SOUNDS NOTED IN ALL QUADRANTS. HER VITALS THIS MORNING ARE: 98.0-71-17-98%-124/65. LABS WERE OBTAINED. ABNORMAL LAB VALUES I NCLUDE THE FOLLOWING: RBC 3.12, HGB 9.6, HCT 28.1, BUN 31, CREATININE 1.06, ALT 11, BNP 454, ALBUMIN 2.9. SHE IS CURRENTLY RECEIVING HEPARIN IV DRIP, PEPCID 20MG IV Q12H, PROTONIX 40MG IV BID, LIPITOR 40MG PO DAILY, ZOFRAN 4MG IV BID, XANAX 0.5MG PO BID PRN, AND TYLENOL 650MG PO Q6H PRN. DUE TO HYPOTENSION, WE WILL NOT RESUME HER BLOOD PRESSURE MEDICATIONS AT THIS TIME. OTHERWISE, WE WILL FOLLOW UP WITH AM LABS AND CONTINUE TO MONITOR. WE WILL ALSO CONTINUE TO MONITOR HER CARDIAC ENZYMES. TIME SPENT ON CLINICAL ASSESSMENT, REVIEWING LABS AND IMAGING, DECISION MAKING, AND DOCUMENTATION GREATER THAN 45 MINUTES. - Past Medical Family Social History Past Med/Fam/Surg Hx: No changes since H&P Allergies: Allergies codeine Allergy (Verified 10/05/17 08:34) lorazepam [From Ativan] Adverse Reaction (Verified 01/14/20 23:53) - Review of Systems ROS: No change since H&P - Vital Signs and I&O's Vital Signs: Temperature 98.0 F Pulse Rate [Right] 69 Pulse Rate 105 Respiratory Rate 16 Blood Pressure [Right Arm] 104/59 Blood Pressure [Left Arm] 122/56 Blood Pressure 145/82 O2 Sat by Pulse Oximetry 98 Intake and Output: Intake & Output 01/12/21 01/13/21 01/14/21 01/15/21 11:59 11:59 11:59 11:59 Intake Total 160 / 160 1792 / 1792 1548 / 1548 Output Total 500 / 500 500 / 500 900 / 900 Balance -340 / -340 1292 / 1292 648 / 648 - Physical Exam Oriented: Normal Eyes: Normal Ear: Normal Nose: Normal Throat: Normal Respiratory: Generalized, Diminished Cardiovascular: Tachycardia, Murmur (SYSTOLIC EJECTION MURMUR ) : Normal Auscultation: Bowel Sounds: Normal Tenderness: Normal Skin: Normal Musculoskeletal: Normal Psychiatric: Normal Mood Description: Calm Affect: Normal Speech Pattern: Clear, Appropriate - Laboratory and Diagnostics Result Diagrams: 01/15/21 04:30 01/15/21 04:30 Labs: Laboratory WBC 6.6 X10^3/uL (3.6-10.0) 01/15/21 04:30 RBC 3.12 X10^6/uL (3.5-5.4) L 01/15/21 04:30 Hgb 9.6 g/dL (12.0-16.0) L 01/15/21 04:30 Hct 28.1 % (36.0-47.0) L 01/15/21 04:30 MCV 90.1 fL (80.0-100.0) 01/15/21 04:30 MCH 30.8 pg (27.0-34.0) 01/15/21 04:30 MCHC 34.2 g/dL (33.0-35.0) 01/15/21 04:30 RDW 15.7 % (11.6-16.5) 01/15/21 04:30 Plt Count 193 X10^3/uL (150.0-450.0) 01/15/21 04:30 MPV 8.1 fL (7.4-11.0) 01/15/21 04:30 Neut % (Auto) 57.7 % (42.0-75.0) 01/15/21 04:30 Lymph % (Auto) 23.6 % (21.0-51.0) 01/15/21 04:30 [place] % (Auto) 12.7 % (0.0-13.0) 01/15/21 04:30 Eos % (Auto) 5.5 % (0.9-2.9) H 01/15/21 04:30 Baso % (Auto) 0.5 % (0.2-1.0) 01/15/21 04:30 Neut # (Auto) 3.8 x10^3/uL (2.2-4.8) 01/15/21 04:30 Lymph # (Auto) 1.6 X10^3/uL (1.3-2.9) 01/15/21 04:30 [place] # (Auto) 0.8 x10^3/uL (0.3-0.8) 01/15/21 04:30 Eos # (Auto) 0.4 x10^3/uL (0.0-0.2) H 01/15/21 04:30 Baso # (Auto) 0.0 X10^3/uL (0.0-0.1) 01/15/21 04:30 Absolute Nucleated RBC 0.1 /100WBC 01/15/21 04:30 PT 16.4 SECONDS (11.8-14.3) 01/13/21 05:54 INR Target Range - 01/13/21 05:54 INR 1.39 (0.8-1.3) H 01/13/21 05:54 APTT 100.2 SECONDS (22.9-36.5) H 01/15/21 10:40 PTT Comment - 01/15/21 10:40 Sodium 142 mmol/L (136-145) 01/15/21 04:30 Corrected Sodium TNP 01/15/21 04:30 Potassium 4.3 mmol/L (3.5-5.1) 01/15/21 04:30 Chloride 107 mmol/L (98-107) 01/15/21 04:30 Carbon Dioxide 28.2 mmol/L (21-32) 01/15/21 04:30 BUN 31 mg/dL (7-18) H 01/15/21 04:30 Creatinine 1.06 mg/dL (0.55-1.02) H 01/15/21 04:30 Est GFR (MDRD) Af Amer > 60 (>60) 01/15/21 04:30 Est GFR (MDRD) Non-Af 53 (>60) L 01/15/21 04:30 Glucose 93 mg/dL (65-99) 01/15/21 04:30 Calcium 8.6 mg/dL (8.5-10.1) 01/15/21 04:30 Corrected Calcium 9.5 mg/dL (8.5-10.1) 01/15/21 04:30 Magnesium 2.0 mg/dL (1.7-2.9) 01/13/21 05:54 Total Bilirubin 0.30 mg/dL (0.2-1.0) 01/15/21 04:30 AST 20 Units/L (15-37) 01/15/21 04:30 ALT 11 Units/L (12-78) L 01/15/21 04:30 Alkaline Phosphatase 64 Units/L (46-116) 01/15/21 04:30 Creatine Kinase 51 Units/L (26-192) 01/15/21 04:30 CK-MB (CK-2) 2.8 ng/mL (0-4.0) 01/15/21 04:30 CK/CKMB % Calc 5.5 % (<4) 01/15/21 04:30 Troponin I 0.97 ng/mL (0-1.5) 01/15/21 04:30 B-Natriuretic Peptide 454 pg/mL (0-79) H 01/15/21 04:30 Total Protein 6.6 g/dL (6.4-8.2) 01/15/21 04:30 Albumin 2.9 g/dL (3.4-5.0) L 01/15/21 04:30 Globulin 3.7 g/dL (2.5-4.5) 01/15/21 04:30 Albumin/Globulin Ratio 0.8 Ratio (1.1-2.1) L 01/15/21 04:30 Specimen Type Clean catch urine 01/13/21 02:20 Urine Color Straw (YELLOW) 01/13/21 02:20 Urine Appearance Clear (CLEAR) 01/13/21 02:20 Urine pH 6.5 (5.0 - 8.0) 01/13/21 02:20 Ur Specific [place] 1.010 (1.000-1.030) 01/13/21 02:20 Urine Protein 1+ (NEGATIVE) 01/13/21 02:20 Urine Glucose (UA) Negative (NEGATIVE) 01/13/21 02:20 Urine Ketones Negative (NEGATIVE) 01/13/21 02:20 Urine Occult Blood 1+ (NEGATIVE) 01/13/21 02:20 Urine Nitrite Negative (NEGATIVE) 01/13/21 02:20 Urine Bilirubin Negative (NEGATIVE) 01/13/21 02:20 Urine Urobilinogen Normal (NORMAL) 01/13/21 02:20 Ur Leukocyte Esterase 2+ (NEGATIVE) 01/13/21 02:20 Urine RBC 0-2 /HPF (0-3) 01/13/21 02:20 Urine WBC 3-5 /HPF (0-5) 01/13/21 02:20 Ur Squamous Epith Cells Few /HPF (NEGATIVE) 01/13/21 02:20 Urine Bacteria 1+ /HPF (NEGATIVE) 01/13/21 02:20 Ur Culture Indicated? No/not indicated 01/13/21 02:20 Blood Type O POSITIVE 01/13/21 10:09 Antibody Screen Negative 01/13/21 10:09 Crossmatch See Detail 01/13/21 10:09 - Plan (1) Non-ST elevated myocardial infarction Status: Acute Plan: CARDIAC ENZYMES, HEPARIN IV DRIP, PEPCID 20MG IV Q12H, PROTONIX 40MG IV BID, LIPITOR 40MG PO DAILY, ZOFRAN 4MG IV BID, XANAX 0.5MG PO BID PRN, AND TYLEN OL 650MG PO Q6H PRN. (2) Chest pain Status: Acute Qualifiers: Chest pain type: unspecified Qualified Code(s): R07.9 - Chest pain, unspecified (3) Anemia Status: Acute Qualifiers: Anemia type: iron deficiency Iron deficiency anemia type: unspecified iron deficiency Qualified Code(s): D50.9 - Iron deficiency anemia, unspecified (4) CHF exacerbation Status: Acute Qualifiers: Heart failure type: unspecified Qualified Code(s): I50.9 - Heart failure, unspecified
[2021-01-15] MEDS: XANAX PO PRN (19:52)
[2021-01-15] MEDS: LIPITOR TAB 40 MG PO SCH (20:16)
[2021-01-16 06:29] LABS: BASOPHILS % (AUTO) 0.5 % (0.2-1.0); EOSINOPHILS # (AUTO) 0.3 x10^3/uL (0.0-0.2); HEMOGLOBIN 9.4 g/dL (12.0-16.0); LYMPHOCYTES # (AUTO) 1.1 X10^3/uL (1.3-2.9); LYMPHOCYTES % (AUTO) 22.1 % (21.0-51.0); MEAN CORPUSCULAR HEMOGLOBIN 30.9 pg (27.0-34.0); MEAN CORPUSCULAR HGB CONC 33.6 g/dL (33.0-35.0); MEAN CORPUSCULAR VOLUME 91.9 fL (80.0-100.0); MEAN PLATELET VOLUME 8.2 fL (7.4-11.0); MONOCYTES # (AUTO) 0.6 x10^3/uL (0.3-0.8); MONOCYTES % (AUTO) 12.3 % (0.0-13.0); NEUTROPHILS # (AUTO) 2.9 x10^3/uL (2.2-4.8); NEUTROPHILS % (AUTO) 59.1 % (42.0-75.0); PLATELET COUNT 192 X10^3/uL (150.0-450.0); RED BLOOD COUNT 3.05 X10^6/uL (3.5-5.4); RED CELL DISTRIBUTION WIDTH 15.1 % (11.6-16.5); WHITE BLOOD COUNT 4.9 X10^3/uL (3.6-10.0)
[2021-01-16 07:01] LABS: ALANINE AMINOTRANSFERASE 13 Units/L (12-78); ALBUMIN 2.8 g/dL (3.4-5.0); ALKALINE PHOSPHATASE 61 Units/L (46-116); ASPARTATE AMINO TRANSFERASE 21 Units/L (15-37); BLOOD UREA NITROGEN 23 mg/dL (7-18); CALCIUM 8.7 mg/dL (8.5-10.1); CARBON DIOXIDE 28.8 mmol/L (21-32); CHLORIDE 108 mmol/L (98-107); CKMB % 4.8 % (<4); COR CA(FOR HYPOALB) 9.7 mg/dL (8.5-10.1); CREATINE KINASE 40 Units/L (26-192); CREATINE KINASE MB 1.9 ng/mL (0-4.0); CREATININE 1.02 mg/dL (0.55-1.02); SODIUM 142 mmol/L (136-145); TOTAL PROTEIN 6.5 g/dL (6.4-8.2); TROPONIN I 0.62 ng/mL (0-1.5); eGFR NON BLACK RACES 55 (>60)
[2021-01-16] MEDS: PEPCID 20 MG IV PREMIX* 20 MG/50 ML BAG IV SCH ×2 (08:09→20:23)
[2021-01-16] MEDS: PROTONIX INJ 40 MG VIAL IVP SCH ×2 (08:09→20:22)
--- NOTE | 2021-01-16 08:27 | RAD ---
HISTORYSOBSTUDYCHEST x-ray, 1 VIEWCOMPARISONX-ray 01/15/2021FINDINGSEnlarged heart is seen. Consider possible pericardial effusion given the shape. Possible hiatus hernia as suggested previously. Probable atelectasis in the lingula is unchanged. No pleural effusion or pneumothorax is seen. Central venous catheter terminates in the region of the right atrium of the heart.IMPRESSIONAppearance of the chest is similar to prior study.Electronically signed by: Vignesh Faith (Jan 16, 2021 08:25:09)
[2021-01-16] MEDS: PLAVIX PO SCH (10:04)
[2021-01-16] MEDS: ELIQUIS PO SCH ×2 (10:04→20:24)
--- NOTE | 2021-01-16 10:15 | PCM.PROG ---
Progress Note - Progress Note for Day of Date of Exam: 01/16/21 - Subjective Subjective: WAS ADMITTED FOR TREATMENT OF A NON ST ELEVATION DE, CHEST PAIN, ANEMIA, AND CHF EXACERBATION. SINCE ADMISSION, SHE HAS RECEIVED ONE UNIT OF PACKED RED BLOOD CELLS. TODAY, SHE IS ALERT AND ORIENTED, SITTING UP IN BED ON MORNING ROUNDS. SHE CONTINUES TO COMPLAINTS OF WEAKNESS AND SHORTNESS OF BREATH AT TIMES, BUT REPORTS IMPROVEMENT IN SYMPTOMS SINCE ADMISSION. ON EXAMINATION, HEART IS REGULAR IN RATE AND RHYTHM. BILATERAL LUNGS ARE NOTED TO HAVE DIMINISHED LUNG SOUNDS THROUGHOUT. ABDOMEN IS ROUND, SOFT, AND NON-TENDER WITH NARMAL BOWEL SOUNDS NOTED IN ALL QUADRANTS. HER VITALS THIS MORNING ARE: 98.2-86-20-96%-140/67. LABS WERE OBTAINED. ABNORMAL LAB VALUES INCLUDE THE FOLLOWING: RBC 3.05, HGB 9.4, HCT 28.0, CHLORIDE 108, BUN 23, BNP 450, ALBUMIN 2.8. A CHEST XRAY WAS OBTAINED THIS MORNING AND REVEALED: Enlarged heart is seen. Consider possible pericardial effusion given the shape. Possible hiatus hernia as suggested previously. Probable atelectasis in the lingula is un changed. No pleural effusion or pneumothorax is seen. Central venous catheter terminates in the region of the right atrium of the heart. SHE IS CURRENTLY RECEIVING HEPARIN IV DRIP, PEPCID 20MG IV Q12H, PROTONIX 40MG IV BID, LIPITOR 40MG PO DAILY, ZOFRAN 4MG IV BID, XANAX 0.5MG PO BID PRN, AND TYLENOL 650MG PO Q6H PRN. WE WILL DISCONTINUE THE HEPARIN TODAY. WE WILL RESUME HER ELIQUIS AND ADD PLAVIX 75MG PO DAILY. OTHERWISE, WE WILL FOLLOW UP WITH AM LABS AND CONTINUE TO MONITOR. WE WILL ALSO CONTINUE TO MONITOR HER CARDIAC ENZYMES. TIME SPENT ON CLINICAL ASSESSMENT, REVIEWING LABS AND IMAGING, DECISION MAKING, AND DOCUMENTATION GREATER THAN 45 MINUTES. - Past Medical Family Social History Past Med/Fam/Surg Hx: No changes since H&P Allergies: Allergies codeine Allergy (Verified 10/05/17 08:34) lorazepam [From Ativan] Adverse Reaction (Verified 01/14/20 23:53) - Review of Systems ROS: No change since H&P - Vital Signs and I&O's Vital Signs: Temperature 98.2 F Pulse Rate [Right] 63 Pulse Rate 105 Respiratory Rate 19 Blood Pressure [Right Arm] 118/56 Blood Pressure [Left Arm] 122/56 Blood Pressure 145/82 O2 Sat by Pulse Oximetry 99 Intake and Output: Intake & Output 01/13/21 01/14/21 01/15/21 01/16/21 11:59 11:59 11:59 11:59 Intake Total 160 / 160 1792 / 1792 1548 / 1548 1645 / 1645 Output Total 500 / 500 500 / 500 900 / 900 300 / 300 Balance -340 / -340 1292 / 1292 648 / 648 1345 / 1345 - Physical Exam Oriented: Normal Eyes: Normal Ear: Normal Nose: Normal Throat: Normal Respiratory: Generalized, Diminished Cardiovascular: Tachycardia, Murmur (SYSTOLIC EJECTION MURMUR ) : Normal Auscultation: Bowel Sounds: Normal Palpation: Normal Tenderness: Normal Skin: Normal Musculoskeletal: Normal Psychiatric: Normal Mood Description: Calm Affect: Normal Speech Pattern: Clear, Appropriate - Laboratory and Diagnostics Result Diagrams: 01/16/21 06:05 01/16/21 06:05 Labs: Laboratory WBC 4.9 X10^3/uL (3.6-10.0) 01/16/21 06:05 RBC 3.05 X10^6/uL (3.5-5.4) L 01/16/21 06:05 Hgb 9.4 g/dL (12.0-16.0) L 01/16/21 06:05 Hct 28.0 % (36.0-47.0) L 01/16/21 06:05 MCV 91.9 fL (80.0-100.0) 01/16/21 06:05 MCH 30.9 pg (27.0-34.0) 01/16/21 06:05 MCHC 33.6 g/dL (33.0-35.0) 01/16/21 06:05 RDW 15.1 % (11.6-16.5) 01/16/21 06:05 Plt Count 192 X10^3/uL (150.0-450.0) 01/16/21 06:05 MPV 8.2 fL (7.4-11.0) 01/16/21 06:05 Neut % (Auto) 59.1 % (42.0-75.0) 01/16/21 06:05 Lymph % (Auto) 22.1 % (21.0-51.0) 01/16/21 06:05 [place] % (Auto) 12.3 % (0.0-13.0) 01/16/21 06:05 Eos % (Auto) 6.0 % (0.9-2.9) H 01/16/21 06:05 Baso % (Auto) 0.5 % (0.2-1.0) 01/16/21 06:05 Neut # (Auto) 2.9 x10^3/uL (2.2-4.8) 01/16/21 06:05 Lymph # (Auto) 1.1 X10^3/uL (1.3-2.9) L 01/16/21 06:05 [place] # (Auto) 0.6 x10^3/uL (0.3-0.8) 01/16/21 06:05 Eos # (Auto) 0.3 x10^3/uL (0.0-0.2) H 01/16/21 06:05 Baso # (Auto) 0.0 X10^3/uL (0.0-0.1) 01/16/21 06:05 Absolute Nucleated RBC 0.1 /100WBC 01/16/21 06:05 PT 16.4 SECONDS (11.8-14.3) 01/13/21 05:54 INR Target Range - 01/13/21 05:54 INR 1.39 (0.8-1.3) H 01/13/21 05:54 APTT 63.3 SECONDS (22.9-36.5) H 01/16/21 06:05 PTT Comment - 01/16/21 06:05 Sodium 142 mmol/L (136-145) 01/16/21 06:05 Corrected Sodium TNP 01/16/21 06:05 Potassium 4.3 mmol/L (3.5-5.1) 01/16/21 06:05 Chloride 108 mmol/L (98-107) H 01/16/21 06:05 Carbon Dioxide 28.8 mmol/L (21-32) 01/16/21 06:05 BUN 23 mg/dL (7-18) H 01/16/21 06:05 Creatinine 1.02 mg/dL (0.55-1.02) 01/16/21 06:05 Est GFR (MDRD) Af Amer > 60 (>60) 01/16/21 06:05 Est GFR (MDRD) Non-Af 55 (>60) L 01/16/21 06:05 Glucose 91 mg/dL (65-99) 01/16/21 06:05 Calcium 8.7 mg/dL (8.5-10.1) 01/16/21 06:05 Corrected Calcium 9.7 mg/dL (8.5-10.1) 01/16/21 06:05 Magnesium 2.0 mg/dL (1.7-2.9) 01/13/21 05:54 Total Bilirubin 0.30 mg/dL (0.2-1.0) 01/16/21 06:05 AST 21 Units/L (15-37) 01/16/21 06:05 ALT 13 Units/L (12-78) 01/16/21 06:05 Alkaline Phosphatase 61 Units/L (46-116) 01/16/21 06:05 Creatine Kinase 40 Units/L (26-192) 01/16/21 06:05 CK-MB (CK-2) 1.9 ng/mL (0-4.0) 01/16/21 06:05 CK/CKMB % Calc 4.8 % (<4) 01/16/21 06:05 Troponin I 0.62 ng/mL (0-1.5) 01/16/21 06:05 B-Natriuretic Peptide 450 pg/mL (0-79) H 01/16/21 06:05 Total Protein 6.5 g/dL (6.4-8.2) 01/16/21 06:05 Albumin 2.8 g/dL (3.4-5.0) L 01/16/21 06:05 Globulin 3.7 g/dL (2.5-4.5) 01/16/21 06:05 Albumin/Globulin Ratio 0.8 Ratio (1.1-2.1) L 01/16/21 06:05 Specimen Type Clean catch urine 01/13/21 02:20 Urine Color Straw (YELLOW) 01/13/21 02:20 Urine Appearance Clear (CLEAR) 01/13/21 02:20 Urine pH 6.5 (5.0 - 8.0) 01/13/21 02:20 Ur Specific [place] 1.010 (1.000-1.030) 01/13/21 02:20 Urine Protein 1+ (NEGATIVE) 01/13/21 02:20 Urine Glucose (UA) Negative (NEGATIVE) 01/13/21 02:20 Urine Ketones Negative (NEGATIVE) 01/13/21 02:20 Urine Occult Blood 1+ (NEGATIVE) 01/13/21 02:20 Urine Nitrite Negative (NEGATIVE) 01/13/21 02:20 Urine Bilirubin Negative (NEGATIVE) 01/13/21 02:20 Urine Urobilinogen Normal (NORMAL) 01/13/21 02:20 Ur Leukocyte Esterase 2+ (NEGATIVE) 01/13/21 02:20 Urine RBC 0-2 /HPF (0-3) 01/13/21 02:20 Urine WBC 3-5 /HPF (0-5) 01/13/21 02:20 Ur Squamous Epith Cells Few /HPF (NEGATIVE) 01/13/21 02:20 Urine Bacteria 1+ /HPF (NEGATIVE) 01/13/21 02:20 Ur Culture Indicated? No/not indicated 01/13/21 02:20 Blood Type O POSITIVE 01/13/21 10:09 Antibody Screen Negative 01/13/21 10:09 Crossmatch See Detail 01/13/21 10:09 - Plan (1) Non-ST elevated myocardial infarction Status: Acute Plan: ELIQUIS 5MG PO BID, PLAVIX 75MG PO DAILY, PEPCID 20MG IV Q12H, PROTONIX 40MG IV BID, LIPITOR 40MG PO DAILY, ZOFRAN 4MG IV BID, XANAX 0.5MG PO BID PRN, AND TYLENOL 650MG PO Q6H PRN. (2) Chest pain Status: Acute Qualifiers: Chest pain type: unspecified Qualified Code(s): R07.9 - Chest pain, unspecified (3) Anemia Status: Acute Qualifiers: Anemia type: iron deficiency Iron deficiency anemia type: unspecified iron deficiency Qualified Code(s): D50.9 - Iron deficiency anemia, unspecified (4) CHF exacerbation Status: Acute Qualifiers: Heart failure type: unspecified Qualified Code(s): I50.9 - Heart failure, unspecified
[2021-01-16] MEDS: LIPITOR TAB 40 MG PO SCH (20:24)
[2021-01-17 05:59] LABS: HEMOGLOBIN 8.3 g/dL (12.0-16.0); MEAN PLATELET VOLUME 7.9 fL (7.4-11.0); WHITE BLOOD COUNT 5.3 X10^3/uL (3.6-10.0)
[2021-01-17 06:06] LABS: BASOPHILS % (AUTO) 0.3 % (0.2-1.0); EOSINOPHILS # (AUTO) 0.3 x10^3/uL (0.0-0.2); EOSINOPHILS % (AUTO) 6.1 % (0.9-2.9); HEMATOCRIT 24.3 % (36.0-47.0); LYMPHOCYTES % (AUTO) 18.8 % (21.0-51.0); MEAN CORPUSCULAR HEMOGLOBIN 31.3 pg (27.0-34.0); MEAN CORPUSCULAR HGB CONC 34.4 g/dL (33.0-35.0); MEAN CORPUSCULAR VOLUME 91.2 fL (80.0-100.0); MONOCYTES # (AUTO) 0.7 x10^3/uL (0.3-0.8); MONOCYTES % (AUTO) 13.4 % (0.0-13.0); NEUTROPHILS # (AUTO) 3.2 x10^3/uL (2.2-4.8); NEUTROPHILS % (AUTO) 61.4 % (42.0-75.0); PLATELET COUNT 180 X10^3/uL (150.0-450.0); RED BLOOD COUNT 2.66 X10^6/uL (3.5-5.4); RED CELL DISTRIBUTION WIDTH 15.1 % (11.6-16.5)
[2021-01-17 06:34] LABS: ALANINE AMINOTRANSFERASE 11 Units/L (12-78); ALBUMIN 2.7 g/dL (3.4-5.0); ALKALINE PHOSPHATASE 58 Units/L (46-116); ASPARTATE AMINO TRANSFERASE 16 Units/L (15-37); BLOOD UREA NITROGEN 17 mg/dL (7-18); CALCIUM 8.6 mg/dL (8.5-10.1); CARBON DIOXIDE 27.5 mmol/L (21-32); CHLORIDE 109 mmol/L (98-107); COR CA(FOR HYPOALB) 9.6 mg/dL (8.5-10.1); CREATININE 0.96 mg/dL (0.55-1.02); SODIUM 143 mmol/L (136-145); TOTAL PROTEIN 6.1 g/dL (6.4-8.2); eGFR NON BLACK RACES 59 (>60)
--- NOTE | 2021-01-17 07:09 | RAD ---
HISTORYShortness of breathSTUDYChest AP [id number]/12/2021FINDINGSThe heart is enlarged. No congestive heart failure is noted. The aorta is somewhat ectatic. There is likely a hiatal hernia present. Lung robison are clear. No pleural effusions are identified. Bony thorax is unremarkable.IMPRESSIONNo change cardiomegaly without congestive heart failureNo definite infiltratesSuspect hiatal herniaElectronically signed by: ALBERT THOMAS (Jan 17, 2021 07:07:03)
[2021-01-17 09:45] VITALS: BP 125/67
[2021-01-17] MEDS: PLAVIX PO SCH (10:00)
[2021-01-17] MEDS: PROTONIX INJ 40 MG VIAL IVP SCH (10:00)
[2021-01-17] MEDS: ELIQUIS PO SCH (10:00)
[2021-01-17] MEDS: PEPCID 20 MG IV PREMIX* 20 MG/50 ML BAG IV SCH (10:00)
== END 2021-01-17 12:50 | disposition home health service (06) | DRG 282 ==
LOC: MED/SURG 23:08 → ER 23:08 → OBSVTOIN 01-13 03:23 → MED/SURG 01-13 04:28 → ICU 01-13 09:45
PROVIDERS: ADMIT Obstetrics & Gynecology Obstetrics; ATTEND Internal Medicine
DX: R53.1 Weakness; R06.02 Shortness of breath; I25.10 Atherosclerotic heart disease of native coronary artery without angina pectoris; I87.2 Venous insufficiency (chronic) (peripheral); R94.31 Abnormal electrocardiogram [ECG] [EKG]; R07.89 Other chest pain; I21.4 Non-ST elevation (NSTEMI) myocardial infarction; I10 Essential (primary) hypertension; D50.8 Other iron deficiency anemias; K21.9 Gastro-esophageal reflux disease without esophagitis; E78.2 Mixed hyperlipidemia; I50.9 Heart failure, unspecified

== ENCOUNTER 2021-02-19 20:01 | Observation (INO) ==
[2021-02-19 20:38] VITALS: BMI 21.4
--- NOTE | 2021-02-19 20:48 | DR.CP ---
HPI Time Seen Time Seen by Provider: 02/19/21 20:33 HPI Comment HPI Comment: PATIENT WITH A HISTORY OF MYOCARDIAL INFARCTION IN JANUARY 2021, CONGESTIVE HEART FAILURE, NAUSEA, COMPLAINS DYSPNEA AT 6PM, ASSOCIATED WITH GENERALIZED WEAKNESS. DENIES RADIATION OF PAIN TO BACK. HAD EMESIS X 1 EPISODE. DENIES COUGH. Complaint Chief Complaint Doctor Comments: DYSPNEA,NAUSEA, HEART BURN, CHEST PAIN Chief Complaint:: NAUSEA, CHEST PAIN , DYSPNEA COVID-19 Coronavirus risk:travel/contact w/high risk person: No Has patient experienced Coronavirus symptoms: No Source History Provided: Patient Mode of Arrival Mode of Arrival: EMS Timing Came on: Suddenly Duration Duration: Constant How lon Duration: Days Location Location of Chest Pain: Left Chest Pain Radiation Location: None Context Onset: At rest Cardiac Risk Factors: HTN History of: Other (CONGESTIVE HEART FAILURE) Prehospital Care: Oxygen Quality Quality: Sharp Severity Severity: Moderate Modifying Factors Worsens: Movement Impoves: Nothing Associated Signs and Symptoms Associated Signs and Symptoms: None PMH PMH Past Medical History: Arthritis, CHF, Coronary Artery Disease, Dyslipidemia, GERD and Hypertension Past Surgical History: Yes Surgical History: Other Family History Family Medical History: Diabetes Mellitus, Cancer and Hypertension Social History Do you use any recreational Drugs:: No Travel Risk Coronavirus risk:travel/contact w/high risk person: No Has patient experienced Coronavirus symptoms: No ROS Review of Systems Constitutional: See HPI Eyes: No Symptoms Reported ENTM: No Symptoms Reported Respiratoy: Short of Breath Cardiovascular: Chest Pain Gastrointestinal/Abdominal: No Symptoms Reported Genitourinary: No Symptoms Reported Neurological: No Symptoms Reported Musculoskeletal: No Symptoms Reported Integumentary: No Symptoms Reported Hematologic/Lymphatic: No Symptoms Reported Endocrine: No Symptoms Reported Psychiatric: No Symptoms Reported All Other Systems: Reviewed and Negative PE Vitals Vitals: Temperature 97.8 F Pulse Rate 57 Respiratory Rate 18 Blood Pressure [Right Arm] 125/67 Blood Pressure 144/61 O2 Sat by Pulse Oximetry 100 General General Appearance: Alert and In No Apparent Distress Head Head Exam: Normal Inspection and Atraumatic Eyes Eye exam: Normal Appearance, PERRL and EOMI ENT ENT Exam: Normal Exam and Normal Oropharynx Chest Chest Inspection: Normal Inspection, Symmetric Chest Wall Rise and Tenderness (PARASTERNAL TENDERNESS 2ND TO 5TH ICS) Respiratory Respiratory Exam: Normal Lung Sounds Bilat Respiratory Exam: Bilateral: Clear to Auscultation Cardiovascular Cardiovascular Exam: Regular Rate and Normal Rhythm Pulse: Normal Abdominal Exam Abdominal Exam: Normal Inspection, Normal Bowel Sounds and Soft (NONTENDER) Back Back Exam: Normal Inspection and Full ROM Neurologic Neurological Exam: Alert and Oriented X3 Psychiatric Psychiatric Exam: Normal Affect, Normal Mood and Depressed MDM Differential Diagnosis Differential Diagnosis: Angina, Chest Wall Pain, Esophageal Reflux/Spasm and Gastritis COURSE Treatment Treatment: IV NORMAL SALINE 50ML/HR, ASPIRIN 324MG ORALLY. NTG 0.4MG SL, Reevaluation 1st: Improved Consultation Call Returned: 22:15 Consultation Comments: DISCUSSED WITH DR CELIS FOR INPATIENT ADMIT ROR Labs Reviewed Laboratory Results Reviewed?: Yes Result Diagrams: 02/19/21 21:11 02/19/21 21:11 Laboratory: WBC 5.9 X10^3/uL (3.6-10.0) 02/19/21 21:11 RBC 2.50 X10^6/uL (3.5-5.4) L 02/19/21 21:11 Hgb 7.8 g/dL (12.0-16.0) L 02/19/21 21:11 Hct 23.0 % (36.0-47.0) L 02/19/21 21:11 MCV 92.2 fL (80.0-100.0) 02/19/21 21:11 MCH 31.0 pg (27.0-34.0) 02/19/21 21:11 MCHC 33.7 g/dL (33.0-35.0) 02/19/21 21:11 RDW 15.6 % (11.6-16.5) 02/19/21 21:11 Plt Count 191 X10^3/uL (150.0-450.0) 02/19/21 21:11 MPV 7.3 fL (7.4-11.0) L 02/19/21 21:11 Neut % (Auto) 78.2 % (42.0-75.0) H 02/19/21 21:11 Lymph % (Auto) 10.1 % (21.0-51.0) L 02/19/21 21:11 [place] % (Auto) 9.8 % (0.0-13.0) 02/19/21 21:11 Eos % (Auto) 1.6 % (0.9-2.9) 02/19/21 21:11 Baso % (Auto) 0.3 % (0.2-1.0) 02/19/21 21:11 Neut # (Auto) 4.7 x10^3/uL (2.2-4.8) 02/19/21 21:11 Lymph # (Auto) 0.6 X10^3/uL (1.3-2.9) L 02/19/21 21:11 [place] # (Auto) 0.6 x10^3/uL (0.3-0.8) 02/19/21 21:11 Eos # (Auto) 0.1 x10^3/uL (0.0-0.2) 02/19/21 21:11 Baso # (Auto) 0.0 X10^3/uL (0.0-0.1) 02/19/21 21:11 Absolute Nucleated RBC 0.0 /100WBC 02/19/21 21:11 PT 16.1 SECONDS (11.8-14.3) 02/19/21 21:11 INR Target Range - 02/19/21 21:11 INR 1.36 (0.8-1.3) H 02/19/21 21:11 Sodium 142 mmol/L (136-145) 02/19/21 21:11 Corrected Sodium 143 mmol/L (136-145) 02/19/21 21:11 Potassium 3.5 mmol/L (3.5-5.1) 02/19/21 21:11 Chloride 105 mmol/L (98-107) 02/19/21 21:11 Carbon Dioxide 25.0 mmol/L (21-32) 02/19/21 21:11 BUN 29 mg/dL (7-18) H 02/19/21 21:11 Creatinine 1.20 mg/dL (0.55-1.02) H 02/19/21 21:11 Est GFR (MDRD) Af Amer 55 (>60) L 02/19/21 21:11 Est GFR (MDRD) Non-Af 45 (>60) L 02/19/21 21:11 Glucose 139 mg/dL (65-99) H 02/19/21 21:11 Calcium 8.6 mg/dL (8.5-10.1) 02/19/21 21:11 Troponin I 0.02 ng/mL (0-1.5) 02/19/21 21:11 B-Natriuretic Peptide 699 pg/mL (0-79) H* 02/19/21 21:11 SARS-CoV-2 (PCR) Negative (NEGATIVE) 02/19/21 22:30 Influenza Type A (PCR) Negative (NEGATIVE) 02/19/21 22:30 Influenza Type B (PCR) Negative (NEGATIVE) 02/19/21 22:30 RSV (PCR) Negative (NEGATIVE) 02/19/21 22:30 Blood Type O POSITIVE 02/19/21 21:15 Antibody Screen Negative 02/19/21 21:15 Crossmatch See Detail 02/19/21 21:15 XRAY X-ray Results: PORTABLE CHEST XRAY - NO ACUTE PROCESS, MARKED HIATAL HERNIA EKG Rate: 63 [place]: Normal Block: IVCD ST: Nonsp Opioid Opioid Risk Tool Age (Anupam box if 16-45): No History of Preadolescent Sexual Abuse: No Total: 0 Total Score Risk Category: Low Risk Copyright: Jimmie EVANS predicting aberrant behaviors Diagnosis Discharge Problem: Acute chest pain, Symptomatic anemia
[2021-02-19] MEDS ORDERED: NS 500 ML IV 500 ML IV STA (20:50)
[2021-02-19] MEDS ORDERED: ASPIRIN 81 MG CHEWTAB PO STA (20:54)
[2021-02-19] MEDS ORDERED: NITROSTAT SL PRN (20:54)
[2021-02-19] MEDS ORDERED: ASPIRIN 81 MG CHEWTAB ONE (21:07)
[2021-02-19] MEDS ORDERED: NS 500 ML IV 500 ML IV ONE (21:07)
[2021-02-19 21:19] LABS: BASOPHILS % (AUTO) 0.3 % (0.2-1.0); EOSINOPHILS # (AUTO) 0.1 x10^3/uL (0.0-0.2); EOSINOPHILS % (AUTO) 1.6 % (0.9-2.9); HEMOGLOBIN 7.8 g/dL (12.0-16.0); LYMPHOCYTES # (AUTO) 0.6 X10^3/uL (1.3-2.9); LYMPHOCYTES % (AUTO) 10.1 % (21.0-51.0); MEAN CORPUSCULAR HGB CONC 33.7 g/dL (33.0-35.0); MEAN CORPUSCULAR VOLUME 92.2 fL (80.0-100.0); MEAN PLATELET VOLUME 7.3 fL (7.4-11.0); MONOCYTES # (AUTO) 0.6 x10^3/uL (0.3-0.8); MONOCYTES % (AUTO) 9.8 % (0.0-13.0); NEUTROPHILS # (AUTO) 4.7 x10^3/uL (2.2-4.8); NEUTROPHILS % (AUTO) 78.2 % (42.0-75.0); PLATELET COUNT 191 X10^3/uL (150.0-450.0); RED CELL DISTRIBUTION WIDTH 15.6 % (11.6-16.5); WHITE BLOOD COUNT 5.9 X10^3/uL (3.6-10.0)
[2021-02-19 21:27] LABS: CALCIUM 8.6 mg/dL (8.5-10.1); CREATININE 1.2 mg/dL (0.55-1.02)
[2021-02-19 21:38] LABS: TROPONIN I 0.02 ng/mL (0-1.5)
--- NOTE | 2021-02-19 22:00 | RAD ---
STUDY: FRONTAL VIEW CHESTCOMPARISON: January 17, 2021HISTORY: SOB, CHEST PAINS, NAUSEAFINDINGS:Again noted is a large hiatal hernia.No focal consolidation is seen.The heart size is magnified on this portable technique and without radiographic evidence of pulmonary edema.The mediastinum is unremarkable.There is no evidence of pleural effusion or gross pneumothorax.The trachea is midline.IMPRESSION:1. No focal consolidation is seen.Electronically signed by: Caleb Jackson (Feb 19, 2021 21:57:24)
[2021-02-20] MEDS ORDERED: NS 1000 ML 1,000 ML IV SCH (01:07)
[2021-02-20] MEDS ORDERED: NS 250 ML IV 250 ML IV ONE (01:56)
[2021-02-20 06:25] LABS: HEMATOCRIT 24.5 % (36.0-47.0); HEMOGLOBIN 8.4 g/dL (12.0-16.0)
[2021-02-20] MEDS ORDERED: LASIX ONE ×2 (06:57→09:05)
[2021-02-20] MEDS: LASIX IVP ONE ×2 (06:59→08:54)
[2021-02-20] MEDS ORDERED: PLAVIX PO SCH (09:00)
[2021-02-20] MEDS ORDERED: PANTOPRAZOLE 20 MG PO SCH (09:00)
[2021-02-20] MEDS ORDERED: TOPROL XL PO SCH (09:00)
[2021-02-20] MEDS ORDERED: PROTONIX TAB 40 MG PO SCH (09:00)
[2021-02-20] MEDS ORDERED: ELIQUIS PO SCH (09:00)
[2021-02-20] MEDS ORDERED: [UNRECOGNIZED DRUG - OTHER] PO SCH (09:00)
[2021-02-20] MEDS ORDERED: SINGULAIR TAB 10 MG PO SCH (09:00)
[2021-02-20] MEDS ORDERED: LASIX PO SCH (09:00)
[2021-02-20] MEDS ORDERED: LANOXIN or DIGITEK PO SCH (09:00)
[2021-02-20] MEDS ORDERED: ALDACTONE TAB 25 MG PO SCH (09:00)
[2021-02-20] MEDS ORDERED: PROTONIX TAB 40 MG PO ONE (09:05)
[2021-02-20] MEDS ORDERED: PLAVIX ONE (09:05)
[2021-02-20] MEDS ORDERED: ELIQUIS ONE (09:06)
[2021-02-20] MEDS ORDERED: NS 500 ML IV 500 ML IV ONE (12:25)
[2021-02-20] MEDS ORDERED: TYLENOL 325 MG TAB PO ONE ×2 (12:28→12:31)
[2021-02-20] MEDS ORDERED: BENADRYL INJ 50 MG VIAL IV ONE (12:28)
[2021-02-20] MEDS ORDERED: BENADRYL INJ 50 MG VIAL ONE (12:31)
[2021-02-20 16:16] VITALS: BP 131/59
[2021-02-20] MEDS ORDERED: ZOCOR TAB 40 MG PO SCH (21:00)
== END 2021-02-20 17:51 | disposition home or self-care (01) ==
LOC: ER 20:01 → OBS 02-20 01:50 → INTOOBSV 02-20 01:50 → OBS 02-20 02:00
PROVIDERS: ADMIT Obstetrics & Gynecology Obstetrics; ATTEND Internal Medicine
DX: D64.89 Other specified anemias; E78.2 Mixed hyperlipidemia; R06.02 Shortness of breath; K21.9 Gastro-esophageal reflux disease without esophagitis; R79.1 Abnormal coagulation profile; R94.31 Abnormal electrocardiogram [ECG] [EKG]; I21.9 Acute myocardial infarction, unspecified; I25.10 Atherosclerotic heart disease of native coronary artery without angina pectoris; I10 Essential (primary) hypertension

== ENCOUNTER 2021-03-09 21:18 | Inpatient (IN) ==
[2021-03-09] MEDS ORDERED: NS 1000 ML 1,000 ML IV ONE (21:28)
[2021-03-09 21:29] VITALS: BMI 21.6
[2021-03-09] MEDS ORDERED: ZOFRAN INJ 4 MG VIAL IVP ONE ×2 (21:31→22:38)
--- NOTE | 2021-03-09 21:34 | DR.GENAD ---
HPI Time Seen Time Seen by Provider: 03/09/21 21:28 PCP Primary Care Physician: KWAKU Complaint/Symptoms Chief Complaint:: PT STATES" I'M JUST NOT GETTING OVER THIS MESS I'M STILL WEAK AND NAUSEAOUS " Nurses notes reviewed Nurses Notes Review: Yes Source History Provided: Patient Mode of Arrival Mode of Arrival: Ambulatory Timing Onset of Chief Complaint: 02/20/21 PMH PMH Past Medical History: Yes Past Medical History: Arthritis, CHF, Coronary Artery Disease, Dyslipidemia, GERD and Hypertension Past Surgical History: Yes Surgical History: Other Family History History of Family Medical Conditions: Yes Family Medical History: Diabetes Mellitus, Cancer and Hypertension Social History Does any household member use tobacco: No Alcohol Use: None Do you use any recreational Drugs:: No Lives With: Family Lives Where: Home Infectious screening In the last 2 months have you had wt loss of >10#?: NO Have you had fever, night sweats or hemotysis?: No Have you traveled outside the country in the last 6 months?: No Isolation: Standard ROS Review of Systems Constitutional: No Symptoms Reported, See HPI, Malaise and Fatigue Eyes: No Symptoms Reported ENTM: No Symptoms Reported Respiratoy: No Symptoms Reported Cardiovascular: No Symptoms Reported Gastrointestinal/Abdominal: Nausea Genitourinary: No Symptoms Reported Neurological: No Symptoms Reported Musculoskeletal: No Symptoms Reported Integumentary: No Symptoms Reported Hematologic/Lymphatic: No Symptoms Reported Endocrine: No Symptoms Reported Psychiatric: No Symptoms Reported All Other Systems: Reviewed and Negative PE Vital Signs Vitals: Temperature 99.8 F Pulse Rate 81 Respiratory Rate 20 Blood Pressure [Right Arm] 131/59 Blood Pressure 120/56 O2 Sat by Pulse Oximetry 100 General Limitations: No Limitations General Appearance: Alert and In No Apparent Distress Head Head Exam: Normal Inspection Eyes Eye exam: Normal Appearance ENT ENT Exam: Normal Exam and Mucous Membranes Moist External Ear Exam: Normal External Inspection TM/Canal Exam: Bilateral: Normal Nose Exam: Normal Nose Exam Mouth Exam: Normal Inspection Throat Exam: Normal Inspection Neck Neck Exam: Normal Inspection Chest Chest Inspection: Normal Inspection Respiratory Respiratory Exam: Normal Lung Sounds Bilat Respiratory Exam: Bilateral: Clear to Auscultation Cardiovascular Cardiovascular Exam: Regular Rate and Normal Rhythm Abdominal Exam Abdominal Exam: Normal Inspection, Normal Bowel Sounds and Soft Extremities Extremities Exam: Normal Inspection Back Back Exam: Normal Inspection Neurologic Neurological Exam: Alert and Oriented X3 Psychiatric Psychiatric Exam: Normal Affect and Normal Mood Skin Skin Exam: Warm, Dry, Intact and Normal Color MDM Additional Information Additional Information Obtained From: Old Records Differential Diagnosis Differential Diagnosis: anemia, long haul covid, dehydration COURSE Treatment Treatment: vitals stable, on home O2, will check basic labs, xray, IVFs, zofran Reevaluation 1st: Unchanged (low hgb, will admit for transfusion, stop IVFs, got about 500 total spoke to Kwaku will admit) 2nd: Unchanged (pt had some chest pressure, EKG ok, no STEMI, will give morphine and zofran, will transfuse) Critical Care Notes Total Time (mins): 35 Critical Diagnosis: anemia, chest pain ROR Labs Reviewed Laboratory Results Reviewed?: Yes Result Diagrams: 03/09/21 21:45 03/09/21 21:45 Laboratory: WBC 8.6 X10^3/uL (3.6-10.0) 03/09/21 21:45 RBC 1.97 X10^6/uL (3.5-5.4) L 03/09/21 21:45 Hgb 6.0 g/dL (12.0-16.0) L* 03/09/21 21:45 Hct 17.7 % (36.0-47.0) L* 03/09/21 21:45 MCV 89.7 fL (80.0-100.0) 03/09/21 21:45 MCH 30.6 pg (27.0-34.0) 03/09/21 21:45 MCHC 34.1 g/dL (33.0-35.0) 03/09/21 21:45 RDW 16.7 % (11.6-16.5) H 03/09/21 21:45 Plt Count 162 X10^3/uL (150.0-450.0) 03/09/21 21:45 MPV 8.3 fL (7.4-11.0) 03/09/21 21:45 Neut % (Auto) 84.4 % (42.0-75.0) H 03/09/21 21:45 Lymph % (Auto) 5.8 % (21.0-51.0) L 03/09/21 21:45 [place] % (Auto) 9.5 % (0.0-13.0) 03/09/21 21:45 Eos % (Auto) 0.0 % (0.9-2.9) L 03/09/21 21:45 Baso % (Auto) 0.3 % (0.2-1.0) 03/09/21 21:45 Neut # (Auto) 7.3 x10^3/uL (2.2-4.8) H 03/09/21 21:45 Lymph # (Auto) 0.5 X10^3/uL (1.3-2.9) L 03/09/21 21:45 [place] # (Auto) 0.8 x10^3/uL (0.3-0.8) 03/09/21 21:45 Eos # (Auto) 0.0 x10^3/uL (0.0-0.2) 03/09/21 21:45 Baso # (Auto) 0.0 X10^3/uL (0.0-0.1) 03/09/21 21:45 Absolute Nucleated RBC 0.0 /100WBC 03/09/21 21:45 Sodium 143 mmol/L (136-145) 03/09/21 21:45 Corrected Sodium 144 mmol/L (136-145) 03/09/21 21:45 Potassium 3.2 mmol/L (3.5-5.1) L 03/09/21 21:45 Chloride 104 mmol/L (98-107) 03/09/21 21:45 Carbon Dioxide 32.2 mmol/L (21-32) H 03/09/21 21:45 BUN 39 mg/dL (7-18) H 03/09/21 21:45 Creatinine 1.07 mg/dL (0.55-1.02) H 03/09/21 21:45 Est GFR (MDRD) Af Amer > 60 (>60) 03/09/21 21:45 Est GFR (MDRD) Non-Af 52 (>60) L 03/09/21 21:45 Glucose 136 mg/dL (65-99) H 03/09/21 21:45 Calcium 7.4 mg/dL (8.5-10.1) L 03/09/21 21:45 Corrected Calcium 8.5 mg/dL (8.5-10.1) 03/09/21 21:45 Magnesium 1.6 mg/dL (1.7-2.9) L 03/09/21 21:45 Total Bilirubin 0.30 mg/dL (0.2-1.0) 03/09/21 21:45 AST 16 Units/L (15-37) 03/09/21 21:45 ALT 12 Units/L (12-78) 03/09/21 21:45 Alkaline Phosphatase 48 Units/L (46-116) 03/09/21 21:45 Creatine Kinase 39 Units/L (26-192) 03/09/21 21:45 CK-MB (CK-2) 1.3 ng/mL (0-4.0) 03/09/21 21:45 CK/CKMB % Calc 3.3 % (<4) 03/09/21 21:45 Troponin I 0.56 ng/mL (0-1.5) 03/09/21 21:45 B-Natriuretic Peptide 650 pg/mL (0-79) H* 03/09/21 21:45 Total Protein 5.7 g/dL (6.4-8.2) L 03/09/21 21:45 Albumin 2.6 g/dL (3.4-5.0) L 03/09/21 21:45 Globulin 3.1 g/dL (2.5-4.5) 03/09/21 21:45 Albumin/Globulin Ratio 0.8 Ratio (1.1-2.1) L 03/09/21 21:45 XRAY XRAY Interpreted by: Radiologist X-ray Results: MPRESSION No imaging findings of acute cardiopulmonary disease or significant changes. EKG Rate: 90 Rhythm: NSR Block: 1 Hypertrophy: LVH ST: Nonsp Opioid Opioid Risk Tool Age (Anupam box if 16-45): No History of Preadolescent Sexual Abuse: No Total: 0 Total Score Risk Category: Low Risk Copyright: Jimmie EVANS predicting aberrant behaviors Diagnosis Discharge Problem: Weakness, COVID-19 long hauler Anemia Qualifiers: Anemia type: unspecified type Qualified Code(s): D64.9 - Anemia, unspecified Chest pain Qualifiers: Chest pain type: unspecified Qualified Code(s): R07.9 - Chest pain, unspecified
[2021-03-09] MEDS ORDERED: NS 1000 ML 1,000 ML ONE (21:39)
[2021-03-09] MEDS ORDERED: ZOFRAN INJ 4 MG VIAL ONE (21:39)
[2021-03-09 21:54] LABS: LYMPHOCYTES # (AUTO) 0.5 X10^3/uL (1.3-2.9); MEAN CORPUSCULAR HEMOGLOBIN 30.6 pg (27.0-34.0); MONOCYTES # (AUTO) 0.8 x10^3/uL (0.3-0.8); MONOCYTES % (AUTO) 9.5 % (0.0-13.0); NEUTROPHILS # (AUTO) 7.3 x10^3/uL (2.2-4.8); RED BLOOD COUNT 1.97 X10^6/uL (3.5-5.4); WHITE BLOOD COUNT 8.6 X10^3/uL (3.6-10.0)
[2021-03-09 21:58] LABS: BASOPHILS % (AUTO) 0.3 % (0.2-1.0); LYMPHOCYTES % (AUTO) 5.8 % (21.0-51.0); MEAN CORPUSCULAR HGB CONC 34.1 g/dL (33.0-35.0); MEAN CORPUSCULAR VOLUME 89.7 fL (80.0-100.0); MEAN PLATELET VOLUME 8.3 fL (7.4-11.0); NEUTROPHILS % (AUTO) 84.4 % (42.0-75.0); PLATELET COUNT 162 X10^3/uL (150.0-450.0); RED CELL DISTRIBUTION WIDTH 16.7 % (11.6-16.5)
--- NOTE | 2021-03-09 22:22 | RAD ---
HISTORYSOBSTUDYCHEST, 1 VIEWCOMPARISONNone availableTECHNIQUEChest radiographic imaging, AP portable projection, 1 imageFINDINGSMild cardiomegaly.Large hiatal hernia.No focal airspace disease.No pleural effusion.No pneumothorax.No acute osseous abnormality.IMPRESSIONNo imaging findings of acute cardiopulmonary disease or significant changes.Electronically signed by: Vitor Ramirez (Mar 09, 2021 22:20:56)
[2021-03-09 22:24] LABS: ALANINE AMINOTRANSFERASE 12 Units/L (12-78); ALBUMIN 2.6 g/dL (3.4-5.0); ALKALINE PHOSPHATASE 48 Units/L (46-116); ASPARTATE AMINO TRANSFERASE 16 Units/L (15-37); BLOOD UREA NITROGEN 39 mg/dL (7-18); CALCIUM 7.4 mg/dL (8.5-10.1); CARBON DIOXIDE 32.2 mmol/L (21-32); CHLORIDE 104 mmol/L (98-107); CKMB % 3.3 % (<4); COR CA(FOR HYPOALB) 8.5 mg/dL (8.5-10.1); COR NA(FOR HYPERGLY) 144 mmol/L (136-145); CREATINE KINASE 39 Units/L (26-192); CREATINE KINASE MB 1.3 ng/mL (0-4.0); CREATININE 1.07 mg/dL (0.55-1.02); MAGNESIUM 1.6 mg/dL (1.7-2.9); SODIUM 143 mmol/L (136-145); TOTAL PROTEIN 5.7 g/dL (6.4-8.2); TROPONIN I 0.56 ng/mL (0-1.5); eGFR NON BLACK RACES 52 (>60)
[2021-03-09] MEDS ORDERED: MORPHINE SULFATE INJ 2 MG INJ ONE (23:48)
[2021-03-09] MEDS: MORPHINE SULFATE INJ 2 MG INJ IVP PRN ×2 (23:55→23:56)
[2021-03-10] MEDS ORDERED: MICRO K EXTEN CAP 10 MEQ PO PRN (00:44)
[2021-03-10] MEDS ORDERED: POTASSIUM CHLORIDE LIQ 20 MEQ UDC PO PRN (00:44)
[2021-03-10] MEDS ORDERED: K-RIDER 10 MEQ/NS 100 ML 10 MEQ/100 ML BAG IV PRN (00:44)
[2021-03-10] MEDS ORDERED: K-DUR TAB 20 MEQ PO PRN (00:44)
[2021-03-10] MEDS ORDERED: POTASSIUM CHL 40 MEQ/NS 0.45% 500 ML IV PRN (00:44)
[2021-03-10] MEDS ORDERED: POTASSIUM CHL 60 MEQ/NS 0.45% 500 ML IV PRN (00:44)
[2021-03-10] MEDS ORDERED: KLOR-CON PO PRN (00:44)
[2021-03-10 01:33] LABS: CKMB % 5.5 % (<4); CREATINE KINASE MB 2.9 ng/mL (0-4.0); MAGNESIUM 1.5 mg/dL (1.7-2.9); TROPONIN I 0.93 ng/mL (0-1.5)
[2021-03-10] MEDS ORDERED: TYLENOL 325 MG TAB PO ONE ×4 (04:35→13:19)
[2021-03-10] MEDS ORDERED: BENADRYL INJ 50 MG VIAL IVP ONE (04:36)
[2021-03-10] MEDS ORDERED: NS 250 ML IV 250 ML IV ONE (05:14)
[2021-03-10 08:02] LABS: CKMB % 10.5 % (<4)
[2021-03-10 08:22] LABS: CREATINE KINASE MB 17.9 ng/mL (0-4.0)
[2021-03-10 08:23] LABS: TROPONIN I 6.14 ng/mL (0-1.5)
[2021-03-10] MEDS ORDERED: ALDACTONE TAB 25 MG PO SCH (09:00)
[2021-03-10] MEDS ORDERED: LASIX PO SCH (09:00)
[2021-03-10] MEDS ORDERED: ASPIRIN PO SCH (10:00)
[2021-03-10] MEDS ORDERED: ASPIRIN ONE (10:03)
[2021-03-10] MEDS ORDERED: LASIX ONE (10:03)
[2021-03-10] MEDS: ALLEGRA PO SCH (10:09)
[2021-03-10] MEDS ORDERED: HEPARIN SODIUM INJ 5000 UNITS ONE (10:12)
[2021-03-10] MEDS ORDERED: HEPARIN SODIUM IN D5W 25,000 UNITS/500 ML BAG ONE (10:13)
[2021-03-10] MEDS ORDERED: HEPARIN SODIUM INJ 5000 UNITS IVP ONE (10:42)
[2021-03-10] MEDS ORDERED: MAGNESIUM SULFATE 1 GRAM/100 mL PREMIX 1 GM/100 ML BAG IV ONE (11:36)
[2021-03-10] MEDS: HEPARIN SODIUM IN D5W 25,000 UNITS/500 ML BAG IV PRN (11:45)
[2021-03-10 11:51] LABS: BILIRUBIN,URINE NEGATIVE (NEGATIVE); BLOOD/HEMOGLOBIN,URINE 5+ (NEGATIVE); GLUCOSE, URINE NEGATIVE (NEGATIVE); KETONES,URINE NEGATIVE (NEGATIVE); LEUKOCYTE ESTERASE ,URINE 3+ (NEGATIVE); NITRITES,URINE POSITIVE (NEGATIVE); PROTEIN,URINE 2+ (NEGATIVE); UROBILINOGEN,URINE NORMAL (NORMAL)
[2021-03-10 12:07] LABS: APPEARANCE,URINE CLOUDY (CLEAR); COLOR,URINE YELLOW (YELLOW)
[2021-03-10 12:08] LABS: BACTERIA,URINE 2+ /HPF (NEGATIVE); RBC,URINE TNTC /HPF (0-3); SQUAMOUS EPITHELIAL CELL,UR FEW /HPF (NEGATIVE)
[2021-03-10] MEDS ORDERED: ZOFRAN INJ 4 MG VIAL ONE (12:36)
[2021-03-10 12:40] LABS: CKMB % 6.3 % (<4)
[2021-03-10 12:47] LABS: CREATINE KINASE MB 21.6 ng/mL (0-4.0); TROPONIN I 9.43 ng/mL (0-1.5)
[2021-03-10 13:52] LABS: HEMATOCRIT 24.8 % (36.0-47.0)
[2021-03-10 13:52] LABS: HEMATOCRIT 17.7 % (36.0-47.0)
[2021-03-10 14:01] LABS: HEMOGLOBIN 8.5 g/dL (12.0-16.0)
--- NOTE | 2021-03-10 15:01 | RAD ---
HISTORYFever, shortness of breathSTUDYChest PA and [id number]/02/2021FINDINGSHeart is enlarged. No congestive heart failure is noted. Lungs are well inflated. No acute alveolar infiltrates are identified. No pleural effusions are identified. There is a large hiatal hernia present. Bony thorax is unremarkable.IMPRESSIONPreviously without congestive heart failureNo acute infiltratesLarge hiatal herniaElectronically signed by: ALBERT THOMAS (Mar 10, 2021 14:59:34)
[2021-03-10] MEDS ORDERED: MAGNESIUM SULFATE 1 GRAM/100 mL PREMIX 1 G/100 ML BAG IV ONE (15:34)
[2021-03-10] MEDS ORDERED: PROTONIX INJ 40 MG VIAL ONE ×2 (15:36→20:26)
[2021-03-10] MEDS: PROTONIX INJ 40 MG VIAL IVP SCH ×2 (15:42→21:05)
--- NOTE | 2021-03-10 16:25 | DR.H&P ---
H&P History & Physical for Day of: H&P Date: 03/10/21 Chief Complaint Chief Complaint: generalized weakness and SOB Allergies Allergies Allergy/AdvReac Type Severity Reaction Status Date / Time codeine Allergy Verified 10/05/17 08:34 lorazepam [From Ativan] AdvReac Verified 01/14/20 23:53 History of Present Illness History of Present Illness: Ms Butt is a 86y/o female with a PMH of anemia, CHF, CAD, HTN and atrial fibrillation presented with generalized weakness, sob and chest pain. Patient has had recurrent admissions for similar Sx requiring blood transfusions. She was admitted in January for NSTEMI and sees Dr. Jennings outpatient. Patient denies active bleeding or melena. Patient states she is scheduled to see GI outpatient. She has had prior anemia work up but unclear why she continues to be anemic. Patient does take Eliquis. Er work-up -Labs: Hgb 6 WBC 8.6 Plt 162 Na: 143 K: 3.2 Mg 1.5 BUN/Cr 39/1.07 BNP 650 - Trop: 0.04, 0.56, 0.93 - COVID-19 (-) - CXR: no acute process Patient was started on blood transfusion, currently completed 1 unit. After rounds, patient's troponin came up to 6.14. EKG did not show any ST changes. Patient was started on heparin drip. Dr. Basurto at [facility] was contacted and reviewed patient's EKG/labs. Patient's troponin elevation likely related to Type 2 NSTEMI due to anemia, supply-demand mismatch. He recommended patient have further anemia work up including EGD/colonoscopy to further correct anemia. He advised to continue heparin drip. If patient's condition does change then to contact him again. He did not recommend any intervention at this time. Patient denies chest pain at this time. Plan: continue to monitor patient on telemetry. Repeat H/H after transfusion, monitor H/H closely. Will check anemia panel, FOBT. Add protonix 40 mg IV BID. Trend cardiac profile. Echo ordered. Continue asa. Resume home medications. Wean O2 as tolerated, currently on 2L NC. Repeat K and Mag as per protocol. F/U H/H and troponin at 6 pm. Continue pain control with morphine. Monitor AM labs/imaging. Time spent for clinical assessment, reviewing labs/imaging, physical exam, decision making and documentation greater than 75 mins. Past Medical History Past Medical History: Anemia, Arthritis, CHF, Coronary Artery Disease, Dyslipidemia, GERD and Hypertension Additional Medical History: Cataracts, Diverticulosis, Previous Blood Transfusion Atrial fibrillation Past Surgical History Surgical History: Other Additional Surgical History: CATARACTS SURGERY Family History Family Medical History: Hypertension Social History Does patient currently use any type of tobacco product: No Does any household member use tobacco: No Alcohol Use: None Prescription drug monitoring program results: PDMP reviewed and no concerns identified Medications Home Medications: codeine Allergy (Verified 10/05/17 08:34) lorazepam [From Ativan] Adverse Reaction (Verified 01/14/20 23:53) CONTINUE taking the following medications apixaban [Eliquis] 5 mg PO BID 03/10/21 [History] cetirizine 10 mg PO DAILY 03/10/21 [History] cyanocobalamin (vitamin B-12) 1,000 mcg IM WEEKLY 03/10/21 [History] digoxin 125 mcg PO DAILY 03/10/21 [History] ondansetron HCl 4 mg PO Q4H PRN 03/10/21 [History] pantoprazole 20 mg PO DAILY 03/10/21 [History] simvastatin 40 mg PO DAILY 03/10/21 [History] Labs Result Diagrams: 03/10/21 13:16 03/09/21 21:45 Labs: Laboratory WBC 8.6 X10^3/uL (3.6-10.0) 03/09/21 21:45 RBC 1.97 X10^6/uL (3.5-5.4) L 03/09/21 21:45 Hgb 8.5 g/dL (12.0-16.0) L D 03/10/21 13:16 Hct 24.8 % (36.0-47.0) L 03/10/21 13:16 MCV 89.7 fL (80.0-100.0) 03/09/21 21:45 MCH 30.6 pg (27.0-34.0) 03/09/21 21:45 MCHC 34.1 g/dL (33.0-35.0) 03/09/21 21:45 RDW 16.7 % (11.6-16.5) H 03/09/21 21:45 Plt Count 162 X10^3/uL (150.0-450.0) 03/09/21 21:45 MPV 8.3 fL (7.4-11.0) 03/09/21 21:45 Neut % (Auto) 84.4 % (42.0-75.0) H 03/09/21 21:45 Lymph % (Auto) 5.8 % (21.0-51.0) L 03/09/21 21:45 [place] % (Auto) 9.5 % (0.0-13.0) 03/09/21 21:45 Eos % (Auto) 0.0 % (0.9-2.9) L 03/09/21 21:45 Baso % (Auto) 0.3 % (0.2-1.0) 03/09/21 21:45 Neut # (Auto) 7.3 x10^3/uL (2.2-4.8) H 03/09/21 21:45 Lymph # (Auto) 0.5 X10^3/uL (1.3-2.9) L 03/09/21 21:45 [place] # (Auto) 0.8 x10^3/uL (0.3-0.8) 03/09/21 21:45 Eos # (Auto) 0.0 x10^3/uL (0.0-0.2) 03/09/21 21:45 Baso # (Auto) 0.0 X10^3/uL (0.0-0.1) 03/09/21 21:45 Absolute Nucleated RBC 0.0 /100WBC 03/09/21 21:45 PT 22.4 SECONDS (11.8-14.3) 03/10/21 09:42 INR Target Range - 03/10/21 09:42 INR 2.08 (0.8-1.3) H 03/10/21 09:42 APTT 42.6 SECONDS (22.9-36.5) H 03/10/21 09:42 PTT Comment - 03/10/21 09:42 Sodium 143 mmol/L (136-145) 03/09/21 21:45 Corrected Sodium 144 mmol/L (136-145) 03/09/21 21:45 Potassium 3.2 mmol/L (3.5-5.1) L 03/09/21 21:45 Chloride 104 mmol/L (98-107) 03/09/21 21:45 Carbon Dioxide 32.2 mmol/L (21-32) H 03/09/21 21:45 BUN 39 mg/dL (7-18) H 03/09/21 21:45 Creatinine 1.07 mg/dL (0.55-1.02) H 03/09/21 21:45 Est GFR (MDRD) Af Amer > 60 (>60) 03/09/21 21:45 Est GFR (MDRD) Non-Af 52 (>60) L 03/09/21 21:45 Glucose 136 mg/dL (65-99) H 03/09/21 21:45 Calcium 7.4 mg/dL (8.5-10.1) L 03/09/21 21:45 Corrected Calcium 8.5 mg/dL (8.5-10.1) 03/09/21 21:45 Magnesium 1.5 mg/dL (1.7-2.9) L 03/10/21 01:05 Total Bilirubin 0.30 mg/dL (0.2-1.0) 03/09/21 21:45 AST 16 Units/L (15-37) 03/09/21 21:45 ALT 12 Units/L (12-78) 03/09/21 21:45 Alkaline Phosphatase 48 Units/L (46-116) 03/09/21 21:45 Creatine Kinase 343 Units/L (26-192) H 03/10/21 11:54 CK-MB (CK-2) 21.6 ng/mL (0-4.0) H* 03/10/21 11:54 CK/CKMB % Calc 6.3 % (<4) 03/10/21 11:54 Troponin I 9.43 ng/mL (0-1.5) H* 03/10/21 11:54 B-Natriuretic Peptide 650 pg/mL (0-79) H* 03/09/21 21:45 Total Protein 5.7 g/dL (6.4-8.2) L 03/09/21 21:45 Albumin 2.6 g/dL (3.4-5.0) L 03/09/21 21:45 Globulin 3.1 g/dL (2.5-4.5) 03/09/21 21:45 Albumin/Globulin Ratio 0.8 Ratio (1.1-2.1) L 03/09/21 21:45 Specimen Type Random urine 03/10/21 11:35 Urine Color Yellow (YELLOW) 03/10/21 11:35 Urine Appearance Cloudy (CLEAR) 03/10/21 11:35 Urine pH 6.0 (5.0 - 8.0) 03/10/21 11:35 Ur Specific [place] 1.015 (1.000-1.030) 03/10/21 11:35 Urine Protein 2+ (NEGATIVE) 03/10/21 11:35 Urine Glucose (UA) Negative (NEGATIVE) 03/10/21 11:35 Urine Ketones Negative (NEGATIVE) 03/10/21 11:35 Urine Occult Blood 5+ (NEGATIVE) 03/10/21 11:35 Urine Nitrite Positive (NEGATIVE) 03/10/21 11:35 Urine Bilirubin Negative (NEGATIVE) 03/10/21 11:35 Urine Urobilinogen Normal (NORMAL) 03/10/21 11:35 Ur Leukocyte Esterase 3+ (NEGATIVE) 03/10/21 11:35 Urine RBC Tntc /HPF (0-3) A 03/10/21 11:35 Urine WBC Tntc /HPF (0-5) A 03/10/21 11:35 Ur Squamous Epith Cells Few /HPF (NEGATIVE) 03/10/21 11:35 Urine Bacteria 2+ /HPF (NEGATIVE) 03/10/21 11:35 Ur Culture Indicated? No/not indicated 03/10/21 11:35 Stool Description Fob tube 03/10/21 13:32 Stl Occult Blood (IFOB) Positive (NEGATIVE) A 03/10/21 13:32 SARS CoV-2 RNA Rapid KAREN Negative (NEGATIVE) 03/10/21 01:00 Blood Type O POSITIVE 03/09/21 22:31 Antibody Screen Negative 03/09/21 22:31 Crossmatch See Detail 03/09/21 22:31 Review of Systems Constitutional: Weakness and Malaise Eyes: No Symptoms Reported ENT: No Symptoms Reported Respiratory: Shortness of Breath and SOB with Excertion Cardiovascular: Chest Pain Gastrointestinal: Nausea Genitourinary: No Symptoms Reported Musculoskeletal: No Symptoms Reported Skin: No Symptoms Reported Neurological: No Symptoms Reported Physical Exam Vital Signs: Temperature 98.1 F Pulse Rate [Left] 69 Pulse Rate 81 Respiratory Rate 22 Blood Pressure [Right Arm] 99/54 Blood Pressure 120/56 O2 Sat by Pulse Oximetry 100 Oriented: Normal Eyes: Normal Ear: Normal Nose: Normal Throat: Dry Respiratory: Diminished Throughout Cardiovascular: Normal Auscultation: Bowel Sounds: Normal Palpation: Normal Tenderness: Normal Skin: Decreased [place] Musculoskeletal: Normal Psychiatric: Normal Mood Description: Calm Affect: Normal Speech Pattern: Clear and Appropriate Assessment/Plan (1) Non-ST elevated myocardial infarction: Status: Acute (2) Chest pain, rule out acute myocardial infarction: Status: Acute (3) Symptomatic anemia: Status: Acute (4) Weakness: Status: Acute (5) Acute respiratory insufficiency: Status: Acute (6) CHF (congestive heart failure): Qualifiers: Heart failure chronicity: acute on chronic Heart failure type: combined systolic and diastolic Qualified Code(s): I50.43 - Acute on chronic combined systolic (congestive) and diastolic (congestive) heart failure Status: Acute (7) Hypokalemia: Status: Acute (8) Hypomagnesemia: Status: Acute (9) CAD (coronary artery disease): Qualifiers: Associated angina: without angina Coronary Disease-Associated Artery/Lesion type: unspecified vessel or lesion type [place] vs. transplanted heart: [place] heart Qualified Code(s): I25.10 - Atherosclerotic heart disease of [place] coronary artery without angina pectoris Status: Acute (10) Hypertension, uncontrolled: Status: Chronic (11) GERD (gastroesophageal reflux disease): Qualifiers: Esophagitis presence: esophagitis presence not specified Qualified Code(s): K21.9 - Gastro-esophageal reflux disease without esophagitis Status: Chronic Review H&P Reviewed: Yes Patient was examined?: Yes
[2021-03-10 18:30] LABS: HEMATOCRIT 24.3 % (36.0-47.0); HEMOGLOBIN 8.3 g/dL (12.0-16.0)
[2021-03-10 19:04] LABS: CKMB % 3.9 % (<4)
[2021-03-10 19:08] LABS: CREATINE KINASE MB 14.6 ng/mL (0-4.0)
[2021-03-11] MEDS: ROCEPHIN VIAL 1 GRAM 1 G in NS 100 ML IV + SPIKE MINIBAG* 100 ML IV SCH ×2 (00:34→20:55)
[2021-03-11 07:19] LABS: BASOPHILS % (AUTO) 0.2 % (0.2-1.0); HEMOGLOBIN 7.6 g/dL (12.0-16.0); LYMPHOCYTES # (AUTO) 0.7 X10^3/uL (1.3-2.9); LYMPHOCYTES % (AUTO) 5.5 % (21.0-51.0); MEAN CORPUSCULAR HEMOGLOBIN 31.2 pg (27.0-34.0); MEAN CORPUSCULAR HGB CONC 34.5 g/dL (33.0-35.0); MEAN CORPUSCULAR VOLUME 90.3 fL (80.0-100.0); MEAN PLATELET VOLUME 8.5 fL (7.4-11.0); MONOCYTES % (AUTO) 8.1 % (0.0-13.0); NEUTROPHILS # (AUTO) 10.5 x10^3/uL (2.2-4.8); NEUTROPHILS % (AUTO) 86.2 % (42.0-75.0); PLATELET COUNT 122 X10^3/uL (150.0-450.0); RED BLOOD COUNT 2.44 X10^6/uL (3.5-5.4); RED CELL DISTRIBUTION WIDTH 16.2 % (11.6-16.5); WHITE BLOOD COUNT 12.2 X10^3/uL (3.6-10.0)
[2021-03-11 07:30] LABS: ALBUMIN 2.4 g/dL (3.4-5.0); CALCIUM 7.9 mg/dL (8.5-10.1); CARBON DIOXIDE 29.7 mmol/L (21-32); COR CA(FOR HYPOALB) 9.2 mg/dL (8.5-10.1); CREATININE 1.18 mg/dL (0.55-1.02); MAGNESIUM 2.1 mg/dL (1.7-2.9); TOTAL PROTEIN 5.8 g/dL (6.4-8.2)
[2021-03-11] MEDS ORDERED: NS 500 ML IV 500 ML IV ONE (08:50)
[2021-03-11] MEDS ORDERED: ALLEGRA ONE (09:10)
[2021-03-11] MEDS ORDERED: K-DUR TAB 20 MEQ PO ONE (09:14)
[2021-03-11] MEDS ORDERED: ASPIRIN 81 MG CHEWTAB ONE (09:14)
[2021-03-11] MEDS: ASPIRIN PO SCH ×2 (09:20→10:53)
[2021-03-11] MEDS: PROTONIX INJ 40 MG VIAL IVP SCH ×2 (09:20→20:55)
[2021-03-11] MEDS: ALLEGRA PO SCH (09:20)
[2021-03-11 09:41] LABS: CKMB % 1.6 % (<4)
[2021-03-11 09:47] LABS: CREATINE KINASE MB 6.7 ng/mL (0-4.0); TROPONIN I 6.87 ng/mL (0-1.5)
[2021-03-11] MEDS ORDERED: TYLENOL 325 MG TAB PO PRN (12:34)
[2021-03-11] MEDS: MORPHINE SULFATE INJ 2 MG INJ IVP PRN (13:40)
[2021-03-11] MEDS ORDERED: TYLENOL 325 MG TAB PO ONE (15:04)
[2021-03-11] MEDS: TYLENOL 325 MG TAB PO PRN ×2 (15:17→22:58)
[2021-03-11] MEDS ORDERED: LASIX IVP ONE (15:35)
--- NOTE | 2021-03-11 16:20 | PCM.PROG ---
Progress Note Progress Note for Day of Date of Exam: 03/11/21 Subjective Subjective: Daquan seen at bedside, no acute events overnight. She states she is feeling ok. She did receive 2 units of PRBCs yesterday. This morning her hgb is 7.6. She remains on 2L NC. She was febrile yesterday. UA suggestive of infection and she was started on IV Rocephin. She reports decreased appetite, denies abdominal pain. Labs: WBC: 12.2 Hgb 7.6 Plt 122 K: 3.2 BUN/Cr: 43/1.14 Glucose 137 Mg 2.1 FOBT + Trop: 6.14, 9.43, 11, 6.87 CXR: no acute process Echo: EF 38%, Grade 3 restrictive diastolic dysfunction, moderate pH, moderate MR Plan: will transfuse 2 more units of PRBCs, monitor H/H. Continue IV Protonix, add Pepcid. Continue Rocephin. Give lasix 20 mg between transfusions. Tylenol 650 mg prn for fever. Follow urine and blood Cx. Continue heparin drip for total 48 hrs. Replace K as per protocol. Monitor AM labs/imaging. Continue home medications. Time spent for clinical assessment, reviewing labs/imaging, physical exam, decision making and documentation greater than 45 mins. Past Medical Family Social History Past Med/Fam/Surg Hx: No changes since H&P Allergies: Allergies codeine Allergy (Verified 10/05/17 08:34) lorazepam [From Ativan] Adverse Reaction (Verified 01/14/20 23:53) Review of Systems ROS: No change since H&P Vital Signs and I&O's Vital Signs: Temperature 101.0 F Pulse Rate [Left] 84 Pulse Rate 81 Respiratory Rate 18 Blood Pressure [Right Arm] 106/53 Blood Pressure 120/56 O2 Sat by Pulse Oximetry 97 Intake and Output: Intake & Output 03/08/21 03/09/21 03/10/21 03/11/21 23:59 23:59 23:59 23:59 Intake Total 900 / 900 580 / 580 Output Total 500 / 500 Balance 400 / 400 580 / 580 Physical Exam Oriented: Normal Eyes: Normal Ear: Normal Nose: Normal Throat: Normal Respiratory: Generalized and Diminished Cardiovascular: Normal and Murmur Auscultation: Bowel Sounds: Normal Tenderness: Normal Skin: Decreased [place] Musculoskeletal: Normal Psychiatric: Normal Mood Description: Calm Affect: Normal Speech Pattern: Clear Laboratory and Diagnostics Result Diagrams: 03/11/21 06:54 03/11/21 07:07 Labs: Laboratory WBC 12.2 X10^3/uL (3.6-10.0) H 03/11/21 06:54 RBC 2.44 X10^6/uL (3.5-5.4) L 03/11/21 06:54 Hgb 7.6 g/dL (12.0-16.0) L 03/11/21 06:54 Hct 22.0 % (36.0-47.0) L 03/11/21 06:54 MCV 90.3 fL (80.0-100.0) 03/11/21 06:54 MCH 31.2 pg (27.0-34.0) 03/11/21 06:54 MCHC 34.5 g/dL (33.0-35.0) 03/11/21 06:54 RDW 16.2 % (11.6-16.5) 03/11/21 06:54 Plt Count 122 X10^3/uL (150.0-450.0) L 03/11/21 06:54 MPV 8.5 fL (7.4-11.0) 03/11/21 06:54 Neut % (Auto) 86.2 % (42.0-75.0) H 03/11/21 06:54 Lymph % (Auto) 5.5 % (21.0-51.0) L 03/11/21 06:54 [place] % (Auto) 8.1 % (0.0-13.0) 03/11/21 06:54 Eos % (Auto) 0.0 % (0.9-2.9) L 03/11/21 06:54 Baso % (Auto) 0.2 % (0.2-1.0) 03/11/21 06:54 Neut # (Auto) 10.5 x10^3/uL (2.2-4.8) H 03/11/21 06:54 Lymph # (Auto) 0.7 X10^3/uL (1.3-2.9) L 03/11/21 06:54 [place] # (Auto) 1.0 x10^3/uL (0.3-0.8) H 03/11/21 06:54 Eos # (Auto) 0.0 x10^3/uL (0.0-0.2) 03/11/21 06:54 Baso # (Auto) 0.0 X10^3/uL (0.0-0.1) 03/11/21 06:54 Absolute Nucleated RBC 0.1 /100WBC 03/11/21 06:54 PT 22.4 SECONDS (11.8-14.3) 03/10/21 09:42 INR Target Range - 03/10/21 09:42 INR 2.08 (0.8-1.3) H 03/10/21 09:42 APTT 83.5 SECONDS (22.9-36.5) H 03/11/21 12:54 PTT Comment - 03/11/21 12:54 Sodium 142 mmol/L (136-145) 03/11/21 07:07 Corrected Sodium 143 mmol/L (136-145) 03/11/21 07:07 Potassium 3.4 mmol/L (3.5-5.1) L 03/11/21 07:07 Chloride 106 mmol/L (98-107) 03/11/21 07:07 Carbon Dioxide 29.7 mmol/L (21-32) 03/11/21 07:07 BUN 43 mg/dL (7-18) H 03/11/21 07:07 Creatinine 1.18 mg/dL (0.55-1.02) H 03/11/21 07:07 Est GFR (MDRD) Af Amer 56 (>60) L 03/11/21 07:07 Est GFR (MDRD) Non-Af 46 (>60) L 03/11/21 07:07 Glucose 137 mg/dL (65-99) H 03/11/21 07:07 Calcium 7.9 mg/dL (8.5-10.1) L 03/11/21 07:07 Corrected Calcium 9.2 mg/dL (8.5-10.1) 03/11/21 07:07 Magnesium 2.1 mg/dL (1.7-2.9) 03/11/21 07:07 Total Bilirubin 0.40 mg/dL (0.2-1.0) 03/11/21 07:07 AST 43 Units/L (15-37) H 03/11/21 07:07 ALT 13 Units/L (12-78) 03/11/21 07:07 Alkaline Phosphatase 50 Units/L (46-116) 03/11/21 07:07 Creatine Kinase 412 Units/L (26-192) H 03/11/21 07:07 CK-MB (CK-2) 6.7 ng/mL (0-4.0) H* 03/11/21 07:07 CK/CKMB % Calc 1.6 % (<4) 03/11/21 07:07 Troponin I 6.87 ng/mL (0-1.5) H* 03/11/21 07:07 B-Natriuretic Peptide 650 pg/mL (0-79) H* 03/09/21 21:45 Total Protein 5.8 g/dL (6.4-8.2) L 03/11/21 07:07 Albumin 2.4 g/dL (3.4-5.0) L 03/11/21 07:07 Globulin 3.4 g/dL (2.5-4.5) 03/11/21 07:07 Albumin/Globulin Ratio 0.7 Ratio (1.1-2.1) L 03/11/21 07:07 Specimen Type Random urine 03/10/21 11:35 Urine Color Yellow (YELLOW) 03/10/21 11:35 Urine Appearance Cloudy (CLEAR) 03/10/21 11:35 Urine pH 6.0 (5.0 - 8.0) 03/10/21 11:35 Ur Specific [place] 1.015 (1.000-1.030) 03/10/21 11:35 Urine Protein 2+ (NEGATIVE) 03/10/21 11:35 Urine Glucose (UA) Negative (NEGATIVE) 03/10/21 11:35 Urine Ketones Negative (NEGATIVE) 03/10/21 11:35 Urine Occult Blood 5+ (NEGATIVE) 03/10/21 11:35 Urine Nitrite Positive (NEGATIVE) 03/10/21 11:35 Urine Bilirubin Negative (NEGATIVE) 03/10/21 11:35 Urine Urobilinogen Normal (NORMAL) 03/10/21 11:35 Ur Leukocyte Esterase 3+ (NEGATIVE) 03/10/21 11:35 Urine RBC Tntc /HPF (0-3) A 03/10/21 11:35 Urine WBC Tntc /HPF (0-5) A 03/10/21 11:35 Ur Squamous Epith Cells Few /HPF (NEGATIVE) 03/10/21 11:35 Urine Bacteria 2+ /HPF (NEGATIVE) 03/10/21 11:35 Ur Culture Indicated? No/not indicated 03/10/21 11:35 Stool Description Fob tube 03/10/21 13:32 Stl Occult Blood (IFOB) Positive (NEGATIVE) A 03/10/21 13:32 SARS CoV-2 RNA Rapid KAREN Negative (NEGATIVE) 03/10/21 01:00 Blood Type O POSITIVE 03/09/21 22:31 Antibody Screen Negative 03/09/21 22:31 Crossmatch See Detail 03/09/21 22:31 Plan (1) Non-ST elevated myocardial infarction: Status: Acute (2) Chest pain, rule out acute myocardial infarction: Status: Acute (3) Symptomatic anemia: Status: Acute (4) Weakness: Status: Acute (5) Acute respiratory insufficiency: Status: Acute (6) CHF (congestive heart failure): Status: Acute Qualifiers: Heart failure chronicity: acute on chronic Heart failure type: combined systolic and diastolic Qualified Code(s): I50.43 - Acute on chronic combined systolic (congestive) and diastolic (congestive) heart failure (7) Hypokalemia: Status: Acute (8) Hypomagnesemia: Status: Acute (9) CAD (coronary artery disease): Status: Acute Qualifiers: Associated angina: without angina Coronary Disease-Associated Artery/ Lesion type: unspecified vessel or lesion type [place] vs. transplanted heart: [place] heart Qualified Code(s): I25.10 - Atherosclerotic heart disease of [place] coronary artery without angina pectoris (10) Hypertension, uncontrolled: Status: Chronic (11) GERD (gastroesophageal reflux disease): Status: Chronic Qualifiers: Esophagitis presence: esophagitis presence not specified Qualified Code(s): K21.9 - Gastro-esophageal reflux disease without esophagitis
[2021-03-11] MEDS: PEPCID 20 MG IV PREMIX* 20 MG/50 ML BAG IV SCH (17:35)
[2021-03-11 20:14] LABS: HEMATOCRIT 26.6 % (36.0-47.0)
[2021-03-11] MEDS: ZOFRAN INJ 4 MG VIAL IVP PRN (21:46)
[2021-03-12] MEDS ORDERED: HEPARIN SODIUM IN D5W 25,000 UNITS/500 ML BAG ONE (00:50)
[2021-03-12] MEDS: HEPARIN SODIUM IN D5W 25,000 UNITS/500 ML BAG IV PRN (01:03)
[2021-03-12] MEDS: ZOFRAN INJ 4 MG VIAL IVP PRN ×2 (06:05→20:40)
[2021-03-12] MEDS: TYLENOL 325 MG TAB PO PRN (06:39)
[2021-03-12 06:46] LABS: BASOPHILS % (AUTO) 0.2 % (0.2-1.0); EOSINOPHILS % (AUTO) 0.3 % (0.9-2.9); HEMATOCRIT 32.8 % (36.0-47.0); LYMPHOCYTES % (AUTO) 8.8 % (21.0-51.0); MEAN CORPUSCULAR HEMOGLOBIN 30.9 pg (27.0-34.0); MEAN CORPUSCULAR HGB CONC 33.9 g/dL (33.0-35.0); MEAN PLATELET VOLUME 8.5 fL (7.4-11.0); MONOCYTES # (AUTO) 1.2 x10^3/uL (0.3-0.8); MONOCYTES % (AUTO) 11.3 % (0.0-13.0); NEUTROPHILS # (AUTO) 8.7 x10^3/uL (2.2-4.8); NEUTROPHILS % (AUTO) 79.4 % (42.0-75.0); PLATELET COUNT 111 X10^3/uL (150.0-450.0); RED BLOOD COUNT 3.61 X10^6/uL (3.5-5.4); RED CELL DISTRIBUTION WIDTH 16.4 % (11.6-16.5)
[2021-03-12 06:47] LABS: HEMOGLOBIN 11.1 g/dL (12.0-16.0)
[2021-03-12 06:57] LABS: ALANINE AMINOTRANSFERASE 16 Units/L (12-78); ALBUMIN 2.6 g/dL (3.4-5.0); ALKALINE PHOSPHATASE 59 Units/L (46-116); ASPARTATE AMINO TRANSFERASE 45 Units/L (15-37); BLOOD UREA NITROGEN 29 mg/dL (7-18); CALCIUM 8.2 mg/dL (8.5-10.1); CARBON DIOXIDE 31.1 mmol/L (21-32); CHLORIDE 104 mmol/L (98-107); COR CA(FOR HYPOALB) 9.3 mg/dL (8.5-10.1); CREATININE 1.17 mg/dL (0.55-1.02); SODIUM 143 mmol/L (136-145); TOTAL PROTEIN 6.4 g/dL (6.4-8.2); eGFR NON BLACK RACES 47 (>60)
[2021-03-12] MEDS ORDERED: ALLEGRA ONE (09:38)
[2021-03-12] MEDS: ALLEGRA PO SCH (09:41)
[2021-03-12] MEDS: PEPCID 20 MG IV PREMIX* 20 MG/50 ML BAG IV SCH (09:42)
[2021-03-12] MEDS: PROTONIX INJ 40 MG VIAL IVP SCH ×2 (09:42→21:02)
[2021-03-12] MEDS: ASPIRIN PO SCH (11:01)
[2021-03-12] MEDS ORDERED: ZOFRAN TAB 4 MG PO PRN (12:00)
[2021-03-12] MEDS ORDERED: ZOCOR TAB 40 MG PO SCH (12:00)
--- NOTE | 2021-03-12 12:12 | PCM.PROG ---
Progress Note Progress Note for Day of Date of Exam: 03/12/21 Subjective Subjective: Daquan seen at bedside, no acute events overnight. She states she feels tired. She did receive 2 units of PRBCs yesterday. She has received a total of 4 units so far. This morning her hgb is 11.1. She remains on 2L NC. She was febrile yesterday but has been afebrile overnight. She reports decreased appetite, denies abdominal pain. Does report some nausea. Labs: WBC: 11 Hgb 11.1 Plt 111 K: 4 BUN/Cr: 29/1.17 Glucose 101 Mg 2.1 FOBT + Trop: 6.14, 9.43, 11, 6.87 CXR: no acute process Echo: EF 38%, Grade 3 restrictive diastolic dysfunction, moderate pH, moderate MR Plan: stop heparin drip this morning, has been on the drip for total 48 hrs. Continue asa, statin. Patient reports taking Plavix and Eliquis at home, will hold those for now. Patient needs EGD for further anemia work up. Will consult surgery for EGD, likely won't be scheduled till after due to long weekend. Monitor H/H. Continue IV protonix and pepcid. Follow urine Cx. Continue Rocephin. Add Ensure to diet. Zofran and Tylenol pnr. Time spent for clinical assessment, reviewing labs/imaging, physical exam, decision making and documentation greater than 45 mins. Past Medical Family Social History Past Med/Fam/Surg Hx: No changes since H&P Allergies: Allergies codeine Allergy (Verified 10/05/17 08:34) lorazepam [From Ativan] Adverse Reaction (Verified 01/14/20 23:53) Review of Systems ROS: No change since H&P Vital Signs and I&O's Vital Signs: Temperature 98.1 F Pulse Rate [Left] 83 Pulse Rate 81 Respiratory Rate 19 Blood Pressure [Right Arm] 122/58 Blood Pressure 120/56 O2 Sat by Pulse Oximetry 98 Intake and Output: Intake & Output 03/09/21 03/10/21 03/11/21 03/12/21 23:59 23:59 23:59 23:59 Intake Total 900 / 900 2153 / 2153 568 / 568 Output Total 500 / 500 Balance 400 / 400 2153 / 2153 568 / 568 Physical Exam Oriented: Normal Eyes: Normal Ear: Normal Nose: Normal Throat: Normal Respiratory: Generalized and Diminished Cardiovascular: Normal and Murmur Auscultation: Bowel Sounds: Normal Tenderness: Normal Skin: Decreased [place] Musculoskeletal: Normal Psychiatric: Normal Mood Description: Calm Affect: Normal Speech Pattern: Clear and Appropriate Laboratory and Diagnostics Result Diagrams: 03/12/21 06:36 03/12/21 06:36 Labs: 03/10/21 13:25 Blood Blood Culture - Preliminary 03/10/21 13:16 Blood Blood Culture - Preliminary Laboratory WBC 11.0 X10^3/uL (3.6-10.0) H 03/12/21 06:36 RBC 3.61 X10^6/uL (3.5-5.4) 03/12/21 06:36 Hgb 11.1 g/dL (12.0-16.0) L D 03/12/21 06:36 Hct 32.8 % (36.0-47.0) L 03/12/21 06:36 MCV 91.0 fL (80.0-100.0) 03/12/21 06:36 MCH 30.9 pg (27.0-34.0) 03/12/21 06:36 MCHC 33.9 g/dL (33.0-35.0) 03/12/21 06:36 RDW 16.4 % (11.6-16.5) 03/12/21 06:36 Plt Count 111 X10^3/uL (150.0-450.0) L 03/12/21 06:36 MPV 8.5 fL (7.4-11.0) 03/12/21 06:36 Neut % (Auto) 79.4 % (42.0-75.0) H 03/12/21 06:36 Lymph % (Auto) 8.8 % (21.0-51.0) L 03/12/21 06:36 [place] % (Auto) 11.3 % (0.0-13.0) 03/12/21 06:36 Eos % (Auto) 0.3 % (0.9-2.9) L 03/12/21 06:36 Baso % (Auto) 0.2 % (0.2-1.0) 03/12/21 06:36 Neut # (Auto) 8.7 x10^3/uL (2.2-4.8) H 03/12/21 06:36 Lymph # (Auto) 1.0 X10^3/uL (1.3-2.9) L 03/12/21 06:36 [place] # (Auto) 1.2 x10^3/uL (0.3-0.8) H 03/12/21 06:36 Eos # (Auto) 0.0 x10^3/uL (0.0-0.2) 03/12/21 06:36 Baso # (Auto) 0.0 X10^3/uL (0.0-0.1) 03/12/21 06:36 Absolute Nucleated RBC 0.1 /100WBC 03/12/21 06:36 PT 22.4 SECONDS (11.8-14.3) 03/10/21 09:42 INR Target Range - 03/10/21 09:42 INR 2.08 (0.8-1.3) H 03/10/21 09:42 APTT 73.4 SECONDS (22.9-36.5) H 03/12/21 08:30 PTT Comment - 03/12/21 08:30 Sodium 143 mmol/L (136-145) 03/12/21 06:36 Corrected Sodium TNP 03/12/21 06:36 Potassium 4.0 mmol/L (3.5-5.1) 03/12/21 06:36 Chloride 104 mmol/L (98-107) 03/12/21 06:36 Carbon Dioxide 31.1 mmol/L (21-32) 03/12/21 06:36 BUN 29 mg/dL (7-18) H 03/12/21 06:36 Creatinine 1.17 mg/dL (0.55-1.02) H 03/12/21 06:36 Est GFR (MDRD) Af Amer 57 (>60) L 03/12/21 06:36 Est GFR (MDRD) Non-Af 47 (>60) L 03/12/21 06:36 Glucose 101 mg/dL (65-99) H 03/12/21 06:36 Calcium 8.2 mg/dL (8.5-10.1) L 03/12/21 06:36 Corrected Calcium 9.3 mg/dL (8.5-10.1) 03/12/21 06:36 Magnesium 2.1 mg/dL (1.7-2.9) 03/11/21 07:07 Total Bilirubin 0.70 mg/dL (0.2-1.0) 03/12/21 06:36 AST 45 Units/L (15-37) H 03/12/21 06:36 ALT 16 Units/L (12-78) 03/12/21 06:36 Alkaline Phosphatase 59 Units/L (46-116) 03/12/21 06:36 Creatine Kinase 412 Units/L (26-192) H 03/11/21 07:07 CK-MB (CK-2) 6.7 ng/mL (0-4.0) H* 03/11/21 07:07 CK/CKMB % Calc 1.6 % (<4) 03/11/21 07:07 Troponin I 6.87 ng/mL (0-1.5) H* 03/11/21 07:07 B-Natriuretic Peptide 650 pg/mL (0-79) H* 03/09/21 21:45 Total Protein 6.4 g/dL (6.4-8.2) 03/12/21 06:36 Albumin 2.6 g/dL (3.4-5.0) L 03/12/21 06:36 Globulin 3.8 g/dL (2.5-4.5) 03/12/21 06:36 Albumin/Globulin Ratio 0.7 Ratio (1.1-2.1) L 03/12/21 06:36 Specimen Type Random urine 03/10/21 11:35 Urine Color Yellow (YELLOW) 03/10/21 11:35 Urine Appearance Cloudy (CLEAR) 03/10/21 11:35 Urine pH 6.0 (5.0 - 8.0) 03/10/21 11:35 Ur Specific [place] 1.015 (1.000-1.030) 03/10/21 11:35 Urine Protein 2+ (NEGATIVE) 03/10/21 11:35 Urine Glucose (UA) Negative (NEGATIVE) 03/10/21 11:35 Urine Ketones Negative (NEGATIVE) 03/10/21 11:35 Urine Occult Blood 5+ (NEGATIVE) 03/10/21 11:35 Urine Nitrite Positive (NEGATIVE) 03/10/21 11:35 Urine Bilirubin Negative (NEGATIVE) 03/10/21 11:35 Urine Urobilinogen Normal (NORMAL) 03/10/21 11:35 Ur Leukocyte Esterase 3+ (NEGATIVE) 03/10/21 11:35 Urine RBC Tntc /HPF (0-3) A 03/10/21 11:35 Urine WBC Tntc /HPF (0-5) A 03/10/21 11:35 Ur Squamous Epith Cells Few /HPF (NEGATIVE) 03/10/21 11:35 Urine Bacteria 2+ /HPF (NEGATIVE) 03/10/21 11:35 Ur Culture Indicated? No/not indicated 03/10/21 11:35 Stool Description Fob tube 03/10/21 13:32 Stl Occult Blood (IFOB) Positive (NEGATIVE) A 03/10/21 13:32 SARS CoV-2 RNA Rapid KAREN Negative (NEGATIVE) 03/10/21 01:00 Blood Type O POSITIVE 03/09/21 22:31 Antibody Screen Negative 03/09/21 22:31 Crossmatch See Detail 03/09/21 22:31 Plan (1) GI bleed: Status: Acute Qualifiers: GI bleed type/associated pathology: melena Qualified Code(s): K92.1 - Melena (2) Non-ST elevated myocardial infarction: Status: Acute (3) Chest pain, rule out acute myocardial infarction: Status: Acute (4) Symptomatic anemia: Status: Acute (5) Weakness: Status: Acute (6) Acute respiratory insufficiency: Status: Acute (7) CHF (congestive heart failure): Status: Acute Qualifiers: Heart failure chronicity: acute on chronic Heart failure type: combined systolic and diastolic Qualified Code(s): I50.43 - Acute on chronic combined systolic (congestive) and diastolic (congestive) heart failure (8) Hypokalemia: Status: Acute (9) Hypomagnesemia: Status: Acute (10) CAD (coronary artery disease): Status: Acute Qualifiers: Associated angina: without angina Coronary Disease-Associated Artery/Lesion type: unspecified vessel or lesion type [place] vs. transplanted heart: [place] heart Qualified Code(s): I25.10 - Atherosclerotic heart disease of [place] coronary artery without angina pectoris (11) Hypertension, uncontrolled: Status: Chronic (12) GERD (gastroesophageal reflux disease): Status: Chronic Qualifiers: Esophagitis presence: esophagitis presence not specified Qualified Code(s): K21.9 - Gastro-esophageal reflux disease without esophagitis
[2021-03-12] MEDS: LANOXIN or DIGITEK PO SCH (14:06)
[2021-03-12] MEDS ORDERED: CITROMA PO ONE (19:36)
[2021-03-12] MEDS ORDERED: CITROMA ONE ×2 (19:59)
[2021-03-12] MEDS ORDERED: DULCOLAX TAB EC 5 MG PO ONE (21:01)
[2021-03-12] MEDS: ROCEPHIN VIAL 1 GRAM 1 G in NS 100 ML IV + SPIKE MINIBAG* 100 ML IV SCH (21:02)
[2021-03-12] MEDS ORDERED: PHENERGAN INJ 25 MG IM PRN (21:24)
--- NOTE | 2021-03-12 23:46 | DR.CONSULT ---
CONSULT Consultation for Day of: Date: 03/12/21 Chief Complaint Chief Complaint: Anemia/weakness Allergies Allergies Allergy/AdvReac Type Severity Reaction Status Date / Time codeine Allergy Verified 10/05/17 08:34 lorazepam [From Ativan] AdvReac Verified 01/14/20 23:53 History of Present Illness History of Present Illness: 86-year-old female with known history of anemia, congestive heart failure, coronary artery disease, hypertension atrial fibrillation who presented with generalized weakness. Hemoglobin was noted to be 6 and she has received 4 units of packed red blood cells. In January she had a NSTEMI . I have been asked to evaluate her for upper and lower endoscopy to rule out this is a source of the anemia. On Eliquis. Past Medical History Past Medical History: Anemia, Arthritis, CHF, Coronary Artery Disease, Dyslipidemia, GERD and Hypertension Additional Medical History: Cataracts, Diverticulosis, Previous Blood Transfusion Atrial fibrillation Past Surgical History Surgical History: Other Additional Surgical History: CATARACTS SURGERY , Hx of coronary stents . Family History Family Medical History: Hypertension Social History Does patient currently use any type of tobacco product: No Does any household member use tobacco: No Alcohol Use: None Medications Home Medications: codeine Allergy (Verified 10/05/17 08:34) lorazepam [From Ativan] Adverse Reaction (Verified 01/14/20 23:53) CONTINUE taking the following medications apixaban [Eliquis] 5 mg PO BID 03/10/21 [History] cetirizine 10 mg PO DAILY 03/10/21 [History] cyanocobalamin (vitamin B-12) 1,000 mcg IM WEEKLY 03/10/21 [History] digoxin 125 mcg PO DAILY 03/10/21 [History] ondansetron HCl 4 mg PO Q4H PRN 03/10/21 [History] pantoprazole 20 mg PO DAILY 03/10/21 [History] simvastatin 40 mg PO DAILY 03/10/21 [History] Review of Systems Constitutional: Weakness Eyes: No Symptoms Reported ENT: No Symptoms Reported Respiratory: No Symptoms Reported Gastrointestinal: No Symptoms Reported and Other (No hemetemesis or melana) Genitourinary: No Symptoms Reported Musculoskeletal: No Symptoms Reported Skin: No Symptoms Reported Neurological: No Symptoms Reported Physical Exam Vital Signs: Temperature 100.0 F Pulse Rate [Left] 94 Pulse Rate 81 Respiratory Rate 20 Blood Pressure [Right Arm] 156/76 Blood Pressure 120/56 O2 Sat by Pulse Oximetry 97 Ear: Normal Respiratory: Clear Throughout Cardiovascular: Normal : Normal Auscultation: Bowel Sounds: Normal Palpation: Normal Tenderness: Normal Skin: Normal Musculoskeletal: Normal Psychiatric: Normal Mood Description: Calm Speech Pattern: Clear Plan Plan: Evidence of G.I. bleeding. Will prepped now and plan upper and lower endoscopy in the near future. Monitor hemoglobin
[2021-03-13] MEDS ORDERED: CITROMA PO ONE (01:00)
[2021-03-13 06:47] LABS: BASOPHILS % (AUTO) 0.2 % (0.2-1.0); EOSINOPHILS # (AUTO) 0.1 x10^3/uL (0.0-0.2); EOSINOPHILS % (AUTO) 1.4 % (0.9-2.9); HEMATOCRIT 28.1 % (36.0-47.0); HEMOGLOBIN 9.6 g/dL (12.0-16.0); LYMPHOCYTES # (AUTO) 0.7 X10^3/uL (1.3-2.9); LYMPHOCYTES % (AUTO) 10.2 % (21.0-51.0); MEAN CORPUSCULAR HEMOGLOBIN 31.2 pg (27.0-34.0); MEAN CORPUSCULAR HGB CONC 34.3 g/dL (33.0-35.0); MEAN CORPUSCULAR VOLUME 90.8 fL (80.0-100.0); MONOCYTES # (AUTO) 1.2 x10^3/uL (0.3-0.8); MONOCYTES % (AUTO) 16.3 % (0.0-13.0); NEUTROPHILS # (AUTO) 5.2 x10^3/uL (2.2-4.8); NEUTROPHILS % (AUTO) 71.9 % (42.0-75.0); PLATELET COUNT 131 X10^3/uL (150.0-450.0); RED BLOOD COUNT 3.09 X10^6/uL (3.5-5.4); RED CELL DISTRIBUTION WIDTH 16.2 % (11.6-16.5); WHITE BLOOD COUNT 7.2 X10^3/uL (3.6-10.0)
[2021-03-13 07:27] LABS: ALANINE AMINOTRANSFERASE 18 Units/L (12-78); ALBUMIN 2.3 g/dL (3.4-5.0); ALKALINE PHOSPHATASE 59 Units/L (46-116); ASPARTATE AMINO TRANSFERASE 39 Units/L (15-37); BLOOD UREA NITROGEN 19 mg/dL (7-18); CALCIUM 8.7 mg/dL (8.5-10.1); CARBON DIOXIDE 25.1 mmol/L (21-32); CHLORIDE 108 mmol/L (98-107); COR CA(FOR HYPOALB) 10.1 mg/dL (8.5-10.1); COR NA(FOR HYPERGLY) 139 mmol/L (136-145); SODIUM 139 mmol/L (136-145); TOTAL PROTEIN 6.2 g/dL (6.4-8.2); eGFR NON BLACK RACES > 60 (>60)
[2021-03-13 07:33] LABS: BAND NEUTROPHILS % 2 % (0-10)
[2021-03-13 07:34] LABS: METAMYELOCYTES % 2; MYELOCYTES % 1; PLATELET MORPHOLOGY COMMENT NORMAL (NORMAL)
[2021-03-13] MEDS ORDERED: ALLEGRA ONE (09:00)
[2021-03-13] MEDS ORDERED: ZOCOR TAB 20 MG PO SCH (09:00)
[2021-03-13] MEDS: ASPIRIN PO SCH (09:05)
[2021-03-13] MEDS: ZOCOR TAB 40 MG PO SCH ×3 (09:28→11:00)
[2021-03-13] MEDS: ALLEGRA PO SCH (09:28)
[2021-03-13] MEDS: PROTONIX INJ 40 MG VIAL IVP SCH ×2 (09:29→21:32)
[2021-03-13] MEDS: LASIX PO SCH (09:29)
[2021-03-13] MEDS: PEPCID 20 MG IV PREMIX* 20 MG/50 ML BAG IV SCH (09:29)
[2021-03-13] MEDS: LANOXIN or DIGITEK PO SCH ×2 (09:30→11:44)
--- NOTE | 2021-03-13 12:14 | PCM.PROG ---
Progress Note Progress Note for Day of Date of Exam: 03/13/21 Subjective Subjective: Patient seen at bedside, no acute events overnight. She states she feels better this morning. She denies any active bleeding. She was seen by Dr Frausto yesterday and is scheduled to have GED/Colonoscopy tomorrow. She has been started on the colon prep. Her hgb did drop to 9.6 today. Labs: WBC:7.2 Hgb 9.6 Plt 131 K: 4 BUN/Cr: 19/0.90 Glucose 108 Mg 2.1 FOBT + x 2 Iron: 16 Folate: 6.5 Trop: 6.14, 9.43, 11, 6.87 CXR: no acute process Echo: EF 38%, Grade 3 restrictive diastolic dysfunction, moderate pH, moderate MR Blood Cx (-) Urine Cx pending Plan: EGD/Colonoscopy scheduled for tomorrow, follow surgery recommendations. Monitor H/H, transfuse if less than 8. Patient reports taking Plavix and Eliquis at home, on hold for now. Continue IV protonix and pepcid. Clears today, NPO past midnight. Follow urine Cx. Continue Rocephin. Zofran and Tylenol prn. Monitor AM labs//imaging. Time spent for clinical assessment, reviewing labs/imaging, physical exam, decision making and documentation greater than 45 mins. Past Medical Family Social History Past Med/Fam/Surg Hx: No changes since H&P Allergies: Allergies codeine Allergy (Verified 10/05/17 08:34) lorazepam [From Ativan] Adverse Reaction (Verified 01/14/20 23:53) Review of Systems ROS: No change since H&P Vital Signs and I&O's Vital Signs: Temperature 99.0 F Pulse Rate [Left] 67 Pulse Rate 69 Respiratory Rate 18 Blood Pressure [Right Arm] 133/64 Blood Pressure 120/56 O2 Sat by Pulse Oximetry 98 Intake and Output: Intake & Output 03/10/21 03/11/21 03/12/21 03/13/21 23:59 23:59 23:59 23:59 Intake Total 900 / 900 2152 / 3 1419 / 1419 Output Total 500 / 500 Balance 400 / 400 2152 / 2153 141 / 1419 Physical Exam Oriented: Normal Eyes: Normal Ear: Normal Nose: Normal Throat: Normal Respiratory: Generalized and Diminished Cardiovascular: Normal Auscultation: Bowel Sounds: Normal Tenderness: Normal Skin: Decreased Turgur Musculoskeletal: Normal Psychiatric: Normal Mood Description: Calm Affect: Normal Speech Pattern: Clear Laboratory and Diagnostics Result Diagrams: 03/13/21 06:07 03/13/21 06:07 Labs: 03/12/21 12:37 Urine,Clean Catch Urine Culture - Preliminary 03/10/21 13:25 Blood Blood Culture - Preliminary 03/10/21 13:16 Blood Blood Culture - Preliminary Laboratory WBC 7.2 X10^3/uL (3.6-10.0) 03/13/21 06:07 RBC 3.09 X10^6/uL (3.5-5.4) L 03/13/21 06:07 Hgb 9.6 g/dL (12.0-16.0) L 03/13/21 06:07 Hct 28.1 % (36.0-47.0) L 03/13/21 06:07 MCV 90.8 fL (80.0-100.0) 03/13/21 06:07 MCH 31.2 pg (27.0-34.0) 03/13/21 06:07 MCHC 34.3 g/dL (33.0-35.0) 03/13/21 06:07 RDW 16.2 % (11.6-16.5) 03/13/21 06:07 Plt Count 131 X10^3/uL (150.0-450.0) L 03/13/21 06:07 Plt Count Comment Decreased (ADEQUATE) A 03/13/21 06:07 MPV 9.0 fL (7.4-11.0) 03/13/21 06:07 Neut % (Auto) 71.9 % (42.0-75.0) 03/13/21 06:07 Lymph % (Auto) 10.2 % (21.0-51.0) L 03/13/21 06:07 [place] % (Auto) 16.3 % (0.0-13.0) H 03/13/21 06:07 Eos % (Auto) 1.4 % (0.9-2.9) 03/13/21 06:07 Baso % (Auto) 0.2 % (0.2-1.0) 03/13/21 06:07 Neut # (Auto) 5.2 x10^3/uL (2.2-4.8) H 03/13/21 06:07 Lymph # (Auto) 0.7 X10^3/uL (1.3-2.9) L 03/13/21 06:07 [place] # (Auto) 1.2 x10^3/uL (0.3-0.8) H 03/13/21 06:07 Eos # (Auto) 0.1 x10^3/uL (0.0-0.2) 03/13/21 06:07 Baso # (Auto) 0.0 X10^3/uL (0.0-0.1) 03/13/21 06:07 Absolute Nucleated RBC 0.1 /100WBC 03/13/21 06:07 Total Counted 100 03/13/21 06:07 Neutrophils % (Manual) 70 % (39-76) 03/13/21 06:07 Band Neutrophils % 2 % (0-10) 03/13/21 06:07 Lymphocytes % (Manual) 13 % (13-43) 03/13/21 06:07 Monocytes % (Manual) 10 % (4-9) H 03/13/21 06:07 Eosinophils % (Manual) 2 % (0-6) 03/13/21 06:07 Metamyelocytes % 2 03/13/21 06:07 Myelocytes % 1 03/13/21 06:07 Plt Morphology Comment Normal (NORMAL) 03/13/21 06:07 RBC Morphology Normal (NORMAL) 03/13/21 06:07 PT 22.4 SECONDS (11.8-14.3) 03/10/21 09:42 INR Target Range - 03/10/21 09:42 INR 2.08 (0.8-1.3) H 03/10/21 09:42 APTT 73.4 SECONDS (22.9-36.5) H 03/12/21 08:30 PTT Comment - 03/12/21 08:30 Sodium 139 mmol/L (136-145) 03/13/21 06:07 Corrected Sodium 139 mmol/L (136-145) 03/13/21 06:07 Potassium 3.7 mmol/L (3.5-5.1) 03/13/21 06:07 Chloride 108 mmol/L (98-107) H 03/13/21 06:07 Carbon Dioxide 25.1 mmol/L (21-32) 03/13/21 06:07 BUN 19 mg/dL (7-18) H 03/13/21 06:07 Creatinine 0.90 mg/dL (0.55-1.02) 03/13/21 06:07 Est GFR (MDRD) Af Amer > 60 (>60) 03/13/21 06:07 Est GFR (MDRD) Non-Af > 60 (>60) 03/13/21 06:07 Glucose 114 mg/dL (65-99) H 03/13/21 06:07 Calcium 8.7 mg/dL (8.5-10.1) 03/13/21 06:07 Corrected Calcium 10.1 mg/dL (8.5-10.1) 03/13/21 06:07 Magnesium 2.1 mg/dL (1.7-2.9) 03/11/21 07:07 Iron 16 ug/dL (50-175) L 03/12/21 08:30 Transferrin 156 mg/dL (202-364) L 03/12/21 08:30 Ferritin 189 ng/mL (8-252) 03/12/21 08:30 Total Bilirubin 0.30 mg/dL (0.2-1.0) 03/13/21 06:07 AST 39 Units/L (15-37) H 03/13/21 06:07 ALT 18 Units/L (12-78) 03/13/21 06:07 Alkaline Phosphatase 59 Units/L (46-116) 03/13/21 06:07 Creatine Kinase 412 Units/L (26-192) H 03/11/21 07:07 CK-MB (CK-2) 6.7 ng/mL (0-4.0) H* 03/11/21 07:07 CK/CKMB % Calc 1.6 % (<4) 03/11/21 07:07 Troponin I 6.87 ng/mL (0-1.5) H* 03/11/21 07:07 B-Natriuretic Peptide 650 pg/mL (0-79) H* 03/09/21 21:45 Total Protein 6.2 g/dL (6.4-8.2) L 03/13/21 06:07 Albumin 2.3 g/dL (3.4-5.0) L 03/13/21 06:07 Globulin 3.9 g/dL (2.5-4.5) 03/13/21 06:07 Albumin/Globulin Ratio 0.6 Ratio (1.1-2.1) L 03/13/21 06:07 Vitamin B12 521 pg/mL (193-986) 03/12/21 08:30 Folate 6.5 ng/mL (>8.6) L 03/12/21 08:30 Specimen Type Random urine 03/10/21 11:35 Urine Color Yellow (YELLOW) 03/10/21 11:35 Urine Appearance Cloudy (CLEAR) 03/10/21 11:35 Urine pH 6.0 (5.0 - 8.0) 03/10/21 11:35 Ur Specific [place] 1.015 (1.000-1.030) 03/10/21 11:35 Urine Protein 2+ (NEGATIVE) 03/10/21 11:35 Urine Glucose (UA) Negative (NEGATIVE) 03/10/21 11:35 Urine Ketones Negative (NEGATIVE) 03/10/21 11:35 Urine Occult Blood 5+ (NEGATIVE) 03/10/21 11:35 Urine Nitrite Positive (NEGATIVE) 03/10/21 11:35 Urine Bilirubin Negative (NEGATIVE) 03/10/21 11:35 Urine Urobilinogen Normal (NORMAL) 03/10/21 11:35 Ur Leukocyte Esterase 3+ (NEGATIVE) 03/10/21 11:35 Urine RBC Tntc /HPF (0-3) A 03/10/21 11:35 Urine WBC Tntc /HPF (0-5) A 03/10/21 11:35 Ur Squamous Epith Cells Few /HPF (NEGATIVE) 03/10/21 11:35 Urine Bacteria 2+ /HPF (NEGATIVE) 03/10/21 11:35 Ur Culture Indicated? No/not indicated 03/10/21 11:35 Stool Description 150g watery brown 03/13/21 01:18 Stl Occult Blood (IFOB) Positive (NEGATIVE) A 03/13/21 01:18 SARS CoV-2 RNA Rapid KAREN Negative (NEGATIVE) 03/10/21 01:00 Blood Type O POSITIVE 03/09/21 22:31 Antibody Screen Negative 03/09/21 22:31 Crossmatch See Detail 03/09/21 22:31 Plan (1) GI bleed: Status: Acute Qualifiers: GI bleed type/associated pathology: melena Qualified Code(s): K92.1 - Melena (2) Non-ST elevated myocardial infarction: Status: Acute (3) Chest pain, rule out acute myocardial infarction: Status: Acute (4) Symptomatic anemia: Status: Acute (5) Weakness: Status: Acute (6) Acute respiratory insufficiency: Status: Acute (7) CHF (congestive heart failure): Status: Acute Qualifiers: Heart failure chronicity: acute on chronic Heart failure type: combined systolic and diastolic Qualified Code(s): I50.43 - Acute on chronic combined systolic (congestive) and diastolic (congestive) heart failure (8) Hypokalemia: Status: Acute (9) Hypomagnesemia: Status: Acute (10) CAD (coronary artery disease): Status: Acute Qualifiers: Associated angina: without angina Coronary Disease-Associated Artery/Lesion type: unspecified vessel or lesion type [place] vs. transplanted heart: [place] heart Qualified Code(s): I25.10 - Atherosclerotic heart disease of [place] coronary artery without angina pectoris (11) Hypertension, uncontrolled: Status: Chronic (12) GERD (gastroesophageal reflux disease): Status: Chronic Qualifiers: Esophagitis presence: esophagitis presence not specified Qualified Code(s): K21.9 - Gastro-esophageal reflux disease without esophagitis
--- NOTE | 2021-03-13 15:28 | NOTE.SOAP ---
Soap Note Note for Day of Date of Exam: 03/13/21 Subjective Data Subjective Data: Patient admitted with Hgb of 6, received 6 units of blood. Stable Objective Data Temperature: 98.4 F Pulse Rate: 74 Respiratory Rate: 18 Blood Pressure: 102/51 O2 Sat by Pulse Oximetry: 93 Objective Data: abdomen benign, HgB = 9.6 Assessment Assessment: Anemia, possible GI in origin Plan Plan: EGD and colonoscopy tomorrow.
[2021-03-13 17:31] LABS: HEMATOCRIT 27.1 % (36.0-47.0); HEMOGLOBIN 9.3 g/dL (12.0-16.0)
[2021-03-13] MEDS: ROCEPHIN VIAL 1 GRAM 1 G in NS 100 ML IV + SPIKE MINIBAG* 100 ML IV SCH (21:00)
[2021-03-13] MEDS: TYLENOL 325 MG TAB PO PRN (23:35)
[2021-03-14 06:46] LABS: BASOPHILS % (AUTO) 0.4 % (0.2-1.0); EOSINOPHILS # (AUTO) 0.3 x10^3/uL (0.0-0.2); EOSINOPHILS % (AUTO) 5.4 % (0.9-2.9); HEMATOCRIT 26.5 % (36.0-47.0); HEMOGLOBIN 9.1 g/dL (12.0-16.0); LYMPHOCYTES % (AUTO) 15.5 % (21.0-51.0); MEAN CORPUSCULAR HEMOGLOBIN 30.9 pg (27.0-34.0); MEAN CORPUSCULAR HGB CONC 34.4 g/dL (33.0-35.0); MEAN CORPUSCULAR VOLUME 89.8 fL (80.0-100.0); MEAN PLATELET VOLUME 9.1 fL (7.4-11.0); MONOCYTES # (AUTO) 1.1 x10^3/uL (0.3-0.8); MONOCYTES % (AUTO) 17.4 % (0.0-13.0); NEUTROPHILS # (AUTO) 3.8 x10^3/uL (2.2-4.8); NEUTROPHILS % (AUTO) 61.3 % (42.0-75.0); PLATELET COUNT 145 X10^3/uL (150.0-450.0); RED BLOOD COUNT 2.95 X10^6/uL (3.5-5.4); RED CELL DISTRIBUTION WIDTH 16.1 % (11.6-16.5); WHITE BLOOD COUNT 6.2 X10^3/uL (3.6-10.0)
[2021-03-14 07:12] LABS: ALANINE AMINOTRANSFERASE 22 Units/L (12-78); ALBUMIN 2.1 g/dL (3.4-5.0); ALKALINE PHOSPHATASE 49 Units/L (46-116); ASPARTATE AMINO TRANSFERASE 29 Units/L (15-37); BLOOD UREA NITROGEN 15 mg/dL (7-18); CALCIUM 8.2 mg/dL (8.5-10.1); CARBON DIOXIDE 26.7 mmol/L (21-32); CHLORIDE 106 mmol/L (98-107); CKMB % 2.3 % (<4); COR CA(FOR HYPOALB) 9.7 mg/dL (8.5-10.1); CREATINE KINASE 110 Units/L (26-192); CREATINE KINASE MB 2.5 ng/mL (0-4.0); CREATININE 0.81 mg/dL (0.55-1.02); SODIUM 140 mmol/L (136-145); TOTAL PROTEIN 5.6 g/dL (6.4-8.2); eGFR NON BLACK RACES > 60 (>60)
[2021-03-14 07:15] LABS: TROPONIN I 1.94 ng/mL (0-1.5)
[2021-03-14 07:31] LABS: BAND NEUTROPHILS % 1 % (0-10)
[2021-03-14 07:32] LABS: METAMYELOCYTES % 3; MYELOCYTES % 2; PLATELET MORPHOLOGY COMMENT NORMAL (NORMAL)
[2021-03-14] MEDS ORDERED: NS 1000 ML 1,000 ML ONE (07:43)
[2021-03-14] MEDS ORDERED: DIPRIVAN VIAL 20 ML ONE ×2 (07:48→08:07)
--- NOTE | 2021-03-14 08:27 | OR.IMMED ---
IMMEDIATE POST-OP NOTE Immediate Post-Op Note Pre-Op Diagnosis: Anemia possible GI bleed Post-Op Diagnosis: Mild gastritis, normal colon , no active bleeding Procedure: EGD, colonoscopy Description of Procedure: see operative note Surgeon/Communications Field Technician: Lisbet Findings: as above Specimens Removed: none Estimated Blood Loss: none Drains: NONE Complications: none Progress Notes: return to floor, begin diet hopefully discharge soon Final Diagnosis: as above
[2021-03-14] MEDS ORDERED: ALLEGRA ONE (08:51)
[2021-03-14] MEDS: ALLEGRA PO SCH (08:52)
[2021-03-14] MEDS: LASIX PO SCH (08:53)
[2021-03-14] MEDS: PEPCID 20 MG IV PREMIX* 20 MG/50 ML BAG IV SCH (08:53)
[2021-03-14] MEDS ORDERED: PROTONIX INJ 40 MG VIAL ONE (08:57)
[2021-03-14] MEDS: PROTONIX INJ 40 MG VIAL IVP SCH (08:58)
[2021-03-14] MEDS: LANOXIN or DIGITEK PO SCH (09:04)
[2021-03-14] MEDS: ZOCOR TAB 40 MG PO SCH (09:05)
[2021-03-14 12:55] VITALS: BP 108/54
[2021-03-14 13:29] LABS: CKMB % 2.2 % (<4); CREATINE KINASE MB 2.2 ng/mL (0-4.0); TROPONIN I 1.35 ng/mL (0-1.5)
--- NOTE | 2021-03-15 14:03 | DR.OPNOTE ---
OP NOTE Pre-Op Diagnosis: Anemia, probable GI blood loss on Eliquis, Hgb 6 on admit Post-Op Diagnosis: MIld gastritis , no active bleeding, normal colon Procedure Date Date Of Procedure: 03/14/21 Procedure: This patient was taken to the endoscopy suite and placed in the left lateral position. He was given IV sedation. Bite block placed in the mouth and timeout for the procedure obtained. Flexible endoscope introduced into the mouth and into the esophagus. The esophagus was normal with gastroesophageal junction noted at 30 cm. This was traversed and patient had evidence of a sliding hiatal hernia. Body of the stomach was normal except for some mild gastritis. Duodenum and pylorus are normal. J maneuver showed a hiatal hernia. Patient then turned around after the scope removed. Flexible colonoscope introduced and taken to the cecum without difficulty. No abnormalities noted on withdrawing the colonoscope. Patient tolerated this well. Anesthesia Comment: MAC Findings: Mild gastritis , hiatal hernia, normal colon, no active bleeding Specimen/Pathology: none Type of Fluids Used:: Lactated Ringers EBL: none Drains/Tubes Placed: None Complications:: none Needle/Sponge Count:: correct Disposition/Condition: Pt. tolerated procedure without difficulty.
== END 2021-03-14 14:10 | disposition home health service (06) | DRG 280 ==
LOC: ER 21:18 → OBS 03-10 00:44
PROVIDERS: ADMIT Internal Medicine; ATTEND Internal Medicine
DX: I21.4 Non-ST elevation (NSTEMI) myocardial infarction; K21.9 Gastro-esophageal reflux disease without esophagitis; I50.43 Acute on chronic combined systolic (congestive) and diastolic (congestive) heart failure; K44.9 Diaphragmatic hernia without obstruction or gangrene; Z20.822 Contact with and (suspected) exposure to COVID-19; I11.0 Hypertensive heart disease with heart failure; I25.10 Atherosclerotic heart disease of native coronary artery without angina pectoris; Z86.16 Personal history of COVID-19; R06.02 Shortness of breath; K29.60 Other gastritis without bleeding; E87.6 Hypokalemia; K92.1 Melena; I48.91 Unspecified atrial fibrillation; E83.42 Hypomagnesemia; D64.89 Other specified anemias; R53.1 Weakness

== ENCOUNTER 2021-08-30 11:43 | Inpatient (IN) ==
--- NOTE | 2021-08-30 14:42 | RAD ---
HISTORYCHFSTUDYCHEST, 1 [id number] lungs are clear. No pneumothorax or significant effusion.Cardiomegaly is present. Atherosclerotic changes are in a tortuous aorta.Bones are unremarkable. [Hiatal hernia measures about 10 cm.]IMPRESSION1. Cardiomegaly2. Hiatal herniaElectronically signed by: Kyle Isaacs (Aug 30, 2021 14:40:52)
[2021-08-30 15:06] LABS: BASOPHILS % (AUTO) 0.4 % (0.2-1.0); EOSINOPHILS # (AUTO) 0.1 x10^3/uL (0.0-0.2); EOSINOPHILS % (AUTO) 1.7 % (0.9-2.9); HEMATOCRIT 28.4 % (36.0-47.0); HEMOGLOBIN 9.7 g/dL (12.0-16.0); LYMPHOCYTES # (AUTO) 0.7 X10^3/uL (1.3-2.9); LYMPHOCYTES % (AUTO) 16.5 % (21.0-51.0); MEAN CORPUSCULAR HGB CONC 34.2 g/dL (33.0-35.0); MEAN CORPUSCULAR VOLUME 93.7 fL (80.0-100.0); MEAN PLATELET VOLUME 8.3 fL (7.4-11.0); MONOCYTES # (AUTO) 0.8 x10^3/uL (0.3-0.8); MONOCYTES % (AUTO) 18.4 % (0.0-13.0); NEUTROPHILS # (AUTO) 2.7 x10^3/uL (2.2-4.8); RED BLOOD COUNT 3.03 X10^6/uL (3.5-5.4); RED CELL DISTRIBUTION WIDTH 13.3 % (11.6-16.5); WHITE BLOOD COUNT 4.2 X10^3/uL (3.6-10.0)
[2021-08-30 16:16] LABS: ALANINE AMINOTRANSFERASE 16 Units/L (12-78); ALBUMIN 3.7 g/dL (3.4-5.0); ALKALINE PHOSPHATASE 63 Units/L (46-116); ASPARTATE AMINO TRANSFERASE 19 Units/L (15-37); BLOOD UREA NITROGEN 69 mg/dL (7-18); CARBON DIOXIDE 21.4 mmol/L (21-32); CHLORIDE 104 mmol/L (98-107); CREATININE 2.59 mg/dL (0.55-1.02); SODIUM 137 mmol/L (136-145); TOTAL PROTEIN 7.9 g/dL (6.4-8.2); eGFR NON BLACK RACES 19 (>60)
[2021-08-30] MEDS: NS 1,000 ML IV 1,000 ML IV SCH (16:19)
[2021-08-30] MEDS ORDERED: TUCKS MEDICATED PAD TOP SCH (17:00)
[2021-08-30] MEDS ORDERED: PREPARATION H OINT RECTAL SCH (17:00)
[2021-08-31] MEDS: NS 1,000 ML IV 1,000 ML IV SCH ×2 (03:27→18:48)
[2021-08-31 04:49] LABS: BASOPHILS % (AUTO) 0.4 % (0.2-1.0); EOSINOPHILS # (AUTO) 0.1 x10^3/uL (0.0-0.2); EOSINOPHILS % (AUTO) 3.3 % (0.9-2.9); HEMATOCRIT 25.7 % (36.0-47.0); HEMOGLOBIN 8.6 g/dL (12.0-16.0); LYMPHOCYTES # (AUTO) 0.8 X10^3/uL (1.3-2.9); LYMPHOCYTES % (AUTO) 19.9 % (21.0-51.0); MEAN CORPUSCULAR HEMOGLOBIN 31.7 pg (27.0-34.0); MEAN CORPUSCULAR HGB CONC 33.6 g/dL (33.0-35.0); MEAN CORPUSCULAR VOLUME 94.3 fL (80.0-100.0); MEAN PLATELET VOLUME 8.2 fL (7.4-11.0); MONOCYTES # (AUTO) 0.7 x10^3/uL (0.3-0.8); MONOCYTES % (AUTO) 18.7 % (0.0-13.0); NEUTROPHILS # (AUTO) 2.2 x10^3/uL (2.2-4.8); NEUTROPHILS % (AUTO) 57.7 % (42.0-75.0); RED BLOOD COUNT 2.72 X10^6/uL (3.5-5.4); RED CELL DISTRIBUTION WIDTH 13.3 % (11.6-16.5); WHITE BLOOD COUNT 3.8 X10^3/uL (3.6-10.0)
[2021-08-31 05:06] LABS: ALANINE AMINOTRANSFERASE 12 Units/L (12-78); ALBUMIN 2.9 g/dL (3.4-5.0); ALKALINE PHOSPHATASE 57 Units/L (46-116); ASPARTATE AMINO TRANSFERASE 16 Units/L (15-37); BLOOD UREA NITROGEN 64 mg/dL (7-18); CALCIUM 8.3 mg/dL (8.5-10.1); CARBON DIOXIDE 21.8 mmol/L (21-32); CHLORIDE 109 mmol/L (98-107); COR CA(FOR HYPOALB) 9.2 mg/dL (8.5-10.1); CREATININE 2.48 mg/dL (0.55-1.02); SODIUM 141 mmol/L (136-145); TOTAL PROTEIN 6.4 g/dL (6.4-8.2); eGFR NON BLACK RACES 20 (>60)
--- NOTE | 2021-08-31 10:02 | DR.H&P ---
H&P - History & Physical for Day of: H&P Date: 08/30/21 - Chief Complaint Chief Complaint: WEAKNESS, SHORTNESS OF BREATH, PAIN TO BUTTOCKS - History of Present Illness History of Present Illness: IS A 86 YEAR OLD PATIENT OF OURS. SHE PRESENTED TO THE OFFICE WITH COMPLAINTS OF GENERALIZED WEAKNESS, SHORTNESS OF BREATH, AND PAIN TO BUTTOCKS. EXAMINATION REVEALED AN ABSCESS TO THE RIGHT SIDE BUTTOCK. OUTPATIENT LABS WERE OBTAINED BY [facility] ON 08/29 AND REVEALED: POTASSIUM 5.3, BUN 74, CREATININE 3.41. PATIENT WAS ADMITTED TO THE HOSPITAL FOR FURTHER EVALUATION AND TREATMENT OF ACUTE RENAL FAILURE, HYPERKALEMIA, RIGHT BUTTOCK ABSCESS, AND SYSTOLIC HEART FAILURE. HER PMH INCLUDES: CAD, HTN, CHF, DYSLIPIDEMIA, GERD, ARTHRITIS, A-FIB, MURMUR, GERD, ANXIETY, BILATERAL CATARACT SURGERY. ON ARRIVAL TO THE HOSPITAL, HER VITALS WERE: 98.1-54-20-98%-133/64. LABS WERE OBTAINED. WBC 4.2, RBC 3.03, HGB 9.7, HCT 28.4, POTASSIUM 5.5, BUN 69, CREATININE 2.59, GLUCOSE 88, BNP 635, TOTAL PROTEIN 7.9, ALBUMIN 3.7. A CHEST XRAY WAS OBTAINED AND REVEALED: 1. Cardiomegaly 2. Hiatal hernia. SHE WAS STARTED ON NORMAL SALINE AT 80 ML/HR, LEVAQUIN 250MG IV DAILY, GENTAMICIN OINTMENT AND LIDOCAINE OINTMENT TO WOUND TID. WE WILL REVIEW HER HOME MEDICATIONS AND RESUME APPROPRIATE. OTHERWISE, WE PLAN TO FOLLOW UP WITH AM LABS AND CONTINUE TO MONITOR. TIME SPENT ON CLINICAL ASSESSMENT, REVIEWING LABS AND IMAGING, DECISION MAKING, AND DOCUMENTATION GREATER THAN 75 MINUTES. - Past Medical History Past Medical History: Coronary Artery Disease, Hypertension, Dyslipidemia, Anemia, GERD, Arthritis, CHF Additional Medical History: Cataracts, Diverticulosis, Previous Blood Transfusion. Atrial fibrillation - Past Surgical History Surgical History: Other Additional Surgical History: CATARACTS SURGERY , Hx of coronary stents . - Family History Family Medical History: Diabetes Mellitus, Hypertension - Social History Does any household member use tobacco: No Alcohol Use: None Drug Use: None - Medications Home Medications: codeine Allergy (Verified 10/05/17 08:34) lorazepam [From Ativan] Adverse Reaction (Verified 01/14/20 23:53) - Review of Systems Constitutional: See HPI, Weakness Eyes: No Symptoms Reported ENT: No Symptoms Reported Respiratory: Shortness of Breath, SOB with Excertion Cardiovascular: No Symptoms Reported Gastrointestinal: No Symptoms Reported Genitourinary: No Symptoms Reported Musculoskeletal: No Symptoms Reported Skin: See HPI, Wound (ABSCESS TO RIGHT SIDE BUTTOCK) Neurological: Weakness - Physical Exam Vital Signs: Temperature 98.7 F Pulse Rate [Bilateral Radial] 69 Respiratory Rate 12 Blood Pressure [Right Arm] 133/59 O2 Sat by Pulse Oximetry 97 Oriented: Normal Eyes: Normal Ear: Normal Nose: Normal Throat: Normal Respiratory: Diminished Throughout Cardiovascular: Bradycardia : Normal Auscultation: Bowel Sounds: Normal Palpation: Normal Tenderness: Normal Skin: Decreased Turgur, Red, Tender, Hot, Wound (ABSCESS TO RIGHT SIDE BUTTOCK) Musculoskeletal: Normal Psychiatric: Normal Mood Description: Calm Affect: Normal Speech Pattern: Clear - Assessment/Plan (1) Acute renal failure Qualifiers: Acute renal failure type: unspecified Qualified Code(s): N17.9 - Acute kidney failure, unspecified Status: Acute Plan: ADMIT, NORMAL SALINE AT 80 ML/HR, LEVAQUIN 250MG IV DAILY, GENTAMICIN OINTMENT AND LIDOCAINE OINTMENT TO WOUND TID. WE WILL REVIEW HER HOME MEDICATIONS AND RESUME APPROPRIATE. (2) Abscess of buttock, right Status: Acute (3) Hyperkalemia Status: Acute (4) Systolic heart failure Qualifiers: Heart failure chronicity: acute on chronic Qualified Code(s): I50.23 - Acute on chronic systolic (congestive) heart failure Status: Acute (5) Atrial fibrillation Qualifiers: Atrial fibrillation type: unspecified Qualified Code(s): I48.91 - Unspecified atrial fibrillation Status: Chronic (6) CAD (coronary artery disease) Qualifiers: Coronary Disease-Associated Artery/Lesion type: unspecified vessel or lesion type [place] vs. transplanted heart: [place] heart Associated angina: without angina Qualified Code(s): I25.10 - Atherosclerotic heart disease of [place] coronary artery without angina pectoris Status: Chronic (7) Hyperlipidemia Qualifiers: Hyperlipidemia type: mixed hyperlipidemia Qualified Code(s): E78.2 - Mixed hyperlipidemia Status: Chronic (8) GERD (gastroesophageal reflux disease) Qualifiers: Esophagitis presence: without esophagitis Qualified Code(s): K21.9 - Gastro-esophageal reflux disease without esophagitis Status: Chronic - Allergies Allergies/Adverse Reactions: Allergies Allergy/AdvReac Type Severity Reaction Status Date / Time codeine Allergy Verified 10/05/17 08:34 lorazepam [From Ativan] AdvReac Verified 01/14/20 23:53
[2021-08-31] MEDS: GENTAMICIN TOPICAL OINT TOP SCH ×3 (10:47→22:11)
[2021-08-31] MEDS: XYLOCAINE OINT 5% TOP SCH ×3 (10:48→22:12)
[2021-08-31] MEDS: LEVAQUIN PREMIX IV 250 MG 250 MG/50 ML BAG IV SCH (10:49)
[2021-08-31] MEDS: ELIQUIS PO SCH ×2 (10:50→21:12)
[2021-08-31] MEDS: ZOFRAN TAB 4 MG SL PRN (19:35)
[2021-08-31] MEDS: NORCO 5/325 MG TAB PO PRN (19:35)
[2021-09-01] MEDS: NS 1,000 ML IV 1,000 ML IV SCH ×2 (05:24→18:41)
[2021-09-01] MEDS: GENTAMICIN TOPICAL OINT TOP SCH ×3 (05:24→22:05)
[2021-09-01] MEDS: XYLOCAINE OINT 5% TOP SCH ×3 (05:24→22:05)
[2021-09-01 06:33] LABS: BASOPHILS % (AUTO) 0.4 % (0.2-1.0); EOSINOPHILS # (AUTO) 0.1 x10^3/uL (0.0-0.2); EOSINOPHILS % (AUTO) 3.2 % (0.9-2.9); HEMATOCRIT 24.2 % (36.0-47.0); HEMOGLOBIN 8.2 g/dL (12.0-16.0); LYMPHOCYTES # (AUTO) 0.8 X10^3/uL (1.3-2.9); MEAN CORPUSCULAR HEMOGLOBIN 31.9 pg (27.0-34.0); MEAN CORPUSCULAR HGB CONC 33.9 g/dL (33.0-35.0); MEAN CORPUSCULAR VOLUME 94.2 fL (80.0-100.0); MEAN PLATELET VOLUME 7.5 fL (7.4-11.0); MONOCYTES # (AUTO) 0.6 x10^3/uL (0.3-0.8); NEUTROPHILS # (AUTO) 2.1 x10^3/uL (2.2-4.8); NEUTROPHILS % (AUTO) 57.4 % (42.0-75.0); RED BLOOD COUNT 2.57 X10^6/uL (3.5-5.4); RED CELL DISTRIBUTION WIDTH 13.5 % (11.6-16.5); WHITE BLOOD COUNT 3.7 X10^3/uL (3.6-10.0)
[2021-09-01 06:49] LABS: ALANINE AMINOTRANSFERASE 12 Units/L (12-78); ALBUMIN 2.7 g/dL (3.4-5.0); ALKALINE PHOSPHATASE 45 Units/L (46-116); ASPARTATE AMINO TRANSFERASE 13 Units/L (15-37); BLOOD UREA NITROGEN 39 mg/dL (7-18); CALCIUM 8.6 mg/dL (8.5-10.1); CARBON DIOXIDE 20.2 mmol/L (21-32); CHLORIDE 111 mmol/L (98-107); COR CA(FOR HYPOALB) 9.6 mg/dL (8.5-10.1); CREATININE 1.21 mg/dL (0.55-1.02); SODIUM 139 mmol/L (136-145); TOTAL PROTEIN 5.9 g/dL (6.4-8.2); eGFR NON BLACK RACES 45 (>60)
[2021-09-01] MEDS: LEVAQUIN PREMIX IV 250 MG 250 MG/50 ML BAG IV SCH (09:16)
[2021-09-01] MEDS: ELIQUIS PO SCH ×2 (09:16→22:04)
--- NOTE | 2021-09-01 10:23 | PCM.PROG ---
Progress Note - Progress Note for Day of Date of Exam: 08/31/21 - Subjective Subjective: WAS ADMITTED FOR TREATMENT OF ACUTE RENAL FAILURE, ABSCESS OF RIGHT BUTTOCK, HYPERKALEMIA. SHE HAS A PMH OF SYSTOLIC HEART FAILURE, A-FIB, CAD, HYPERLIPIDEMIA, AND GERD. TODAY, SHE IS ALERT AND ORIENTED, LYING IN BED ON MORNING ROUNDS. SHE COMPLAINS OF GENERALIZED WEAKNESS AND PAIN TO BUTTOCK THIS MORNING. ON EXAMINATION, HEART IS REGULAR IN RATE AND RHYTHM. BILATERAL LUNGS NOTED WITH DIMINISHED LUNG SOUNDS THROUGHOUT. ABDOMEN IS ROUND, SOFT, AND NON- TENDER WITH NORMAL BOWEL SOUNDS NOTED IN ALL QUADRANTS. RIGHT SIDE BUTTOCK REDDENED AND ABSCESS WITH SEROUS DRAINAGE IS NOTED. HER VITALS THIS MORNING ARE: 98.7-69-12-97%-133/59. LABS WERE OBTAINED. ABNORMAL LAB VALUES INCLUDE THE FOLLOWING: RBC 2.72, HGB 8.6, HCT 25.7, POTASSIUM 5.6, CHLORIDE 109, BUN 64, CREATININE 2.48, GLUCOSE 101, CALCIUM 8.3, TOTAL BILI 0.10, BNP 689, ALBUMIN 2.9. SHE IS CURRENTLY RECEIVING NORMAL SALINE AT 80 ML/HR, LEVAQUIN 250MG IV DAILY, GENTAMICIN OINTMENT AND LIDOCAINE OINTMENT TO WOUND TID, NORCO 5/325MG PO Q6H PRN, ELIQUIS 2.5MG PO BID, ZOFRAN 4MG XL Q6H PRN. WHEN HOME MEDICATIONS ARE CONFIRMED, WE WILL REVIEW THEM AND RESUME APPROPRIATE. OTHERWISE, WE WILL CONTINUE WITH CURRENT PLAN OF CARE TODAY. WE WILL FOLLOW UP WITH AM LABS AND CONTINUE TO MONITOR. TIME SPENT ON CLINICAL ASSESSMENT, REVIEWING LABS AND IMAGING, DECISION MAKING, AND DOCUMENTATION GREATER THAN 45 MINUTES. - Past Medical Family Social History Past Med/Fam/Surg Hx: No changes since H&P Allergies: Allergies codeine Allergy (Verified 10/05/17 08:34) lorazepam [From Ativan] Adverse Reaction (Verified 01/14/20 23:53) - Review of Systems ROS: No change since H&P - Vital Signs and I&O's Vital Signs: Temperature 98.6 F Pulse Rate [Bilateral Radial] 62 Respiratory Rate 20 Blood Pressure [Right Arm] 109/53 O2 Sat by Pulse Oximetry 96 Intake and Output: Intake & Output 08/29/21 08/30/21 08/31/21 09/01/21 11:59 11:59 11:59 11:59 Intake Total 1440 / 1440 2350 / 2350 Balance 1440 / 1440 2350 / 2350 - Physical Exam Oriented: Normal Eyes: Normal Ear: Normal Nose: Normal Throat: Normal Respiratory: Generalized, Diminished Cardiovascular: Normal : Normal Auscultation: Bowel Sounds: Normal Palpation: Normal Tenderness: Normal Skin: Decreased [place], Red, Tender, Hot, Wound (ABSCESS TO RIGHT SIDE BUTTOCK) Musculoskeletal: Normal Psychiatric: Normal Mood Description: Calm Affect: Normal Speech Pattern: Clear, Appropriate - Laboratory and Diagnostics Result Diagrams: 09/01/21 06:10 09/01/21 06:10 Labs: Laboratory WBC 3.7 X10^3/uL (3.6-10.0) 09/01/21 06:10 RBC 2.57 X10^6/uL (3.5-5.4) L 09/01/21 06:10 Hgb 8.2 g/dL (12.0-16.0) L 09/01/21 06:10 Hct 24.2 % (36.0-47.0) L 09/01/21 06:10 MCV 94.2 fL (80.0-100.0) 09/01/21 06:10 MCH 31.9 pg (27.0-34.0) 09/01/21 06:10 MCHC 33.9 g/dL (33.0-35.0) 09/01/21 06:10 RDW 13.5 % (11.6-16.5) 09/01/21 06:10 Plt Count 202 X10^3/uL (150.0-450.0) 09/01/21 06:10 MPV 7.5 fL (7.4-11.0) 09/01/21 06:10 Neut % (Auto) 57.4 % (42.0-75.0) 09/01/21 06:10 Lymph % (Auto) 22.0 % (21.0-51.0) 09/01/21 06:10 [place] % (Auto) 17.0 % (0.0-13.0) H 09/01/21 06:10 Eos % (Auto) 3.2 % (0.9-2.9) H 09/01/21 06:10 Baso % (Auto) 0.4 % (0.2-1.0) 09/01/21 06:10 Neut # (Auto) 2.1 x10^3/uL (2.2-4.8) L 09/01/21 06:10 Lymph # (Auto) 0.8 X10^3/uL (1.3-2.9) L 09/01/21 06:10 [place] # (Auto) 0.6 x10^3/uL (0.3-0.8) 09/01/21 06:10 Eos # (Auto) 0.1 x10^3/uL (0.0-0.2) 09/01/21 06:10 Baso # (Auto) 0.0 X10^3/uL (0.0-0.1) 09/01/21 06:10 Absolute Nucleated RBC 0.0 /100WBC 09/01/21 06:10 Sodium 139 mmol/L (136-145) 09/01/21 06:10 Corrected Sodium TNP 09/01/21 06:10 Potassium 5.4 mmol/L (3.5-5.1) H 09/01/21 06:10 Chloride 111 mmol/L (98-107) H 09/01/21 06:10 Carbon Dioxide 20.2 mmol/L (21-32) L 09/01/21 06:10 BUN 39 mg/dL (7-18) H 09/01/21 06:10 Creatinine 1.21 mg/dL (0.55-1.02) H 09/01/21 06:10 Est GFR (MDRD) Af Amer 55 (>60) L 09/01/21 06:10 Est GFR (MDRD) Non-Af 45 (>60) L 09/01/21 06:10 Glucose 91 mg/dL (65-99) 09/01/21 06:10 POC Glucose (mg/dL) 93 mg/dL (65-99) 08/31/21 11:02 Calcium 8.6 mg/dL (8.5-10.1) 09/01/21 06:10 Corrected Calcium 9.6 mg/dL (8.5-10.1) 09/01/21 06:10 Total Bilirubin 0.20 mg/dL (0.2-1.0) 09/01/21 06:10 AST 13 Units/L (15-37) L 09/01/21 06:10 ALT 12 Units/L (12-78) 09/01/21 06:10 Alkaline Phosphatase 45 Units/L (46-116) L 09/01/21 06:10 B-Natriuretic Peptide 931 pg/mL (0-79) H* 09/01/21 06:10 Total Protein 5.9 g/dL (6.4-8.2) L 09/01/21 06:10 Albumin 2.7 g/dL (3.4-5.0) L 09/01/21 06:10 Globulin 3.2 g/dL (2.5-4.5) 09/01/21 06:10 Albumin/Globulin Ratio 0.8 Ratio (1.1-2.1) L 09/01/21 06:10 SARS CoV-2 RNA Rapid KAREN Negative (NEGATIVE) 08/30/21 13:28 - Plan (1) Acute renal failure Status: Acute Qualifiers: Acute renal failure type: unspecified Qualified Code(s): N17.9 - Acute kidney failure, unspecified Plan: NORMAL SALINE AT 80 ML/HR, LEVAQUIN 250MG IV DAILY, GENTAMICIN OINTMENT AND LIDOCAINE OINTMENT TO WOUND TID, NORCO 5/325MG PO Q6H PRN, ELIQUIS 2.5MG PO BID, ZOFRAN 4MG XL Q6H PRN. (2) Abscess of buttock, right Status: Acute (3) Hyperkalemia Status: Acute (4) Systolic heart failure Status: Acute Qualifiers: Heart failure chronicity: acute on chronic Qualified Code(s): I50.23 - Acute on chronic systolic (congestive) heart failure (5) Atrial fibrillation Status: Chronic Qualifiers: Atrial fibrillation type: unspecified Qualified Code(s): I48.91 - Unspecified atrial fibrillation (6) CAD (coronary artery disease) Status: Chronic Qualifiers: Coronary Disease-Associated Artery/Lesion type: unspecified vessel or lesion type [place] vs. transplanted heart: [place] heart Associated angina: without angina Qualified Code(s): I25.10 - Atherosclerotic heart disease of [place] coronary artery without angina pectoris (7) Hyperlipidemia Status: Chronic Qualifiers: Hyperlipidemia type: mixed hyperlipidemia Qualified Code(s): E78.2 - Mixed hyperlipidemia (8) GERD (gastroesophageal reflux disease) Status: Chronic Qualifiers: Esophagitis presence: without esophagitis Qualified Code(s): K21.9 - Gas tro-esophageal reflux disease without esophagitis
--- NOTE | 2021-09-01 10:28 | PCM.PROG ---
Progress Note - Progress Note for Day of Date of Exam: 09/01/21 - Subjective Subjective: WAS ADMITTED FOR TREATMENT OF ACUTE RENAL FAILURE, ABSCESS OF RIGHT BUTTOCK, HYPERKALEMIA. SHE HAS A PMH OF SYSTOLIC HEART FAILURE, A-FIB, CAD, HYPERLIPIDEMIA, AND GERD. TODAY, SHE IS ALERT AND ORIENTED, LYING IN BED ON MORNING ROUNDS. SHE COMPLAINS OF GENERALIZED WEAKNESS AND PAIN TO BUTTOCK THIS MORNING. ON EXAMINATION, HEART IS REGULAR IN RATE AND RHYTHM. BILATERAL LUNGS NOTED WITH DIMINISHED LUNG SOUNDS THROUGHOUT. ABDOMEN IS ROUND, SOFT, AND NON- TENDER WITH NORMAL BOWEL SOUNDS NOTED IN ALL QUADRANTS. RIGHT SIDE BUTTOCK REDDENED AND ABSCESS WITH SEROUS DRAINAGE IS NOTED. HER VITALS THIS MORNING ARE: 98.6-62-20-96%-109/53. LABS WERE OBTAINED. ABNORMAL LAB VALUES INCLUDE THE FOLLOWING: RBC 2.57, HGB 8.2, HCT 24.2, POTASSIUM 5.4, BUN 39, CREATININE 1.21, AST 13, ALK PHOS 45, BNP 931, TOTAL PROTEIN 5.9, ALBUMIN 2.7. SHE IS CURRENTLY RECEIVING NORMAL SALINE AT 80 ML/HR, LEVAQUIN 250MG IV DAILY, GENTAMICIN OINTMENT AND LIDOCAINE OINTMENT TO WOUND TID, NORCO 5/325MG PO Q6H PRN, ELIQUIS 2.5MG PO BID, ZOFRAN 4MG XL Q6H PRN. WHEN HOME MEDICATIONS ARE CONFIRMED, WE WILL REVIEW THEM AND RESUME APPROPRIATE. WE WILL DECREASE IVF TO 50 ML/HR TODAY DUE TO ELEVATED BNP. OTHERWISE, WE WILL CONTINUE WITH CURRENT PLAN OF CARE TODAY. WE WILL FOLLOW UP WITH AM LABS AND CONTINUE TO MONITOR. TIME SPENT ON CLINICAL ASSESSMENT, REVIEWING LABS AND IMAGING, DECISION MAKING, AND DOC UMENTATION GREATER THAN 45 MINUTES. - Past Medical Family Social History Past Med/Fam/Surg Hx: No changes since H&P Allergies: Allergies codeine Allergy (Verified 10/05/17 08:34) lorazepam [From Ativan] Adverse Reaction (Verified 01/14/20 23:53) - Review of Systems ROS: No change since H&P - Vital Signs and I&O's Vital Signs: Temperature 98.6 F Pulse Rate [Bilateral Radial] 62 Respiratory Rate 20 Blood Pressure [Right Arm] 109/53 O2 Sat by Pulse Oximetry 96 Intake and Output: Intake & Output 08/29/21 08/30/21 08/31/21 09/01/21 11:59 11:59 11:59 11:59 Intake Total 1440 / 1440 2350 / 2350 Balance 1440 / 1440 2350 / 2350 - Physical Exam Oriented: Normal Eyes: Normal Ear: Normal Nose: Normal Throat: Normal Respiratory: Generalized, Diminished Cardiovascular: Normal : Normal Auscultation: Bowel Sounds: Normal Palpation: Normal Tenderness: Normal Skin: Red, Tender, Hot, Wound (ABSCESS TO RIGHT SIDE BUTTOCK) Musculoskeletal: Normal Psychiatric: Normal Mood Description: Calm Affect: Normal Speech Pattern: Clear, Appropriate - Laboratory and Diagnostics Result Diagrams: 09/01/21 06:10 09/01/21 06:10 Labs: Laboratory WBC 3.7 X10^3/uL (3.6-10.0) 09/01/21 06:10 RBC 2.57 X10^6/uL (3.5-5.4) L 09/01/21 06:10 Hgb 8.2 g/dL (12.0-16.0) L 09/01/21 06:10 Hct 24.2 % (36.0-47.0) L 09/01/21 06:10 MCV 94.2 fL (80.0-100.0) 09/01/21 06:10 MCH 31.9 pg (27.0-34.0) 09/01/21 06:10 MCHC 33.9 g/dL (33.0-35.0) 09/01/21 06:10 RDW 13.5 % (11.6-16.5) 09/01/21 06:10 Plt Count 202 X10^3/uL (150.0-450.0) 09/01/21 06:10 MPV 7.5 fL (7.4-11.0) 09/01/21 06:10 Neut % (Auto) 57.4 % (42.0-75.0) 09/01/21 06:10 Lymph % (Auto) 22.0 % (21.0-51.0) 09/01/21 06:10 [place] % (Auto) 17.0 % (0.0-13.0) H 09/01/21 06:10 Eos % (Auto) 3.2 % (0.9-2.9) H 09/01/21 06:10 Baso % (Auto) 0.4 % (0.2-1.0) 09/01/21 06:10 Neut # (Auto) 2.1 x10^3/uL (2.2-4.8) L 09/01/21 06:10 Lymph # (Auto) 0.8 X10^3/uL (1.3-2.9) L 09/01/21 06:10 [place] # (Auto) 0.6 x10^3/uL (0.3-0.8) 09/01/21 06:10 Eos # (Auto) 0.1 x10^3/uL (0.0-0.2) 09/01/21 06:10 Baso # (Auto) 0.0 X10^3/uL (0.0-0.1) 09/01/21 06:10 Absolute Nucleated RBC 0.0 /100WBC 09/01/21 06:10 Sodium 139 mmol/L (136-145) 09/01/21 06:10 Corrected Sodium TNP 09/01/21 06:10 Potassium 5.4 mmol/L (3.5-5.1) H 09/01/21 06:10 Chloride 111 mmol/L (98-107) H 09/01/21 06:10 Carbon Dioxide 20.2 mmol/L (21-32) L 09/01/21 06:10 BUN 39 mg/dL (7-18) H 09/01/21 06:10 Creatinine 1.21 mg/dL (0.55-1.02) H 09/01/21 06:10 Est GFR (MDRD) Af Amer 55 (>60) L 09/01/21 06:10 Est GFR (MDRD) Non-Af 45 (>60) L 09/01/21 06:10 Glucose 91 mg/dL (65-99) 09/01/21 06:10 POC Glucose (mg/dL) 93 mg/dL (65-99) 08/31/21 11:02 Calcium 8.6 mg/dL (8.5-10.1) 09/01/21 06:10 Corrected Calcium 9.6 mg/dL (8.5-10.1) 09/01/21 06:10 Total Bilirubin 0.20 mg/dL (0.2-1.0) 09/01/21 06:10 AST 13 Units/L (15-37) L 09/01/21 06:10 ALT 12 Units/L (12-78) 09/01/21 06:10 Alkaline Phosphatase 45 Units/L (46-116) L 09/01/21 06:10 B-Natriuretic Peptide 931 pg/mL (0-79) H* 09/01/21 06:10 Total Protein 5.9 g/dL (6.4-8.2) L 09/01/21 06:10 Albumin 2.7 g/dL (3.4-5.0) L 09/01/21 06:10 Globulin 3.2 g/dL (2.5-4.5) 09/01/21 06:10 Albumin/Globulin Ratio 0.8 Ratio (1.1-2.1) L 09/01/21 06:10 SARS CoV-2 RNA Rapid KAREN Negative (NEGATIVE) 08/30/21 13:28 - Plan (1) Acute renal failure Status: Acute Qualifiers: Acute renal failure type: unspecified Qualified Code(s): N17.9 - Acute kidney failure, unspecified Plan: NORMAL SALINE AT 50 ML/HR, LEVAQUIN 250MG IV DAILY, GENTAMICIN OINTMENT AND LIDOCAINE OINTMENT TO WOUND TID, NORCO 5/325MG PO Q6H PRN, ELIQUIS 2.5MG PO BID, ZOFRAN 4MG XL Q6H PRN. (2) Abscess of buttock, right Status: Acute (3) Hyperkalemia Status: Acute (4) Systolic heart failure Status: Acute Qualifiers: Heart failure chronicity: acute on chronic Qualified Code(s): I50.23 - Acute on chronic systolic (congestive) heart failure (5) Atrial fibrillation Status: Chronic Qualifiers: Atrial fibrillation type: unspecified Qualified Code(s): I48.91 - Unspecified atrial fibrillation (6) CAD (coronary artery disease) Status: Chronic Qualifiers: Coronary Disease-Associated Artery/Lesion type: unspecified vessel or lesion type [place] vs. transplanted heart: [place] heart Associated angina: without angina Qualified Code(s): I25.10 - Atherosclerotic heart disease of [place] coronary artery without angina pectoris (7) Hyperlipidemia Status: Chronic Qualifiers: Hyperlipidemia type: mixed hyperlipidemia Qualified Code(s): E78.2 - Mixed hyperlipidemia (8) GERD (gastroesophageal reflux disease) Status: Chronic Qualifiers: Esophagitis presence: without esophagitis Qualified Code(s): K21.9 - Gastro-esophageal reflux disease without esophagitis
[2021-09-02] MEDS: TYLENOL 325 MG TAB PO PRN ×2 (00:07→19:41)
[2021-09-02] MEDS: NS 1,000 ML IV 1,000 ML IV SCH ×3 (00:11→21:11)
[2021-09-02] MEDS: GENTAMICIN TOPICAL OINT TOP SCH ×3 (05:26→21:15)
[2021-09-02] MEDS: XYLOCAINE OINT 5% TOP SCH ×3 (05:26→21:15)
[2021-09-02 06:53] LABS: BASOPHILS % (AUTO) 0.5 % (0.2-1.0); EOSINOPHILS # (AUTO) 0.1 x10^3/uL (0.0-0.2); EOSINOPHILS % (AUTO) 3.4 % (0.9-2.9); HEMATOCRIT 24.2 % (36.0-47.0); HEMOGLOBIN 8.2 g/dL (12.0-16.0); LYMPHOCYTES # (AUTO) 0.9 X10^3/uL (1.3-2.9); LYMPHOCYTES % (AUTO) 26.4 % (21.0-51.0); MEAN CORPUSCULAR HEMOGLOBIN 31.8 pg (27.0-34.0); MEAN CORPUSCULAR HGB CONC 33.8 g/dL (33.0-35.0); MEAN CORPUSCULAR VOLUME 94.3 fL (80.0-100.0); MEAN PLATELET VOLUME 7.7 fL (7.4-11.0); MONOCYTES # (AUTO) 0.6 x10^3/uL (0.3-0.8); MONOCYTES % (AUTO) 17.4 % (0.0-13.0); NEUTROPHILS # (AUTO) 1.8 x10^3/uL (2.2-4.8); NEUTROPHILS % (AUTO) 52.3 % (42.0-75.0); RED BLOOD COUNT 2.57 X10^6/uL (3.5-5.4); RED CELL DISTRIBUTION WIDTH 13.6 % (11.6-16.5); WHITE BLOOD COUNT 3.4 X10^3/uL (3.6-10.0)
[2021-09-02 07:06] LABS: ALANINE AMINOTRANSFERASE 12 Units/L (12-78); ALBUMIN 2.5 g/dL (3.4-5.0); ALKALINE PHOSPHATASE 41 Units/L (46-116); ASPARTATE AMINO TRANSFERASE 16 Units/L (15-37); BLOOD UREA NITROGEN 24 mg/dL (7-18); CALCIUM 8.5 mg/dL (8.5-10.1); CARBON DIOXIDE 20.6 mmol/L (21-32); CHLORIDE 111 mmol/L (98-107); COR CA(FOR HYPOALB) 9.7 mg/dL (8.5-10.1); CREATININE 0.93 mg/dL (0.55-1.02); SODIUM 140 mmol/L (136-145); TOTAL PROTEIN 5.8 g/dL (6.4-8.2); eGFR NON BLACK RACES > 60 (>60)
[2021-09-02] MEDS: LEVAQUIN PREMIX IV 250 MG 250 MG/50 ML BAG IV SCH (08:25)
[2021-09-02] MEDS: ELIQUIS PO SCH ×2 (08:25→21:14)
[2021-09-02] MEDS: NORCO 5/325 MG TAB PO PRN (08:26)
[2021-09-02] MEDS ORDERED: LEVSIN/MAALOX/LIDOC VISC PO SCH (10:00)
[2021-09-02] MEDS: LASIX IVP SCH ×2 (11:26→17:22)
[2021-09-02] MEDS: PEPCID TAB 40 MG PO SCH ×2 (11:30→21:14)
[2021-09-02] MEDS: PROTONIX TAB 40 MG PO SCH ×2 (11:30→21:14)
--- NOTE | 2021-09-02 15:38 | PCM.PROG ---
Progress Note - Progress Note for Day of Date of Exam: 09/02/21 - Subjective Subjective: WAS ADMITTED FOR TREATMENT OF ACUTE RENAL FAILURE, ABSCESS OF RIGHT BUTTOCK, HYPERKALEMIA. SHE HAS A PMH OF SYSTOLIC HEART FAILURE, A-FIB, CAD, HYPERLIPIDEMIA, AND GERD. TODAY, SHE IS ALERT AND ORIENTED, LYING IN BED ON MORNING ROUNDS. SHE COMPLAINS OF GENERALIZED WEAKNESS AND PAIN TO BUTTOCK THIS MORNING. SHE ALSO REPORTS MILD SHORTNESS OF BREATH AND EPIGASTRIC BURNING THIS MORNING. ON EXAMINATION, HEART IS REGULAR IN RATE AND RHYTHM. BILATERAL LUNGS NOTED WITH DIMINISHED LUNG SOUNDS THROUGHOUT. ABDOMEN IS ROUND, SOFT, AND NON- TENDER WITH NORMAL BOWEL SOUNDS NOTED IN ALL QUADRANTS. RIGHT SIDE BUTTOCK REDDENED AND ABSCESS WITH SEROUS DRAINAGE IS NOTED. HER VITALS THIS MORNING ARE: 98.2-76-20-97%-125/59. LABS WERE OBTAINED. ABNORMAL LAB VALUES INCLUDE THE FOLLOWING: WBC 3.4, RBC 2.57, HGB 8.2, HCT 24.2, POTASSIUM 5.3, CHLORIDE 111, CARBON DIOXIDE 20.6, BUN 24, ALK PHOS 41, BNP 1350, TOTAL PROTEIN 5.8, ALBUMIN 2.5. SHE IS CURRENTLY RECEIVING NORMAL SALINE AT 50 ML/HR, LEVAQUIN 250MG IV DAILY, GENTAMICIN OINTMENT AND LIDOCAINE OINTMENT TO WOUND TID, NORCO 5/325MG PO Q6H PRN, ELIQUIS 2.5MG PO BID, ZOFRAN 4MG XL Q6H PRN. WHEN HOME MEDICATIONS ARE CONFIRMED, WE WILL REVIEW THEM AND RESUME APPROPRIATE. WE WILL DECREASE IVF TO 20 ML/HR TODAY DUE TO ELEVATED BNP. WE WILL ADMINISTER LASIX 20MG IV BID, PEPCID 40MG PO BID, PEPCID 40MG PO BID, AND GI COCKTAIL 15ML PO QID. OTHERWISE, WE WILL CONTINUE WITH CURRENT PLAN OF CARE TODAY. WE WILL FOLLOW UP WITH AM LABS AND CONTINUE TO MONITOR. TIME SPENT ON CLINICAL ASSESSMENT, REVIEWING LABS AND IMAGING, DECISION MAKING, AND DOCUMENTATION GREATER THAN 45 MINUTES. - Past Medical Family Social History Past Med/Fam/Surg Hx: No changes since H&P Allergies: Allergies codeine Allergy (Verified 10/05/17 08:34) lorazepam [From Ativan] Adverse Reaction (Verified 01/14/20 23:53) - Review of Systems ROS: No change since H&P - Vital Signs and I&O's Vital Signs: Temperature 99.7 F Pulse Rate [Bilateral Radial] 61 Respiratory Rate 20 Blood Pressure [Right Arm] 108/51 O2 Sat by Pulse Oximetry 95 Intake and Output: Intake & Output 08/31/21 09/01/21 09/02/21 09/03/21 11:59 11:59 11:59 11:59 Intake Total 1440 / 1440 2350 / 2350 1310 / 1310 Balance 1440 / 1440 2350 / 2350 1310 / 1310 - Physical Exam Oriented: Normal Eyes: Normal Ear: Normal Nose: Normal Throat: Normal Respiratory: Generalized, Diminished Cardiovascular: Normal : Normal Auscultation: Bowel Sounds: Normal Palpation: Normal Tenderness: Normal Skin: Red, Tender, Hot, Wound (ABSCESS TO RIGHT SIDE BUTTOCK) Musculoskeletal: Normal Psychiatric: Normal Mood Description: Calm Affect: Normal Speech Pattern: Clear, Appropriate - Laboratory and Diagnostics Result Diagrams: 09/02/21 05:24 09/02/21 05:24 Labs: Laboratory WBC 3.4 X10^3/uL (3.6-10.0) L 09/02/21 05:24 RBC 2.57 X10^6/uL (3.5-5.4) L 09/02/21 05:24 Hgb 8.2 g/dL (12.0-16.0) L 09/02/21 05:24 Hct 24.2 % (36.0-47.0) L 09/02/21 05:24 MCV 94.3 fL (80.0-100.0) 09/02/21 05:24 MCH 31.8 pg (27.0-34.0) 09/02/21 05:24 MCHC 33.8 g/dL (33.0-35.0) 09/02/21 05:24 RDW 13.6 % (11.6-16.5) 09/02/21 05:24 Plt Count 219 X10^3/uL (150.0-450.0) 09/02/21 05:24 MPV 7.7 fL (7.4-11.0) 09/02/21 05:24 Neut % (Auto) 52.3 % (42.0-75.0) 09/02/21 05:24 Lymph % (Auto) 26.4 % (21.0-51.0) 09/02/21 05:24 [place] % (Auto) 17.4 % (0.0-13.0) H 09/02/21 05:24 Eos % (Auto) 3.4 % (0.9-2.9) H 09/02/21 05:24 Baso % (Auto) 0.5 % (0.2-1.0) 09/02/21 05:24 Neut # (Auto) 1.8 x10^3/uL (2.2-4.8) L 09/02/21 05:24 Lymph # (Auto) 0.9 X10^3/uL (1.3-2.9) L 09/02/21 05:24 [place] # (Auto) 0.6 x10^3/uL (0.3-0.8) 09/02/21 05:24 Eos # (Auto) 0.1 x10^3/uL (0.0-0.2) 09/02/21 05:24 Baso # (Auto) 0.0 X10^3/uL (0.0-0.1) 09/02/21 05:24 Absolute Nucleated RBC 0.0 /100WBC 09/02/21 05:24 Sodium 140 mmol/L (136-145) 09/02/21 05:24 Corrected Sodium TNP 09/02/21 05:24 Potassium 5.3 mmol/L (3.5-5.1) H 09/02/21 05:24 Chloride 111 mmol/L (98-107) H 09/02/21 05:24 Carbon Dioxide 20.6 mmol/L (21-32) L 09/02/21 05:24 BUN 24 mg/dL (7-18) H 09/02/21 05:24 Creatinine 0.93 mg/dL (0.55-1.02) 09/02/21 05:24 Est GFR (MDRD) Af Amer > 60 (>60) 09/02/21 05:24 Est GFR (MDRD) Non-Af > 60 (>60) 09/02/21 05:24 Glucose 87 mg/dL (65-99) 09/02/21 05:24 POC Glucose (mg/dL) 93 mg/dL (65-99) 08/31/21 11:02 Calcium 8.5 mg/dL (8.5-10.1) 09/02/21 05:24 Corrected Calcium 9.7 mg/dL (8.5-10.1) 09/02/21 05:24 Total Bilirubin 0.20 mg/dL (0.2-1.0) 09/02/21 05:24 AST 16 Units/L (15-37) 09/02/21 05:24 ALT 12 Units/L (12-78) 09/02/21 05:24 Alkaline Phosphatase 41 Units/L (46-116) L 09/02/21 05:24 B-Natriuretic Peptide 1350 pg/mL (0-79) H* 09/02/21 05:24 Total Protein 5.8 g/dL (6.4-8.2) L 09/02/21 05:24 Albumin 2.5 g/dL (3.4-5.0) L 09/02/21 05:24 Globulin 3.3 g/dL (2.5-4.5) 09/02/21 05:24 Albumin/Globulin Ratio 0.8 Ratio (1.1-2.1) L 09/02/21 05:24 SARS CoV-2 RNA Rapid KAREN Negative (NEGATIVE) 08/30/21 13:28 - Plan (1) Acute renal failure Status: Acute Qualifiers: Acute renal failure type: unspecified Qualified Code(s): N17.9 - Acute kidney failure, unspecified Plan: NORMAL SALINE AT 20 ML/HR, LEVAQUIN 250MG IV DAILY, GENTAMICIN OINTMENT AND LIDOCAINE OINTMENT TO WOUND TID, NORCO 5/325MG PO Q6H PRN, ELIQUIS 2.5MG PO BID, ZOFRAN 4MG XL Q6H PRN, PEPCID 40MG PO BID, PEPCID 40MG PO BID, AND GI COCKTAIL 15ML PO QID (2) Abscess of buttock, right Status: Acute (3) Hyperkalemia Status: Acute (4) Systolic heart failure Status: Acute Qualifiers: Heart failure chronicity: acute on chronic Qualified Code(s): I50.23 - Acute on chronic systolic (congestive) heart failure (5) Atrial fibrillation Status: Chronic Qualifiers: Atrial fibrillation type: unspecified Qualified Code(s): I48.91 - Unspecified atrial fibrillation (6) CAD (coronary artery disease) Status: Chronic Qualifiers: Coronary Disease-Associated Artery/Lesion type: unspecified vessel or lesion type [place] vs. transplanted heart: [place] heart Associated angina: without angina Qualified Code(s): I25.10 - Atherosclerotic heart disease of [place] coronary artery without angina pectoris (7) Hyperlipidemia Status: Chronic Qualifiers: Hyperlipidemia type: mixed hyperlipidemia Qualified Code(s): E78.2 - Mixed hyperlipidemia (8) GERD (gastroesophageal reflux disease) Status: Chronic Qualifiers: Esophagitis presence: without esophagitis Qualified Code(s): K21.9 - Gastro-esophageal reflux disease without esophagitis
[2021-09-02] MEDS: ZyrTEC TAB 10 MG PO SCH (21:13)
[2021-09-02] MEDS: ANTIVERT TAB 25 MG PO SCH (21:14)
[2021-09-02] MEDS: ZOCOR TAB 40 MG PO SCH (21:14)
[2021-09-03] MEDS: NS 1,000 ML IV 1,000 ML IV SCH ×3 (05:13→22:00)
[2021-09-03] MEDS: GENTAMICIN TOPICAL OINT TOP SCH ×3 (05:20→20:59)
[2021-09-03] MEDS: XYLOCAINE OINT 5% TOP SCH ×3 (05:20→21:00)
[2021-09-03 06:46] LABS: BASOPHILS % (AUTO) 0.5 % (0.2-1.0); EOSINOPHILS # (AUTO) 0.2 x10^3/uL (0.0-0.2); EOSINOPHILS % (AUTO) 3.9 % (0.9-2.9); HEMATOCRIT 24.9 % (36.0-47.0); HEMOGLOBIN 8.6 g/dL (12.0-16.0); LYMPHOCYTES # (AUTO) 0.9 X10^3/uL (1.3-2.9); LYMPHOCYTES % (AUTO) 22.9 % (21.0-51.0); MEAN CORPUSCULAR HEMOGLOBIN 32.4 pg (27.0-34.0); MEAN CORPUSCULAR HGB CONC 34.6 g/dL (33.0-35.0); MEAN CORPUSCULAR VOLUME 93.7 fL (80.0-100.0); MEAN PLATELET VOLUME 7.8 fL (7.4-11.0); MONOCYTES # (AUTO) 0.6 x10^3/uL (0.3-0.8); MONOCYTES % (AUTO) 14.8 % (0.0-13.0); NEUTROPHILS # (AUTO) 2.3 x10^3/uL (2.2-4.8); NEUTROPHILS % (AUTO) 57.9 % (42.0-75.0); RED BLOOD COUNT 2.65 X10^6/uL (3.5-5.4); RED CELL DISTRIBUTION WIDTH 13.8 % (11.6-16.5)
[2021-09-03 07:10] LABS: ALANINE AMINOTRANSFERASE 13 Units/L (12-78); ALBUMIN 2.7 g/dL (3.4-5.0); ALKALINE PHOSPHATASE 44 Units/L (46-116); ASPARTATE AMINO TRANSFERASE 15 Units/L (15-37); BLOOD UREA NITROGEN 24 mg/dL (7-18); CALCIUM 8.5 mg/dL (8.5-10.1); CARBON DIOXIDE 21.8 mmol/L (21-32); CHLORIDE 107 mmol/L (98-107); COR CA(FOR HYPOALB) 9.5 mg/dL (8.5-10.1); CREATININE 1.09 mg/dL (0.55-1.02); SODIUM 138 mmol/L (136-145); TOTAL PROTEIN 6.1 g/dL (6.4-8.2); eGFR NON BLACK RACES 51 (>60)
[2021-09-03] MEDS ORDERED: ALLEGRA ONE (08:08)
[2021-09-03] MEDS: ELIQUIS PO SCH ×2 (08:33→20:38)
[2021-09-03] MEDS: ALLEGRA PO SCH (08:33)
[2021-09-03] MEDS: LASIX IVP SCH ×2 (08:35→17:23)
[2021-09-03] MEDS: PEPCID TAB 40 MG PO SCH ×2 (08:35→20:37)
[2021-09-03] MEDS: SINGULAIR TAB 10 MG PO SCH (08:35)
[2021-09-03] MEDS: PROTONIX TAB 40 MG PO SCH ×2 (08:36→20:38)
[2021-09-03] MEDS: LEVAQUIN PREMIX IV 250 MG 250 MG/50 ML BAG IV SCH (08:36)
[2021-09-03] MEDS ORDERED: HEMOCYTE-PLUS ONE (08:39)
[2021-09-03] MEDS ORDERED: PATIENT'S HOME MEDICATION (Iron-Folic Acid-Mv, Min Cmb#15 [Hemocyte-Plus] 106 mg iron- 1 m PO SCH (09:00)
--- NOTE | 2021-09-03 09:47 | DR.PROGNOT ---
Hospital Progress Notes - Progress Note for Day of: Progress Note Date: 09/03/21 - Chief Complaint Chief Complaint: less hip pain and having minimal drainage .. - Past Medical Family Social History Past Med/Fam/Surg Hx: No changes since H&P Allergies: Allergies codeine Allergy (Verified 10/05/17 08:34) lorazepam [From Ativan] Adverse Reaction (Verified 01/14/20 23:53) - Review Of Systems ROS: No change since H&P - Vital Signs Vital Signs: Temperature 98.4 F Pulse Rate [Bilateral Radial] 61 Respiratory Rate 18 Blood Pressure [Right Arm] 113/56 O2 Sat by Pulse Oximetry 96 - Physical Exam Oriented: Normal Eyes: Normal Ear: Normal Nose: Normal Throat: Normal Respiratory: Generalized, Diminished Cardiovascular: Normal : Normal GI:Auscultation: Normal GI:Palpation: Normal GI: Tenderness: Normal Skin: Red, Tender, Hot, Wound (ABSCESS TO RIGHT SIDE BUTTOCK with significant resolution .. erythema 3 x 3 cm ) Musculoskeletal: Normal Psychiatric: Normal Mood Description: Calm Affect: Normal Speech Pattern: Clear, Appropriate - Laboratory and Diagnostics Result Diagrams: 09/03/21 05:11 09/03/21 05:11 Labs: Laboratory WBC 4.0 X10^3/uL (3.6-10.0) 09/03/21 05:11 RBC 2.65 X10^6/uL (3.5-5.4) L 09/03/21 05:11 Hgb 8.6 g/dL (12.0-16.0) L 09/03/21 05:11 Hct 24.9 % (36.0-47.0) L 09/03/21 05:11 MCV 93.7 fL (80.0-100.0) 09/03/21 05:11 MCH 32.4 pg (27.0-34.0) 09/03/21 05:11 MCHC 34.6 g/dL (33.0-35.0) 09/03/21 05:11 RDW 13.8 % (11.6-16.5) 09/03/21 05:11 Plt Count 226 X10^3/uL (150.0-450.0) 09/03/21 05:11 MPV 7.8 fL (7.4-11.0) 09/03/21 05:11 Neut % (Auto) 57.9 % (42.0-75.0) 09/03/21 05:11 Lymph % (Auto) 22.9 % (21.0-51.0) 09/03/21 05:11 [place] % (Auto) 14.8 % (0.0-13.0) H 09/03/21 05:11 Eos % (Auto) 3.9 % (0.9-2.9) H 09/03/21 05:11 Baso % (Auto) 0.5 % (0.2-1.0) 09/03/21 05:11 Neut # (Auto) 2.3 x10^3/uL (2.2-4.8) 09/03/21 05:11 Lymph # (Auto) 0.9 X10^3/uL (1.3-2.9) L 09/03/21 05:11 Levy # (Auto) 0.6 x10^3/uL (0.3-0.8) 09/03/21 05:11 Eos # (Auto) 0.2 x10^3/uL (0.0-0.2) 09/03/21 05:11 Baso # (Auto) 0.0 X10^3/uL (0.0-0.1) 09/03/21 05:11 Absolute Nucleated RBC 0.1 /100WBC 09/03/21 05:11 Sodium 138 mmol/L (136-145) 09/03/21 05:11 Corrected Sodium TNP 09/03/21 05:11 Potassium 4.9 mmol/L (3.5-5.1) 09/03/21 05:11 Chloride 107 mmol/L (98-107) 09/03/21 05:11 Carbon Dioxide 21.8 mmol/L (21-32) 09/03/21 05:11 BUN 24 mg/dL (7-18) H 09/03/21 05:11 Creatinine 1.09 mg/dL (0.55-1.02) H 09/03/21 05:11 Est GFR (MDRD) Af Amer > 60 (>60) 09/03/21 05:11 Est GFR (MDRD) Non-Af 51 (>60) L 09/03/21 05:11 Glucose 90 mg/dL (65-99) 09/03/21 05:11 POC Glucose (mg/dL) 93 mg/dL (65-99) 08/31/21 11:02 Calcium 8.5 mg/dL (8.5-10.1) 09/03/21 05:11 Corrected Calcium 9.5 mg/dL (8.5-10.1) 09/03/21 05:11 Total Bilirubin 0.20 mg/dL (0.2-1.0) 09/03/21 05:11 AST 15 Units/L (15-37) 09/03/21 05:11 ALT 13 Units/L (12-78) 09/03/21 05:11 Alkaline Phosphatase 44 Units/L (46-116) L 09/03/21 05:11 B-Natriuretic Peptide 796 pg/mL (0-79) H* 09/03/21 05:11 Total Protein 6.1 g/dL (6.4-8.2) L 09/03/21 05:11 Albumin 2.7 g/dL (3.4-5.0) L 09/03/21 05:11 Globulin 3.4 g/dL (2.5-4.5) 09/03/21 05:11 Albumin/Globulin Ratio 0.8 Ratio (1.1-2.1) L 09/03/21 05:11 SARS CoV-2 RNA Rapid KAREN Negative (NEGATIVE) 08/30/21 13:28 - Assessment and Plan 1: RT hip abscess . same local care and IV ABT . ambulation .. anemia w/u. will follow as out Pt - Problem Patient Problems: Patient Problems Acute renal failure (Acute) N17.9 Abscess of buttock, right (Acute) L02.31 Hyperkalemia (Acute) E87.5 Systolic heart failure (Acute) I50.20 Atrial fibrillation (Chronic) I48.91 CAD (coronary artery disease) (Chronic) I25.10 Hyperlipidemia (Chronic) E78.5 GERD (gastroesophageal reflux disease) (Chronic) K21.9
[2021-09-03] MEDS: ZOFRAN TAB 4 MG SL PRN (09:48)
--- NOTE | 2021-09-03 10:21 | PCM.PROG ---
Progress Note - Progress Note for Day of Date of Exam: 09/03/21 - Subjective Subjective: WAS ADMITTED FOR TREATMENT OF ACUTE RENAL FAILURE, ABSCESS OF RIGHT BUTTOCK, HYPERKALEMIA. SHE HAS A PMH OF SYSTOLIC HEART FAILURE, A-FIB, CAD, HYPERLIPIDEMIA, AND GERD. TODAY, SHE IS ALERT AND ORIENTED, LYING IN BED ON MORNING ROUNDS. SHE COMPLAINS OF GENERALIZED WEAKNESS AND PAIN TO BUTTOCK THIS MORNING. SHE ALSO REPORTS MILD SHORTNESS OF BREATH, BUT DOES ADMIT TO SLIGHT IMPROVEMENT SINCE YESTERDAY. ON EXAMINATION, HEART IS REGULAR IN RATE AND RHYTHM. BILATERAL LUNGS NOTED WITH DIMINISHED LUNG SOUNDS THROUGHOUT. ABDOMEN IS ROUND, SOFT, AND NON-TENDER WITH NORMAL BOWEL SOUNDS NOTED IN ALL QUADRANTS. RIGHT SIDE BUTTOCK REDDENED AND ABSCESS WITH SEROUS DRAINAGE IS NOTED. DRAINAGE DOES APPEAR TO BE DECREASING. HER VITALS THIS MORNING ARE: 98.6-70-20-96%-128/60. LABS WERE OBTAINED. ABNORMAL LAB VALUES INCLUDE THE FOLLOWING: RBC 2.65, HGB 8.6, HCT 24.9, BUN 24, CREATININE 1.09, ALK PHOS 44, BNP 796, TOTAL PROTEIN 6.1, ALBUMIN 2.7. SHE IS CURRENTLY RECEIVING NORMAL SALINE AT 20 ML/HR, LEVAQUIN 250MG IV DAILY, LASIX 20MG IV BID, GENTAMICIN OINTMENT AND LIDOCAINE OINTMENT TO WOUND TID, NORCO 5/325MG PO Q6H PRN, PEPCID 40MG PO BID, PEPCID 40MG PO BID, GI COCKTAIL 15ML PO QID, ELIQUIS 2.5MG PO BID, ZOFRAN 4MG SL Q6H PRN. OTHERWISE, WE WILL CONTINUE WITH CURRENT PLAN OF CARE TODAY. WE WILL FOLLOW UP WITH AM LABS AND CONTINUE TO MONITOR. TIME SPENT ON CLINICAL ASSESSMENT, REVIEWING LABS AND IMAGING, DECISION MAKING, AND DOCUMENTATION GREATER THAN 45 MINUTES. - Past Medical Family Social History Past Med/Fam/Surg Hx: No changes since H&P Allergies: Allergies codeine Allergy (Verified 10/05/17 08:34) lorazepam [From Ativan] Adverse Reaction (Verified 01/14/20 23:53) - Review of Systems ROS: No change since H&P - Vital Signs and I&O's Vital Signs: Temperature 98.6 F Pulse Rate [Bilateral Radial] 70 Respiratory Rate 20 Blood Pressure [Right Arm] 128/60 O2 Sat by Pulse Oximetry 96 Intake and Output: Intake & Output 08/31/21 09/01/21 09/02/21 09/03/21 11:59 11:59 11:59 11:59 Intake Total 1440 / 1440 2350 / 2350 1310 / 1310 2300 / 2300 Output Total 0 / 0 Balance 1440 / 1440 2350 / 2350 1310 / 1310 2300 / 2300 - Physical Exam Oriented: Normal Eyes: Normal Ear: Normal Nose: Normal Throat: Normal Respiratory: Generalized, Diminished Cardiovascular: Normal : Normal Auscultation: Bowel Sounds: Normal Palpation: Normal Tenderness: Normal Skin: Red, Tender, Hot, Wound (ABSCESS TO RIGHT SIDE BUTTOCK with significant resolution .. erythema 3 x 3 cm ) Musculoskeletal: Normal Psychiatric: Normal Mood Description: Calm Affect: Normal Speech Pattern: Clear, Appropriate - Laboratory and Diagnostics Result Diagrams: 09/03/21 05:11 09/03/21 05:11 Labs: Laboratory WBC 4.0 X10^3/uL (3.6-10.0) 09/03/21 05:11 RBC 2.65 X10^6/uL (3.5-5.4) L 09/03/21 05:11 Hgb 8.6 g/dL (12.0-16.0) L 09/03/21 05:11 Hct 24.9 % (36.0-47.0) L 09/03/21 05:11 MCV 93.7 fL (80.0-100.0) 09/03/21 05:11 MCH 32.4 pg (27.0-34.0) 09/03/21 05:11 MCHC 34.6 g/dL (33.0-35.0) 09/03/21 05:11 RDW 13.8 % (11.6-16.5) 09/03/21 05:11 Plt Count 226 X10^3/uL (150.0-450.0) 09/03/21 05:11 MPV 7.8 fL (7.4-11.0) 09/03/21 05:11 Neut % (Auto) 57.9 % (42.0-75.0) 09/03/21 05:11 Lymph % (Auto) 22.9 % (21.0-51.0) 09/03/21 05:11 [place] % (Auto) 14.8 % (0.0-13.0) H 09/03/21 05:11 Eos % (Auto) 3.9 % (0.9-2.9) H 09/03/21 05:11 Baso % (Auto) 0.5 % (0.2-1.0) 09/03/21 05:11 Neut # (Auto) 2.3 x10^3/uL (2.2-4.8) 09/03/21 05:11 Lymph # (Auto) 0.9 X10^3/uL (1.3-2.9) L 09/03/21 05:11 [place] # (Auto) 0.6 x10^3/uL (0.3-0.8) 09/03/21 05:11 Eos # (Auto) 0.2 x10^3/uL (0.0-0.2) 09/03/21 05:11 Baso # (Auto) 0.0 X10^3/uL (0.0-0.1) 09/03/21 05:11 Absolute Nucleated RBC 0.1 /100WBC 09/03/21 05:11 Sodium 138 mmol/L (136-145) 09/03/21 05:11 Corrected Sodium TNP 09/03/21 05:11 Potassium 4.9 mmol/L (3.5-5.1) 09/03/21 05:11 Chloride 107 mmol/L (98-107) 09/03/21 05:11 Carbon Dioxide 21.8 mmol/L (21-32) 09/03/21 05:11 BUN 24 mg/dL (7-18) H 09/03/21 05:11 Creatinine 1.09 mg/dL (0.55-1.02) H 09/03/21 05:11 Est GFR (MDRD) Af Amer > 60 (>60) 09/03/21 05:11 Est GFR (MDRD) Non-Af 51 (>60) L 09/03/21 05:11 Glucose 90 mg/dL (65-99) 09/03/21 05:11 POC Glucose (mg/dL) 93 mg/dL (65-99) 08/31/21 11:02 Calcium 8.5 mg/dL (8.5-10.1) 09/03/21 05:11 Corrected Calcium 9.5 mg/dL (8.5-10.1) 09/03/21 05:11 Total Bilirubin 0.20 mg/dL (0.2-1.0) 09/03/21 05:11 AST 15 Units/L (15-37) 09/03/21 05:11 ALT 13 Units/L (12-78) 09/03/21 05:11 Alkaline Phosphatase 44 Units/L (46-116) L 09/03/21 05:11 B-Natriuretic Peptide 796 pg/mL (0-79) H* 09/03/21 05:11 Total Protein 6.1 g/dL (6.4-8.2) L 09/03/21 05:11 Albumin 2.7 g/dL (3.4-5.0) L 09/03/21 05:11 Globulin 3.4 g/dL (2.5-4.5) 09/03/21 05:11 Albumin/Globulin Ratio 0.8 Ratio (1.1-2.1) L 09/03/21 05:11 SARS CoV-2 RNA Rapid KAREN Negative (NEGATIVE) 08/30/21 13:28 - Plan (1) Acute renal failure Status: Acute Qualifiers: Acute renal failure type: unspecified Qualified Code(s): N17.9 - Acute kidney failure, unspecified Plan: NORMAL SALINE AT 20 ML/HR, LEVAQUIN 250MG IV DAILY, GENTAMICIN OINTMENT AND LIDOCAINE OINTMENT TO WOUND TID, NORCO 5/325MG PO Q6H PRN, ELIQUIS 2.5MG PO BID, ZOFRAN 4MG XL Q6H PRN, PEPCID 40MG PO BID, PEPCID 40MG PO BID, AND GI COCKTAIL 15ML PO QID (2) Abscess of buttock, right Status: Acute (3) Hyperkalemia Status: Acute (4) Systolic heart failure Status: Acute Qualifiers: Heart failure chronicity: acute on chronic Qualified Code(s): I50.23 - Acute on chronic systolic (congestive) heart failure (5) Atrial fibrillation Status: Chronic Qualifiers: Atrial fibrillation type: unspecified Qualified Code(s): I48.91 - Unspecified atrial fibrillation (6) CAD (coronary artery disease) Status: Chronic Qualifiers: Coronary Disease-Associated Artery/Lesion type: unspecified vessel or lesion type [place] vs. transplanted heart: [place] heart Associated angina: without angina Qualified Code(s): I25.10 - Atherosclerotic heart disease of [place] coronary artery without angina pectoris (7) Hyperlipidemia Status: Chronic Qualifiers: Hyperlipidemia type: mixed hyperlipidemia Qualified Code(s): E78.2 - Mixed hyperlipidemia (8) GERD (gastroesophageal reflux disease) Status: Chronic Qualifiers: Esophagitis presence: without esophagitis Qualified Code(s): K21.9 - Gastro-esophageal reflux disease without esophagitis
[2021-09-03] MEDS: TYLENOL 325 MG TAB PO PRN (20:10)
[2021-09-03] MEDS: ZyrTEC TAB 10 MG PO SCH (20:38)
[2021-09-03] MEDS: ZOCOR TAB 40 MG PO SCH (20:38)
[2021-09-03] MEDS: ANTIVERT TAB 25 MG PO SCH (20:38)
[2021-09-04] MEDS: XYLOCAINE OINT 5% TOP SCH ×3 (05:14→21:33)
[2021-09-04] MEDS: GENTAMICIN TOPICAL OINT TOP SCH ×3 (05:14→21:33)
[2021-09-04] MEDS: ZOFRAN TAB 4 MG SL PRN ×2 (05:38→10:43)
[2021-09-04 06:32] LABS: BASOPHILS % (AUTO) 0.4 % (0.2-1.0); EOSINOPHILS # (AUTO) 0.1 x10^3/uL (0.0-0.2); EOSINOPHILS % (AUTO) 3.1 % (0.9-2.9); HEMATOCRIT 26.7 % (36.0-47.0); HEMOGLOBIN 9.3 g/dL (12.0-16.0); LYMPHOCYTES # (AUTO) 0.9 X10^3/uL (1.3-2.9); LYMPHOCYTES % (AUTO) 20.1 % (21.0-51.0); MEAN CORPUSCULAR HEMOGLOBIN 32.6 pg (27.0-34.0); MEAN CORPUSCULAR HGB CONC 34.9 g/dL (33.0-35.0); MEAN CORPUSCULAR VOLUME 93.4 fL (80.0-100.0); MEAN PLATELET VOLUME 7.7 fL (7.4-11.0); MONOCYTES # (AUTO) 0.8 x10^3/uL (0.3-0.8); MONOCYTES % (AUTO) 18.3 % (0.0-13.0); NEUTROPHILS # (AUTO) 2.5 x10^3/uL (2.2-4.8); NEUTROPHILS % (AUTO) 58.1 % (42.0-75.0); RED BLOOD COUNT 2.86 X10^6/uL (3.5-5.4); RED CELL DISTRIBUTION WIDTH 13.5 % (11.6-16.5); WHITE BLOOD COUNT 4.3 X10^3/uL (3.6-10.0)
[2021-09-04 06:49] LABS: ALANINE AMINOTRANSFERASE 15 Units/L (12-78); ALBUMIN 2.8 g/dL (3.4-5.0); ALKALINE PHOSPHATASE 49 Units/L (46-116); ASPARTATE AMINO TRANSFERASE 15 Units/L (15-37); BLOOD UREA NITROGEN 28 mg/dL (7-18); CALCIUM 8.9 mg/dL (8.5-10.1); CARBON DIOXIDE 24.3 mmol/L (21-32); CHLORIDE 105 mmol/L (98-107); COR CA(FOR HYPOALB) 9.9 mg/dL (8.5-10.1); CREATININE 1.39 mg/dL (0.55-1.02); SODIUM 138 mmol/L (136-145); TOTAL PROTEIN 6.5 g/dL (6.4-8.2); eGFR NON BLACK RACES 38 (>60)
[2021-09-04] MEDS ORDERED: ALLEGRA ONE (08:28)
[2021-09-04] MEDS: SINGULAIR TAB 10 MG PO SCH (08:30)
[2021-09-04] MEDS: ALLEGRA PO SCH (08:30)
[2021-09-04] MEDS: PROTONIX TAB 40 MG PO SCH ×2 (08:31→20:00)
[2021-09-04] MEDS: ELIQUIS PO SCH ×2 (08:32→20:00)
[2021-09-04] MEDS: LASIX IVP SCH ×2 (08:32→16:32)
[2021-09-04] MEDS: LEVAQUIN PREMIX IV 250 MG 250 MG/50 ML BAG IV SCH (08:32)
[2021-09-04] MEDS: PEPCID TAB 20 MG PO SCH (08:33)
[2021-09-04] MEDS ORDERED: HEMOCYTE-PLUS PO SCH ×2 (09:00→21:00)
[2021-09-04] MEDS ORDERED: PLAVIX PO SCH (09:00)
--- NOTE | 2021-09-04 09:30 | PCM.PROG ---
Progress Note - Progress Note for Day of Date of Exam: 09/04/21 - Subjective Subjective: WAS ADMITTED FOR TREATMENT OF ACUTE RENAL FAILURE, ABSCESS OF RIGHT BUTTOCK, HYPERKALEMIA. SHE HAS A PMH OF SYSTOLIC HEART FAILURE, A-FIB, CAD, HYPERLIPIDEMIA, AND GERD. TODAY, SHE IS ALERT AND ORIENTED, LYING IN BED ON MORNING ROUNDS. SHE COMPLAINS OF GENERALIZED WEAKNESS AND PAIN TO BUTTOCK THIS MORNING. SHE DOES ADMIT TO SLIGHT IMPROVEMENT IN SYMPTOMS TODAY. ON EXAMINATION, HEART IS REGULAR IN RATE AND RHYTHM. BILATERAL LUNGS NOTED WITH DIMINISHED LUNG SOUNDS THROUGHOUT. ABDOMEN IS ROUND, SOFT, AND NON-TENDER WITH NORMAL BOWEL SOUNDS NOTED IN ALL QUADRANTS. RIGHT SIDE BUTTOCK REDDENED AND ABSCESS WITH SEROUS DRAINAGE IS NOTED. ERYTEHMA HAS DECREASED AND DRAINAGE DOES APPEAR TO BE DECREASING. HER VITALS THIS MORNING ARE: 98.2-86-20-96%-135/63. LABS WERE OBTAINED. ABNORMAL LAB VALUES INCLUDE THE FOLLOWING: RBC 2.86, HGB 9.3, HCT 26.7, BUN 28, CREAITNINE 1.39, BNP 381, ALBUMIN 2.8. SHE IS CURRENTLY RECEIVING NORMAL SALINE AT 20 ML/HR, LEVAQUIN 250MG IV DAILY, LASIX 20MG IV BID, GENTAMICIN OINTMENT AND LIDOCAINE OINTMENT TO WOUND TID, NORCO 5/325MG PO Q6H PRN, PEPCID 40MG PO BID, PEPCID 40MG PO BID, GI COCKTAIL 15ML PO QID, ELIQUIS 2.5MG PO BID, ZOFRAN 4MG SL Q6H PRN. WE WILL CONTINUE WITH CURRENT PLAN OF CARE TODAY. OTHERWISE, WE WILL FOLLOW UP WITH AM LABS AND CONTINUE TO MONITOR. TIME SPENT ON CLINICAL ASSESSMENT, REVIEWING LABS AND IMAGING, DECISION MAKING, AND DOCUMENTATION GREATER THAN 45 MINUTES. - Past Medical Family Social History Past Med/Fam/Surg Hx: No changes since H&P Allergies: Allergies codeine Allergy (Verified 10/05/17 08:34) lorazepam [From Ativan] Adverse Reaction (Verified 01/14/20 23:53) - Review of Systems ROS: No change since H&P - Vital Signs and I&O's Vital Signs: Temperature 98.2 F Pulse Rate [Bilateral Radial] 86 Respiratory Rate 20 Blood Pressure [Right Arm] 135/63 O2 Sat by Pulse Oximetry 96 Intake and Output: Intake & Output 09/01/21 09/02/21 09/03/21 09/04/21 11:59 11:59 11:59 11:59 Intake Total 2350 / 2350 1310 / 1310 2300 / 2300 1690 / 1690 Output Total 0 / 0 Balance 2350 / 2350 1310 / 1310 2300 / 2300 1690 / 1690 - Physical Exam Oriented: Normal Eyes: Normal Ear: Normal Nose: Normal Throat: Normal Respiratory: Generalized, Diminished Cardiovascular: Normal : Normal Auscultation: Bowel Sounds: Normal Palpation: Normal Tenderness: Normal Skin: Red, Tender, Hot, Wound (ABSCESS TO RIGHT SIDE BUTTOCK with significant resolution .. erythema 3 x 3 cm ) Musculoskeletal: Normal Psychiatric: Normal Mood Description: Calm Affect: Normal Speech Pattern: Clear, Appropriate - Laboratory and Diagnostics Result Diagrams: 09/04/21 05:12 09/04/21 05:12 Labs: Laboratory WBC 4.3 X10^3/uL (3.6-10.0) 09/04/21 05:12 RBC 2.86 X10^6/uL (3.5-5.4) L 09/04/21 05:12 Hgb 9.3 g/dL (12.0-16.0) L 09/04/21 05:12 Hct 26.7 % (36.0-47.0) L 09/04/21 05:12 MCV 93.4 fL (80.0-100.0) 09/04/21 05:12 MCH 32.6 pg (27.0-34.0) 09/04/21 05:12 MCHC 34.9 g/dL (33.0-35.0) 09/04/21 05:12 RDW 13.5 % (11.6-16.5) 09/04/21 05:12 Plt Count 234 X10^3/uL (150.0-450.0) 09/04/21 05:12 MPV 7.7 fL (7.4-11.0) 09/04/21 05:12 Neut % (Auto) 58.1 % (42.0-75.0) 09/04/21 05:12 Lymph % (Auto) 20.1 % (21.0-51.0) L 09/04/21 05:12 [place] % (Auto) 18.3 % (0.0-13.0) H 09/04/21 05:12 Eos % (Auto) 3.1 % (0.9-2.9) H 09/04/21 05:12 Baso % (Auto) 0.4 % (0.2-1.0) 09/04/21 05:12 Neut # (Auto) 2.5 x10^3/uL (2.2-4.8) 09/04/21 05:12 Lymph # (Auto) 0.9 X10^3/uL (1.3-2.9) L 09/04/21 05:12 [place] # (Auto) 0.8 x10^3/uL (0.3-0.8) 09/04/21 05:12 Eos # (Auto) 0.1 x10^3/uL (0.0-0.2) 09/04/21 05:12 Baso # (Auto) 0.0 X10^3/uL (0.0-0.1) 09/04/21 05:12 Absolute Nucleated RBC 0.0 /100WBC 09/04/21 05:12 Sodium 138 mmol/L (136-145) 09/04/21 05:12 Corrected Sodium TNP 09/04/21 05:12 Potassium 4.9 mmol/L (3.5-5.1) 09/04/21 05:12 Chloride 105 mmol/L (98-107) 09/04/21 05:12 Carbon Dioxide 24.3 mmol/L (21-32) 09/04/21 05:12 BUN 28 mg/dL (7-18) H 09/04/21 05:12 Creatinine 1.39 mg/dL (0.55-1.02) H 09/04/21 05:12 Est GFR (MDRD) Af Amer 46 (>60) L 09/04/21 05:12 Est GFR (MDRD) Non-Af 38 (>60) L 09/04/21 05:12 Glucose 96 mg/dL (65-99) 09/04/21 05:12 POC Glucose (mg/dL) 93 mg/dL (65-99) 08/31/21 11:02 Calcium 8.9 mg/dL (8.5-10.1) 09/04/21 05:12 Corrected Calcium 9.9 mg/dL (8.5-10.1) 09/04/21 05:12 Total Bilirubin 0.20 mg/dL (0.2-1.0) 09/04/21 05:12 AST 15 Units/L (15-37) 09/04/21 05:12 ALT 15 Units/L (12-78) 09/04/21 05:12 Alkaline Phosphatase 49 Units/L (46-116) 09/04/21 05:12 B-Natriuretic Peptide 381 pg/mL (0-79) H 09/04/21 05:12 Total Protein 6.5 g/dL (6.4-8.2) 09/04/21 05:12 Albumin 2.8 g/dL (3.4-5.0) L 09/04/21 05:12 Globulin 3.7 g/dL (2.5-4.5) 09/04/21 05:12 Albumin/Globulin Ratio 0.8 Ratio (1.1-2.1) L 09/04/21 05:12 SARS CoV-2 RNA Rapid KAREN Negative (NEGATIVE) 08/30/21 13:28 - Plan (1) Acute renal failure Status: Acute Qualifiers: Acute renal failure type: unspecified Qualified Code(s): N17.9 - Acute kidney failure, unspecified Plan: NORMAL SALINE AT 20 ML/HR, LEVAQUIN 250MG IV DAILY, GENTAMICIN OINTMENT AND LIDOCAINE OINTMENT TO WOUND TID, NORCO 5/325MG PO Q6H PRN, ELIQUIS 2.5MG PO BID, ZOFRAN 4MG XL Q6H PRN, PEPCID 40MG PO BID, PEPCID 40MG PO BID, AND GI COCKTAIL 15ML PO QID (2) Abscess of buttock, right Status: Acute (3) Hyperkalemia Status: Acute (4) Systolic heart failure Status: Acute Qualifiers: Heart failure chronicity: acute on chronic Qualified Code(s): I50.23 - Acute on chronic systolic (congestive) heart failure (5) Atrial fibrillation Status: Chronic Qualifiers: Atrial fibrillation type: unspecified Qualified Code(s): I48.91 - Unspecified atrial fibrillation (6) CAD (coronary artery disease) Status: Chronic Qualifiers: Coronary Disease-Associated Artery/Lesion type: unspecified vessel or lesion type [place] vs. transplanted heart: [place] heart Associated angina: without angina Qualified Code(s): I25.10 - Atherosclerotic heart disease of [place] coronary artery without angina pectoris (7) Hyperlipidemia Status: Chronic Qualifiers: Hyperlipidemia type: mixed hyperlipidemia Qualified Code(s): E78.2 - Mixed hyperlipidemia (8) GERD (gastroesophageal reflux disease) Status: Chronic Qualifiers: Esophagitis presence: without esophagitis Qualified Code(s): K21.9 - Gastro-esophageal reflux disease without esophagitis
[2021-09-04] MEDS: NS 1,000 ML IV 1,000 ML IV SCH (11:45)
[2021-09-04] MEDS: ANTIVERT TAB 25 MG PO SCH (20:00)
[2021-09-04] MEDS: ZOCOR TAB 40 MG PO SCH (20:00)
[2021-09-04] MEDS: ZyrTEC TAB 10 MG PO SCH (20:01)
[2021-09-05] MEDS: NS 1,000 ML IV 1,000 ML IV SCH (00:12)
[2021-09-05 04:49] LABS: BASOPHILS % (AUTO) 0.4 % (0.2-1.0); EOSINOPHILS # (AUTO) 0.1 x10^3/uL (0.0-0.2); EOSINOPHILS % (AUTO) 2.8 % (0.9-2.9); HEMATOCRIT 25.9 % (36.0-47.0); HEMOGLOBIN 8.9 g/dL (12.0-16.0); LYMPHOCYTES # (AUTO) 0.9 X10^3/uL (1.3-2.9); LYMPHOCYTES % (AUTO) 19.3 % (21.0-51.0); MEAN CORPUSCULAR HGB CONC 34.3 g/dL (33.0-35.0); MEAN CORPUSCULAR VOLUME 93.3 fL (80.0-100.0); MEAN PLATELET VOLUME 7.5 fL (7.4-11.0); MONOCYTES # (AUTO) 0.7 x10^3/uL (0.3-0.8); MONOCYTES % (AUTO) 15.6 % (0.0-13.0); NEUTROPHILS # (AUTO) 2.9 x10^3/uL (2.2-4.8); NEUTROPHILS % (AUTO) 61.9 % (42.0-75.0); RED BLOOD COUNT 2.77 X10^6/uL (3.5-5.4); RED CELL DISTRIBUTION WIDTH 13.4 % (11.6-16.5); WHITE BLOOD COUNT 4.7 X10^3/uL (3.6-10.0)
[2021-09-05 05:10] LABS: ALANINE AMINOTRANSFERASE 15 Units/L (12-78); ALBUMIN 2.9 g/dL (3.4-5.0); ALKALINE PHOSPHATASE 46 Units/L (46-116); ASPARTATE AMINO TRANSFERASE 15 Units/L (15-37); BLOOD UREA NITROGEN 37 mg/dL (7-18); CALCIUM 8.6 mg/dL (8.5-10.1); CARBON DIOXIDE 24.2 mmol/L (21-32); CHLORIDE 103 mmol/L (98-107); COR CA(FOR HYPOALB) 9.5 mg/dL (8.5-10.1); CREATININE 1.64 mg/dL (0.55-1.02); SODIUM 138 mmol/L (136-145); TOTAL PROTEIN 6.5 g/dL (6.4-8.2); eGFR NON BLACK RACES 32 (>60)
[2021-09-05] MEDS: XYLOCAINE OINT 5% TOP SCH (05:26)
[2021-09-05] MEDS: GENTAMICIN TOPICAL OINT TOP SCH (05:26)
[2021-09-05 08:08] VITALS: BP 111/55
[2021-09-05] MEDS ORDERED: ALLEGRA ONE (08:21)
[2021-09-05] MEDS: ALLEGRA PO SCH (08:25)
[2021-09-05] MEDS: ELIQUIS PO SCH (08:26)
[2021-09-05] MEDS: PROTONIX TAB 40 MG PO SCH (08:26)
[2021-09-05] MEDS: SINGULAIR TAB 10 MG PO SCH (08:26)
[2021-09-05] MEDS: LEVAQUIN PREMIX IV 250 MG 250 MG/50 ML BAG IV SCH (08:26)
[2021-09-05] MEDS: PEPCID TAB 20 MG PO SCH (08:26)
[2021-09-05] MEDS ORDERED: ZyrTEC TAB 10 MG PO SCH (21:00)
== END 2021-09-05 11:25 | disposition home health service (06) | DRG 682 ==
LOC: MED/SURG
PROVIDERS: ADMIT Internal Medicine; ATTEND Internal Medicine
DX: I25.10 Atherosclerotic heart disease of native coronary artery without angina pectoris; I48.91 Unspecified atrial fibrillation; R94.31 Abnormal electrocardiogram [ECG] [EKG]; L02.31 Cutaneous abscess of buttock; N17.8 Other acute kidney failure; K44.9 Diaphragmatic hernia without obstruction or gangrene; E87.5 Hyperkalemia; E78.2 Mixed hyperlipidemia; I11.0 Hypertensive heart disease with heart failure; I50.23 Acute on chronic systolic (congestive) heart failure; R26.89 Other abnormalities of gait and mobility; Z20.822 Contact with and (suspected) exposure to COVID-19; R53.1 Weakness; K21.9 Gastro-esophageal reflux disease without esophagitis; R06.02 Shortness of breath

== ENCOUNTER 2021-10-02 16:35 | Inpatient (IN) ==
--- NOTE | 2021-10-02 16:56 | DR.DIZZY ---
HPI Time seen Time Seen by Provider: 10/02/21 16:55 PCP Primary Care Physician: KWAKU HPI Comment HPI Comment: PATIENT IS 86YR OLD FEMALE IN ER WITH INTERMITTENT SOB AND GENERALIZED WEAKNESS TIMES 3 DAYS. WORSE TODAY. DENIES VOMITING, DIARRHEA, FEVER OR DYSURIA. Complaint Chief Complaint Doctor Comments: SOB, WEAKNESS TIMES 3 DAYS. Chief Complaint:: PATIENT STATES SHE HAS BEEN HAVING INTERMITTEN SHORTNESS OF BREATH SINCE THIS PAST SATURDAY WITH INCREASED WEAKNESS. PATIENT DENIES FEVER OR COUGHING COVID-19 Coronavirus risk:travel/contact w/high risk person: No Has patient experienced Coronavirus symptoms: No Nurses Notes Reviewed Nurses Notes Review: Yes Source History Provided: Patient and EMS Mode of Arrival Mode of Arrival: EMS Timing Onset of Chief Complaint: 09/29/21 Came on: Suddenly Duration Duration: Intermittent Duration: Days Location of Weakness Weakness Location: Generalized Context Onset: At rest Does pt take pot. toxic medication?: No History of: None Stroke Symptoms: None Severity Severity: Normal activity level Modifying factors Worsens: Other (EXERTION.) Associated signs and symptoms Associated Signs and Symptoms: Weak Other history Other history: HTN, CAD, CHF. PMH PMH Past Medical History: Yes Past Medical History: Anemia, Arthritis, CHF, Coronary Artery Disease, Dyslipidemia, GERD and Hypertension Past Surgical History: No Surgical History: Other Family History History of Family Medical Conditions: Yes Family Medical History: Diabetes Mellitus and Hypertension Social History Does any household member use tobacco: No Alcohol Use: None Do you use any recreational Drugs:: No Lives With: Family Lives Where: Home Travel Risk Coronavirus risk:travel/contact w/high risk person: No Has patient experienced Coronavirus symptoms: No Infectious screening In the last 2 months have you had wt loss of >10#?: NO Have you had fever, night sweats or hemotysis?: No Have you traveled outside the country in the last 6 months?: No Isolation: Standard ROS Review of Systems Constitutional: See HPI, Weakness and Fatigue; negative Fever Eyes: No Symptoms Reported and See HPI ENTM: No Symptoms Reported and See HPI; negative Nose Discharge and Nose Congestion Respiratoy: See HPI and Short of Breath; negative Moist Cough Cardiovascular: No Symptoms Reported and See HPI; negative Chest Pain Gastrointestinal/Abdominal: No Symptoms Reported and See HPI; negative Abdominal Pain, Diarrhea and Vomiting Genitourinary: No Symptoms Reported and See HPI; negative Dysuria Neurological: See HPI, Weakness and Other (AMS.); negative Headache and Dizz iness Musculoskeletal: No Symptoms Reported and See HPI; negative Back Pain and Muscle Pain Integumentary: No Symptoms Reported and See HPI; negative Rash and Juandice Hematologic/Lymphatic: No Symptoms Reported and See HPI; negative Easy Bruising Endocrine: No Symptoms Reported and See HPI; negative Increased Thirst and Increased Urine Psychiatric: No Symptoms Reported and See HPI All Other Systems: Reviewed and Negative PE Vital Signs Vitals: Temperature 98.6 F Pulse Rate 76 Respiratory Rate 28 Blood Pressure [Right Arm] 111/55 Blood Pressure 131/60 O2 Sat by Pulse Oximetry 100 General Limitations: No Limitations General Appearance: Alert and In No Apparent Distress Head Head Exam: Normal Inspection Eyes Eye exam: Normal Appearance; negative Scleral Icterus and Conjunctival Injection Pupils: Regular, Round: Bilateral and Reactive: Bilateral Sclera/Conjunctival: Normal Inspection: Bilateral ENT ENT Exam: Normal Exam, Normal Oropharynx, Normal External Ear Exam and TM's Normal Bilaterally Neck Neck Exam: Normal Inspection, Full ROM and Trachea Midline; negative Tenderness Chest Chest Inspection: Normal Inspection and Symmetric Chest Wall Rise Respiratory Respiratory Exam: Normal Lung Sounds Bilat; negative Accessory Muscle Use, Chest Wall Tenderness and Respiratory Distress Respiratory Exam: Bilateral: Rhonchi and Lower: Rhonchi Cardiovascular Cardiovascular Exam: Regular Rate, Normal Rhythm and Normal Heart Sounds; negative Systolic Murmur and Diastolic Murmur Abdominal Exam Abdominal Exam: Normal Inspection, Normal Bowel Sounds and Soft; negative Tenderness Rectal Rectal Exam: Deferred Extremeties Extremities Exam: Normal Inspection, Full ROM and Normal Capillary Refill Back Back Exam: Normal Inspection and Full ROM; negative (R) CVA Tenderness and (L) CVA Tenderness Neurologic Neurological Exam: Alert and Oriented X3; negative Motor Sensory Deficit Patient Oriented To: Person and Place Cranial Nerve Exam: Gag reflex (XI): Normal Motor Strength - LUE: 5/5 Motor Strength - RUE: 5/5 Motor Strength - LLE: 5/5 Motor Strength - RLE: 5/5 Upper Motor Neuron Exam: Babinski Sign: Normal Psychiatric Psychiatric Exam: Normal Affect and Normal Mood Skin Skin Exam: Warm, Dry, Intact and Normal Color MDM Additional Information Obtained Additional Information Obtained From: Old Records Differential Diagnosis Differential Diagnosis: Anemia, CVA, Dehydration, Electrolyte disorder, Hypoglycemia and Myocardial infarction Differential Diagnosis Comment: SEPSIS, UTI. COURSE Treatment Treatment: SEE ORDERS NOTED WHILE PATIENT WAS IN ER. LABS, XRAY AND EKG DISCU SSED WITH PATIENT. NS 1L IV BOLUS. R INSULIN 5 UNITS IV, D50 25G IV, KAYEXALATE 15GM PO GIVEN PATIENT WHILE SHE WAS IN ER. Consultation Consultation Comments: DISCUSSED PATIENT WITH DR. AMES. HE WILL ADMIT PATIENT. Education/Counseling Education/Counseling: Patient Educated On: Diagnosis and Needs for Follow Up ROR Labs Reviewed Laboratory Results Reviewed?: Yes Result Diagrams: 10/06/21 06:06 10/06/21 06:06 Laboratory: 10/02/21 17:19 Blood Blood Culture - Final 10/02/21 17:16 Blood Blood Culture - Final WBC 5.0 X10^3/uL (3.6-10.0) 10/02/21 17:16 RBC 3.16 X10^6/uL (3.5-5.4) L 10/02/21 17:16 Hgb 10.0 g/dL (12.0-16.0) L 10/02/21 17:16 Hct 29.8 % (36.0-47.0) L 10/02/21 17:16 MCV 94.4 fL (80.0-100.0) 10/02/21 17:16 MCH 31.7 pg (27.0-34.0) 10/02/21 17:16 MCHC 33.6 g/dL (33.0-35.0) 10/02/21 17:16 RDW 14.1 % (11.6-16.5) 10/02/21 17:16 Plt Count 221 X10^3/uL (150.0-450.0) 10/02/21 17:16 MPV 7.9 fL (7.4-11.0) 10/02/21 17:16 Neut % (Auto) 71.6 % (42.0-75.0) 10/02/21 17:16 Lymph % (Auto) 10.7 % (21.0-51.0) L 10/02/21 17:16 [place] % (Auto) 16.7 % (0.0-13.0) H 10/02/21 17:16 Eos % (Auto) 0.4 % (0.9-2.9) L 10/02/21 17:16 Baso % (Auto) 0.6 % (0.2-1.0) 10/02/21 17:16 Neut # (Auto) 3.6 x10^3/uL (2.2-4.8) 10/02/21 17:16 Lymph # (Auto) 0.5 X10^3/uL (1.3-2.9) L 10/02/21 17:16 [place] # (Auto) 0.8 x10^3/uL (0.3-0.8) 10/02/21 17:16 Eos # (Auto) 0.0 x10^3/uL (0.0-0.2) 10/02/21 17:16 Baso # (Auto) 0.0 X10^3/uL (0.0-0.1) 10/02/21 17:16 Absolute Nucleated RBC 0.0 /100WBC 10/02/21 17:16 Sodium 128 mmol/L (136-145) L 10/02/21 18:11 Corrected Sodium TNP 10/02/21 18:11 Potassium 7.6 mmol/L (3.5-5.1) H* 10/02/21 18:11 Chloride 98 mmol/L (98-107) 10/02/21 18:11 Carbon Dioxide 18.7 mmol/L (21-32) L 10/02/21 18:11 BUN 72 mg/dL (7-18) H 10/02/21 18:11 Creatinine 2.56 mg/dL (0.55-1.02) H 10/02/21 18:11 Est GFR (MDRD) Af Amer 23 (>60) L 10/02/21 18:11 Est GFR (MDRD) Non-Af 19 (>60) L 10/02/21 18:11 Glucose 109 mg/dL (65-99) H 10/02/21 18:11 Lactic Acid 0.6 mmol/L (0.4-2.0) 10/02/21 17:16 Calcium 8.8 mg/dL (8.5-10.1) 10/02/21 18:11 Corrected Calcium TNP 10/02/21 18:11 Total Bilirubin 0.30 mg/dL (0.2-1.0) 10/02/21 18:11 AST 22 Units/L (15-37) 10/02/21 18:11 ALT 18 Units/L (12-78) 10/02/21 18:11 Alkaline Phosphatase 60 Units/L (46-116) 10/02/21 18:11 Creatine Kinase 26 Units/L (26-192) 10/02/21 18:11 CK-MB (CK-2) 1.3 ng/mL (0-4.0) 10/02/21 18:11 CK/CKMB % Calc 5.0 % (<4) 10/02/21 18:11 Troponin I High Sens 49.4 ng/L (4.0-60.0) 10/02/21 18:11 B-Natriuretic Peptide 535 pg/mL (0-79) H* 10/02/21 18:11 Total Protein 7.7 g/dL (6.4-8.2) 10/02/21 18:11 Albumin 3.7 g/dL (3.4-5.0) 10/02/21 18:11 Globulin 4.0 g/dL (2.5-4.5) 10/02/21 18:11 Albumin/Globulin Ratio 0.9 Ratio (1.1-2.1) L 10/02/21 18:11 SARS CoV-2 RNA Rapid KAREN Negative (NEGATIVE) 10/02/21 18:15 XRAY XRAY Interpreted by: Radiologist (REPORT NOTED.) and Self EKG Rate: 67 [place]: Normal Rhythm: NSR Block: None Hypertrophy: None ST: Old, Inf, Infarct and Nonsp Opioid Opioid Risk Tool Age (Anupam box if 16-45): No History of Preadolescent Sexual Abuse: No Total: 0 Total Score Risk Category: Low Risk Copyright: Jimmie EVANS predicting aberrant behaviors Diagnosis Discharge Problem: Acute hyponatremia, Acute hyperkalemia, Acute dehydration, Generalized weakness Acute renal failure Qualifiers: Acute renal failure type: unspecified Qualified Code(s): N17.9 - Acute kidney failure, unspecified Instructions Instructions: Anemia Heart Failure, Self Care, Bkyv-of-Ddmy Hyperkalemia, Fzof-by-Wwqq Acute Kidney Injury, Adult Rehydration, Elderly Dehydration, Elderly, [id number]-Figa Forms: Precautions for COVID19 [facility] Patient Portal Social Distancing
[2021-10-02] MEDS ORDERED: NS 1,000 ML IV 1,000 ML ONE (17:17)
[2021-10-02] MEDS: NS 1,000 ML IV 1,000 ML IV SCH (17:20)
[2021-10-02 17:32] LABS: BASOPHILS % (AUTO) 0.6 % (0.2-1.0); EOSINOPHILS % (AUTO) 0.4 % (0.9-2.9); HEMATOCRIT 29.8 % (36.0-47.0); LYMPHOCYTES # (AUTO) 0.5 X10^3/uL (1.3-2.9); LYMPHOCYTES % (AUTO) 10.7 % (21.0-51.0); MEAN CORPUSCULAR HEMOGLOBIN 31.7 pg (27.0-34.0); MEAN CORPUSCULAR HGB CONC 33.6 g/dL (33.0-35.0); MEAN CORPUSCULAR VOLUME 94.4 fL (80.0-100.0); MEAN PLATELET VOLUME 7.9 fL (7.4-11.0); MONOCYTES # (AUTO) 0.8 x10^3/uL (0.3-0.8); MONOCYTES % (AUTO) 16.7 % (0.0-13.0); NEUTROPHILS # (AUTO) 3.6 x10^3/uL (2.2-4.8); NEUTROPHILS % (AUTO) 71.6 % (42.0-75.0); RED BLOOD COUNT 3.16 X10^6/uL (3.5-5.4); RED CELL DISTRIBUTION WIDTH 14.1 % (11.6-16.5)
--- NOTE | 2021-10-02 18:06 | RAD ---
HISTORYSOB, WEAKNESS Relevant Clinical InformationSTUDYCHEST, 1 VIEWCOMPARISONChest x-ray dated August 30, 2021.FINDINGSThe trachea is midline. The cardiac silhouette is stably enlarged without overt signs of failure. Chronic emphysematous changes. Suggestion of a large hiatal hernia. The lungs are clear without focal infiltrate, pneumothorax, or effusion. The bony thorax is unremarkable.IMPRESSIONNo acute cardiopulmonary findings .Electronically signed by: IKE ANDRADE (Oct 02, 2021 18:05:59)
[2021-10-02 18:43] LABS: ALANINE AMINOTRANSFERASE 18 Units/L (12-78); ALBUMIN 3.7 g/dL (3.4-5.0); ALKALINE PHOSPHATASE 60 Units/L (46-116); ASPARTATE AMINO TRANSFERASE 22 Units/L (15-37); BLOOD UREA NITROGEN 72 mg/dL (7-18); CALCIUM 8.8 mg/dL (8.5-10.1); CARBON DIOXIDE 18.7 mmol/L (21-32); CHLORIDE 98 mmol/L (98-107); CREATINE KINASE 26 Units/L (26-192); CREATINE KINASE MB 1.3 ng/mL (0-4.0); CREATININE 2.56 mg/dL (0.55-1.02); SODIUM 128 mmol/L (136-145); TOTAL PROTEIN 7.7 g/dL (6.4-8.2); eGFR NON BLACK RACES 19 (>60)
[2021-10-02] MEDS ORDERED: D50W ABBOJECT SYR IV ONE (18:58)
[2021-10-02] MEDS ORDERED: NovoLIN R (or HumuLIN R) IV ONE (18:59)
[2021-10-02] MEDS ORDERED: KAYEXALATE SUSP PO NR (19:00)
[2021-10-02] MEDS ORDERED: D50W ABBOJECT SYR ONE (19:23)
[2021-10-02] MEDS ORDERED: NovoLIN R (or HumuLIN R) ONE ×2 (19:24→19:28)
[2021-10-02] MEDS ORDERED: KAYEXALATE SUSP PO ONE (19:33)
[2021-10-02] MEDS ORDERED: KAYEXALATE SUSP ONE (19:41)
[2021-10-02] MEDS ORDERED: PEPCID TAB 40 MG PO SCH (21:06)
[2021-10-02] MEDS ORDERED: ZyrTEC TAB 10 MG PO SCH (21:06)
[2021-10-02] MEDS ORDERED: PEPCID TAB 40 MG ONE (21:25)
[2021-10-02] MEDS: ELIQUIS PO SCH (21:27)
[2021-10-02 23:02] VITALS: BMI 23.0
[2021-10-02] MEDS: SNACK - Diabetic Appropriate PO SCH (23:19)
[2021-10-02 23:25] LABS: BILIRUBIN,URINE NEGATIVE (NEGATIVE); BLOOD/HEMOGLOBIN,URINE NEGATIVE (NEGATIVE); GLUCOSE, URINE NEGATIVE (NEGATIVE); KETONES,URINE NEGATIVE (NEGATIVE); LEUKOCYTE ESTERASE ,URINE 1+ (NEGATIVE); NITRITES,URINE NEGATIVE (NEGATIVE); PROTEIN,URINE 1+ (NEGATIVE); UROBILINOGEN,URINE NORMAL (NORMAL)
[2021-10-02] MEDS: ANTIVERT TAB 25 MG PO SCH (23:28)
[2021-10-02] MEDS: ZOCOR TAB 40 MG PO SCH (23:29)
[2021-10-02 23:33] LABS: APPEARANCE,URINE CLEAR (CLEAR); COLOR,URINE YELLOW (YELLOW); RBC,URINE NONE SEEN /HPF (0-3)
[2021-10-02 23:34] LABS: BACTERIA,URINE TRACE /HPF (NEGATIVE); SQUAMOUS EPITHELIAL CELL,UR RARE /HPF (NEGATIVE)
[2021-10-03 00:01] LABS: CKMB % 6.4 % (<4); CREATINE KINASE MB 1.6 ng/mL (0-4.0)
[2021-10-03] MEDS ORDERED: KAYEXALATE SUSP ONE (00:59)
[2021-10-03] MEDS: KAYEXALATE SUSP PO SCH ×2 (01:06→09:27)
[2021-10-03] MEDS: NS 1,000 ML IV 1,000 ML IV SCH ×3 (05:47→21:58)
[2021-10-03 06:23] LABS: BASOPHILS % (AUTO) 0.5 % (0.2-1.0); EOSINOPHILS % (AUTO) 0.3 % (0.9-2.9); HEMATOCRIT 24.4 % (36.0-47.0); HEMOGLOBIN 8.4 g/dL (12.0-16.0); LYMPHOCYTES # (AUTO) 0.7 X10^3/uL (1.3-2.9); MEAN CORPUSCULAR HEMOGLOBIN 32.1 pg (27.0-34.0); MEAN CORPUSCULAR HGB CONC 34.4 g/dL (33.0-35.0); MEAN CORPUSCULAR VOLUME 93.4 fL (80.0-100.0); MEAN PLATELET VOLUME 7.5 fL (7.4-11.0); MONOCYTES # (AUTO) 0.8 x10^3/uL (0.3-0.8); MONOCYTES % (AUTO) 24.7 % (0.0-13.0); NEUTROPHILS # (AUTO) 1.8 x10^3/uL (2.2-4.8); NEUTROPHILS % (AUTO) 53.5 % (42.0-75.0); RED BLOOD COUNT 2.61 X10^6/uL (3.5-5.4); RED CELL DISTRIBUTION WIDTH 13.8 % (11.6-16.5); WHITE BLOOD COUNT 3.3 X10^3/uL (3.6-10.0)
[2021-10-03 06:37] LABS: ALBUMIN 3.2 g/dL (3.4-5.0); ALKALINE PHOSPHATASE 50 Units/L (46-116); ASPARTATE AMINO TRANSFERASE 21 Units/L (15-37); BLOOD UREA NITROGEN 65 mg/dL (7-18); CALCIUM 8.5 mg/dL (8.5-10.1); CARBON DIOXIDE 20.6 mmol/L (21-32); CHLORIDE 102 mmol/L (98-107); COR CA(FOR HYPOALB) 9.1 mg/dL (8.5-10.1); CREATINE KINASE 23 Units/L (26-192); CREATININE 2.26 mg/dL (0.55-1.02); SODIUM 132 mmol/L (136-145); TOTAL PROTEIN 6.6 g/dL (6.4-8.2); eGFR NON BLACK RACES 22 (>60)
[2021-10-03 06:58] LABS: ALANINE AMINOTRANSFERASE 19 Units/L (12-78); CKMB % 5.2 % (<4); CREATINE KINASE MB 1.2 ng/mL (0-4.0)
[2021-10-03 07:27] LABS: OVALOCYTES PRESENT; PLATELET MORPHOLOGY COMMENT NORMAL (NORMAL)
[2021-10-03] MEDS ORDERED: VITAMIN D (1.25MG) PO SCH (09:00)
[2021-10-03] MEDS ORDERED: PATIENT'S HOME MEDICATION (Zinc 50 mg Tablet) PO SCH (09:00)
[2021-10-03] MEDS ORDERED: ALLEGRA PO SCH (09:00)
[2021-10-03] MEDS ORDERED: PATIENT'S HOME MEDICATION (Iron-Folic Acid-Mv, Min Cmb#15 [Hemocyte-Plus] 106 mg iron- 1 m PO SCH (09:00)
[2021-10-03] MEDS ORDERED: ALLEGRA ONE (09:09)
[2021-10-03] MEDS: HEMOCYTE-PLUS PO SCH (09:27)
[2021-10-03] MEDS: SINGULAIR TAB 10 MG PO SCH (09:34)
[2021-10-03] MEDS: ZINC SULFATE PO SCH (09:36)
[2021-10-03] MEDS: ELIQUIS PO SCH ×2 (09:36→20:07)
[2021-10-03] MEDS: PROTONIX TAB 40 MG PO SCH (09:38)
[2021-10-03] MEDS ORDERED: PROCRIT or EPOGEN VIAL 10,000 UNITS SC ONE (09:38)
[2021-10-03] MEDS: LANOXIN or DIGITEK PO SCH (09:38)
--- NOTE | 2021-10-03 12:01 | DR.H&P ---
H&P - History & Physical for Day of: H&P Date: 10/02/21 - Chief Complaint Chief Complaint: WEAKNESS, SOB - History of Present Illness History of Present Illness: IS A 86 YEAR OLD PATIENT OF OURS. SHE PRESENTED TO THE ER WITH COMPLAINTS OF GENERALIZED WEAKNESS AND SHORTNESS OF BREATH. SYMPTOMS HAVE BEEN ONGOING FOR OVER A MONTH, BUT HAVE GOTTEN WORSE FOR THE PAST WEEK. SHE WAS HOSPITALIZED JUST OVER A MONTH AGO FOR TREATMENT OF ACUTE RENAL FAILURE, CHF, PNEUMONIA, AND A SACRAL ABSCESS. HER FAMILY REPORTS THAT SHE HAS HAD DECREASED ORAL INTAKE SINCE SHE HAS RETURNED HOME. HER PMH INCLUDES: CAD, HTN, CHF, DYSLIPIDEMIA, GERD, ARTHRITIS, A-FIB, MURMUR, GERD, ANXIETY, BILATERAL CATARACT SURGERY. ON ARRIVAL TO THE HOSPITAL, HER VITALS WERE: 98.6-73-20-100%-117/56. LABS WERE OBTAINED. WBC 5.0, RBC 3.16, HGB 10.0, HCT 29.8, SODIUM 128, POTASSIUM 7.6, CARBON DIOXIDE 18.7, BUN 72, CREATININE 2.56, GLUCOSE 109, CALCIUM 8.8, BNP 535, TOTAL PROTEIN 7.37, HCT 3.7. CARDIAC ENZYMES WERE WITHIN NORMAL LIMITS. A URINALYSIS WAS OBTAINED AND REVEALED: WBC 5-10, RBC NONE SEE, LEUKOCYTES 1+, BACTERIA TRACE. COVID-19 NEGATIVE. BLOOD CULTURES WERE SET UP. WE WILL OBTAIN A URINE CULTURE WELL. A CHEST XRAY WAS OBTAINED AND REVEALED: 1. NO ACUTE CARDIOPULMONARY FINDINGS. EKG REVEALED: NSR WITH HR 69. SHE WAS ADMITTED TO THE HOSPITAL FOR FURTHER EVALUATION AND TREATMENT OF SEVERE DEHYDRATION, HYPERKALEMIA, HYPONATREMIA, UTI, RENAL INSUFFICIENCY, WEAKNESS. SHE WAS STARTED ON NORMAL SALINE AT 75 ML/HR, ROEPHIN 1G IV DAILY. HER HOME MEDICATIONS WERE RESUMED WITH THE EXCEPTION OF HER LASIX AND ALDACTONE. WE WILL ADD MEGACE 40MG PO BID FOR APPETITE. WE WILL HAVE PT EVALUATE AND WORK WITH PATIENT TODAY. OTHERWISE, WE PLAN TO FOLLOW UP WITH AM LABS AND CONTINUE TO MONITOR. TIME SPENT ON CLINICAL ASSESSMENT, REVIEWING LABS AND IMAGING, DECISION MAKING, AND DOCUMENTATION GREATER THAN 75 MINUTES. - Past Medical History Past Medical History: Coronary Artery Disease, Hypertension, Dyslipidemia, Anemia, GERD, Arthritis, CHF Additional Medical History: Cataracts, Diverticulosis, Previous Blood Transfusion. Atrial fibrillation - Past Surgical History Surgical History: Other Additional Surgical History: CATARACTS SURGERY , Hx of coronary stents . - Family History Family Medical History: Diabetes Mellitus, Hypertension - Social History Does any household member use tobacco: No Alcohol Use: None Drug Use: None - Medications Home Medications: codeine Allergy (Verified 10/05/17 08:34) lorazepam [From Ativan] Adverse Reaction (Verified 01/14/20 23:53) CONTINUE taking the following medications Hemocyte-Plus 1 cap PO DAILY 10/02/21 [History] zinc 50 mg PO DAILY 10/02/21 [History] - Review of Systems Constitutional: Weakness Eyes: No Symptoms Reported ENT: No Symptoms Reported Respiratory: Shortness of Breath, SOB with Excertion Cardiovascular: No Symptoms Reported Gastrointestinal: No Symptoms Reported Genitourinary: No Symptoms Reported Musculoskeletal: No Symptoms Reported Skin: No Symptoms Reported Neurological: Weakness - Physical Exam Vital Signs: Temperature 97.9 F Pulse Rate [Left] 70 Pulse Rate 65 Respiratory Rate 18 Blood Pressure [Right Arm] 100/54 Blood Pressure 131/60 O2 Sat by Pulse Oximetry 99 Oriented: Normal Eyes: Normal Ear: Normal Nose: Normal Throat: Normal Respiratory: Diminished Throughout Cardiovascular: Normal : Normal Auscultation: Bowel Sounds: Normal Palpation: Normal Tenderness: Normal Skin: Decreased Turgur Musculoskeletal: Normal Psychiatric: Normal Mood Description: Calm Affect: Normal Speech Pattern: Clear - Assessment/Plan (1) Severe dehydration Status: Acute Plan: ADMIT, NS AT 75 ML/HR, ROCEPHIN 1G IV DAILY, MEGACE 40MG PO BID, RESUME HOME MEDS (HOLD LASIX AND ALDACTONE). PT/OT (2) Hyponatremia Status: Acute (3) Acute hyperkalemia Status: Acute (4) Renal insufficiency Status: Acute (5) Weakness Status: Acute (6) Urinary tract infection Qualifiers: Urinary tract infection type: site unspecified Hematuria presence: without hematuria Qualified Code(s): N39.0 - Urinary tract infection, site not specified Status: Acute (7) Anemia Qualifiers: Anemia type: iron deficiency Iron deficiency anemia type: unspecified iron deficiency Qualified Code(s): D50.9 - Iron deficiency anemia, unspecified Status: Acute - Allergies Allergies/Adverse Reactions: Allergies Allergy/AdvReac Type Severity Reaction Status Date / Time codeine Allergy Verified 10/05/17 08:34 lorazepam [From Ativan] AdvReac Verified 01/14/20 23:53
[2021-10-03] MEDS ORDERED: PROCRIT or EPOGEN VIAL 10,000 UNITS ONE (13:39)
[2021-10-03] MEDS: MEGACE PO SCH ×2 (14:14→20:07)
[2021-10-03] MEDS: ROCEPHIN VIAL 1 GRAM 1 G in NS 100 ML IV 100 ML IV SCH (14:16)
[2021-10-03] MEDS: PEPCID TAB 20 MG PO SCH (18:13)
[2021-10-03] MEDS: SNACK - Diabetic Appropriate PO SCH (20:06)
[2021-10-03] MEDS: ZOCOR TAB 40 MG PO SCH (20:07)
[2021-10-03] MEDS: ANTIVERT TAB 25 MG PO SCH (20:07)
[2021-10-03] MEDS: ZyrTEC TAB 10 MG PO SCH (20:44)
[2021-10-04 06:35] LABS: BASOPHILS % (AUTO) 0.5 % (0.2-1.0); EOSINOPHILS # (AUTO) 0.1 x10^3/uL (0.0-0.2); EOSINOPHILS % (AUTO) 1.5 % (0.9-2.9); HEMOGLOBIN 7.1 g/dL (12.0-16.0); LYMPHOCYTES # (AUTO) 1.1 X10^3/uL (1.3-2.9); LYMPHOCYTES % (AUTO) 23.6 % (21.0-51.0); MEAN CORPUSCULAR HEMOGLOBIN 30.6 pg (27.0-34.0); MEAN CORPUSCULAR HGB CONC 32.1 g/dL (33.0-35.0); MEAN CORPUSCULAR VOLUME 95.4 fL (80.0-100.0); MEAN PLATELET VOLUME 8.1 fL (7.4-11.0); MONOCYTES # (AUTO) 0.8 x10^3/uL (0.3-0.8); MONOCYTES % (AUTO) 17.4 % (0.0-13.0); NEUTROPHILS # (AUTO) 2.6 x10^3/uL (2.2-4.8); RED BLOOD COUNT 2.31 X10^6/uL (3.5-5.4); RED CELL DISTRIBUTION WIDTH 14.1 % (11.6-16.5); WHITE BLOOD COUNT 4.5 X10^3/uL (3.6-10.0)
[2021-10-04 06:59] LABS: ALANINE AMINOTRANSFERASE 25 Units/L (12-78); ALBUMIN 2.6 g/dL (3.4-5.0); ALKALINE PHOSPHATASE 55 Units/L (46-116); ASPARTATE AMINO TRANSFERASE 26 Units/L (15-37); BLOOD UREA NITROGEN 44 mg/dL (7-18); CALCIUM 8.3 mg/dL (8.5-10.1); CARBON DIOXIDE 20.3 mmol/L (21-32); CHLORIDE 108 mmol/L (98-107); COR CA(FOR HYPOALB) 9.4 mg/dL (8.5-10.1); CREATININE 1.66 mg/dL (0.55-1.02); SODIUM 137 mmol/L (136-145); TOTAL PROTEIN 5.7 g/dL (6.4-8.2); eGFR NON BLACK RACES 31 (>60)
[2021-10-04] MEDS ORDERED: PLAVIX PO SCH (09:00)
[2021-10-04] MEDS: ROCEPHIN VIAL 1 GRAM 1 G in NS 100 ML IV 100 ML IV SCH (09:26)
[2021-10-04] MEDS: LANOXIN or DIGITEK PO SCH (09:29)
[2021-10-04] MEDS: HEMOCYTE-PLUS PO SCH (09:29)
[2021-10-04] MEDS: PROTONIX TAB 40 MG PO SCH (09:29)
[2021-10-04] MEDS: MEGACE PO SCH ×2 (09:29→21:06)
[2021-10-04] MEDS: ZINC SULFATE PO SCH (09:29)
[2021-10-04] MEDS: SINGULAIR TAB 10 MG PO SCH (09:29)
[2021-10-04] MEDS: PEPCID TAB 20 MG PO SCH (09:30)
[2021-10-04] MEDS: ELIQUIS PO SCH ×2 (09:30→21:06)
[2021-10-04] MEDS: NS 1,000 ML IV 1,000 ML IV SCH ×2 (09:32→15:49)
[2021-10-04] MEDS ORDERED: LASIX IVP ONE (09:58)
[2021-10-04] MEDS ORDERED: NS 500 ML IV 500 ML IV ONE (09:58)
[2021-10-04] MEDS ORDERED: BENADRYL INJ 50 MG VIAL IVP PRN (09:58)
[2021-10-04] MEDS: TYLENOL 325 MG TAB PO PRN ×2 (14:50→21:06)
[2021-10-04] MEDS: SNACK - Diabetic Appropriate PO SCH (21:05)
[2021-10-04] MEDS: ZyrTEC TAB 10 MG PO SCH (21:05)
[2021-10-04] MEDS: ZOCOR TAB 40 MG PO SCH (21:05)
[2021-10-04] MEDS: ANTIVERT TAB 25 MG PO SCH (21:06)
[2021-10-04 21:34] LABS: HEMATOCRIT 24.5 % (36.0-47.0); HEMOGLOBIN 8.4 g/dL (12.0-16.0)
[2021-10-05] MEDS: NS 1,000 ML IV 1,000 ML IV SCH ×2 (02:30→16:00)
[2021-10-05 03:16] LABS: BASOPHILS % (AUTO) 0.4 % (0.2-1.0); WHITE BLOOD COUNT 5.9 X10^3/uL (3.6-10.0)
[2021-10-05 03:20] LABS: EOSINOPHILS # (AUTO) 0.1 x10^3/uL (0.0-0.2); EOSINOPHILS % (AUTO) 2.3 % (0.9-2.9); HEMATOCRIT 30.7 % (36.0-47.0); LYMPHOCYTES # (AUTO) 1.2 X10^3/uL (1.3-2.9); LYMPHOCYTES % (AUTO) 20.7 % (21.0-51.0); MEAN CORPUSCULAR HEMOGLOBIN 31.4 pg (27.0-34.0); MEAN CORPUSCULAR HGB CONC 34.2 g/dL (33.0-35.0); MEAN CORPUSCULAR VOLUME 91.7 fL (80.0-100.0); MEAN PLATELET VOLUME 7.8 fL (7.4-11.0); MONOCYTES # (AUTO) 0.8 x10^3/uL (0.3-0.8); MONOCYTES % (AUTO) 13.1 % (0.0-13.0); NEUTROPHILS # (AUTO) 3.7 x10^3/uL (2.2-4.8); NEUTROPHILS % (AUTO) 63.5 % (42.0-75.0); RED BLOOD COUNT 3.34 X10^6/uL (3.5-5.4); RED CELL DISTRIBUTION WIDTH 15.3 % (11.6-16.5)
[2021-10-05 03:22] LABS: HEMOGLOBIN 10.5 g/dL (12.0-16.0)
[2021-10-05 03:24] LABS: ALANINE AMINOTRANSFERASE 24 Units/L (12-78); ALBUMIN 2.6 g/dL (3.4-5.0); ALKALINE PHOSPHATASE 55 Units/L (46-116); ASPARTATE AMINO TRANSFERASE 22 Units/L (15-37); BLOOD UREA NITROGEN 26 mg/dL (7-18); CALCIUM 8.3 mg/dL (8.5-10.1); CARBON DIOXIDE 20.1 mmol/L (21-32); CHLORIDE 111 mmol/L (98-107); COR CA(FOR HYPOALB) 9.4 mg/dL (8.5-10.1); CREATININE 1.05 mg/dL (0.55-1.02); SODIUM 141 mmol/L (136-145); TOTAL PROTEIN 5.8 g/dL (6.4-8.2); eGFR NON BLACK RACES 53 (>60)
[2021-10-05] MEDS ORDERED: FIORICET TAB PO PRN (08:51)
[2021-10-05] MEDS: ELIQUIS PO SCH ×2 (09:05→21:36)
[2021-10-05] MEDS: HEMOCYTE-PLUS PO SCH (09:05)
[2021-10-05] MEDS: ZINC SULFATE PO SCH (09:05)
[2021-10-05] MEDS: LANOXIN or DIGITEK PO SCH (09:05)
[2021-10-05] MEDS: PROTONIX TAB 40 MG PO SCH (09:06)
[2021-10-05] MEDS: MEGACE PO SCH ×2 (09:06→21:36)
[2021-10-05] MEDS: ROCEPHIN VIAL 1 GRAM 1 G in NS 100 ML IV 100 ML IV SCH (09:06)
[2021-10-05] MEDS: PEPCID TAB 20 MG PO SCH (09:06)
[2021-10-05] MEDS: SINGULAIR TAB 10 MG PO SCH (09:06)
[2021-10-05] MEDS: TYLENOL 325 MG TAB PO PRN (10:23)
[2021-10-05] MEDS ORDERED: LASIX IVP ONE (11:01)
--- NOTE | 2021-10-05 11:34 | PCM.PROG ---
Progress Note - Progress Note for Day of Date of Exam: 10/04/21 - Subjective Subjective: WAS ADMITTED FOR TREATMENT OF DEHYDRATION, RENAL INSUFFICIENCY, HYPONATREMIA, HYPERKALEMIA, UTI, ANEMIA, AND GENERALIZED WEAKNESS. SHE HAS A PMH OF SYSTOLIC HEART FAILURE, A-FIB, CAD, HYPERLIPIDEMIA, ANEMIA, AND GERD. TODAY, SHE IS ALERT AND ORIENTED, LYING IN BED ON MORNING ROUNDS. SHE COMPLAINS OF GENERALIZED WEAKNESS AND SHORTNESS OF BREATH THIS MORNING. NO SIGNIFICANT IMPROVEMENT SINCE ADMISSION. ON EXAMINATION, HEART IS REGULAR IN RATE AND RHYTHM. BILATERAL LUNGS NOTED WITH DIMINISHED LUNG SOUNDS THROUGHOUT. ABDOMEN IS ROUND, SOFT, AND NOTED WITH SUPRAPUBIC TENDERNESS. NORMAL BOWEL SOUNDS NOTED IN ALL QUADRANTS. NO UPPER OR LOWER EXTREMITY EDEMA NOTED. HER VITALS THIS MORNING ARE: 98.9-88-20-96%-121/59. LABS WERE OBTAINED. WBC 4.5, RBC 2.31, HGB 7.1, HCT 22.0, SODIUM 137, POTASSIUM 4.9, CARBON DIOXIDE 20.3, BUN 44, CREATININE 1.66, GLUCOSE 96, CALCIUM 8.3, BNP 448, TOTAL PROTEIN 5.7, ALBUMIN 2.6. URINE AND BLOOD CULTURES ARE PENDING. SHE IS CURRENTLY RECEIVING NORMAL SALINE AT 75 ML/HR, ROCEPHIN 1G IV DAILY, MEGACE 40MG PO BID, AND HER HOME MEDICATIONS OF QLIQUIS, ZYRTEC, PLAVIX, LANOXIN, VITAMIN D, PEPCID, ANTIVERT, SINGULAIR, HEMOCYTE PLUS, PROTONIX, ZOCOR, AND ZINC WERE RESUMED. WE WILL TRANSFUSE 2 UNITS OF PRBC TODAY AND ADMINISTER LASIX IN BETWEEN UNITS. OTHERWISE, WE WILL CONTINUE WITH CURRENT PLAN OF CARE TODAY. WE WILL FOLLOW UP WITH AM LABS AND CONTINUE TO MONITOR. TIME SPENT ON CLINICAL ASSESSMENT, REVIEWING LABS AND IMAGING, DECISION MAKING, AND DOCUMENTATION GREATER THAN 45 MINUTES. - Past Medical Family Social History Past Med/Fam/Surg Hx: No changes since H&P Allergies: Allergies codeine Allergy (Verified 10/05/17 08:34) lorazepam [From Ativan] Adverse Reaction (Verified 01/14/20 23:53) - Review of Systems ROS: No change since H&P - Vital Signs and I&O's Vital Signs: Temperature 98.7 F Pulse Rate [Left] 75 Pulse Rate 75 Respiratory Rate 24 Blood Pressure [Right Arm] 123/60 Blood Pressure 131/60 O2 Sat by Pulse Oximetry 96 Intake and Output: Intake & Output 10/02/21 10/03/21 10/04/21 10/05/21 11:59 11:59 11:59 11:59 Intake Total 920 / 920 2347 / 2347 2560 / 2560 Balance 920 / 920 2347 / 2347 2560 / 2560 - Physical Exam Oriented: Normal Eyes: Normal Ear: Normal Nose: Normal Throat: Normal Respiratory: Generalized, Diminished Cardiovascular: Normal : Normal Auscultation: Bowel Sounds: Normal Palpation: Normal Tenderness: Normal Skin: Decreased Turgur Musculoskeletal: Normal Psychiatric: Normal Mood Description: Calm Affect: Normal Speech Pattern: Clear, Appropriate - Laboratory and Diagnostics Result Diagrams: 10/05/21 02:55 10/05/21 02:55 Labs: 10/03/21 22:05 Urine,Clean Catch Urine Culture - Final 10/02/21 17:19 Blood Blood Culture - Preliminary 10/02/21 17:16 Blood Blood Culture - Preliminary Laboratory WBC 5.9 X10^3/uL (3.6-10.0) 10/05/21 02:55 RBC 3.34 X10^6/uL (3.5-5.4) L 10/05/21 02:55 Hgb 10.5 g/dL (12.0-16.0) L D 10/05/21 02:55 Hct 30.7 % (36.0-47.0) L 10/05/21 02:55 MCV 91.7 fL (80.0-100.0) 10/05/21 02:55 MCH 31.4 pg (27.0-34.0) 10/05/21 02:55 MCHC 34.2 g/dL (33.0-35.0) 10/05/21 02:55 RDW 15.3 % (11.6-16.5) 10/05/21 02:55 Plt Count 155 X10^3/uL (150.0-450.0) 10/05/21 02:55 Plt Count Comment Adequate (ADEQUATE) 10/03/21 05:22 MPV 7.8 fL (7.4-11.0) 10/05/21 02:55 Neut % (Auto) 63.5 % (42.0-75.0) 10/05/21 02:55 Lymph % (Auto) 20.7 % (21.0-51.0) L 10/05/21 02:55 [place] % (Auto) 13.1 % (0.0-13.0) H 10/05/21 02:55 Eos % (Auto) 2.3 % (0.9-2.9) 10/05/21 02:55 Baso % (Auto) 0.4 % (0.2-1.0) 10/05/21 02:55 Neut # (Auto) 3.7 x10^3/uL (2.2-4.8) 10/05/21 02:55 Lymph # (Auto) 1.2 X10^3/uL (1.3-2.9) L 10/05/21 02:55 Sharkey # (Auto) 0.8 x10^3/uL (0.3-0.8) 10/05/21 02:55 Eos # (Auto) 0.1 x10^3/uL (0.0-0.2) 10/05/21 02:55 Baso # (Auto) 0.0 X10^3/uL (0.0-0.1) 10/05/21 02:55 Absolute Nucleated RBC 0.0 /100WBC 10/05/21 02:55 Total Counted 100 10/03/21 05:22 Neutrophils % (Manual) 50 % (39-76) 10/03/21 05:22 Lymphocytes % (Manual) 28 % (13-43) 10/03/21 05:22 Monocytes % (Manual) 22 % (4-9) H 10/03/21 05:22 Nucleated RBCs 1 10/03/21 05:22 Plt Morphology Comment Normal (NORMAL) 10/03/21 05:22 RBC Morphology Abnormal (NORMAL) A 10/03/21 05:22 Ovalocytes Present 10/03/21 05:22 PT 17.0 SECONDS (11.8-14.3) 10/03/21 05:22 INR Target Range - 10/03/21 05:22 INR 1.45 (0.8-1.3) H 10/03/21 05:22 APTT 33.4 SECONDS (22.9-36.5) 10/03/21 05:22 PTT Comment - 10/03/21 05:22 Sodium 141 mmol/L (136-145) 10/05/21 02:55 Corrected Sodium TNP 10/05/21 02:55 Potassium 4.7 mmol/L (3.5-5.1) 10/05/21 02:55 Chloride 111 mmol/L (98-107) H 10/05/21 02:55 Carbon Dioxide 20.1 mmol/L (21-32) L 10/05/21 02:55 BUN 26 mg/dL (7-18) H 10/05/21 02:55 Creatinine 1.05 mg/dL (0.55-1.02) H 10/05/21 02:55 Est GFR (MDRD) Af Amer > 60 (>60) 10/05/21 02:55 Est GFR (MDRD) Non-Af 53 (>60) L 10/05/21 02:55 Glucose 97 mg/dL (65-99) 10/05/21 02:55 Lactic Acid 0.6 mmol/L (0.4-2.0) 10/02/21 17:16 Calcium 8.3 mg/dL (8.5-10.1) L 10/05/21 02:55 Corrected Calcium 9.4 mg/dL (8.5-10.1) 10/05/21 02:55 Magnesium 2.0 mg/dL (1.7-2.9) 10/03/21 05:22 Total Bilirubin 0.80 mg/dL (0.2-1.0) 10/05/21 02:55 AST 22 Units/L (15-37) 10/05/21 02:55 ALT 24 Units/L (12-78) 10/05/21 02:55 Alkaline Phosphatase 55 Units/L (46-116) 10/05/21 02:55 Creatine Kinase 23 Units/L (26-192) L 10/03/21 05:22 CK-MB (CK-2) 1.2 ng/mL (0-4.0) 10/03/21 05:22 CK/CKMB % Calc 5.2 % (<4) 10/03/21 05:22 Troponin I High Sens 45.6 ng/L (4.0-60.0) 10/03/21 05:22 B-Natriuretic Peptide 816 pg/mL (0-79) H* 10/05/21 02:55 Total Protein 5.8 g/dL (6.4-8.2) L 10/05/21 02:55 Albumin 2.6 g/dL (3.4-5.0) L 10/05/21 02:55 Globulin 3.2 g/dL (2.5-4.5) 10/05/21 02:55 Albumin/Globulin Ratio 0.8 Ratio (1.1-2.1) L 10/05/21 02:55 Specimen Type Clean catch urine 10/02/21 23:00 Urine Color Yellow (YELLOW) 10/02/21 23:00 Urine Appearance Clear (CLEAR) 10/02/21 23:00 Urine pH 5.0 (5.0 - 8.0) 10/02/21 23:00 Ur Specific [place] 1.015 (1.000-1.030) 10/02/21 23:00 Urine Protein 1+ (NEGATIVE) 10/02/21 23:00 Urine Glucose (UA) Negative (NEGATIVE) 10/02/21 23:00 Urine Ketones Negative (NEGATIVE) 10/02/21 23:00 Urine Blood Negative (NEGATIVE) 10/02/21 23:00 Urine Nitrite Negative (NEGATIVE) 10/02/21 23:00 Urine Bilirubin Negative (NEGATIVE) 10/02/21 23:00 Urine Urobilinogen Normal (NORMAL) 10/02/21 23:00 Ur Leukocyte Esterase 1+ (NEGATIVE) 10/02/21 23:00 Urine RBC None seen /HPF (0-3) 10/02/21 23:00 Urine WBC 5-10 /HPF (0-5) A 10/02/21 23:00 Ur Squamous Epith Cells Rare /HPF (NEGATIVE) 10/02/21 23:00 Urine Bacteria Trace /HPF (NEGATIVE) 10/02/21 23:00 Ur Culture Indicated? No/not indicated 10/02/21 23:00 Digoxin 1.09 ng/mL (0.9-2) 10/05/21 02:55 SARS CoV-2 RNA Rapid KAREN Negative (NEGATIVE) 10/02/21 18:15 Blood Type O POSITIVE 10/04/21 10:26 Antibody Screen Negative 10/04/21 10:26 Crossmatch See Detail 10/04/21 10:26 - Plan (1) Severe dehydration Status: Acute Plan: NS AT 75 ML/HR, ROCEPHIN 1G IV DAILY, MEGACE 40MG PO BID, RESUMED HOME MEDS (HOLD LASIX AND ALDACTONE). PT/OT (2) Anemia Status: Acute Qualifiers: Anemia type: iron deficiency Iron deficiency anemia type: unspecified iron deficiency Qualified Code(s): D50.9 - Iron deficiency anemia, unspecified Plan: TRANSFUSE 2 UNITS PRBC (3) Hyponatremia Status: Acute (4) Acute hyperkalemia Status: Acute (5) Renal insufficiency Status: Acute (6) Weakness Status: Acute (7) Urinary tract infection Status: Acute Qualifiers: Urinary tract infection type: site unspecified Hematuria presence: without hematuria Qualified Code(s): N39.0 - Urinary tract infection, site not specified
--- NOTE | 2021-10-05 11:45 | PCM.PROG ---
Progress Note - Progress Note for Day of Date of Exam: 10/05/21 - Subjective Subjective: WAS ADMITTED FOR TREATMENT OF DEHYDRATION, RENAL INSUFFICIENCY, HYPONATREMIA, HYPERKALEMIA, UTI, ANEMIA, AND GENERALIZED WEAKNESS. SHE HAS A PMH OF SYSTOLIC HEART FAILURE, A-FIB, CAD, HYPERLIPIDEMIA, ANEMIA, AND GERD. SHE RECEIVED TWO UNITS OF PRBC YESTERDAY. TODAY, SHE IS ALERT AND ORIENTED, LYING IN BED ON MORNING ROUNDS. SHE CONTINUES WITH COMPLAINTS OF WEAKNESS AND MILD SHORTNESS OF BREATH, BUT DOES REPORT IMPROVEMENT SINCE YESTERDAY. SHE ALSO COMPLAINS OF A HEADACHE THIS MORNING. ON EXAMINATION, HEART IS REGULAR IN RATE AND RHYTHM. BILATERAL LUNGS NOTED WITH DIMINISHED LUNG SOUNDS THROUGHOUT. ABDOMEN IS ROUND, SOFT, AND NON-TENDER WITH NORMAL BOWEL SOUNDS NOTED IN ALL QUADRANTS. NO UPPER OR LOWER EXTREMITY EDEMA NOTED. HER VITALS THIS MORNING ARE: 98.7-75-24-96%-123/60. LABS WERE OBTAINED. ABNORMAL LAB VALUES INCLUDE THE FOLLOWING: RBC 3.34, HGB 10.5, HCT 30.7, CHLORIDE 111, CARBON DIOXIDE 20.1, BUN 26, CREATININE 1.05, CALCIUM 8.3, BNP 816, TOTAL PROTEIN 5.8, ALBUMIN 2.6. URINE AND BLOOD CULTURES ARE PENDING. SHE IS CURRENTLY RECEIVING NORMAL SALINE AT 75 ML/HR, ROCEPHIN 1G IV DAILY, MEGACE 40MG PO BID, AND HER HOME MEDICATIONS OF QLIQUIS, ZYRTEC, PLAVIX, LANOXIN, VITAMIN D, PEPCID, ANTIVERT, SINGULAIR, HEMOCYTE PLUS, PROTONIX, ZOCOR, AND ZINC WERE RESUMED. WE WILL START FIORICET 1 TAB PO Q6H PRN AND ADMINISTER LASIX 20MG IV X 1 DOSE TODAY. OTHERWISE, WE WILL CONTINUE WITH CURRENT PLAN OF CARE. WE WILL FOLLOW UP WITH AM LABS AND CONTINUE TO MONITOR. TIME SPENT ON CLINICAL ASSESSMENT, REVIEWING LABS AND IMAGING, DECISION MAKING, AND DOCUMENTATION GREATER THAN 45 MINUTES. - Past Medical Family Social History Past Med/Fam/Surg Hx: No changes since H&P Allergies: Allergies codeine Allergy (Verified 10/05/17 08:34) lorazepam [From Ativan] Adverse Reaction (Verified 01/14/20 23:53) - Review of Systems ROS: No change since H&P - Vital Signs and I&O's Vital Signs: Temperature 98.7 F Pulse Rate [Left] 75 Pulse Rate 75 Respiratory Rate 24 Blood Pressure [Right Arm] 123/60 Blood Pressure 131/60 O2 Sat by Pulse Oximetry 96 Intake and Output: Intake & Output 10/02/21 10/03/21 10/04/21 10/05/21 11:59 11:59 11:59 11:59 Intake Total 920 / 920 2347 / 2347 2560 / 2560 Balance 920 / 920 2347 / 2347 2560 / 2560 - Physical Exam Oriented: Normal Eyes: Normal Ear: Normal Nose: Normal Throat: Normal Respiratory: Generalized, Diminished Cardiovascular: Normal : Normal Auscultation: Bowel Sounds: Normal Palpation: Normal Tenderness: Normal Skin: Decreased Turgur Musculoskeletal: Normal Psychiatric: Normal Mood Description: Calm Affect: Normal Speech Pattern: Clear, Appropriate - Laboratory and Diagnostics Result Diagrams: 10/05/21 02:55 10/05/21 02:55 Labs: 10/03/21 22:05 Urine,Clean Catch Urine Culture - Final 10/02/21 17:19 Blood Blood Culture - Preliminary 10/02/21 17:16 Blood Blood Culture - Preliminary Laboratory WBC 5.9 X10^3/uL (3.6-10.0) 10/05/21 02:55 RBC 3.34 X10^6/uL (3.5-5.4) L 10/05/21 02:55 Hgb 10.5 g/dL (12.0-16.0) L D 10/05/21 02:55 Hct 30.7 % (36.0-47.0) L 10/05/21 02:55 MCV 91.7 fL (80.0-100.0) 10/05/21 02:55 MCH 31.4 pg (27.0-34.0) 10/05/21 02:55 MCHC 34.2 g/dL (33.0-35.0) 10/05/21 02:55 RDW 15.3 % (11.6-16.5) 10/05/21 02:55 Plt Count 155 X10^3/uL (150.0-450.0) 10/05/21 02:55 Plt Count Comment Adequate (ADEQUATE) 10/03/21 05:22 MPV 7.8 fL (7.4-11.0) 10/05/21 02:55 Neut % (Auto) 63.5 % (42.0-75.0) 10/05/21 02:55 Lymph % (Auto) 20.7 % (21.0-51.0) L 10/05/21 02:55 [place] % (Auto) 13.1 % (0.0-13.0) H 10/05/21 02:55 Eos % (Auto) 2.3 % (0.9-2.9) 10/05/21 02:55 Baso % (Auto) 0.4 % (0.2-1.0) 10/05/21 02:55 Neut # (Auto) 3.7 x10^3/uL (2.2-4.8) 10/05/21 02:55 Lymph # (Auto) 1.2 X10^3/uL (1.3-2.9) L 10/05/21 02:55 [place] # (Auto) 0.8 x10^3/uL (0.3-0.8) 10/05/21 02:55 Eos # (Auto) 0.1 x10^3/uL (0.0-0.2) 10/05/21 02:55 Baso # (Auto) 0.0 X10^3/uL (0.0-0.1) 10/05/21 02:55 Absolute Nucleated RBC 0.0 /100WBC 10/05/21 02:55 Total Counted 100 10/03/21 05:22 Neutrophils % (Manual) 50 % (39-76) 10/03/21 05:22 Lymphocytes % (Manual) 28 % (13-43) 10/03/21 05:22 Monocytes % (Manual) 22 % (4-9) H 10/03/21 05:22 Nucleated RBCs 1 10/03/21 05:22 Plt Morphology Comment Normal (NORMAL) 10/03/21 05:22 RBC Morphology Abnormal (NORMAL) A 10/03/21 05:22 Ovalocytes Present 10/03/21 05:22 PT 17.0 SECONDS (11.8-14.3) 10/03/21 05:22 INR Target Range - 10/03/21 05:22 INR 1.45 (0.8-1.3) H 10/03/21 05:22 APTT 33.4 SECONDS (22.9-36.5) 10/03/21 05:22 PTT Comment - 10/03/21 05:22 Sodium 141 mmol/L (136-145) 10/05/21 02:55 Corrected Sodium TNP 10/05/21 02:55 Potassium 4.7 mmol/L (3.5-5.1) 10/05/21 02:55 Chloride 111 mmol/L (98-107) H 10/05/21 02:55 Carbon Dioxide 20.1 mmol/L (21-32) L 10/05/21 02:55 BUN 26 mg/dL (7-18) H 10/05/21 02:55 Creatinine 1.05 mg/dL (0.55-1.02) H 10/05/21 02:55 Est GFR (MDRD) Af Amer > 60 (>60) 10/05/21 02:55 Est GFR (MDRD) Non-Af 53 (>60) L 10/05/21 02:55 Glucose 97 mg/dL (65-99) 10/05/21 02:55 Lactic Acid 0.6 mmol/L (0.4-2.0) 10/02/21 17:16 Calcium 8.3 mg/dL (8.5-10.1) L 10/05/21 02:55 Corrected Calcium 9.4 mg/dL (8.5-10.1) 10/05/21 02:55 Magnesium 2.0 mg/dL (1.7-2.9) 10/03/21 05:22 Total Bilirubin 0.80 mg/dL (0.2-1.0) 10/05/21 02:55 AST 22 Units/L (15-37) 10/05/21 02:55 ALT 24 Units/L (12-78) 10/05/21 02:55 Alkaline Phosphatase 55 Units/L (46-116) 10/05/21 02:55 Creatine Kinase 23 Units/L (26-192) L 10/03/21 05:22 CK-MB (CK-2) 1.2 ng/mL (0-4.0) 10/03/21 05:22 CK/CKMB % Calc 5.2 % (<4) 10/03/21 05:22 Troponin I High Sens 45.6 ng/L (4.0-60.0) 10/03/21 05:22 B-Natriuretic Peptide 816 pg/mL (0-79) H* 10/05/21 02:55 Total Protein 5.8 g/dL (6.4-8.2) L 10/05/21 02:55 Albumin 2.6 g/dL (3.4-5.0) L 10/05/21 02:55 Globulin 3.2 g/dL (2.5-4.5) 10/05/21 02:55 Albumin/Globulin Ratio 0.8 Ratio (1.1-2.1) L 10/05/21 02:55 Specimen Type Clean catch urine 10/02/21 23:00 Urine Color Yellow (YELLOW) 10/02/21 23:00 Urine Appearance Clear (CLEAR) 10/02/21 23:00 Urine pH 5.0 (5.0 - 8.0) 10/02/21 23:00 Ur Specific [place] 1.015 (1.000-1.030) 10/02/21 23:00 Urine Protein 1+ (NEGATIVE) 10/02/21 23:00 Urine Glucose (UA) Negative (NEGATIVE) 10/02/21 23:00 Urine Ketones Negative (NEGATIVE) 10/02/21 23:00 Urine Blood Negative (NEGATIVE) 10/02/21 23:00 Urine Nitrite Negative (NEGATIVE) 10/02/21 23:00 Urine Bilirubin Negative (NEGATIVE) 10/02/21 23:00 Urine Urobilinogen Normal (NORMAL) 10/02/21 23:00 Ur Leukocyte Esterase 1+ (NEGATIVE) 10/02/21 23:00 Urine RBC None seen /HPF (0-3) 10/02/21 23:00 Urine WBC 5-10 /HPF (0-5) A 10/02/21 23:00 Ur Squamous Epith Cells Rare /HPF (NEGATIVE) 10/02/21 23:00 Urine Bacteria Trace /HPF (NEGATIVE) 10/02/21 23:00 Ur Culture Indicated? No/not indicated 10/02/21 23:00 Digoxin 1.09 ng/mL (0.9-2) 10/05/21 02:55 SARS CoV-2 RNA Rapid KAREN Negative (NEGATIVE) 10/02/21 18:15 Blood Type O POSITIVE 10/04/21 10:26 Antibody Screen Negative 10/04/21 10:26 Crossmatch See Detail 10/04/21 10:26 - Plan (1) Severe dehydration Status: Acute Plan: NS AT 75 ML/HR, ROCEPHIN 1G IV DAILY, MEGACE 40MG PO BID, FIORICET 1 TAB PO Q6H PRN, RESUMED HOME MEDS (HOLD LASIX AND ALDACTONE). PT/OT (2) Anemia Status: Acute Qualifiers: Anemia type: iron deficiency Iron deficiency anemia type: unspecified iron deficiency Qualified Code(s): D50.9 - Iron deficiency anemia, unspecified (3) Hyponatremia Status: Acute (4) Acute hyperkalemia Status: Acute (5) Renal insufficiency Status: Acute (6) Weakness Status: Acute (7) Urinary tract infection Status: Acute Qualifiers: Urinary tract infection type: site unspecified Hematuria presence: without hematuria Qualified Code(s): N39.0 - Urinary tract infection, site not specified
[2021-10-05] MEDS: SNACK - Diabetic Appropriate PO SCH (20:35)
[2021-10-05] MEDS: ZyrTEC TAB 10 MG PO SCH (21:36)
[2021-10-05] MEDS: ANTIVERT TAB 25 MG PO SCH (21:36)
[2021-10-05] MEDS: ZOCOR TAB 40 MG PO SCH (21:37)
--- NOTE | 2021-10-06 05:48 | RAD ---
PROCEDURE: Chest X-ray 1 View .HISTORY: Dyspnea.TECHNIQUE: AP view .COMPARISON: 10/02/2021.TECHNICAL QUALITY: Satisfactory .FINDINGS:Unchanged mild cardiomegaly.Normal central vascularity.Lungs are clear with no consolidation or pleural fluid.IMPRESSION:Unchanged cardiac enlargement with Clear lungs.Electronically signed by: Rafael Payne (Oct 06, 2021 05:48:35)
[2021-10-06] MEDS: NS 1,000 ML IV 1,000 ML IV SCH (06:00)
[2021-10-06 06:33] LABS: BASOPHILS % (AUTO) 0.4 % (0.2-1.0); EOSINOPHILS # (AUTO) 0.3 x10^3/uL (0.0-0.2); EOSINOPHILS % (AUTO) 4.7 % (0.9-2.9); HEMATOCRIT 29.6 % (36.0-47.0); HEMOGLOBIN 10.2 g/dL (12.0-16.0); LYMPHOCYTES # (AUTO) 1.2 X10^3/uL (1.3-2.9); MEAN CORPUSCULAR HEMOGLOBIN 31.8 pg (27.0-34.0); MEAN CORPUSCULAR HGB CONC 34.4 g/dL (33.0-35.0); MEAN CORPUSCULAR VOLUME 92.3 fL (80.0-100.0); MEAN PLATELET VOLUME 8.2 fL (7.4-11.0); MONOCYTES # (AUTO) 0.7 x10^3/uL (0.3-0.8); MONOCYTES % (AUTO) 13.8 % (0.0-13.0); NEUTROPHILS # (AUTO) 3.2 x10^3/uL (2.2-4.8); NEUTROPHILS % (AUTO) 59.1 % (42.0-75.0); RED BLOOD COUNT 3.21 X10^6/uL (3.5-5.4); RED CELL DISTRIBUTION WIDTH 15.7 % (11.6-16.5); WHITE BLOOD COUNT 5.4 X10^3/uL (3.6-10.0)
[2021-10-06 06:42] LABS: ALANINE AMINOTRANSFERASE 21 Units/L (12-78); ALBUMIN 2.5 g/dL (3.4-5.0); ALKALINE PHOSPHATASE 50 Units/L (46-116); ASPARTATE AMINO TRANSFERASE 23 Units/L (15-37); BLOOD UREA NITROGEN 19 mg/dL (7-18); CALCIUM 8.4 mg/dL (8.5-10.1); CARBON DIOXIDE 19.7 mmol/L (21-32); CHLORIDE 111 mmol/L (98-107); COR CA(FOR HYPOALB) 9.6 mg/dL (8.5-10.1); CREATININE 0.86 mg/dL (0.55-1.02); SODIUM 140 mmol/L (136-145); TOTAL PROTEIN 5.8 g/dL (6.4-8.2); eGFR NON BLACK RACES > 60 (>60)
[2021-10-06] MEDS: ZINC SULFATE PO SCH (08:59)
[2021-10-06] MEDS: MEGACE PO SCH (08:59)
[2021-10-06] MEDS: SINGULAIR TAB 10 MG PO SCH (08:59)
[2021-10-06] MEDS: HEMOCYTE-PLUS PO SCH (08:59)
[2021-10-06] MEDS: LANOXIN or DIGITEK PO SCH (08:59)
[2021-10-06] MEDS: ELIQUIS PO SCH (08:59)
[2021-10-06] MEDS: PROTONIX TAB 40 MG PO SCH (08:59)
[2021-10-06] MEDS: PEPCID TAB 20 MG PO SCH (09:00)
[2021-10-06] MEDS: ROCEPHIN VIAL 1 GRAM 1 G in NS 100 ML IV 100 ML IV SCH (09:03)
[2021-10-06 09:56] VITALS: BP 119/63
== END 2021-10-06 11:30 | disposition home health service (06) | DRG 690 ==
LOC: ER 16:35 → MED/SURG 19:48
PROVIDERS: ADMIT Internal Medicine; ATTEND Internal Medicine
DX: D50.8 Other iron deficiency anemias; E87.5 Hyperkalemia; I10 Essential (primary) hypertension; E86.0 Dehydration; E78.2 Mixed hyperlipidemia; N39.0 Urinary tract infection, site not specified; Z20.822 Contact with and (suspected) exposure to COVID-19; K21.9 Gastro-esophageal reflux disease without esophagitis; N17.8 Other acute kidney failure; R06.02 Shortness of breath; R79.1 Abnormal coagulation profile; R51.9 Headache, unspecified; E87.1 Hypo-osmolality and hyponatremia; R94.31 Abnormal electrocardiogram [ECG] [EKG]; R53.1 Weakness; I25.10 Atherosclerotic heart disease of native coronary artery without angina pectoris

== ENCOUNTER 2022-07-26 16:47 | Observation (INO) ==
[2022-07-26] MEDS ORDERED: NS 500 ML IV 500 ML IV PRN (17:36)
[2022-07-26] MEDS ORDERED: NS 1,000 ML IV 1,000 ML IV SCH (18:00)
[2022-07-26 18:05] LABS: BASOPHILS % (AUTO) 0.6 % (0.2-1.0); EOSINOPHILS # (AUTO) 0.2 x10^3/uL (0.0-0.2); EOSINOPHILS % (AUTO) 5.4 % (0.9-2.9); HEMATOCRIT 21.8 % (36.0-47.0); HEMOGLOBIN 7.1 g/dL (12.0-16.0); LYMPHOCYTES # (AUTO) 0.8 X10^3/uL (1.3-2.9); LYMPHOCYTES % (AUTO) 22.2 % (21.0-51.0); MEAN CORPUSCULAR HGB CONC 32.8 g/dL (33.0-35.0); MEAN CORPUSCULAR VOLUME 100.6 fL (80.0-100.0); MEAN PLATELET VOLUME 8.3 fL (7.4-11.0); MONOCYTES # (AUTO) 0.4 x10^3/uL (0.3-0.8); MONOCYTES % (AUTO) 10.9 % (0.0-13.0); NEUTROPHILS # (AUTO) 2.3 x10^3/uL (2.2-4.8); NEUTROPHILS % (AUTO) 60.9 % (42.0-75.0); RED BLOOD COUNT 2.16 X10^6/uL (3.5-5.4); RED CELL DISTRIBUTION WIDTH 15.5 % (11.6-16.5); WHITE BLOOD COUNT 3.7 X10^3/uL (3.6-10.0)
[2022-07-26 18:17] LABS: ALBUMIN 3.2 g/dL (3.4-5.0); CALCIUM 8.6 mg/dL (8.5-10.1); CARBON DIOXIDE 30.5 mmol/L (21-32); COR CA(FOR HYPOALB) 9.2 mg/dL (8.5-10.1); CREATININE 1.32 mg/dL (0.55-1.02); TOTAL PROTEIN 6.4 g/dL (6.4-8.2)
[2022-07-26 18:36] VITALS: BMI 19.8
[2022-07-26] MEDS ORDERED: TYLENOL 325 MG TAB PO ONE (20:04)
[2022-07-26] MEDS ORDERED: BENADRYL INJ 50 MG VIAL IVP ONE (20:05)
--- NOTE | 2022-07-26 21:41 | RAD ---
HISTORYSOB, BLOOD TRANSFUSIONSTUDYCHEST, 1 VIEWCOMPARISONJune 2021TECHNIQUEChest radiographic imaging, AP portable projection, 1 imageFINDINGSModerate cardiomegaly.No focal airspace disease.No pleural effusion.No pneumothorax.No acute osseous abnormality.IMPRESSIONNo imaging findings of acute cardiopulmonary disease or significant changes.Electronically signed by: Vitor Ramirez (Jul 26, 2022 21:39:53)
[2022-07-26 22:19] LABS: BILIRUBIN,URINE NEGATIVE (NEGATIVE); BLOOD/HEMOGLOBIN,URINE NEGATIVE (NEGATIVE); GLUCOSE, URINE NEGATIVE (NEGATIVE); KETONES,URINE NEGATIVE (NEGATIVE); LEUKOCYTE ESTERASE ,URINE 2+ (NEGATIVE); NITRITES,URINE NEGATIVE (NEGATIVE); PROTEIN,URINE 2+ (NEGATIVE); UROBILINOGEN,URINE NORMAL (NORMAL)
[2022-07-26 22:28] LABS: APPEARANCE,URINE CLEAR (CLEAR); COLOR,URINE YELLOW (YELLOW)
[2022-07-26 22:29] LABS: BACTERIA,URINE TRACE /HPF (NEGATIVE); HYALINE CASTS, URINE FEW /LPF (NEGATIVE); RBC,URINE 0-2 /HPF (0-3); SQUAMOUS EPITHELIAL CELL,UR FEW /HPF (NEGATIVE); TRANSITIONAL EPI CELLS,URINE FEW /HPF (NEGATIVE)
[2022-07-27 05:45] LABS: BASOPHILS % (AUTO) 0.4 % (0.2-1.0); EOSINOPHILS # (AUTO) 0.2 x10^3/uL (0.0-0.2); EOSINOPHILS % (AUTO) 4.9 % (0.9-2.9); HEMATOCRIT 27.5 % (36.0-47.0); LYMPHOCYTES # (AUTO) 0.9 X10^3/uL (1.3-2.9); MEAN CORPUSCULAR HEMOGLOBIN 31.9 pg (27.0-34.0); MEAN CORPUSCULAR HGB CONC 33.9 g/dL (33.0-35.0); MEAN CORPUSCULAR VOLUME 94.1 fL (80.0-100.0); MONOCYTES # (AUTO) 0.6 x10^3/uL (0.3-0.8); MONOCYTES % (AUTO) 14.1 % (0.0-13.0); NEUTROPHILS # (AUTO) 2.6 x10^3/uL (2.2-4.8); NEUTROPHILS % (AUTO) 59.6 % (42.0-75.0); RED BLOOD COUNT 2.93 X10^6/uL (3.5-5.4); RED CELL DISTRIBUTION WIDTH 17.2 % (11.6-16.5); WHITE BLOOD COUNT 4.4 X10^3/uL (3.6-10.0)
[2022-07-27 05:47] LABS: HEMOGLOBIN 9.3 g/dL (12.0-16.0)
[2022-07-27 07:44] LABS: ALANINE AMINOTRANSFERASE 14 Units/L (12-78); ALBUMIN 2.8 g/dL (3.4-5.0); ALKALINE PHOSPHATASE 59 Units/L (46-116); ASPARTATE AMINO TRANSFERASE 18 Units/L (15-37); BLOOD UREA NITROGEN 16 mg/dL (7-18); CALCIUM 8.2 mg/dL (8.5-10.1); CHLORIDE 108 mmol/L (98-107); COR CA(FOR HYPOALB) 9.2 mg/dL (8.5-10.1); CREATININE 1.03 mg/dL (0.55-1.02); MAGNESIUM 1.9 mg/dL (2.0-2.9); SODIUM 145 mmol/L (136-145); TOTAL PROTEIN 5.5 g/dL (6.4-8.2); eGFR NON BLACK RACES 54 (>60)
[2022-07-27 10:42] VITALS: BP 148/65
== END 2022-07-27 11:50 | disposition home health service (06) ==
LOC: LAB 16:47 → OUTPT REF 16:47 → MED/SURG 16:47 → EDSTATUS 16:56
PROVIDERS: ADMIT Internal Medicine; ATTEND Internal Medicine
DX: Z79.899 Other long term (current) drug therapy; D64.89 Other specified anemias; I50.9 Heart failure, unspecified; Z79.1 Long term (current) use of non-steroidal anti-inflammatories (NSAID)

== ENCOUNTER 2022-11-08 15:30 | Observation (INO) ==
[2022-11-08 17:03] LABS: EOSINOPHILS % (AUTO) 0.9 % (0.9-2.9); LYMPHOCYTES # (AUTO) 0.8 X10^3/uL (1.3-2.9); MONOCYTES # (AUTO) 0.5 x10^3/uL (0.3-0.8)
[2022-11-08 17:07] LABS: BASOPHILS % (AUTO) 0.6 % (0.2-1.0); LYMPHOCYTES % (AUTO) 16.9 % (21.0-51.0); MEAN CORPUSCULAR HEMOGLOBIN 32.6 pg (27.0-34.0); MEAN CORPUSCULAR HGB CONC 33.6 g/dL (33.0-35.0); MEAN PLATELET VOLUME 7.9 fL (7.4-11.0); MONOCYTES % (AUTO) 10.6 % (0.0-13.0); NEUTROPHILS # (AUTO) 3.4 x10^3/uL (2.2-4.8); PLATELET COUNT 186 X10^3/uL (150.0-450.0); RED BLOOD COUNT 1.82 X10^6/uL (3.5-5.4); WHITE BLOOD COUNT 4.8 X10^3/uL (3.6-10.0)
[2022-11-08 17:22] LABS: HEMATOCRIT 17.6 % (36.0-47.0); HEMOGLOBIN 5.9 g/dL (12.0-16.0)
[2022-11-08 17:28] LABS: ALANINE AMINOTRANSFERASE 19 Units/L (12-78); ALBUMIN 3.4 g/dL (3.4-5.0); ALKALINE PHOSPHATASE 58 Units/L (46-116); ASPARTATE AMINO TRANSFERASE 21 Units/L (15-37); BLOOD UREA NITROGEN 32 mg/dL (7-18); CALCIUM 8.5 mg/dL (8.5-10.1); CARBON DIOXIDE 30.2 mmol/L (21-32); CHLORIDE 99 mmol/L (98-107); GLUCOSE 106 mg/dL (65-99); POTASSIUM 3.7 mmol/L (3.5-5.1); SODIUM 138 mmol/L (136-145); TOTAL PROTEIN 6.2 g/dL (6.4-8.2); eGFR NON BLACK RACES 38 (>60)
[2022-11-08 17:32] VITALS: BMI 20.9
[2022-11-08] MEDS: PROTONIX INJ 40 MG VIAL IVP SCH (20:29)
[2022-11-08] MEDS ORDERED: NS 250 ML IV 250 ML IV ONE (20:30)
[2022-11-08] MEDS: PEPCID 20 MG VIAL IVP SCH (21:46)
[2022-11-08] MEDS ORDERED: VITAMIN D (1.25MG) PO SCH (23:30)
[2022-11-09 01:49] LABS: BILIRUBIN,URINE NEGATIVE (NEGATIVE); BLOOD/HEMOGLOBIN,URINE NEGATIVE (NEGATIVE); GLUCOSE, URINE NEGATIVE (NEGATIVE); KETONES,URINE NEGATIVE (NEGATIVE); LEUKOCYTE ESTERASE ,URINE 2+ (NEGATIVE); NITRITES,URINE POSITIVE (NEGATIVE); PROTEIN,URINE 1+ (NEGATIVE); UROBILINOGEN,URINE NORMAL (NORMAL)
[2022-11-09 01:55] LABS: APPEARANCE,URINE CLEAR (CLEAR); COLOR,URINE YELLOW (YELLOW); RBC,URINE NONE SEEN /HPF (0-3)
[2022-11-09 01:56] LABS: BACTERIA,URINE 2+ /HPF (NEGATIVE); SQUAMOUS EPITHELIAL CELL,UR RARE /HPF (NEGATIVE)
[2022-11-09] MEDS ORDERED: NS 250 ML IV 250 ML IV ONE ×3 (02:20→22:16)
[2022-11-09 07:50] LABS: BASOPHILS # (AUTO) 0.2 X10^3/uL (0.0-0.1); BASOPHILS % (AUTO) 3.6 % (0.2-1.0); EOSINOPHILS # (AUTO) 0.1 x10^3/uL (0.0-0.2); EOSINOPHILS % (AUTO) 1.7 % (0.9-2.9); HEMATOCRIT 21.3 % (36.0-47.0); HEMOGLOBIN 7.4 g/dL (12.0-16.0); LYMPHOCYTES # (AUTO) 0.6 X10^3/uL (1.3-2.9); LYMPHOCYTES % (AUTO) 13.3 % (21.0-51.0); MEAN CORPUSCULAR HEMOGLOBIN 31.6 pg (27.0-34.0); MEAN CORPUSCULAR HGB CONC 34.7 g/dL (33.0-35.0); MEAN CORPUSCULAR VOLUME 91.1 fL (80.0-100.0); MEAN PLATELET VOLUME 7.9 fL (7.4-11.0); MONOCYTES # (AUTO) 0.7 x10^3/uL (0.3-0.8); MONOCYTES % (AUTO) 15.1 % (0.0-13.0); NEUTROPHILS # (AUTO) 3.1 x10^3/uL (2.2-4.8); NEUTROPHILS % (AUTO) 66.3 % (42.0-75.0); PLATELET COUNT 140 X10^3/uL (150.0-450.0); RED BLOOD COUNT 2.34 X10^6/uL (3.5-5.4); RED CELL DISTRIBUTION WIDTH 16.6 % (11.6-16.5); WHITE BLOOD COUNT 4.7 X10^3/uL (3.6-10.0)
[2022-11-09 07:54] LABS: ALANINE AMINOTRANSFERASE 16 Units/L (12-78); ALBUMIN 2.8 g/dL (3.4-5.0); ALKALINE PHOSPHATASE 46 Units/L (46-116); ASPARTATE AMINO TRANSFERASE 19 Units/L (15-37); BLOOD UREA NITROGEN 27 mg/dL (7-18); CALCIUM 7.9 mg/dL (8.5-10.1); CARBON DIOXIDE 28.8 mmol/L (21-32); CHLORIDE 104 mmol/L (98-107); COR CA(FOR HYPOALB) 8.9 mg/dL (8.5-10.1); CREATININE 1.15 mg/dL (0.55-1.02); GLUCOSE 91 mg/dL (65-99); POTASSIUM 3.5 mmol/L (3.5-5.1); SODIUM 139 mmol/L (136-145); TOTAL PROTEIN 5.2 g/dL (6.4-8.2); eGFR NON BLACK RACES 48 (>60)
[2022-11-09] MEDS ORDERED: ALLEGRA ONE (08:22)
[2022-11-09] MEDS: PEPCID 20 MG VIAL IVP SCH ×2 (08:52→20:36)
[2022-11-09] MEDS: PROTONIX INJ 40 MG VIAL IVP SCH ×2 (08:52→20:36)
[2022-11-09] MEDS: COREG TAB 6.25 MG PO SCH ×2 (08:53→20:36)
[2022-11-09] MEDS: SINGULAIR TAB 10 MG PO SCH (08:53)
[2022-11-09] MEDS: ALLEGRA PO SCH (08:53)
[2022-11-09] MEDS: HEMOCYTE-PLUS PO SCH (08:53)
[2022-11-09] MEDS: ZINC SULFATE PO SCH (08:53)
[2022-11-09] MEDS ORDERED: PATIENT'S HOME MEDICATION (Zinc 50 mg Tablet) PO SCH (09:00)
[2022-11-09] MEDS: TOPROL XL PO SCH (09:03)
[2022-11-09] MEDS: LANOXIN or DIGITEK PO SCH (09:57)
[2022-11-09] MEDS ORDERED: K-DUR TAB 20 MEQ PO PRN (17:27)
[2022-11-09] MEDS ORDERED: ZyrTEC TAB 10 MG PO SCH (21:00)
[2022-11-09] MEDS ORDERED: CRESTOR TAB 10 MG PO SCH (21:00)
[2022-11-09] MEDS ORDERED: ANTIVERT TAB 25 MG PO SCH (21:00)
[2022-11-09] MEDS ORDERED: NS 100 ML IV 0 ML ONE (22:15)
--- NOTE | 2022-11-10 00:53 | DR.H&P ---
H&P - History & Physical for Day of: H&P Date: 11/08/22 - Chief Complaint Chief Complaint: FATIGUE, SOB, GENERALIZED WEAKNESS - History of Present Illness History of Present Illness: IS A 87 YEAR OLD PATIENT OF OURS. SHE PRESENTED TO THE OFFICE WITH COMPLAINTS OF GENERALIZED WEAKNESS, FATIGUE, AND SHORTNESS OF BREATH. SYMPTOMS HAVE BEEN ONGOING FOR OVER A MONTH, BUT HAVE GOTTEN WORSE FOR THE PAST WEEK. HER PMH INCLUDES: CAD, HTN, CHF, DYSLIPIDEMIA, GERD, ARTHRITIS, A-FIB, MURMUR, SMALL BOWEL AVMs, GERD, ANXIETY, BILATERAL CATARACT SURGERY. SHE HAD OUTPATIENT LABS ON 10/31/22 WHICH REVEALED A HEMOGLOBIN OF 8.5 AND HCT OF 25.0. DECISION WAS MADE TO ADMIT PATIENT TO THE HOSPITAL FOR FURTHER EVALUATION AND TREATMENT OF SYMPTOMATIC ANEMIA. ON ARRIVAL TO THE HOSPITAL, HER VITALS WERE: 99.0-82-18-99%-117/56. LABS WERE OBTAINED. WBC 4.8, RBC 1.82, HGB 5.9, HCT 17.6, PLT COUNT 186, SODIUM 138, POTASSIUM 3.7, CHLORIDE 99, BUN 32, CREATININE 1.40, GFR 38, GLUCOSE 106, CALCIUM 8.5, AST 21, ALT 19, ALK PHOS 58, TOTAL PROTEIN 6.2, ALBUMIN 3.4, DIGOXIN 0.74. CARDIAC ENZYMES WERE WITHIN NORMAL LIMITS. A URINALYSIS WAS OBTAINED AND REVEALED: WBC 30-50, RBC NONE SEEN, LEUKOCYTES 2+, BACTERIA 2+, NITRITE POSITIVE. A URINE CULTURE WAS SET UP. SHE WAS STARTED ON PROTONIX 40MG IV BID, PEPCID 20MG IV BID, AND HER HOME MEDICATIONS WERE RESUMED. HOME MEDS INCLUDE: COREG, ZYRTEC, DIGOXIN, VITAMIN D, RICH, ANTIVERT, TOPROL XL, SINGULAIR, HEMOCYTE PLUS, POTASSIUM CHLORIDE, CRESTOR, AND ZINC. WE TYPE & SCREENED, CROSSMATCHED, AND TRANSFUSED 2 UNITS OF PACKED RED BLOOD CELLS THROUGHOUT THE NIGHT. REPEAT HEMOGLOBIN AFTER BLOOD WAS TRANSFUSED WAS 7.4. WE WILL TRANSFUSE TWO ADDITIONAL UNITS TODAY. OTHERWISE, WE PLAN TO FOLLOW UP WITH AM LABS AND CONTINUE TO MONITOR. TIME SPENT ON CLINICAL ASSESSMENT, REVIEWING LABS AND IMAGING, DECISION MAKING, AND DOCUMENTATION GREATER THAN 75 MINUTES. - Past Medical History Past Medical History: Coronary Artery Disease, Hypertension, Dyslipidemia, Anem ia, GERD, Arthritis, CHF Additional Medical History: Cataracts, Diverticulosis, Previous Blood Transfusion. Atrial fibrillation - Past Surgical History Surgical History: Angioplasty/Stents, CABG/Valve Surgery Additional Surgical History: CATARACTS SURGERY , Hx of coronary stents . - Family History Family Medical History: Diabetes Mellitus, Hypertension - Social History Does patient currently use any type of tobacco product: No Have you used tobacco products in the last 12 months: No Type of Tobacco Use: None Alcohol Use: None Drug Use: None - Medications Home Medications: codeine Allergy (Verified 10/05/17 08:34) tramadol Allergy (Verified 12/29/21 00:16) lorazepam [From Ativan] Adverse Reaction (Verified 01/14/20 23:53) CONTINUE taking the following medications digoxin 125 mcg (0.125 mg) tablet 1 tab PO QDAY 11/08/22 [History] metoprolol succinate 25 mg tablet,extended release 24 hr 12.5 mg PO QDAY 11/08/22 [History] - Review of Systems Constitutional: Weakness Eyes: No Symptoms Reported ENT: No Symptoms Reported Respiratory: Shortness of Breath Cardiovascular: No Symptoms Reported Gastrointestinal: No Symptoms Reported Genitourinary: No Symptoms Reported Musculoskeletal: No Symptoms Reported Skin: No Symptoms Reported Neurological: Weakness - Physical Exam Vital Signs: Temperature 98.9 F Pulse Rate [Right Brachial] 65 Respiratory Rate 18 Blood Pressure [Right Arm] 108/52 O2 Sat by Pulse Oximetry 93 Oriented: Normal Eyes: Normal Ear: Normal Nose: Normal Throat: Normal Respiratory: Diminished Throughout Cardiovascular: Normal : Normal Auscultation: Bowel Sounds: Normal Palpation: Normal Tenderness: Normal Skin: Normal Musculoskeletal: Normal Psychiatric: Normal Mood Description: Calm Affect: Normal Speech Pattern: Clear - Assessment/Plan (1) Symptomatic anemia Status: Acute Plan: ADMIT, TRANSFUSE PRBC, ROCEPHIN 1G IV DAILY, PEPCID 20MG IV BID, PROTONIX 40MG IV BID, RESUME HOME MEDS (2) Urinary tract infection Qualifiers: Urinary tract infection type: acute cystitis Hematuria presence: without hematuria Qualified Code(s): N30.00 - Acute cystitis without hematuria Status: Acute (3) Generalized weakness Status: Acute (4) HTN (hypertension) Qualifiers: Hypertension type: primary hypertension Qualified Code(s): I10 - Essential (primary) hypertension Status: Chronic (5) Atrial fibrillation Qualifiers: Atrial fibrillation type: unspecified Qualified Code(s): I48.91 - Unspecified atrial fibrillation Status: Chronic (6) CHF (congestive heart failure) Qualifiers: Heart failure type: combined systolic and diastolic Heart failure ch ronicity: acute on chronic Qualified Code(s): I50.43 - Acute on chronic combined systolic (congestive) and diastolic (congestive) heart failure Status: Chronic (7) CAD (coronary artery disease) Qualifiers: Coronary Disease-Associated Artery/Lesion type: [place] artery [place] vs. transplanted heart: [place] heart Associated angina: without angina Qualified Code(s): I25.10 - Atherosclerotic heart disease of [place] coronary artery without angina pectoris Status: Chronic (8) GERD (gastroesophageal reflux disease) Qualifiers: Esophagitis presence: without esophagitis Qualified Code(s): K21.9 - Gastro-esophageal reflux disease without esophagitis Status: Chronic - Allergies Allergies/Adverse Reactions: Allergies Allergy/AdvReac Type Severity Reaction Status Date / Time codeine Allergy Verified 10/05/17 08:34 tramadol Allergy Verified 12/29/21 00:16 lorazepam [From Ativan] AdvReac Verified 01/14/20 23:53
[2022-11-10] MEDS ORDERED: TYLENOL 325 MG TAB PO PRN (01:10)
[2022-11-10 03:30] LABS: BASOPHILS % (AUTO) 0.6 % (0.2-1.0); EOSINOPHILS # (AUTO) 0.1 x10^3/uL (0.0-0.2); EOSINOPHILS % (AUTO) 2.3 % (0.9-2.9); HEMATOCRIT 29.1 % (36.0-47.0); LYMPHOCYTES % (AUTO) 18.5 % (21.0-51.0); MEAN CORPUSCULAR HEMOGLOBIN 31.4 pg (27.0-34.0); MEAN CORPUSCULAR HGB CONC 34.9 g/dL (33.0-35.0); MEAN PLATELET VOLUME 7.9 fL (7.4-11.0); MONOCYTES # (AUTO) 0.8 x10^3/uL (0.3-0.8); MONOCYTES % (AUTO) 14.7 % (0.0-13.0); NEUTROPHILS # (AUTO) 3.3 x10^3/uL (2.2-4.8); NEUTROPHILS % (AUTO) 63.9 % (42.0-75.0); PLATELET COUNT 130 X10^3/uL (150.0-450.0); RED BLOOD COUNT 3.24 X10^6/uL (3.5-5.4); RED CELL DISTRIBUTION WIDTH 15.5 % (11.6-16.5); WHITE BLOOD COUNT 5.2 X10^3/uL (3.6-10.0)
[2022-11-10 03:37] LABS: HEMOGLOBIN 10.2 g/dL (12.0-16.0)
[2022-11-10 03:40] LABS: ALANINE AMINOTRANSFERASE 14 Units/L (12-78); ALBUMIN 2.8 g/dL (3.4-5.0); ALKALINE PHOSPHATASE 51 Units/L (46-116); ASPARTATE AMINO TRANSFERASE 21 Units/L (15-37); BLOOD UREA NITROGEN 18 mg/dL (7-18); CARBON DIOXIDE 27.9 mmol/L (21-32); CHLORIDE 104 mmol/L (98-107); CREATININE 0.99 mg/dL (0.55-1.02); GLUCOSE 90 mg/dL (65-99); POTASSIUM 3.9 mmol/L (3.5-5.1); SODIUM 138 mmol/L (136-145); TOTAL PROTEIN 5.3 g/dL (6.4-8.2); eGFR NON BLACK RACES 57 (>60)
[2022-11-10] MEDS ORDERED: ALLEGRA ONE (08:11)
[2022-11-10] MEDS ORDERED: ROCEPHIN VIAL 1 GRAM ONE (08:53)
[2022-11-10] MEDS ORDERED: NS 100 ML IV 100 ML ONE (08:53)
[2022-11-10] MEDS: PROTONIX INJ 40 MG VIAL IVP SCH (08:58)
[2022-11-10] MEDS: ZINC SULFATE PO SCH (08:58)
[2022-11-10] MEDS: SINGULAIR TAB 10 MG PO SCH (09:00)
[2022-11-10] MEDS: ALLEGRA PO SCH (09:00)
[2022-11-10] MEDS: HEMOCYTE-PLUS PO SCH (09:00)
[2022-11-10] MEDS: PEPCID 20 MG VIAL IVP SCH (09:00)
[2022-11-10] MEDS: COREG TAB 6.25 MG PO SCH ×2 (09:00→09:29)
[2022-11-10] MEDS ORDERED: ROCEPHIN VIAL 1 GRAM 1 G in NS 100 ML IV + SPIKE MINIBAG* 100 ML IV SCH (09:00)
[2022-11-10] MEDS: LANOXIN or DIGITEK PO SCH (09:01)
[2022-11-10] MEDS: TOPROL XL PO SCH (09:01)
[2022-11-10] MEDS ORDERED: ROCEPHIN VIAL 1 GRAM 1 G in NS 100 ML IV 100 ML IV SCH (09:15)
[2022-11-10 09:16] VITALS: BP 120/56
--- NOTE | 2022-11-10 10:58 | W.DIS.FURT ---
Summary of Discharge Discharge Summary of Date Date of Exam: 11/10/22 Admission Date Date of Admission: 11/08/22 Admission Diagnosis Patient Problems (Updated 11/10/22 @ 10:47 by Hebert Mcdowell) Atrial fibrillation (Chronic) I48.91 Generalized weakness (Acute) R53.1 HTN (hypertension) (Chronic) I10 Symptomatic anemia (Acute) D64.9 CHF (congestive heart failure) (Chronic) I50.9 CAD (coronary artery disease) (Chronic) I25.10 Urinary tract infection (Acute) N39.0 GERD (gastroesophageal reflux disease) (Chronic) K21.9 Hospital Course: PT IS A 87 YEAR OLD PATIENT PMH INCLUDES: CAD, HTN, CHF, DYSLIPIDEMIA, GERD, ARTHRITIS, A-FIB, MURMUR, SMALL BOWEL AVMs, GERD, ANXIETY, BILATERAL CATARACT SURGERY. SHE WAS ADMITTED FOR SYMPTOMATIC ANEMIA AND ACUTE CYSTITIS. LABS WERE OBTAINED. WBC 5.2, HGB 10.2, PLT 130, NA 138, K 3.9, CREATININE 0.99, GLUCOSE 90. HOSPITAL/TREATMENT COURSE INCLUDED: PROTONIX 40MG IV BID, PEPCID 20MG IV BID, AND HER HOME MEDICATIONS WERE RESUMED. HOME MEDS INCLUDE: COREG, ZYRTEC, DIGOXIN, VITAMIN D, RICH, ANTIVERT, TOPROL XL, SINGULAIR, HEMOCYTE PLUS, POTASSIUM CHLORIDE, CRESTOR, AND ZINC. PT WAS TRANSFUSED 4 UNITS OF PACKED RED BLOOD CELLS, HGB STABILIZED. PT RESPONDED WELL TO TREATMENTS. URINE CULTURE POSITIVE FOR GRAM NEGATIVE RODS. RX KEFLEX. PT DISCHARGED IN STABLE CONDITION. INSTRUCTED TO FOLLOW UP WITH PCP IN 1 WEEK. Vital Signs: Vital Signs (72 hours) 11/08/22 17:15 11/08/22 18:15 11/08/22 20:00 Temperature 99.0 F 97.3 F L Pulse Rate Pulse Rate [Right Brachial] 82 72 Respiratory Rate 18 18 Blood Pressure [Right Arm] 117/56 117/56 O2 Sat by Pulse Oximetry 99 94 L Oxygen Delivery Method Room Air Room Air Room Air 11/08/22 19:00 11/09/22 00:00 11/09/22 04:00 Temperature 99 F 99.2 F Pulse Rate Pulse Rate [Right Brachial] 63 74 Respiratory Rate 16 14 Blood Pressure [Right Arm] 107/52 117/56 O2 Sat by Pulse Oximetry 95 95 Oxygen Delivery Method Room Air Room Air Room Air 11/09/22 06:40 11/09/22 07:00 11/09/22 08:00 Temperature 99 F 99.3 F Pulse Rate Pulse Rate [Right Brachial] 68 88 Respiratory Rate 12 18 Blood Pressure [Right Arm] 131/60 129/60 O2 Sat by Pulse Oximetry 95 93 L Oxygen Delivery Method Room Air Room Air Room Air 11/09/22 12:00 11/09/22 16:00 11/09/22 19:00 Temperature 99.5 F 98.5 F Pulse Rate Pulse Rate [Right Brachial] 65 65 Respiratory Rate 18 18 Blood Pressure [Right Arm] 122/57 129/60 O2 Sat by Pulse Oximetry 94 L 96 Oxygen Delivery Method Room Air Room Air Room Air 11/09/22 20:00 11/10/22 01:31 11/10/22 00:00 Temperature 98.9 F 98.5 F Pulse Rate Pulse Rate [Right Brachial] 65 65 Respiratory Rate 18 18 19 Blood Pressure [Right Arm] 108/52 145/63 O2 Sat by Pulse Oximetry 93 L 96 Oxygen Delivery Method Room Air 11/10/22 02:31 11/10/22 04:00 11/10/22 09:01 Temperature 98.6 F Pulse Rate 60 Pulse Rate [Right Brachial] 64 Respiratory Rate 18 19 Blood Pressure [Right Arm] 121/59 O2 Sat by Pulse Oximetry 95 Oxygen Delivery Method Room Air 11/10/22 08:00 11/10/22 07:00 Temperature 97.9 F Pulse Rate Pulse Rate [Right Brachial] 54 L Respiratory Rate 18 Blood Pressure [Right Arm] 120/56 O2 Sat by Pulse Oximetry 96 Oxygen Delivery Method Room Air Room Air Labs: Laboratory Last Values WBC 5.2 X10^3/uL (3.6-10.0) 11/10/22 02:48 RBC 3.24 X10^6/uL (3.5-5.4) L 11/10/22 02:48 Hgb 10.2 g/dL (12.0-16.0) L D 11/10/22 02:48 Hct 29.1 % (36.0-47.0) L 11/10/22 02:48 MCV 90.0 fL (80.0-100.0) 11/10/22 02:48 MCH 31.4 pg (27.0-34.0) 11/10/22 02:48 MCHC 34.9 g/dL (33.0-35.0) 11/10/22 02:48 RDW 15.5 % (11.6-16.5) 11/10/22 02:48 Plt Count 130 X10^3/uL (150.0-450.0) L 11/10/22 02:48 MPV 7.9 fL (7.4-11.0) 11/10/22 02:48 Neut % (Auto) 63.9 % (42.0-75.0) 11/10/22 02:48 Lymph % (Auto) 18.5 % (21.0-51.0) L 11/10/22 02:48 [place] % (Auto) 14.7 % (0.0-13.0) H 11/10/22 02:48 Eos % (Auto) 2.3 % (0.9-2.9) 11/10/22 02:48 Baso % (Auto) 0.6 % (0.2-1.0) 11/10/22 02:48 Neut # (Auto) 3.3 x10^3/uL (2.2-4.8) 11/10/22 02:48 Lymph # (Auto) 1.0 X10^3/uL (1.3-2.9) L 11/10/22 02:48 [place] # (Auto) 0.8 x10^3/uL (0.3-0.8) 11/10/22 02:48 Eos # (Auto) 0.1 x10^3/uL (0.0-0.2) 11/10/22 02:48 Baso # (Auto) 0.0 X10^3/uL (0.0-0.1) 11/10/22 02:48 Absolute Nucleated RBC 0.1 /100WBC 11/10/22 02:48 Sodium 138 mmol/L (136-145) 11/10/22 02:48 Corrected Sodium TNP 11/10/22 02:48 Potassium 3.9 mmol/L (3.5-5.1) 11/10/22 02:48 Chloride 104 mmol/L (98-107) 11/10/22 02:48 Carbon Dioxide 27.9 mmol/L (21-32) 11/10/22 02:48 BUN 18 mg/dL (7-18) 11/10/22 02:48 Creatinine 0.99 mg/dL (0.55-1.02) 11/10/22 02:48 Est GFR (MDRD) Af Amer > 60 (>60) 11/10/22 02:48 Est GFR (MDRD) Non-Af 57 (>60) L 11/10/22 02:48 Glucose 90 mg/dL (65-99) 11/10/22 02:48 Calcium 8.0 mg/dL (8.5-10.1) L 11/10/22 02:48 Corrected Calcium 9.0 mg/dL (8.5-10.1) 11/10/22 02:48 Total Bilirubin 0.90 mg/dL (0.2-1.0) 11/10/22 02:48 AST 21 Units/L (15-37) 11/10/22 02:48 ALT 14 Units/L (12-78) 11/10/22 02:48 Alkaline Phosphatase 51 Units/L (46-116) 11/10/22 02:48 Total Protein 5.3 g/dL (6.4-8.2) L 11/10/22 02:48 Albumin 2.8 g/dL (3.4-5.0) L 11/10/22 02:48 Globulin 2.5 g/dL (2.5-4.5) 11/10/22 02:48 Albumin/Globulin Ratio 1.1 Ratio (1.1-2.1) 11/10/22 02:48 Specimen Type Clean catch urine 11/09/22 01:13 Urine Color Yellow (YELLOW) 11/09/22 01:13 Urine Appearance Clear (CLEAR) 11/09/22 01:13 Urine pH 6.0 (5.0 - 8.0) 11/09/22 01:13 Ur Specific [place] 1.015 (1.000-1.030) 11/09/22 01:13 Urine Protein 1+ (NEGATIVE) 11/09/22 01:13 Urine Glucose (UA) Negative (NEGATIVE) 11/09/22 01:13 Urine Ketones Negative (NEGATIVE) 11/09/22 01:13 Urine Blood Negative (NEGATIVE) 11/09/22 01:13 Urine Nitrite Positive (NEGATIVE) 11/09/22 01:13 Urine Bilirubin Negative (NEGATIVE) 11/09/22 01:13 Urine Urobilinogen Normal (NORMAL) 11/09/22 01:13 Ur Leukocyte Esterase 2+ (NEGATIVE) 11/09/22 01:13 Urine RBC None seen /HPF (0-3) 11/09/22 01:13 Urine WBC 30-50 /HPF (0-5) A 11/09/22 01:13 Ur Squamous Epith Cells Rare /HPF (NEGATIVE) 11/09/22 01:13 Urine Bacteria 2+ /HPF (NEGATIVE) 11/09/22 01:13 Ur Culture Indicated? Yes/culture set up 11/09/22 01:13 Digoxin 0.74 ng/mL (0.9-2) L 11/09/22 07:29 Blood Type O POSITIVE 11/08/22 16:45 Antibody Screen Negative 11/08/22 16:45 Crossmatch See Detail 11/08/22 16:45 Reason For Visit: FATIGUE, SOB Discharge Date Discharge Date: 11/10/22 Discharge Diagnosis All Active Problems (Updated 11/10/22 @ 10:47 by Hebert Mcdowell) Acute cystitis (Acute) Hiatal hernia with GERD (Acute) Acute hyperkalemia (Acute) Acute renal failure (Acute) Abscess of buttock, right (Acute) Hyperkalemia (Acute) Systolic heart failure (Acute) Atrial fibrillation (Chronic) Severe dehydration (Acute) Hyponatremia (Acute) Renal insufficiency (Acute) Acute hyponatremia (Acute) Acute hyperkalemia (Acute) Acute renal failure (Acute) Acute dehydration (Acute) Generalized weakness (Acute) Aortic stenosis (Acute) HTN (hypertension) (Chronic) GI bleed (Acute) Hypomagnesemia (Acute) COVID-19 (Acute) Chest pain, rule out acute myocardial infarction (Acute) Anemia (Acute) Non-ST elevated myocardial infarction (Acute) Chest pain, rule out acute myocardial infarction (Acute) Acute chest pain (Acute) Symptomatic anemia (Acute) Weakness (Acute) COVID-19 long hauler (Acute) Chest pain (Acute) Pneumonia (Acute) Acute respiratory insufficiency (Acute) Hypokalemia (Acute) CHF (congestive heart failure) (Chronic) CAD (coronary artery disease) (Chronic) Chest pain (Acute) CHF exacerbation (Acute) Urinary tract infection (Acute) Hypoxia (Acute) Hypertension, uncontrolled (Chronic) Hyperlipidemia (Chronic) Hiatal hernia (Chronic) CHF (congestive heart failure) (Chronic) GERD (gastroesophageal reflux disease) (Chronic) Plan of Treatment: Continue with present treatment and follow up plan. Pt is to keep follow up appointment as instructed and take medications as ordered. Discharge Medications Discharge Medications: codeine Allergy (Verified 10/05/17 08:34) tramadol Allergy (Verified 12/29/21 00:16) lorazepam [From Ativan] Adverse Reaction (Verified 01/14/20 23:53) CONTINUE taking the following medications digoxin 125 mcg (0.125 mg) tablet 1 tab PO QDAY 11/08/22 [History] metoprolol succinate 25 mg tablet,extended release 24 hr 12.5 mg PO QDAY 11/08/22 [History] New Prescriptions cephalexin 500 mg capsule 500 mg PO BID 7 days #14 caps 11/10/22 [Rx] Discharge Plan Discharge Plan Hospital Course: PT IS A 87 YEAR OLD PATIENT PMH INCLUDES: CAD, HTN, CHF, DYSLIPIDEMIA, GERD, ARTHRITIS, A-FIB, MURMUR, SMALL BOWEL AVMs, GERD, ANXIETY, BILATERAL CATARACT SURGERY. SHE WAS ADMITTED FOR SYMPTOMATIC ANEMIA AND ACUTE CYSTITIS. LABS WERE OBTAINED. WBC 5.2, HGB 10.2, PLT 130, NA 138, K 3.9, CREATININE 0.99, GLUCOSE 90. HOSPITAL/TREATMENT COURSE INCLUDED: PROTONIX 40MG IV BID, PEPCID 20MG IV BID, AND HER HOME MEDICATIONS WERE RESUMED. HOME MEDS INCLUDE: COREG, ZYRTEC, DIGOXIN, VITAMIN D, RICH, ANTIVERT, TOPROL XL, SINGULAIR, HEMOCYTE PLUS, POTASSIUM CHLORIDE, CRESTOR, AND ZINC. PT WAS TRANSFUSED 4 UNITS OF PACKED RED BLOOD CELLS, HGB STABILIZED. PT RESPONDED WELL TO TREATMENTS. URINE CULTURE POSITIVE FOR GRAM NEGATIVE RODS. RX KEFLEX. PT DISCHARGED IN STABLE CONDITION. INSTRUCTED TO FOLLOW UP WITH PCP IN 1 WEEK. Patient Disposition: HOME, SELF-CARE Condition: Stable Health Concerns: Post Hospitalization: new medications and changes needed to prevent readmission or further decline. Pt educated and given instructions on all concerns. Plan of Treatment: Continue with present treatment and follow up plan. Pt is to keep follow up appointment as instructed and take medications as ordered. Prescriptions: New cephalexin 500 mg capsule 500 mg PO BID 7 Days Qty: 14 0RF Continued furosemide 40 mg tablet 40 mg PO DAILY PRN carvedilol 6.25 mg tablet 6.25 mg PO BID famotidine 40 mg tablet 40 mg PO BID fexofenadine 180 mg tablet 180 mg PO DAILY meclizine 25 mg tablet 25 mg PO QHS pantoprazole 40 mg tablet,delayed release (DR/EC) 40 mg PO DAILY cyanocobalamin (vitamin B-12) 1,000 mcg/mL solution 1 ml IM WEEKLY Rx Instructions: Every Saturday. Already got this week. 11/06/2022 montelukast 10 mg tablet 10 mg PO DAILY ergocalciferol (vitamin D2) 1,250 mcg (50,000 unit) capsule 1,250 mcg PO 2XW Rx Instructions: 2 times a week. rosuvastatin 20 mg tablet 20 mg PO HS Eliquis 2.5 mg tablet 2.5 mg PO BID cetirizine [Zyrtec] 10 mg tablet 10 mg PO QHS clopidogrel [Plavix] 75 mg tablet 75 mg PO DAILY Hemocyte-Plus 106 mg iron- 1 mg capsule 1 cap PO DAILY zinc 50 mg Tablet 50 mg PO DAILY digoxin 125 mcg (0.125 mg) tablet 1 tab PO QDAY metoprolol succinate 25 mg tablet extended release 24 hr 12.5 mg PO QDAY Rx Instructions: give 1/2 a tab. Orders to Discharge Patient Discharge Orders: Discharge (Routine); Ordered 11/10/22 Ordered By: Hebert Mcdowell Follow ups/Referrals Follow ups/Referrals: Jim Marsh [Primary Care Provider] - 1 WEEK Instructions Stand Alone Forms: Excuse From Work or School
== END 2022-11-10 11:30 | disposition home or self-care (01) ==
LOC: MED/SURG
PROVIDERS: ADMIT Internal Medicine; ATTEND Internal Medicine
DX: K21.9 Gastro-esophageal reflux disease without esophagitis; I25.10 Atherosclerotic heart disease of native coronary artery without angina pectoris; I11.0 Hypertensive heart disease with heart failure; R06.02 Shortness of breath; D64.89 Other specified anemias; I50.43 Acute on chronic combined systolic (congestive) and diastolic (congestive) heart failure; N30.00 Acute cystitis without hematuria; E78.2 Mixed hyperlipidemia; B96.29 Other Escherichia coli [E. coli] as the cause of diseases classified elsewhere; R53.1 Weakness; Z79.899 Other long term (current) drug therapy; I48.91 Unspecified atrial fibrillation